=== PATIENT | female | born 1980 | race Caucasian/White ===

== ENCOUNTER 2017-03-28 18:19 | Inpatient (IN) | payer OTHER ==
[~2017-03-28] VITALS: Ht 175.3 cm; Wt 83.2 kg
[~2017-03-28 18:19] MED LIST: ADDE30TA PO; ALBUAER3 INH; ALPR1 PO; CELE50CA PO; HYDR-3533 PO; IMIT25TA PO; ORTHTAB2 PO; OXYC30TA PO; OXYC5 PO; XANA1TAB2 PO
[2017-03-28 18:20] VITALS: BP 157/74; PULSE 106; RESP 20; TEMP 97.9; O2SAT 99
--- NOTE | 2017-03-28 19:09 | PD ---
HPI Chief Complaint: Skin Problem Time Seen by Provider: 19:08 Travel History International Travel<30 days: No Contact w/Intl Traveler<30days: No Traveled to known affect area: No History of Present Illness HPI 36-year-old female came to the emergency room with history of left ankle and leg swelling. Patient had an infection in that area that was noticed today days ago. She was at [facility] where she was given Bactrim and Keflex to go home on. Patient says this was given for 7 days. She finished the course but it seems like the infection is getting worse. Patient has fever and chills she says. Patient denies doing any IV drug abuse. Heart rate was in 1 teens. Patient was afebrile in the emergency room. Patient is on OxyContin at home for chronic pain management. [facility] Past Medical History Narrative Medical List of her past medical, surgical, social and family history is reviewed from the nursing note. Cancer: Yes (CERVICAL CA) Cardiovascular Problems: No Endocrine: No Gastrointestinal Disorders: Yes GERD: Yes Genitourinary: No Immune Disorder: No Musculoskeletal: No Neurologic: Yes Psychiatric: Yes (ADD) Reproductive: Yes (CERVICAL CA) Respiratory: No Migraines: Yes ?: Unknown LMP: 03/14/2017 Past Surgical History Gynecologic Surgery: Yes (CERVIX PARTIALLY REMOVED) Other Surgery: Yes Social History Alcohol Use: No Tobacco Use: Yes (1ppd) Substance Use: Yes (PAIN PILL ABUSE) Allergies-Medications (Allergen,Severity, Reaction): Coded Allergies: ketorolac (Unverified Allergy, Severe, Anaphylaxis, 12/06/16) THROAT WAS SWELLING CLOSED morphine (Unverified Allergy, Mild, 04/04/17) Comments List of her allergies reviewed on the nursing note. Reported Meds & Prescriptions Reported Meds & Active Scripts Active Reported Ortho Tri-Cyclen (Norgestimate-Ethinyl Estradiol) Cyclen Tab 1 Tab PO DAILY Xanax 1 Mg Tab (Alprazolam) 1 Mg Tab 2 Mg PO BID Oxycodone (Oxycodone HCl) 5 Mg Tab 30 Mg PO Q6HPRN Adderall (Amphetamine/Dextroamphetamine) 30 Mg Tab 30 Mg PO DAILY ADDERALL XR 30MG 1 TAB DAILY Xanax (Alprazolam) 1 Mg Tab 1 Mg PO Q12HR PRN Proair Hfa 8.5 GM Inh (Albuterol Sulfate) 90 Mcg/Act Aer 2 Puff INH Q4-6H PRN 108 mcg/actuation Imitrex (Sumatriptan Succinate) 25 Mg Tab 25 Mg PO ONCE PRN If a satisfactory response has not been obtained at 2 hours, a second dose may be administered Celebrex (Celecoxib) 50 Mg Cap 50 Mg PO BID Oxycodone (Oxycodone HCl) 30 Mg Tab 30 Mg PO Q6H PRN Narrative Medication List of her home medications reviewed from the nursing note. Review of Systems Except as stated in HPI: all other systems reviewed are Neg Skin: Positive Lumps Physical Exam Narrative GENERAL: Awake, alert, moderate distress SKIN: Focused skin assessment warm/dry. Pale. Left leg lateral malleolus fluctuant 4 x 4 centimeter swelling and surrounding induration that goes up to 15 cm HEAD: Atraumatic. Normocephalic. EYES: Pupils equal and round. No scleral icterus. No injection or drainage. ENT: No nasal bleeding or discharge. Mucous membranes pink and moist. NECK: Trachea midline. No JVD. CARDIOVASCULAR: Regular rate and rhythm. No murmur appreciated. RESPIRATORY: No accessory muscle use. Clear to auscultation. Breath sounds equal bilaterally. GASTROINTESTINAL: Abdomen soft, non-tender, nondistended. Hepatic and splenic margins not palpable. MUSCULOSKELETAL: No obvious deformities. No clubbing. No cyanosis. No edema. Absent left upper extremity. NEUROLOGICAL: Awake and alert. No obvious cranial nerve deficits. Motor grossly within normal limits. Normal speech. PSYCHIATRIC: Appropriate mood and affect; insight and judgment normal. Data Data Last Documented VS Orders Orders Complete Blood Count With Diff (03/28/17 18:26) Basic Metabolic Panel (Bmp) (03/28/17 18:26) Ankle, Limited (Ap&Lat) (03/28/17 ) Blood Culture (03/28/17 19:12) Lactic Acid (03/28/17 19:12) Ct Tib/Fib W Iv Contrast (03/28/17 ) Piperacil-Tazo 4.5 Gm Premix (Zosyn 4.5 (03/28/17 19:15) Vancomycin Inj (Vancomycin Inj) (03/28/17 19:15) Sodium Chlor 0.9% 1000 Ml Inj (Ns 1000 M (03/28/17 19:30) Sodium Chlor 0.9% 1000 Ml Inj (Ns 1000 M (03/28/17 19:30) Drug Screen, Random Urine (03/28/17 19:22) Potassium Chloride (Kcl) (03/28/17 20:30) Iohexol 350 Inj (Omnipaque 350 Inj) (03/28/17 20:56) Ibuprofen (Motrin) (03/28/17 21:15) Admit Order (Ed Use Only) (03/28/17 22:17) Labs Laboratory Tests Test 03/28/17 19:34 03/28/17 19:35 03/28/17 20:30 Lactic Acid Level 1.2 mmol/L White Blood Count 10.4 TH/MM3 Red Blood Count 5.17 MIL/MM3 Hemoglobin 12.9 GM/DL Hematocrit 39.0 % Mean Corpuscular Volume 75.4 FL Mean Corpuscular Hemoglobin 25.0 PG Mean Corpuscular Hemoglobin Concent 33.1 % Red Cell Distribution Width 17.7 % Platelet Count 437 TH/MM3 Mean Platelet Volume 7.3 FL Neutrophils (%) (Auto) 71.6 % Lymphocytes (%) (Auto) 19.8 % Monocytes (%) (Auto) 7.3 % Eosinophils (%) (Auto) 1.0 % Basophils (%) (Auto) 0.3 % Neutrophils # (Auto) 7.4 TH/MM3 Lymphocytes # (Auto) 2.1 TH/MM3 Monocytes # (Auto) 0.8 TH/MM3 Eosinophils # (Auto) 0.1 TH/MM3 Basophils # (Auto) 0.0 TH/MM3 CBC Comment DIFF FINAL Differential Comment Blood Urea Nitrogen 11 MG/DL Creatinine 0.65 MG/DL Random Glucose 105 MG/DL Calcium Level 9.2 MG/DL Sodium Level 134 MEQ/L Potassium Level 3.4 MEQ/L Chloride Level 98 MEQ/L Carbon Dioxide Level 25.9 MEQ/L Anion Gap 10 MEQ/L Estimat Glomerular Filtration Rate 104 ML/MIN Urine Opiates Screen POS Urine Barbiturates Screen NEG Urine Amphetamines Screen NEG Urine Benzodiazepines Screen NEG Urine Cocaine Screen NEG Urine Cannabinoids Screen NEG MDM Medical Decision Making Medical Screen Exam Complete: Yes Emergency Medical Condition: Yes Medical Record Reviewed: Yes Differential Diagnosis Ankle abscess, sepsis, osteomyelitis Narrative Course 7:21 PM awaiting for the blood test and CAT scan to be done and resulted. Patient will be getting IV Zosyn and vancomycin. I will also give her IV fluid bolus 2 L. She will require admission for outpatient treatment failure. 10:[address] scan is suggestive off an extensive abscess in her left lower extremity that extends all the way into the gastrocnemius muscle. I discussed the case with Dr. Donohue who is on-call for orthopedics. She will look at the CT scan. Meanwhile patient needs to be admitted. In my opinion this patient needs to go to the OR to have this abscess opened and drained. Procedures EKG Prior to Arrival: No Physician Communication Physician Communication Dr. Donohue Diagnosis Primary Impression: Leg abscess Additional Impression: Failure of outpatient treatment Admitting Information Admitting Physician Requests: Admit Latonia Loyd MD Mar 28, 2017 19:09
[2017-03-28] MEDS ORDERED: PIPERACIL-TAZO 4.5 GM PREMIX 100 ML IV ONE (19:15)
[2017-03-28] MEDS ORDERED: VANCOMYCIN INJ 1,000 MG in SODIUM CHLOR 0.9% 250 ML INJ 250 ML IV SCH (19:15)
[2017-03-28] MEDS ORDERED: SODIUM CHLOR 0.9% 1000 ML INJ 1,000 ML IV ONE ×2 (19:30)
[2017-03-28 19:59] LABS: AUTOMATED NEUTROPHIL # 7.4 TH/MM3 (1.8-7.7); BASOPHIL % 0.3 % (0.0-2.0); EOSINOPHIL # 0.1 TH/MM3 (0-0.4); HEMOGLOBIN 12.9 GM/DL (11.6-15.3); LYMPH % 19.8 % (9.0-44.0); LYMPHOCYTE # 2.1 TH/MM3 (1.0-4.8); MEAN CELL VOLUME 75.4 FL (80.0-100.0); MEAN CORPUSCULAR HGB CONC 33.1 % (32.0-36.0); MEAN PLATELET VOLUME 7.3 FL (7.0-11.0); MONO % 7.3 % (0.0-8.0); MONOCYTE # 0.8 TH/MM3 (0-0.9); NEUT % 71.6 % (16.0-70.0); PLATELET COUNT 437 TH/MM3 (150-450); RED BLOOD COUNT 5.17 MIL/MM3 (4.00-5.30); RED CELL DISTRIBUTION WIDTH 17.7 % (11.6-17.2); WHITE BLOOD COUNT 10.4 TH/MM3 (4.0-11.0)
[2017-03-28 20:20] LABS: BICARBONATE 25.9 MEQ/L (21.0-32.0); CALCIUM 9.2 MG/DL (8.5-10.1); CREATININE 0.65 MG/DL (0.50-1.00)
[2017-03-28] MEDS ORDERED: POTASSIUM CHLORIDE 20 MEQ CONTROLLED RELEASE TAB PO ONE (20:30)
[2017-03-28] MEDS ORDERED: IOHEXOL 350 MG/ML 10 ML VIAL (for RAD DIAG) IVCONTRAST ONE (20:56)
--- NOTE | 2017-03-28 21:00 | RADRPT ---
EXAM DATE/TIME: 03/28/2017 18:46 [facility] COMPARISON: No previous studies available for comparison. INDICATIONS : Pain in left ankle complaint on lateral side of ankle, skin complaint. MEDICAL HISTORY : None. SURGICAL HISTORY : None. ENCOUNTER: Initial ACUITY: 2 weeks PAIN SCORE: 5/10 LOCATION: Left ankle FINDINGS: There is focal soft tissue swelling involving the left upper ankle laterally which is nonspecific. Th ere is no underlying fracture or dislocation of the left ankle. The ankle mortise is intact. CONCLUSION: Focal soft tissue swelling involving the left upper ankle laterally which is nonspecific. No acute fr acture or dislocation. Ajit Ramos MD on March 28, 2017 at 20:58 Board Certified Radiologist. This report was verified electronically.
[2017-03-28] MEDS ORDERED: IBUPROFEN 800 MG TAB PO ONE (21:15)
--- NOTE | 2017-03-28 21:55 | RADRPT ---
EXAM DATE/TIME: 03/28/2017 20:49 [facility] COMPARISON: No previous studies available for comparison. INDICATIONS : Left lateral lower extremity redness and swelling, evaluate for abscess. IV CONTRAST: 85 cc Omnipaque 350 (iohexol) IV RADIATION DOSE: 7.29 CTDIvol (mGy) MEDICAL HISTORY : None SURGICAL HISTORY : None. ENCOUNTER: Initial ACUITY: 2 days PAIN SCALE: 8/10 LOCATION: Left lateral ankle. TECHNIQUE: Volumetric scanning of the tibia and fibula was performed. Using automated exposure control and adju stment of the mA and/or kV according to patient size, radiation dose was kept as low as reasonably ac hievable to obtain optimal diagnostic quality images. DICOM format image data is available [facility] for review and comparison. FINDINGS: There is a large rim-enhancing fluid collection extending along the lateral aspect of the left lower leg and lateral gastricnemius muscle which extends from the upper calf to the ankle and measures at l east 25 cm in length. This collection appears to bulge outward within the lower aspect and measures 4 .3 cm AP by 4.1 cm transverse at the level of the upper ankle. Differential includes large hematoma, seroma or abscess. Clinical correlation is recommended. CONCLUSION: Large rim-enhancing fluid collection extending along the lateral aspect of the left lower leg and lat eral gastricnemius muscle which extends from the upper calf to the ankle and measures at least 25 cm in length. This collection appears to bulge outward within the lower aspect and measures 4.3 cm AP by 4.1 cm transverse at the level of the upper ankle. Differential includes large hematoma, seroma or a bscess. Clinical correlation is recommended. Ajit Ramos MD on March 28, 2017 at 21:45 Board Certified Radiologist. This report was verified electronically.
[2017-03-28] MEDS ORDERED: NALOXONE HCL 0.4 MG/ML AMP IV PUSH PRN (22:30)
[2017-03-28] MEDS ORDERED: Vancomycin Consult Pharmacy 1 EA OTHER SCH (22:30)
[2017-03-28] MEDS: VANCOMYCIN INJ 1,250 MG in SODIUM CHLOR 0.9% 250 ML INJ 250 ML IV SCH (23:41)
[2017-03-29] MEDS: PIPERACIL-TAZO 4.5 GM PREMIX 100 ML IV SCH ×4 (02:51→21:15)
[2017-03-29 04:00] VITALS: BP 120/67; PULSE 73; RESP 18; TEMP 98.1; O2SAT 98
[2017-03-29] MEDS: SODIUM CHLORIDE 0.9% FLUSH 10 ML FLUSH IV FLUSH PRN (06:20)
[2017-03-29] MEDS: HYDROmorphone HCL PF 1 MG/ML VIAL IV PUSH PRN ×5 (06:22→23:03)
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
[2017-03-29 08:00] VITALS: BP 143/69; PULSE 65; RESP 18; TEMP 98.4; O2SAT 98
[2017-03-29] MEDS: ONDANSETRON HCL 4 MG/2 ML VIAL IV PUSH PRN ×3 (08:13→21:16)
[2017-03-29] MEDS: SODIUM CHLORIDE 0.9% FLUSH 10 ML FLUSH IV FLUSH SCH ×2 (08:20→21:00)
--- NOTE | 2017-03-29 08:46 | HHI.PR ---
Subjective Remarks in no acute distress. afebrile. has some pain to the left ankle. Objective Vitals Vital Signs Date Time Temp Pulse Resp B/P (MAP) Pulse Ox O2 Delivery O2 Flow Rate FiO2 03/29/17 08:00 98.4 65 18 143/69 (93) 98 03/29/17 04:54 03/29/17 04:00 98.1 73 18 120/67 (84) 98 03/28/17 18:20 97.9 106 20 157/74 (101) 99 Room Air I/O 03/28/17 03/28/17 03/28/17 03/29/17 03/29/17 03/29/17 07:00 15:00 23:00 07:00 15:00 23:00 Intake Total 2100 ml 250 ml Balance 2100 ml 250 ml Intake IV Total 2100 ml 250 ml Result Diagram: 03/28/17193403/28/171934 Imaging Last Impressions Lower Extremity CT 03/28/17 0000 Signed Impressions: Service Date/Time: Tuesday, March 28, 2017 20:49 - CONCLUSION: Large rim-enhancing fluid collection extending along the lateral aspect of the left lower leg and lateral gastricnemius muscle which extends from the upper calf to the ankle and measures at least 25 cm in length. This collection appears to bulge outward within the lower aspect and measures 4.3 cm AP by 4.1 cm transverse at the level of the upper ankle. Differential includes large hematoma, seroma or abscess. Clinical correlation is recommended. Ajit Ramos MD Ankle X-Ray 03/28/17 0000 Signed Impressions: Service Date/Time: Tuesday, March 28, 2017 18:46 - CONCLUSION: Focal soft tissue swelling involving the left upper ankle laterally which is nonspecific. No acute fracture or dislocation. Ajit Ramos MD Objective Remarks GENERAL: This is a well-nourished, well-developed patient, in no apparent distress. CARDIOVASCULAR: Regular rate and regular rhythm without murmurs, gallops, or rubs. RESPIRATORY: Clear to auscultation. Breath sounds equal bilaterally. No wheezes , rales, or rhonchi. GASTROINTESTINAL: Abdomen soft, non-tender, nondistended. Normal, active bowel sounds MUSCULOSKELETAL: swelling/ erythema and tenderness over the left ankle. NEURO: Alert & Oriented x4 to person, place, time, situation. Moves all ext x4 Medications and IVs Current Medications Piperacillin Sod/ Tazobactam Sod 100 ml @ 200 mls/hr ONCE ONCE IV Last administered on 03/28/17 19:35; Start 03/28/17 at 19:15; Stop 03/28/17 at 19:44 ; Status DC Vancomycin HCl 1000 mg/Sodium Chloride 250 ml @ 250 mls/hr [employer] LEAD IV ; Start 03/28/17 at 19:15; Stop 03/31/17 at 19:14 Sodium Chloride 1,000 ml @ 999 mls/hr BOLUS ONCE IV Last administered on 03/28 19:58; Start 03/28/17 at 19:30; Stop 03/28/17 at 20:30; Status DC Sodium Chloride 1,000 ml @ 999 mls/hr BOLUS ONCE IV Last administered on 03/28 19:58; Start 03/28/17 at 19:30; Stop 03/28/17 at 20:30; Status DC Potassium Chloride (KCl) 20 meq ONCE ONCE PO Last administered on 03/28/17 21 :15; Start 03/28/17 at 20:30; Stop 03/28/17 at 20:31; Status DC Iohexol (Omnipaque 350 Inj) 85 ml STK-MED ONCE IVCONTRAST Last administered on 03/28/17 20:56; Start 03/28/17 at 20:56; Stop 03/28/17 at 20:57; Status DC Ibuprofen (Motrin) 800 mg ONCE ONCE PO Last administered on 03/28/17 21:15; Start 03/28/17 at 21:15; Stop 03/28/17 at 21:16; Status DC Sodium Chloride (NS Flush) 2 ml UNSCH PRN IV FLUSH FLUSH AFTER USING IV ACCESS Last administered on 03/29/17 06:20; Start 03/28/17 at 22:30 Sodium Chloride (NS Flush) 2 ml BID IV FLUSH Last administered on 03/29/17 08: 20; Start 03/29/17 at 09:00 Naloxone HCl (Narcan Inj) 0.4 mg UNSCH PRN IV PUSH SEE LABEL COMMENTS; Start 03/28/17 at 22:30 Pharmacy Profile Note 0 ml @ 0 mls/hr UNSCH OTHER ; Start 03/28/17 at 22:30 Piperacillin Sod/ Tazobactam Sod 100 ml @ 200 mls/hr Q6H IV Last administered on 03/29/17 08:13; Start 03/29/17 at 02:00 Vancomycin HCl 1250 mg/Sodium Chloride 262.5 ml @ 250 mls/hr Q12H IV Last administered on 03/28/17 23:41; Start 03/28/17 at 23:00 Miscellaneous Information SPECIFIC LAB TO BE ... ONCE ONCE .XX ; Start 03/30 at 10:45; Stop 03/30/17 at 10:46 Hydromorphone HCl (Dilaudid Pf Inj) 0.2 mg Q4H PRN IV PUSH pain >5 Last administered on 03/29/17 06:22; Start 03/29/17 at 06:00 Ondansetron HCl (Zofran Inj) 4 mg Q6HR PRN IV PUSH nausea/vomiting Last administered on 03/29/17 08:13; Start 03/29/17 at 07:00 A/P Problem List: (1) Leg abscess ICD Code: L02.419 - Cutaneous abscess of limb, unspecified Status: Acute (2) Failure of outpatient treatment ICD Code: Z78.9 - Other specified health status Status: Acute (3) Hypokalemia ICD Code: E87.6 - Hypokalemia Assessment and Plan Large left leg abscess with failure of outpatient therapy - Antibiotics: Zosyn 4.5 g q6h IV and IV vancomycin with pharmacy consultation for therapeutic dosing and monitoring - Dr. Donohue consulted - patient will likely need surgical intervention - Dilaudid 0.2 mg IV q4h PRN pain - continuous cardiac telemetry to monitor for cardiac arrhythmia - Zofran 4 mg IV q6h PRN n/v Hypokalemia - K+ 3.4 on admission - replaced in ED - repeat BMP - follow results and replace potassium as needed Tobacco Abuse - advised cessation of smoking Angelina Ayala MD Mar 29, 2017 08:46
[2017-03-29] MEDS: VANCOMYCIN INJ 1,250 MG in SODIUM CHLOR 0.9% 250 ML INJ 250 ML IV SCH ×2 (11:49→23:02)
[2017-03-29 12:00] VITALS: BP 123/62; PULSE 46; RESP 18; TEMP 98.4; O2SAT 98
[2017-03-29 16:00] VITALS: BP 115/58; PULSE 56; RESP 18; TEMP 98; O2SAT 98
[2017-03-29] MEDS ORDERED: GENTAMICIN SULFATE 80 MG/2 ML VIAL ONE (17:32)
[2017-03-29 18:24] LABS: AUTOMATED NEUTROPHIL # 6.2 TH/MM3 (1.8-7.7); BASOPHIL % 0.5 % (0.0-2.0); HEMATOCRIT 38.3 % (35.0-46.0); HEMOGLOBIN 12.7 GM/DL (11.6-15.3); LYMPH % 18.3 % (9.0-44.0); LYMPHOCYTE # 1.5 TH/MM3 (1.0-4.8); MEAN CELL VOLUME 75.6 FL (80.0-100.0); MEAN CORPUSCULAR HEMOGLOBIN 25.1 PG (27.0-34.0); MEAN CORPUSCULAR HGB CONC 33.2 % (32.0-36.0); MEAN PLATELET VOLUME 8.2 FL (7.0-11.0); MONO % 6.3 % (0.0-8.0); MONOCYTE # 0.5 TH/MM3 (0-0.9); NEUT % 74.9 % (16.0-70.0); PLATELET COUNT 308 TH/MM3 (150-450); RED BLOOD COUNT 5.06 MIL/MM3 (4.00-5.30); RED CELL DISTRIBUTION WIDTH 17.1 % (11.6-17.2); WHITE BLOOD COUNT 8.3 TH/MM3 (4.0-11.0)
[2017-03-29 18:48] LABS: BICARBONATE 25.8 MEQ/L (21.0-32.0); CALCIUM 8.9 MG/DL (8.5-10.1); CREATININE 0.67 MG/DL (0.50-1.00)
[2017-03-29 20:00] VITALS: BP 119/69; PULSE 76; RESP 18; TEMP 98.4; O2SAT 95
[2017-03-30] VITALS: BP 141/65; PULSE 71; RESP 18; TEMP 98.2; O2SAT 96
[2017-03-30] MEDS: PIPERACIL-TAZO 4.5 GM PREMIX 100 ML IV SCH ×4 (01:51→21:06)
[2017-03-30] MEDS: HYDROmorphone HCL PF 1 MG/ML VIAL IV PUSH PRN ×4 (02:14→21:06)
[2017-03-30 04:00] VITALS: BP 145/85; PULSE 59; RESP 18; TEMP 99; O2SAT 100
[2017-03-30] MEDS: ONDANSETRON HCL 4 MG/2 ML VIAL IV PUSH PRN ×2 (04:24→10:42)
[2017-03-30] MEDS: SODIUM CHLORIDE 0.9% FLUSH 10 ML FLUSH IV FLUSH PRN (06:24)
[2017-03-30 08:00] VITALS: BP 140/63; PULSE 53; RESP 18; TEMP 98.5; O2SAT 97
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
--- NOTE | 2017-03-30 09:26 | HHI.PR ---
Subjective Remarks in no acute distress. afebrile. looks comfortable. awaiting surgical intervention. Objective Vitals Vital Signs Date Time Temp Pulse Resp B/P (MAP) Pulse Ox O2 Delivery O2 Flow Rate FiO2 03/30/17 08:00 98.5 53 18 140/63 (88) 97 03/30/17 04:00 99.0 59 18 145/85 (105) 100 03/30/17 00:00 98.2 71 18 141/65 (90) 96 03/29/17 20:00 98.4 76 18 119/69 (86) 95 03/29/17 16:00 98.0 56 18 115/58 (77) 98 03/29/17 12:00 98.4 46 18 123/62 (82) 98 I/O 03/29/17 03/29/17 03/29/17 03/30/17 03/30/17 03/30/17 07:00 15:00 23:00 07:00 15:00 23:00 Intake Total 250 ml 450 ml 450 ml Balance 250 ml 450 ml 450 ml Intake IV Total 250 ml 450 ml 450 ml # Voids 5 Result Diagram: 03/29/17 1743 03/29/17 1743 Imaging Last Impressions Lower Extremity CT 03/28/17 0000 Signed Impressions: Service Date/Time: Tuesday, March 28, 2017 20:49 - CONCLUSION: Large rim-enhancing fluid collection extending along the lateral aspect of the left lower leg and lateral gastricnemius muscle which extends from the upper calf to the ankle and measures at least 25 cm in length. This collection appears to bulge outward within the lower aspect and measures 4.3 cm AP by 4.1 cm transverse at the level of the upper ankle. Differential includes large hematoma, seroma or abscess. Clinical correlation is recommended. Ajit Ramos MD Ankle X-Ray 03/28/17 0000 Signed Impressions: Service Date/Time: Tuesday, March 28, 2017 18:46 - CONCLUSION: Focal soft tissue swelling involving the left upper ankle laterally which is nonspecific. No acute fracture or dislocation. Ajit aRmos MD Objective Remarks GENERAL: This is a well-nourished, well-developed patient, in no apparent distress. CARDIOVASCULAR: Regular rate and regular rhythm without murmurs, gallops, or rubs. RESPIRATORY: Clear to auscultation. Breath sounds equal bilaterally. No wheezes , rales, or rhonchi. GASTROINTESTINAL: Abdomen soft, non-tender, nondistended. Normal, active bowel sounds MUSCULOSKELETAL: swelling/ erythema and tenderness over the left ankle. NEURO: Alert & Oriented x4 to person, place, time, situation. Moves all ext x4 Medications and IVs Current Medications Piperacillin Sod/ Tazobactam Sod 100 ml @ 200 mls/hr ONCE ONCE IV Last administered on 03/28/17 19:35; Start 03/28/17 at 19:15; Stop 03/28/17 at 19:44 ; Status DC Vancomycin HCl 1000 mg/Sodium Chloride 250 ml @ 250 mls/hr [employer] INSTRUCTOR IV ; Start 03/28/17 at 19:15; Stop 03/31/17 at 19:14 Sodium Chloride 1,000 ml @ 999 mls/hr BOLUS ONCE IV Last administered on 03/28 19:58; Start 03/28/17 at 19:30; Stop 03/28/17 at 20:30; Status DC Sodium Chloride 1,000 ml @ 999 mls/hr BOLUS ONCE IV Last administered on 03/28 19:58; Start 03/28/17 at 19:30; Stop 03/28/17 at 20:30; Status DC Potassium Chloride (KCl) 20 meq ONCE ONCE PO Last administered on 03/28/17 21 :15; Start 03/28/17 at 20:30; Stop 03/28/17 at 20:31; Status DC Iohexol (Omnipaque 350 Inj) 85 ml STK-MED ONCE IVCONTRAST Last administered on 03/28/17 20:56; Start 03/28/17 at 20:56; Stop 03/28/17 at 20:57; Status DC Ibuprofen (Motrin) 800 mg ONCE ONCE PO Last administered on 03/28/17 21:15; Start 03/28/17 at 21:15; Stop 03/28/17 at 21:16; Status DC Sodium Chloride (NS Flush) 2 ml UNSCH PRN IV FLUSH FLUSH AFTER USING IV ACCESS Last administered on 03/30/17 06:24; Start 03/28/17 at 22:30 Sodium Chloride (NS Flush) 2 ml BID IV FLUSH Last administered on 03/29/17 21: 00; Start 03/29/17 at 09:00 Naloxone HCl (Narcan Inj) 0.4 mg UNSCH PRN IV PUSH SEE LABEL COMMENTS; Start 03/28/17 at 22:30 Pharmacy Profile Note 0 ml @ 0 mls/hr UNSCH OTHER ; Start 03/28/17 at 22:30 Piperacillin Sod/ Tazobactam Sod 100 ml @ 200 mls/hr Q6H IV Last administered on 03/30/17 01:51; Start 03/29/17 at 02:00 Vancomycin HCl 1250 mg/Sodium Chloride 262.5 ml @ 250 mls/hr Q12H IV Last administered on 03/29/17 23:02; Start 03/28/17 at 23:00 Miscellaneous Information SPECIFIC LAB TO BE ... ONCE ONCE .XX ; Start 03/30 at 10:45; Stop 03/30/17 at 10:46 Hydromorphone HCl (Dilaudid Pf Inj) 0.2 mg Q4H PRN IV PUSH pain >5 Last administered on 03/30/17 06:23; Start 03/29/17 at 06:00 Ondansetron HCl (Zofran Inj) 4 mg Q6HR PRN IV PUSH nausea/vomiting Last administered on 03/30/17 04:24; Start 03/29/17 at 07:00 Gentamicin Sulfate (Gentamicin Inj) 240 mg STK-MED ONCE .ROUTE ; Start 03/29/17 at 17:32; Stop 03/29/17 at 17:33; Status DC A/P Problem List: (1) Leg abscess ICD Code: L02.419 - Cutaneous abscess of limb, unspecified Status: Acute (2) Failure of outpatient treatment ICD Code: Z78.9 - Other specified health status Status: Acute (3) Hypokalemia ICD Code: E87.6 - Hypokalemia Assessment and Plan Large left leg abscess with outpatient therapy failure - Antibiotics: Zosyn 4.5 g q6h IV and IV vancomycin with pharmacy consultation for therapeutic dosing and monitoring - Dr. Donohue consulted - plan for I/D and possible wound vac placement. - continue pain control. - Zofran 4 mg IV q6h PRN n/v Hypokalemia - K+ 3.4 on admission - replaced in ED - repeat BMP - follow results and replace potassium as needed Tobacco Abuse - advised cessation of smoking Angelina Ayala MD Mar 30, 2017 09:26
[2017-03-30] MEDS ORDERED: PHARMACY ORDERED LAB ONE ×2 (10:45→22:45)
[2017-03-30] MEDS ORDERED: MIDAZOLAM HCL 2 MG/2 ML VIAL IV ONE (12:00)
[2017-03-30] MEDS ORDERED: LIDOCAINE HCL 1% PF 5 ML SYRINGE OTHER ONE (12:00)
[2017-03-30] MEDS ORDERED: PROPOFOL 200 MG/20 ML AMP IV ONE (12:00)
[2017-03-30] MEDS ORDERED: GENTAMICIN SULFATE 80 MG/2 ML VIAL ONE ×2 (12:19→13:18)
[2017-03-30] MEDS ORDERED: CHLORHEXIDINE GLUCONATE 2 % 1 PACK (2 CLOTHS) TOPICAL PRN (14:15)
[2017-03-30] MEDS ORDERED: METOPROLOL TARTRATE 25 MG TAB PO PRN (14:15)
[2017-03-30] MEDS ORDERED: LACTATED RINGER'S 1000 ML IV PRN (14:15)
[2017-03-30] MEDS: VANCOMYCIN INJ 1,250 MG in SODIUM CHLOR 0.9% 250 ML INJ 250 ML IV SCH (14:15)
[2017-03-30] MEDS ORDERED: POVIDONE IODINE 5% (ANTISEPSIS KIT) 4 APPLICATIONS EACH NARE PRN (14:15)
[2017-03-30] MEDS ORDERED: SODIUM CHLORID 0.9% 500 ML IV PRN (14:15)
[2017-03-30] MEDS ORDERED: Post-op Orders (for Pharmacy) XX ONE (15:15)
[2017-03-30] MEDS ORDERED: SODIUM CHLORIDE 0.9% FLUSH 10 ML FLUSH IV FLUSH PRN (15:15)
--- NOTE | 2017-03-30 15:17 | HHI.PR ---
cc: Tamara Donohue MD Immediate Post Op Note Procedure Date: Mar 30, 2017 Pre Op Diagnosis: Left lower leg deep abscess Post Op Diagnosis: same Surgeon: Tamara Donohue Instructor Warper(s): none Procedure: Irrigation and debridement left lower leg with application of wound vac Complications: none Specimen(s) removed: Cultures to lab Estimated blood loss: 100mL Anesthesia: General Drains: None IVF Patient to: PACU Patient Condition: Good Date/Time of Procedure: SEE SURGICAL CARE RECORD Tamara Donohue MD Mar 30, 2017 15:17
[2017-03-30] MEDS ORDERED: HYDROmorphone HCL PF 2 MG/ML VIAL ONE (15:18)
[2017-03-30 16:00] VITALS: BP 135/83; PULSE 71; RESP 18; TEMP 98; O2SAT 98
[2017-03-30] MEDS: SODIUM CHLORIDE 0.9% FLUSH 10 ML FLUSH IV FLUSH SCH ×2 (21:00→21:06)
[2017-03-30] MEDS ORDERED: SODIUM CHLORIDE 0.9% FLUSH 10 ML FLUSH IV FLUSH SCH (21:00)
[2017-03-30 21:15] VITALS: BP 152/82; PULSE 71; RESP 16; TEMP 98.2; O2SAT 95
[2017-03-31 00:49] VITALS: BP 116/86; PULSE 89; RESP 18; TEMP 98.4; O2SAT 92
[2017-03-31] MEDS: HYDROmorphone HCL PF 1 MG/ML VIAL IV PUSH PRN ×3 (01:09→18:42)
[2017-03-31] MEDS: SODIUM CHLORIDE 0.9% FLUSH 10 ML FLUSH IV FLUSH PRN ×2 (01:10→06:08)
[2017-03-31] MEDS: VANCOMYCIN INJ 1,250 MG in SODIUM CHLOR 0.9% 250 ML INJ 250 ML IV SCH ×3 (01:18→23:00)
[2017-03-31] MEDS: PIPERACIL-TAZO 4.5 GM PREMIX 100 ML IV SCH ×4 (02:00→21:33)
[2017-03-31 06:25] VITALS: BP 138/64; PULSE 70; RESP 18; TEMP 99.7; O2SAT 95
[2017-03-31 08:05] VITALS: BP 139/75; PULSE 79; RESP 18; TEMP 100.3; O2SAT 97
[2017-03-31] MEDS: SODIUM CHLORIDE 0.9% FLUSH 10 ML FLUSH IV FLUSH SCH ×2 (09:00→21:33)
--- NOTE | 2017-03-31 10:06 | HHI.PR ---
Subjective Remarks in no acute distress. complaining of moderate pain to the left leg. afebrile. had some loose BM over night. d/w the RN. Objective Vitals Vital Signs Date Time Temp Pulse Resp B/P (MAP) Pulse Ox O2 Delivery O2 Flow Rate FiO2 03/31/17 06:25 99.7 70 18 138/64 (88) 95 03/31/17 00:49 98.4 89 18 116/86 (96) 92 03/30/17 21:15 98.2 71 16 152/82 (105) 95 03/30/17 16:00 98.0 71 18 135/83 (100) 98 03/30/17 15:45 61 16 139/87 (104) 99 Room Air 03/30/17 15:30 61 16 145/85 (105) 99 Room Air 03/30/17 15:25 98.2 72 16 141/62 (88) 99 Room Air I/O 03/30/17 03/30/17 03/30/17 03/31/17 03/31/17 03/31/17 07:00 15:00 23:00 07:00 15:00 23:00 Intake Total 600 ml 362.5 ml Output Total 25 ml Balance 575 ml 362.5 ml Intake IV Total 100 ml 362.5 ml Other 500 ml Output Estimated Blood Loss 25 ml # Voids 8 3 2 # Bowel Movements 2 1 Result Diagram: 03/29/17 1743 03/29/17 1743 Imaging Last Impressions Lower Extremity CT 03/28/17 0000 Signed Impressions: Service Date/Time: Tuesday, March 28, 2017 20:49 - CONCLUSION: Large rim-enhancing fluid collection extending along the lateral aspect of the left lower leg and lateral gastricnemius muscle which extends from the upper calf to the ankle and measures at least 25 cm in length. This collection appears to bulge outward within the lower aspect and measures 4.3 cm AP by 4.1 cm transverse at the level of the upper ankle. Differential includes large hematoma, seroma or abscess. Clinical correlation is recommended. Ajit Ramos MD Ankle X-Ray 03/28/17 0000 Signed Impressions: Service Date/Time: Tuesday, March 28, 2017 18:46 - CONCLUSION: Focal soft tissue swelling involving the left upper ankle laterally which is nonspecific. No acute fracture or dislocation. Ajit Ramos MD Objective Remarks GENERAL: This is a well-nourished, well-developed patient, in no apparent distress. CARDIOVASCULAR: Regular rate and regular rhythm without murmurs, gallops, or rubs. RESPIRATORY: Clear to auscultation. Breath sounds equal bilaterally. No wheezes , rales, or rhonchi. GASTROINTESTINAL: Abdomen soft, non-tender, nondistended. Normal, active bowel sounds MUSCULOSKELETAL: swelling/ erythema and tenderness over the left ankle. NEURO: Alert & Oriented x4 to person, place, time, situation. Moves all ext x4 Procedures I/D of the left ankle abscess/ wound vac placement. Medications and IVs Current Medications Piperacillin Sod/ Tazobactam Sod 100 ml @ 200 mls/hr ONCE ONCE IV Last administered on 03/28/17 19:35; Start 03/28/17 at 19:15; Stop 03/28/17 at 19:44 ; Status DC Vancomycin HCl 1000 mg/Sodium Chloride 250 ml @ 250 mls/hr AG EQUIPMENT FIELD SERVICE TECHNICIAN IV ; Start 03/28/17 at 19:15; Stop 03/31/17 at 19:14 Sodium Chloride 1,000 ml @ 999 mls/hr BOLUS ONCE IV Last administered on 03/28 19:58; Start 03/28/17 at 19:30; Stop 03/28/17 at 20:30; Status DC Sodium Chloride 1,000 ml @ 999 mls/hr BOLUS ONCE IV Last administered on 03/28 19:58; Start 03/28/17 at 19:30; Stop 03/28/17 at 20:30; Status DC Potassium Chloride (KCl) 20 meq ONCE ONCE PO Last administered on 03/28/17 21 :15; Start 03/28/17 at 20:30; Stop 03/28/17 at 20:31; Status DC Iohexol (Omnipaque 350 Inj) 85 ml STK-MED ONCE IVCONTRAST Last administered on 03/28/17 20:56; Start 03/28/17 at 20:56; Stop 03/28/17 at 20:57; Status DC Ibuprofen (Motrin) 800 mg ONCE ONCE PO Last administered on 03/28/17 21:15; Start 03/28/17 at 21:15; Stop 03/28/17 at 21:16; Status DC Sodium Chloride (NS Flush) 2 ml UNSCH PRN IV FLUSH FLUSH AFTER USING IV ACCESS Last administered on 03/31/17 06:08; Start 03/28/17 at 22:30 Sodium Chloride (NS Flush) 2 ml BID IV FLUSH Last administered on 03/30/17 21: 00; Start 03/29/17 at 09:00 Naloxone HCl (Narcan Inj) 0.4 mg UNSCH PRN IV PUSH SEE LABEL COMMENTS; Start 03/28/17 at 22:30 Pharmacy Profile Note 0 ml @ 0 mls/hr UNSCH OTHER ; Start 03/28/17 at 22:30 Piperacillin Sod/ Tazobactam Sod 100 ml @ 200 mls/hr Q6H IV Last administered on 03/31/17 02:00; Start 03/29/17 at 02:00 Vancomycin HCl 1250 mg/Sodium Chloride 262.5 ml @ 250 mls/hr Q12H IV Last administered on 03/31/17 01:18; Start 03/28/17 at 23:00 Miscellaneous Information SPECIFIC LAB TO BE ... ONCE ONCE .XX ; Start 03/30 at 10:45; Stop 03/30/17 at 10:46; Status DC Hydromorphone HCl (Dilaudid Pf Inj) 0.2 mg Q4H PRN IV PUSH pain >5 Last administered on 03/31/17 06:08; Start 03/29/17 at 06:00 Ondansetron HCl (Zofran Inj) 4 mg Q6HR PRN IV PUSH nausea/vomiting Last administered on 03/30/17 10:42; Start 03/29/17 at 07:00 Gentamicin Sulfate (Gentamicin Inj) 240 mg STK-MED ONCE .ROUTE ; Start 03/29/17 at 17:32; Stop 03/29/17 at 17:33; Status DC Gentamicin Sulfate (Gentamicin Inj) 240 mg STK-MED ONCE .ROUTE Last administered on 03/30/17 14:45; Start 03/30/17 at 12:19; Stop 03/30/17 at 12:20 ; Status DC Gentamicin Sulfate (Gentamicin Inj) 240 mg STK-MED ONCE .ROUTE Last administered on 03/30/17 14:45; Start 03/30/17 at 13:18; Stop 03/30/17 at 13:19 ; Status DC Lactated Ringer's 1,000 ml @ 30 mls/hr Q24H PRN IV SEE LABEL COMMENTS; Start 03/30/17 at 14:15; Stop 04/02/17 at 14:14 Sodium Chloride 500 ml @ 30 mls/hr [id number] PRN IV SEE LABEL COMMENTS; Start at 14:15; Stop 04/02/17 at 14:14 Metoprolol Tartrate (Lopressor) 25 mg AG EQUIPMENT FIELD SERVICE TECHNICIAN PRN PO SEE LABEL COMMENTS; Start 03/30/17 at 14:15; Stop 04/02/17 at 14:14 Povidone Iodine (Betadine 5% Antisepsis Kit) 1 applic AG EQUIPMENT FIELD SERVICE TECHNICIAN PRN EACH NARE SEE LABEL COMMENTS; Start 03/30/17 at 14:15; Stop 04/02/17 at 14:14 Chlorhexidine Gluconate (Chlorhexidine 2% Cloth) 3 pack AG EQUIPMENT FIELD SERVICE TECHNICIAN PRN TOPICAL SEE LABEL COMMENTS; Start 03/30/17 at 14:15; Stop 04/02/17 at 14:14 Sodium Chloride (NS Flush) 2 ml UNSCH PRN IV FLUSH FLUSH AFTER USING IV ACCESS ; Start 03/30/17 at 15:15; Stop 03/30/17 at 15:23; Status DC Sodium Chloride (NS Flush) 2 ml BID IV FLUSH ; Start 03/30/17 at 21:00; Stop at 21:00; Status DC Miscellaneous Information (Post-op Orders (for Pharmacy)) STAT ONCE XX ; Start 03/30/17 at 15:15; Stop 03/30/17 at 15:23; Status DC Hydromorphone HCl (Dilaudid Pf Inj) 2 mg STK-MED ONCE .ROUTE ; Start 03/30/17 at 15:18; Stop 03/30/17 at 15:19; Status DC Miscellaneous Information SPECIFIC LAB TO BE SYLVIE... ONCE ONCE .XX Last administered on 03/30/17t 22:45; Start 03/30/17 at 22:45; Stop 03/30/17 at 22:46 ; Status DC A/P Problem List: (1) Leg abscess ICD Code: L02.419 - Cutaneous abscess of limb, unspecified Status: Acute (2) Failure of outpatient treatment ICD Code: Z78.9 - Other specified health status Status: Acute (3) Hypokalemia ICD Code: E87.6 - Hypokalemia Assessment and Plan Large left leg abscess with outpatient therapy failure - Antibiotics: Zosyn 4.5 g q6h IV and IV vancomycin with pharmacy consultation for therapeutic dosing and monitoring - Dr. Donohue consulted - s/p I/D and wound vac placement. -plastic surgery consulted for possible skin graft. -follow the cultures. -will consult ID- - continue pain control; will add [place] and increase IV dilaudid for breakthrough- will monitor and adjust the regimen as needed. Diarrhea- check the stool for C-diff. Hypokalemia -replaced. Tobacco Abuse - advised cessation of smoking Angelina Ayala MD Mar 31, 2017 10:06
[2017-03-31] MEDS ORDERED: ACETAMINOPHEN/HYDROcodone 325 MG/5 MG TAB PO PRN (10:15)
--- NOTE | 2017-03-31 10:23 | PD.ORT.PN ---
Subjective Subjective Remarks Reports pain relatively well controlled but has some nausea and diarrhea this morning Objective Vitals Vital Signs Date Time Temp Pulse Resp B/P (MAP) Pulse Ox O2 Delivery O2 Flow Rate FiO2 03/31/17 06:25 99.7 70 18 138/64 (88) 95 03/31/17 00:49 98.4 89 18 116/86 (96) 92 03/30/17 21:15 98.2 71 16 152/82 (105) 95 03/30/17 16:00 98.0 71 18 135/83 (100) 98 03/30/17 15:45 61 16 139/87 (104) 99 Room Air 03/30/17 15:30 61 16 145/85 (105) 99 Room Air 03/30/17 15:25 98.2 72 16 141/62 (88) 99 Room Air I/O 03/30/17 03/30/17 03/30/17 03/31/17 03/31/17 03/31/17 07:00 15:00 23:00 07:00 15:00 23:00 Intake Total 600 ml 362.5 ml Output Total 25 ml Balance 575 ml 362.5 ml Intake IV Total 100 ml 362.5 ml Other 500 ml Output Estimated Blood Loss 25 ml # Voids 8 3 2 # Bowel Movements 2 1 Result Diagram: 03/29/17174203/29/171742 Objective Remarks Awake, alert, NAD LLE: dressing in place c/d/i. Positive EHL and FHL. Reports some mild numbness and tingling over the entire foot. Brisk cap refill. VAC with good seal. Assessment & Plan Assessment and Plan Patient is a 36-year-old IV drug user with a large left lower leg abscess, now postop day 1 status post irrigation and debridement and application of wound VAC 1. Discussed with the patient the plan for return to the OR on Monday, for irrigation and debridement of left leg and wound VAC change. I explained to the patient that I did have to remove a sizable piece of skin and dermis during surgery down by her ankle due to the fact that it was essentially necrotic. There are some exposed tendons and my concern is she may require more than just skin grafting. However, I discussed with the patient that this will fully be determined on Monday after she is again washed out and the VAC is changed. 2. Continue antibiotics per primary team and infectious disease. Cultures were taken intraoperatively. 3. Okay to be weightbearing as tolerated to the left lower extremity. Would recommend PT for mobilization. 4. Wound VAC 125 mmHg continuous. Okay to change ANCA bandage as needed. Tamara Donohue MD Mar 31, 2017 10:23
--- NOTE | 2017-03-31 11:40 | PD.OP ---
cc: Tamara Donohue MD Operative Report Preoperative Diagnosis: (1) Leg abscess Postoperative Diagnosis: Left lower extremity deep abscess Procedure: 1. Irrigation and debridement left leg deep abscess 2. Application of wound VAC, 5 cm x 5 cm Surgeon: Tamara Donohue Bulk Fluids Handler(s): None Operation and Findings: Anesthesia: Gen. Estimated blood loss: 100 cc Complications: None Specimens: Multiple cultures sent to microbiology Indications for procedure: Patient is a 36-year-old IV drug user who presents to [place] ED with reported 1-1/2 weeks left lower extremity swelling and pain. She was previously seen at [facility] proximally one week prior to presentation and given oral antibiotics for concern for infection. Patient states she was compliant with this medication however noticed increased swelling and pain around her left ankle and presented to [place]. CT with contrast demonstrated a deep large left lower extremity abscess extending into her musculature. Options of management were discussed with the patient the option of continued nonoperative care versus operative intervention. Risks, benefits, alternatives were discussed with the patient. Surgical intervention the form of irrigation and debridement of left lower extremity with possible application of wound VAC. Risks of surgery including but not limited to: Persistent infection, muscle fibrosis or stiffness, possible neurovascular injury, possible need for further surgery, and other unforeseen complications were discussed with the patient. Patient did consent to the above-mentioned procedure. Description of procedure: Patient was brought back to the operating room placed supine on operating table with all bony processes well padded. Gen. anesthesia then ensued. Patient was prepped and draped in standard sterile fashion. Preoperative antibiotics were held in order for cultures to be obtained intraoperatively. A timeout was performed to identify the correct patient, site , side, procedure to be performed. A large approximately 6-7 inch incision was made over the lateral aspect of the distal fibula. This was made just anterior to necrotic-appearing skin from abscess. Once through the skin and subcutaneous tissue immediate purulence was encountered. Cultures were obtained. Antibiotics were then given in the form of vancomycin. More proximal dissection was performed to expose the lateral musculature. A small fasciotomy was made and again gross purulence was encountered. At this point, a small approximately 1-1/2 inch incision was made more proximally on the lateral aspect of the leg to ensure the abscess was adequately debrided. Dissection through the subcutaneous tissue and down to the fascia was made. A small fasciotomy was made at this level, without any gross evidence of purulence. 6 L of saline laden with gentamicin was then used to thoroughly irrigate both of the wounds. After the wounds were thoroughly irrigated, special attention was paid to the most distal skin where the large abscess had essentially necrosed the skin and subcutaneous tissue. The skin just posterior to the incision appeared nonviable and therefore was excised, approximately 5 cm x 5 cm. This did leave a small amount of tendon exposed and insufficient skin for closure of the wound. The more proximal incision in the proximal aspect of the distal incision were closed with 3-0 PDS and 2-0 nylon sutures. Adaptic was placed over the open wound and a small VAC was applied. Sterile dressings were then placed and the patient awoken from general anesthesia without complication. Disposition: Patient can be weightbearing as tolerated to the left lower extremity and encourage range of motion. The VAC will be set to 125 mmHg continuous pressure. Plan will be to return to the OR on Monday for repeat irrigation and debridement of the left leg with wound VAC change. Patient will likely require either skin grafting or flap coverage. Patient will require IV antibiotics given the gross infection. Tamara Donohue MD Mar 31, 2017 11:40
[2017-03-31 12:45] VITALS: BP 105/57; PULSE 57; RESP 18; TEMP 98.7; O2SAT 95
[2017-03-31 13:08] LABS: AUTOMATED NEUTROPHIL # 6.3 TH/MM3 (1.8-7.7); BASOPHIL % 0.3 % (0.0-2.0); EOSINOPHIL % 0.1 % (0.0-4.0); HEMATOCRIT 31.4 % (35.0-46.0); HEMOGLOBIN 10.4 GM/DL (11.6-15.3); LYMPH % 16.9 % (9.0-44.0); LYMPHOCYTE # 1.4 TH/MM3 (1.0-4.8); MEAN CELL VOLUME 75.9 FL (80.0-100.0); MEAN PLATELET VOLUME 7.2 FL (7.0-11.0); MONO % 8.9 % (0.0-8.0); MONOCYTE # 0.8 TH/MM3 (0-0.9); NEUT % 73.8 % (16.0-70.0); PLATELET COUNT 316 TH/MM3 (150-450); RED BLOOD COUNT 4.14 MIL/MM3 (4.00-5.30); RED CELL DISTRIBUTION WIDTH 17.3 % (11.6-17.2); WHITE BLOOD COUNT 8.5 TH/MM3 (4.0-11.0)
[2017-03-31 13:42] LABS: BICARBONATE 28.7 MEQ/L (21.0-32.0); CALCIUM 8.1 MG/DL (8.5-10.1); CREATININE 0.91 MG/DL (0.50-1.00)
[2017-03-31] MEDS: POTASSIUM CHLORIDE 20 MEQ CONTROLLED RELEASE TAB PO SCH ×2 (15:37→21:32)
[2017-03-31] MEDS: ACETAMINOPHEN/HYDROcodone 325 MG/5 MG TAB PO PRN ×2 (15:49→21:33)
[2017-03-31 16:38] VITALS: BP 132/67; PULSE 75; RESP 18; TEMP 98.9; O2SAT 93
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
[2017-03-31 21:00] VITALS: BP 128/72; PULSE 60; RESP 17; TEMP 98.2; O2SAT 97
[2017-04-01] VITALS: BP 125/80; PULSE 65; RESP 18; TEMP 97.6; O2SAT 98
[2017-04-01] MEDS: POTASSIUM CHLORIDE 20 MEQ CONTROLLED RELEASE TAB PO SCH (02:45)
[2017-04-01] MEDS: PIPERACIL-TAZO 4.5 GM PREMIX 100 ML IV SCH ×4 (02:46→21:52)
[2017-04-01] MEDS: HYDROmorphone HCL PF 1 MG/ML VIAL IV PUSH PRN ×5 (02:46→22:44)
[2017-04-01] MEDS: SODIUM CHLORIDE 0.9% FLUSH 10 ML FLUSH IV FLUSH PRN (02:47)
[2017-04-01] MEDS: ACETAMINOPHEN/HYDROcodone 325 MG/5 MG TAB PO PRN ×2 (03:58→08:59)
[2017-04-01 05:00] VITALS: BP 113/62; PULSE 62; RESP 17; TEMP 98; O2SAT 96
[2017-04-01 08:00] VITALS: BP 120/65; PULSE 65; RESP 18; TEMP 97.3; O2SAT 97
--- NOTE | 2017-04-01 08:13 | PD.ORT.PN ---
Subjective Subjective Remarks decreased pain to left leg no numbness or tingling answered multiple questions Objective Vitals Vital Signs Date Time Temp Pulse Resp B/P (MAP) Pulse Ox O2 Delivery O2 Flow Rate FiO2 04/01/17 05:00 98.0 62 17 113/62 (79) 96 04/01/17 00:00 97.6 65 18 125/80 (95) 98 03/31/17 21:00 98.2 60 17 128/72 (90) 97 03/31/17 16:38 98.9 75 18 132/67 (88) 93 03/31/17 12:45 98.7 57 18 105/57 (73) 95 I/O 03/31/17 03/31/17 03/31/17 04/01/17 04/01/17 04/01/17 07:00 15:00 23:00 07:00 15:00 23:00 Intake Total 362.5 ml 462.5 ml 900 ml 1112 ml Balance 362.5 ml 462.5 ml 900 ml 1112 ml Intake Oral 800 ml 750 ml IV Total 362.5 ml 462.5 ml 100 ml 362 ml # Voids 2 1 4 # Bowel Movements 0 0 Result Diagram: 03/31/17 1251 03/31/17 1251 Objective Remarks Seen by Dr. Ye Grover Awake, alert, NAD LLE: dressing in place c/d/i. Positive EHL and FHL. Reports some mild numbness and tingling over the entire foot. Brisk cap refill. VAC with good seal. Assessment & Plan Assessment and Plan Patient is a 36-year-old IV drug user with a large left lower leg abscess, now postop day #2 status post irrigation and debridement and application of wound VAC 1. Plan for return to the OR on Monday, for irrigation and debridement of left leg and wound VAC change. There are some exposed tendons and my concern is she may require more than just skin grafting. 2. Continue antibiotics per primary team and infectious disease. Cultures were taken intraoperatively. 3. Okay to be weightbearing as tolerated to the left lower extremity. Would recommend PT for mobilization. 4. Wound VAC 125 mmHg continuous. Okay to change ANCA bandage as needed. Mayte Al Apr 01, 2017 08:13
[2017-04-01] MEDS: SODIUM CHLORIDE 0.9% FLUSH 10 ML FLUSH IV FLUSH SCH ×2 (09:00→21:52)
--- NOTE | 2017-04-01 10:07 | HHI.PR ---
Subjective Remarks in no acute distress. afebrile. leg pain is moderate to severe. diarrhea has resolved. no other complaints. Objective Vitals Vital Signs Date Time Temp Pulse Resp B/P (MAP) Pulse Ox O2 Delivery O2 Flow Rate FiO2 04/01/17 08:00 97.3 65 18 120/65 (83) 97 04/01/17 05:00 98.0 62 17 113/62 (79) 96 04/01/17 00:00 97.6 65 18 125/80 (95) 98 03/31/17 21:00 98.2 60 17 128/72 (90) 97 03/31/17 16:38 98.9 75 18 132/67 (88) 93 03/31/17 12:45 98.7 57 18 105/57 (73) 95 I/O 03/31/17 03/31/17 03/31/17 04/01/17 04/01/17 04/01/17 07:00 15:00 23:00 07:00 15:00 23:00 Intake Total 362.5 ml 462.5 ml 900 ml 1112 ml Balance 362.5 ml 462.5 ml 900 ml 1112 ml Intake Oral 800 ml 750 ml IV Total 362.5 ml 462.5 ml 100 ml 362 ml # Voids 2 1 4 # Bowel Movements 0 0 Result Diagram: 03/31/17 1251 03/31/17 1251 Imaging Last Impressions Lower Extremity CT 03/28/17 0000 Signed Impressions: Service Date/Time: Tuesday, March 28, 2017 20:49 - CONCLUSION: Large rim-enhancing fluid collection extending along the lateral aspect of the left lower leg and lateral gastricnemius muscle which extends from the upper calf to the ankle and measures at least 25 cm in length. This collection appears to bulge outward within the lower aspect and measures 4.3 cm AP by 4.1 cm transverse at the level of the upper ankle. Differential includes large hematoma, seroma or abscess. Clinical correlation is recommended. Ajit Ramos MD Ankle X-Ray 03/28/17 0000 Signed Impressions: Service Date/Time: Tuesday, March 28, 2017 18:46 - CONCLUSION: Focal soft tissue swelling involving the left upper ankle laterally which is nonspecific. No acute fracture or dislocation. Ajit Ramos MD Objective Remarks GENERAL: This is a well-nourished, well-developed patient, in no apparent distress. CARDIOVASCULAR: Regular rate and regular rhythm without murmurs, gallops, or rubs. RESPIRATORY: Clear to auscultation. Breath sounds equal bilaterally. No wheezes , rales, or rhonchi. GASTROINTESTINAL: Abdomen soft, non-tender, nondistended. Normal, active bowel sounds MUSCULOSKELETAL: swelling/ erythema and tenderness over the left ankle. NEURO: Alert & Oriented x4 to person, place, time, situation. Moves all ext x4 Procedures I/D of the left ankle abscess/ wound vac placement. Medications and IVs Current Medications Piperacillin Sod/ Tazobactam Sod 100 ml @ 200 mls/hr ONCE ONCE IV Last administered on 03/28/17 19:35; Start 03/28/17 at 19:15; Stop 03/28/17 at 19:44 ; Status DC Vancomycin HCl 1000 mg/Sodium Chloride 250 ml @ 250 mls/hr PUBLIC HEALTH POLICY ANALYST IV ; Start 03/28/17 at 19:15; Stop 03/31/17 at 19:14; Status DC Sodium Chloride 1,000 ml @ 999 mls/hr BOLUS ONCE IV Last administered on 03/28 19:58; Start 03/28/17 at 19:30; Stop 03/28/17 at 20:30; Status DC Sodium Chloride 1,000 ml @ 999 mls/hr BOLUS ONCE IV Last administered on 03/28 19:58; Start 03/28/17 at 19:30; Stop 03/28/17 at 20:30; Status DC Potassium Chloride (KCl) 20 meq ONCE ONCE PO Last administered on 03/28/17 21 :15; Start 03/28/17 at 20:30; Stop 03/28/17 at 20:31; Status DC Iohexol (Omnipaque 350 Inj) 85 ml STK-MED ONCE IVCONTRAST Last administered on 03/28/17 20:56; Start 03/28/17 at 20:56; Stop 03/28/17 at 20:57; Status DC Ibuprofen (Motrin) 800 mg ONCE ONCE PO Last administered on 03/28/17 21:15; Start 03/28/17 at 21:15; Stop 03/28/17 at 21:16; Status DC Sodium Chloride (NS Flush) 2 ml UNSCH PRN IV FLUSH FLUSH AFTER USING IV ACCESS Last administered on 04/01/17 02:47; Start 03/28/17 at 22:30 Sodium Chloride (NS Flush) 2 ml BID IV FLUSH Last administered on 04/01/17 09: 00; Start 03/29/17 at 09:00 Naloxone HCl (Narcan Inj) 0.4 mg UNSCH PRN IV PUSH SEE LABEL COMMENTS; Start 03/28/17 at 22:30 Pharmacy Profile Note 0 ml @ 0 mls/hr UNSCH OTHER ; Start 03/28/17 at 22:30 Piperacillin Sod/ Tazobactam Sod 100 ml @ 200 mls/hr Q6H IV Last administered on 04/01/17 08:58; Start 03/29/17 at 02:00 Vancomycin HCl 1250 mg/Sodium Chloride 262.5 ml @ 250 mls/hr Q12H IV Last administered on 03/31/17 23:00; Start 03/28/17 at 23:00 Miscellaneous Information SPECIFIC LAB TO BE SYLVIE... ONCE ONCE .XX ; Start 03/30 at 10:45; Stop 03/30/17 at 10:46; Status DC Hydromorphone HCl (Dilaudid Pf Inj) 0.2 mg Q4H PRN IV PUSH pain >5 Last administered on 03/31/17 06:08; Start 03/29/17 at 06:00; Stop 03/31/17 at 10:04 ; Status DC Ondansetron HCl (Zofran Inj) 4 mg Q6HR PRN IV PUSH nausea/vomiting Last administered on 03/30/17 10:42; Start 03/29/17 at 07:00 Gentamicin Sulfate (Gentamicin Inj) 240 mg STK-MED ONCE .ROUTE ; Start 03/29/17 at 17:32; Stop 03/29/17 at 17:33; Status DC Gentamicin Sulfate (Gentamicin Inj) 240 mg STK-MED ONCE .ROUTE Last administered on 03/30/17 14:45; Start 03/30/17 at 12:19; Stop 03/30/17 at 12:20 ; Status DC Gentamicin Sulfate (Gentamicin Inj) 240 mg STK-MED ONCE .ROUTE Last administered on 03/30/17 14:45; Start 03/30/17 at 13:18; Stop 03/30/17 at 13:19 ; Status DC Lactated Ringer's 1,000 ml @ 30 mls/hr Q24H PRN IV SEE LABEL COMMENTS; Start 03/30/17 at 14:15; Stop 04/02/17 at 14:14 Sodium Chloride 500 ml @ 30 mls/hr [id number] PRN IV SEE LABEL COMMENTS; Start at 14:15; Stop 04/02/17 at 14:14 Metoprolol Tartrate (Lopressor) 25 mg PUBLIC HEALTH POLICY ANALYST PRN PO SEE LABEL COMMENTS; Start 03/30/17 at 14:15; Stop 04/02/17 at 14:14 Povidone Iodine (Betadine 5% Antisepsis Kit) 1 applic PUBLIC HEALTH POLICY ANALYST PRN EACH NARE SEE LABEL COMMENTS; Start 03/30/17 at 14:15; Stop 04/02/17 at 14:14 Chlorhexidine Gluconate (Chlorhexidine 2% Cloth) 3 pack PUBLIC HEALTH POLICY ANALYST PRN TOPICAL SEE LABEL COMMENTS; Start 03/30/17 at 14:15; Stop 04/02/17 at 14:14 Sodium Chloride (NS Flush) 2 ml UNSCH PRN IV FLUSH FLUSH AFTER USING IV ACCESS ; Start 03/30/17 at 15:15; Stop 03/30/17 at 15:23; Status DC Sodium Chloride (NS Flush) 2 ml BID IV FLUSH ; Start 03/30/17 at 21:00; Stop at 21:00; Status DC Miscellaneous Information (Post-op Orders (for Pharmacy)) STAT ONCE XX ; Start 03/30/17 at 15:15; Stop 03/30/17 at 15:23; Status DC Hydromorphone HCl (Dilaudid Pf Inj) 2 mg STK-MED ONCE .ROUTE ; Start 03/30/17 at 15:18; Stop 03/30/17 at 15:19; Status DC Miscellaneous Information SPECIFIC LAB TO BE SYLVIE... ONCE ONCE .XX Last administered on 03/30/17t 22:45; Start 03/30/17 at 22:45; Stop 03/30/17 at 22:46 ; Status DC Hydromorphone HCl (Dilaudid Pf Inj) 1 mg Q4H PRN IV PUSH BREAKTHROUGH PAIN Last administered on 04/01/17t 06:33; Start 03/31/17 at 14:00 Acetaminophen/ Hydrocodone Bitart ([place] 5-325 Mg) 1 tab Q4H PRN PO PAIN 3-6; Start 03/31/17 at 10:15 Acetaminophen/ Hydrocodone Bitart ([place] 5-325 Mg) 2 tab Q4H PRN PO PAIN 7-10 Last administered on 04/01/17 08:59; Start 03/31/17 at 10:15 Acetaminophen (Tylenol) 650 mg Q4H PRN PO FEVER/PAIN 1-2; Start 03/31/17 at 10: 15 Potassium Chloride (KCl) 40 meq Q4H PO Last administered on 04/01/17 02:45; Start 03/31/17 at 16:00; Stop 04/01/17 at 00:01; Status DC A/P Problem List: (1) Leg abscess ICD Code: L02.419 - Cutaneous abscess of limb, unspecified Status: Acute (2) Failure of outpatient treatment ICD Code: Z78.9 - Other specified health status Status: Acute (3) Hypokalemia ICD Code: E87.6 - Hypokalemia Assessment and Plan Large left leg abscess with outpatient therapy failure - Antibiotics: Zosyn 4.5 g q6h IV and IV vancomycin with pharmacy consultation for therapeutic dosing and monitoring - Dr. Donohue consulted - s/p I/D and wound vac placement. -plastic surgery consulted for possible skin graft. -plan for OR for further debridement and wound vac change on Monday. -follow the cultures. -ID consult appreciated. - continue pain control; will increase [place] and continue IV dilaudid for breakthrough- will monitor and adjust the regimen as needed. Diarrhea- resolved. Hypokalemia -replaced- will repeat the level today. Tobacco Abuse - advised cessation of smoking Angelina Ayala MD Apr 01, 2017 10:07
[2017-04-01] MEDS ORDERED: ACETAMINOPHEN/HYDROcodone 325 MG/10 MG TAB PO PRN (10:15)
[2017-04-01] MEDS: VANCOMYCIN INJ 1,250 MG in SODIUM CHLOR 0.9% 250 ML INJ 250 ML IV SCH ×2 (10:52→22:44)
[2017-04-01 12:00] VITALS: BP 116/57; PULSE 70; RESP 18; TEMP 98.1; O2SAT 100
[2017-04-01] MEDS: ACETAMINOPHEN/HYDROcodone 325 MG/10 MG TAB PO PRN ×3 (13:02→21:56)
[2017-04-01] MEDS ORDERED: POTASSIUM CHLORIDE 10 MEQ CONTROLLED RELEASE TAB PO ONE ×2 (13:30→17:00)
[2017-04-01 16:00] VITALS: BP 116/63; PULSE 64; RESP 18; TEMP 97.8; O2SAT 96
[2017-04-01 20:31] VITALS: BP 130/71; PULSE 75; RESP 18; TEMP 98.5; O2SAT 98
[2017-04-02 01:23] VITALS: BP 124/57; PULSE 66; RESP 18; TEMP 99.2; O2SAT 95
[2017-04-02] MEDS: PIPERACIL-TAZO 4.5 GM PREMIX 100 ML IV SCH ×4 (02:52→20:00)
[2017-04-02] MEDS: ACETAMINOPHEN/HYDROcodone 325 MG/10 MG TAB PO PRN ×2 (02:55→07:10)
[2017-04-02] MEDS: HYDROmorphone HCL PF 1 MG/ML VIAL IV PUSH PRN ×2 (03:50→08:31)
[2017-04-02] MEDS: ONDANSETRON HCL 4 MG/2 ML VIAL IV PUSH PRN ×2 (03:53→10:23)
[2017-04-02 05:07] VITALS: BP 115/58; PULSE 66; RESP 18; TEMP 98.4; O2SAT 96
[2017-04-02 08:00] VITALS: BP 110/54; PULSE 67; RESP 18; TEMP 97.3; O2SAT 100
[2017-04-02] MEDS: SODIUM CHLORIDE 0.9% FLUSH 10 ML FLUSH IV FLUSH SCH ×2 (09:00→21:00)
--- NOTE | 2017-04-02 09:36 | HHI.PR ---
Subjective Remarks in no acute distress. but complaining of moderate to severe pain to the left leg. has some loose BM's. no fever. Objective Vitals Vital Signs Date Time Temp Pulse Resp B/P (MAP) Pulse Ox O2 Delivery O2 Flow Rate FiO2 04/02/17 08:00 97.3 67 18 110/54 (72) 100 04/02/17 05:07 98.4 66 18 115/58 (77) 96 04/02/17 01:23 99.2 66 18 124/57 (79) 95 04/01/17 20:31 98.5 75 18 130/71 (90) 98 04/01/17 16:00 97.8 64 18 116/63 (80) 96 04/01/17 12:00 98.1 70 18 116/57 (76) 100 I/O 04/01/17 04/01/17 04/01/17 04/02/17 04/02/17 04/02/17 07:00 15:00 23:00 07:00 15:00 23:00 Intake Total 1112 ml 260 ml 100 ml Balance 1112 ml 260 ml 100 ml Intake Oral 750 ml IV Total 362 ml 260 ml 100 ml # Voids 4 2 # Bowel Movements 0 Result Diagram: 03/31/17 1251 04/01/17 1135 Imaging Last Impressions Lower Extremity CT 03/28/17 0000 Signed Impressions: Service Date/Time: Tuesday, March 28, 2017 20:49 - CONCLUSION: Large rim-enhancing fluid collection extending along the lateral aspect of the left lower leg and lateral gastricnemius muscle which extends from the upper calf to the ankle and measures at least 25 cm in length. This collection appears to bulge outward within the lower aspect and measures 4.3 cm AP by 4.1 cm transverse at the level of the upper ankle. Differential includes large hematoma, seroma or abscess. Clinical correlation is recommended. Ajit Ramos MD Ankle X-Ray 03/28/17 0000 Signed Impressions: Service Date/Time: Tuesday, March 28, 2017 18:46 - CONCLUSION: Focal soft tissue swelling involving the left upper ankle laterally which is nonspecific. No acute fracture or dislocation. Ajit Ramos MD Objective Remarks GENERAL: This is a well-nourished, well-developed patient, in no apparent distress. CARDIOVASCULAR: Regular rate and regular rhythm without murmurs, gallops, or rubs. RESPIRATORY: Clear to auscultation. Breath sounds equal bilaterally. No wheezes , rales, or rhonchi. GASTROINTESTINAL: Abdomen soft, non-tender, nondistended. Normal, active bowel sounds MUSCULOSKELETAL: swelling/ erythema and tenderness over the left ankle. NEURO: Alert & Oriented x4 to person, place, time, situation. Moves all ext x4 Procedures I/D of the left ankle abscess/ wound vac placement. Medications and IVs Current Medications Piperacillin Sod/ Tazobactam Sod 100 ml @ 200 mls/hr ONCE ONCE IV Last administered on 03/28/17 19:35; Start 03/28/17 at 19:15; Stop 03/28/17 at 19:44 ; Status DC Vancomycin HCl 1000 mg/Sodium Chloride 250 ml @ 250 mls/hr SINGLE PASS SOIL STABILIZER OPERATOR IV ; Start 03/28/17 at 19:15; Stop 03/31/17 at 19:14; Status DC Sodium Chloride 1,000 ml @ 999 mls/hr BOLUS ONCE IV Last administered on 03/28 19:58; Start 03/28/17 at 19:30; Stop 03/28/17 at 20:30; Status DC Sodium Chloride 1,000 ml @ 999 mls/hr BOLUS ONCE IV Last administered on 03/28 19:58; Start 03/28/17 at 19:30; Stop 03/28/17 at 20:30; Status DC Potassium Chloride (KCl) 20 meq ONCE ONCE PO Last administered on 03/28/17 21 :15; Start 03/28/17 at 20:30; Stop 03/28/17 at 20:31; Status DC Iohexol (Omnipaque 350 Inj) 85 ml STK-MED ONCE IVCONTRAST Last administered on 03/28/17 20:56; Start 03/28/17 at 20:56; Stop 03/28/17 at 20:57; Status DC Ibuprofen (Motrin) 800 mg ONCE ONCE PO Last administered on 03/28/17 21:15; Start 03/28/17 at 21:15; Stop 03/28/17 at 21:16; Status DC Sodium Chloride (NS Flush) 2 ml UNSCH PRN IV FLUSH FLUSH AFTER USING IV ACCESS Last administered on 04/01/17 02:47; Start 03/28/17 at 22:30 Sodium Chloride (NS Flush) 2 ml BID IV FLUSH Last administered on 04/01/17 21: 52; Start 03/29/17 at 09:00 Naloxone HCl (Narcan Inj) 0.4 mg UNSCH PRN IV PUSH SEE LABEL COMMENTS; Start 03/28/17 at 22:30 Pharmacy Profile Note 0 ml @ 0 mls/hr UNSCH OTHER ; Start 03/28/17 at 22:30 Piperacillin Sod/ Tazobactam Sod 100 ml @ 200 mls/hr Q6H IV Last administered on 04/02/17 08:31; Start 03/29/17 at 02:00 Vancomycin HCl 1250 mg/Sodium Chloride 262.5 ml @ 250 mls/hr Q12H IV Last administered on 04/01/17 22:44; Start 03/28/17 at 23:00 Miscellaneous Information SPECIFIC LAB TO BE SYLVIE... ONCE ONCE .XX ; Start 03/30 at 10:45; Stop 03/30/17 at 10:46; Status DC Hydromorphone HCl (Dilaudid Pf Inj) 0.2 mg Q4H PRN IV PUSH pain >5 Last administered on 03/31/17 06:08; Start 03/29/17 at 06:00; Stop 03/31/17 at 10:04 ; Status DC Ondansetron HCl (Zofran Inj) 4 mg Q6HR PRN IV PUSH nausea/vomiting Last administered on 04/02/17 03:53; Start 03/29/17 at 07:00 Gentamicin Sulfate (Gentamicin Inj) 240 mg STK-MED ONCE .ROUTE ; Start 03/29/17 at 17:32; Stop 03/29/17 at 17:33; Status DC Gentamicin Sulfate (Gentamicin Inj) 240 mg STK-MED ONCE .ROUTE Last administered on 03/30/17 14:45; Start 03/30/17 at 12:19; Stop 03/30/17 at 12:20 ; Status DC Gentamicin Sulfate (Gentamicin Inj) 240 mg STK-MED ONCE .ROUTE Last administered on 03/30/17 14:45; Start 03/30/17 at 13:18; Stop 03/30/17 at 13:19 ; Status DC Lactated Ringer's 1,000 ml @ 30 mls/hr Q24H PRN IV SEE LABEL COMMENTS; Start 03/30/17 at 14:15; Stop 04/02/17 at 14:14 Sodium Chloride 500 ml @ 30 mls/hr [id number] PRN IV SEE LABEL COMMENTS; Start at 14:15; Stop 04/02/17 at 14:14 Metoprolol Tartrate (Lopressor) 25 mg SINGLE PASS SOIL STABILIZER OPERATOR PRN PO SEE LABEL COMMENTS; Start 03/30/17 at 14:15; Stop 04/02/17 at 14:14 Povidone Iodine (Betadine 5% Antisepsis Kit) 1 applic SINGLE PASS SOIL STABILIZER OPERATOR PRN EACH NARE SEE LABEL COMMENTS; Start 03/30/17 at 14:15; Stop 04/02/17 at 14:14 Chlorhexidine Gluconate (Chlorhexidine 2% Cloth) 3 pack SINGLE PASS SOIL STABILIZER OPERATOR PRN TOPICAL SEE LABEL COMMENTS; Start 03/30/17 at 14:15; Stop 04/02/17 at 14:14 Sodium Chloride (NS Flush) 2 ml UNSCH PRN IV FLUSH FLUSH AFTER USING IV ACCESS ; Start 03/30/17 at 15:15; Stop 03/30/17 at 15:23; Status DC Sodium Chloride (NS Flush) 2 ml BID IV FLUSH ; Start 03/30/17 at 21:00; Stop at 21:00; Status DC Miscellaneous Information (Post-op Orders (for Pharmacy)) STAT ONCE XX ; Start 03/30/17 at 15:15; Stop 03/30/17 at 15:23; Status DC Hydromorphone HCl (Dilaudid Pf Inj) 2 mg STK-MED ONCE .ROUTE ; Start 03/30/17 at 15:18; Stop 03/30/17 at 15:19; Status DC Miscellaneous Information SPECIFIC LAB TO BE SYLVIE... ONCE ONCE .XX Last administered on 03/30/17t 22:45; Start 03/30/17 at 22:45; Stop 03/30/17 at 22:46 ; Status DC Hydromorphone HCl (Dilaudid Pf Inj) 1 mg Q4H PRN IV PUSH BREAKTHROUGH PAIN Last administered on 04/02/17 08:31; Start 03/31/17 at 14:00 Acetaminophen/ Hydrocodone Bitart ([place] 5-325 Mg) 1 tab Q4H PRN PO PAIN 3-6; Start 03/31/17 at 10:15; Stop 04/01/17 at 10:08; Status DC Acetaminophen/ Hydrocodone Bitart ([place] 5-325 Mg) 2 tab Q4H PRN PO PAIN 7-10 Last administered on 04/01/17 08:59; Start 03/31/17 at 10:15; Stop 04/01/17 at 10:08; Status DC Acetaminophen (Tylenol) 650 mg Q4H PRN PO FEVER/PAIN 1-2; Start 03/31/17 at 10: 15 Potassium Chloride (KCl) 40 meq Q4H PO Last administered on 04/01/17 02:45; Start 03/31/17 at 16:00; Stop 04/01/17 at 00:01; Status DC Acetaminophen/ Hydrocodone Bitart ([place] 10-325 Mg) 1 tab Q4H PRN PO PAIN 3-6; Start 04/01/17 at 10:15 Acetaminophen/ Hydrocodone Bitart ([place] 10-325 Mg) 2 tab Q4H PRN PO PAIN 7-10 Last administered on 04/02/17 07:10; Start 04/01/17 at 10:15 Potassium Chloride (KCl) 30 meq ONCE ONCE PO Last administered on 04/01/17 14 :13; Start 04/01/17 at 13:30; Stop 04/01/17 at 13:31; Status DC Potassium Chloride (KCl) 30 meq ONCE ONCE PO Last administered on 04/01/17 16 :38; Start 04/01/17 at 17:00; Stop 04/01/17 at 17:01; Status DC A/P Problem List: (1) Leg abscess ICD Code: L02.419 - Cutaneous abscess of limb, unspecified Status: Acute (2) Failure of outpatient treatment ICD Code: Z78.9 - Other specified health status Status: Acute (3) Hypokalemia ICD Code: E87.6 - Hypokalemia Assessment and Plan Large left leg abscess with outpatient therapy failure - Antibiotics: Zosyn 4.5 g q6h IV and IV vancomycin with pharmacy consultation for therapeutic dosing and monitoring - Dr. Donohue consulted - s/p I/D and wound vac placement. -plastic surgery consulted for possible skin graft. -plan for OR for further debridement and wound vac change on Monday. -follow the cultures. -ID consult appreciated. - continue pain control; will dc norco and stat on Oxycodone- continue dilaudid for breakthrough- will monitor and adjust the regimen as needed. Diarrhea-negative for C-diff- Imodium as needed. Hypokalemia -replaced- will monitor. Tobacco Abuse - advised cessation of smoking Angelina Ayala MD Apr 02, 2017 09:36
[2017-04-02 11:03] LABS: ALBUMIN 2.6 GM/DL (3.4-5.0); AST (GOT) 9 U/L (15-37); BICARBONATE 26.5 MEQ/L (21.0-32.0); BLOOD UREA NITROGEN 7 MG/DL (7-18); CALCIUM 8.3 MG/DL (8.5-10.1); CHLORIDE 104 MEQ/L (98-107); GLOMERULAR FILTRATION RATE 82 ML/MIN (>89); GLUCOSE,RANDOM 94 MG/DL (74-106); SODIUM (NA) 139 MEQ/L (136-145)
[2017-04-02 11:04] LABS: ALT (GPT) 9 U/L (10-53)
[2017-04-02 11:06] LABS: ALKALINE PHOSPHATASE 78 U/L (45-117); TOTAL BILIRUBIN ADULT 0.3 MG/DL (0.2-1.0)
[2017-04-02] MEDS ORDERED: POTASSIUM CHLORIDE 10 MEQ CONTROLLED RELEASE TAB PO ONE ×2 (12:00→15:00)
[2017-04-02] MEDS: LOPERAMIDE HCL 2 MG CAP PO PRN (12:21)
[2017-04-02] MEDS: VANCOMYCIN INJ 1,250 MG in SODIUM CHLOR 0.9% 250 ML INJ 250 ML IV SCH ×2 (12:21→23:00)
[2017-04-02 16:00] VITALS: BP 118/61; PULSE 72; RESP 18; TEMP 98.4; O2SAT 98
[2017-04-02 20:58] VITALS: BP 126/68; PULSE 81; RESP 18; TEMP 98.6; O2SAT 100
[2017-04-03] MEDS: PIPERACIL-TAZO 4.5 GM PREMIX 100 ML IV SCH ×4 (00:28→22:25)
[2017-04-03 01:08] VITALS: BP 139/63; PULSE 77; RESP 18; TEMP 99.8; O2SAT 97
[2017-04-03] MEDS ORDERED: METOPROLOL TARTRATE 25 MG TAB PO PRN (04:00)
[2017-04-03] MEDS ORDERED: INSULIN HUMAN REGULAR 1,000 UNITS/10 ML VIAL SQ PRN (04:00)
[2017-04-03] MEDS ORDERED: CHLORHEXIDINE GLUCONATE 2 % 1 PACK (2 CLOTHS) TOPICAL PRN (04:00)
[2017-04-03] MEDS ORDERED: POVIDONE IODINE 5% (ANTISEPSIS KIT) 4 APPLICATIONS EACH NARE PRN (04:00)
[2017-04-03] MEDS ORDERED: LACTATED RINGER'S 1000 ML IV PRN (04:00)
[2017-04-03] MEDS ORDERED: SODIUM CHLORID 0.9% 500 ML IV PRN (04:00)
[2017-04-03 05:02] VITALS: BP 138/72; PULSE 74; RESP 18; TEMP 99.4; O2SAT 97
--- NOTE | 2017-04-03 07:20 | HHI.PR ---
Subjective Remarks in no acute distress. pain is somewhat better than yesterday. no other complaints. awaiting surgery. Objective Vitals Vital Signs Date Time Temp Pulse Resp B/P (MAP) Pulse Ox O2 Delivery O2 Flow Rate FiO2 04/03/17 05:02 99.4 74 18 138/72 (94) 97 04/03/17 01:08 99.8 77 18 139/63 (88) 97 04/02/17 20:58 98.6 81 18 126/68 (87) 100 04/02/17 16:00 98.4 72 18 118/61 (80) 98 04/02/17 08:00 97.3 67 18 110/54 (72) 100 I/O 04/02/17 04/02/17 04/02/17 04/03/17 04/03/17 04/03/17 07:00 15:00 23:00 07:00 15:00 23:00 Intake Total 260 ml 580 ml Balance 260 ml 580 ml Intake Oral 480 ml IV Total 260 ml 100 ml # Voids 3 4 # Bowel Movements 1 Result Diagram: 03/31/17 1251 04/02/17 0852 Imaging Last Impressions Lower Extremity CT 03/28/17 0000 Signed Impressions: Service Date/Time: Tuesday, March 28, 2017 20:49 - CONCLUSION: Large rim-enhancing fluid collection extending along the lateral aspect of the left lower leg and lateral gastricnemius muscle which extends from the upper calf to the ankle and measures at least 25 cm in length. This collection appears to bulge outward within the lower aspect and measures 4.3 cm AP by 4.1 cm transverse at the level of the upper ankle. Differential includes large hematoma, seroma or abscess. Clinical correlation is recommended. Ajit Ramos MD Ankle X-Ray 03/28/17 0000 Signed Impressions: Service Date/Time: Tuesday, March 28, 2017 18:46 - CONCLUSION: Focal soft tissue swelling involving the left upper ankle laterally which is nonspecific. No acute fracture or dislocation. Ajit Ramos MD Objective Remarks GENERAL: This is a well-nourished, well-developed patient, in no apparent distress. CARDIOVASCULAR: Regular rate and regular rhythm without murmurs, gallops, or rubs. RESPIRATORY: Clear to auscultation. Breath sounds equal bilaterally. No wheezes , rales, or rhonchi. GASTROINTESTINAL: Abdomen soft, non-tender, nondistended. Normal, active bowel sounds MUSCULOSKELETAL: swelling/ erythema and tenderness over the left ankle. NEURO: Alert & Oriented x4 to person, place, time, situation. Moves all ext x4 Procedures I/D of the left ankle abscess/ wound vac placement. Medications and IVs Current Medications Piperacillin Sod/ Tazobactam Sod 100 ml @ 200 mls/hr ONCE ONCE IV Last administered on 03/28/17 19:35; Start 03/28/17 at 19:15; Stop 03/28/17 at 19:44 ; Status DC Vancomycin HCl 1000 mg/Sodium Chloride 250 ml @ 250 mls/hr CARDIAC CARE NURSE IV ; Start 03/28/17 at 19:15; Stop 03/31/17 at 19:14; Status DC Sodium Chloride 1,000 ml @ 999 mls/hr BOLUS ONCE IV Last administered on 03/28 19:58; Start 03/28/17 at 19:30; Stop 03/28/17 at 20:30; Status DC Sodium Chloride 1,000 ml @ 999 mls/hr BOLUS ONCE IV Last administered on 03/28 19:58; Start 03/28/17 at 19:30; Stop 03/28/17 at 20:30; Status DC Potassium Chloride (KCl) 20 meq ONCE ONCE PO Last administered on 03/28/17 21 :15; Start 03/28/17 at 20:30; Stop 03/28/17 at 20:31; Status DC Iohexol (Omnipaque 350 Inj) 85 ml STK-MED ONCE IVCONTRAST Last administered on 03/28/17 20:56; Start 03/28/17 at 20:56; Stop 03/28/17 at 20:57; Status DC Ibuprofen (Motrin) 800 mg ONCE ONCE PO Last administered on 03/28/17 21:15; Start 03/28/17 at 21:15; Stop 03/28/17 at 21:16; Status DC Sodium Chloride (NS Flush) 2 ml UNSCH PRN IV FLUSH FLUSH AFTER USING IV ACCESS Last administered on 04/01/17 02:47; Start 03/28/17 at 22:30 Sodium Chloride (NS Flush) 2 ml BID IV FLUSH Last administered on 12/10/17at 09 :00; Start 03/29/17 at 09:00 Naloxone HCl (Narcan Inj) 0.4 mg UNSCH PRN IV PUSH SEE LABEL COMMENTS; Start 03/28/17 at 22:30 Pharmacy Profile Note 0 ml @ 0 mls/hr UNSCH OTHER ; Start 03/28/17 at 22:30 Piperacillin Sod/ Tazobactam Sod 100 ml @ 200 mls/hr Q6H IV Last administered on 04/02/17 14:00; Start 03/29/17 at 02:00 Vancomycin HCl 1250 mg/Sodium Chloride 262.5 ml @ 250 mls/hr Q12H IV Last administered on 04/02/17 12:21; Start 03/28/17 at 23:00 Miscellaneous Information SPECIFIC LAB TO BE ... ONCE ONCE .XX ; Start 03/30 at 10:45; Stop 03/30/17 at 10:46; Status DC Hydromorphone HCl (Dilaudid Pf Inj) 0.2 mg Q4H PRN IV PUSH pain >5 Last administered on 03/31/17 06:08; Start 03/29/17 at 06:00; Stop 03/31/17 at 10:04 ; Status DC Ondansetron HCl (Zofran Inj) 4 mg Q6HR PRN IV PUSH nausea/vomiting Last administered on 04/02/17 10:23; Start 03/29/17 at 07:00 Gentamicin Sulfate (Gentamicin Inj) 240 mg STK-MED ONCE .ROUTE ; Start 03/29/17 at 17:32; Stop 03/29/17 at 17:33; Status DC Gentamicin Sulfate (Gentamicin Inj) 240 mg STK-MED ONCE .ROUTE Last administered on 03/30/17 14:45; Start 03/30/17 at 12:19; Stop 03/30/17 at 12:20 ; Status DC Gentamicin Sulfate (Gentamicin Inj) 240 mg STK-MED ONCE .ROUTE Last administered on 03/30/17 14:45; Start 03/30/17 at 13:18; Stop 03/30/17 at 13:19 ; Status DC Lactated Ringer's 1,000 ml @ 30 mls/hr Q24H PRN IV SEE LABEL COMMENTS; Start 03/30/17 at 14:15; Stop 04/02/17 at 14:14; Status DC Sodium Chloride 500 ml @ 30 mls/hr [id number] PRN IV SEE LABEL COMMENTS; Start at 14:15; Stop 04/02/17 at 14:14; Status DC Metoprolol Tartrate (Lopressor) 25 mg CARDIAC CARE NURSE PRN PO SEE LABEL COMMENTS; Start 03/30/17 at 14:15; Stop 04/02/17 at 14:14; Status DC Povidone Iodine (Betadine 5% Antisepsis Kit) 1 applic CARDIAC CARE NURSE PRN EACH NARE SEE LABEL COMMENTS; Start 03/30/17 at 14:15; Stop 04/02/17 at 14:14; Status DC Chlorhexidine Gluconate (Chlorhexidine 2% Cloth) 3 pack CARDIAC CARE NURSE PRN TOPICAL SEE LABEL COMMENTS; Start 03/30/17 at 14:15; Stop 04/02/17 at 14:14; Status DC Sodium Chloride (NS Flush) 2 ml UNSCH PRN IV FLUSH FLUSH AFTER USING IV ACCESS ; Start 03/30/17 at 15:15; Stop 03/30/17 at 15:23; Status DC Sodium Chloride (NS Flush) 2 ml BID IV FLUSH ; Start 03/30/17 at 21:00; Stop at 21:00; Status DC Miscellaneous Information (Post-op Orders (for Pharmacy)) STAT ONCE XX ; Start 03/30/17 at 15:15; Stop 03/30/17 at 15:23; Status DC Hydromorphone HCl (Dilaudid Pf Inj) 2 mg STK-MED ONCE .ROUTE ; Start 03/30/17 at 15:18; Stop 03/30/17 at 15:19; Status DC Miscellaneous Information SPECIFIC LAB TO BE SYLVIE... ONCE ONCE .XX Last administered on 03/30/17t 22:45; Start 03/30/17 at 22:45; Stop 03/30/17 at 22:46 ; Status DC Hydromorphone HCl (Dilaudid Pf Inj) 1 mg Q4H PRN IV PUSH BREAKTHROUGH PAIN Last administered on 04/02/17t 08:31; Start 03/31/17 at 14:00 Acetaminophen/ Hydrocodone Bitart ([place] 5-325 Mg) 1 tab Q4H PRN PO PAIN 3-6; Start 03/31/17 at 10:15; Stop 04/01/17 at 10:08; Status DC Acetaminophen/ Hydrocodone Bitart ([place] 5-325 Mg) 2 tab Q4H PRN PO PAIN 7-10 Last administered on 04/01/17 08:59; Start 03/31/17 at 10:15; Stop 04/01/17 at 10:08; Status DC Acetaminophen (Tylenol) 650 mg Q4H PRN PO FEVER/PAIN 1-2; Start 03/31/17 at 10: 15 Potassium Chloride (KCl) 40 meq Q4H PO Last administered on 04/01/17 02:45; Start 03/31/17 at 16:00; Stop 04/01/17 at 00:01; Status DC Acetaminophen/ Hydrocodone Bitart ([place] 10-325 Mg) 1 tab Q4H PRN PO PAIN 3-6; Start 04/01/17 at 10:15; Stop 04/02/17 at 09:34; Status DC Acetaminophen/ Hydrocodone Bitart ([place] 10-325 Mg) 2 tab Q4H PRN PO PAIN 7-10 Last administered on 04/02/17 07:10; Start 04/01/17 at 10:15; Stop 04/02/17 at 09:34; Status DC Potassium Chloride (KCl) 30 meq ONCE ONCE PO Last administered on 04/01/17 14 :13; Start 04/01/17 at 13:30; Stop 04/01/17 at 13:31; Status DC Potassium Chloride (KCl) 30 meq ONCE ONCE PO Last administered on 04/01/17 16 :38; Start 04/01/17 at 17:00; Stop 04/01/17 at 17:01; Status DC Oxycodone HCl (Roxicodone) 30 mg Q6HR PRN PO PAIN 3-10 Last administered on 07:07; Start 04/02/17 at 09:45 Loperamide HCl (Imodium) 2 mg UNSCH PRN PO DIARRHEA Last administered on 12:21; Start 04/02/17 at 09:45 Potassium Chloride (KCl) 30 meq ONCE ONCE PO Last administered on 04/02/17 12:38; Start 04/02/17 at 12:00; Stop 04/02/17 at 12:01; Status DC Potassium Chloride (KCl) 30 meq ONCE ONCE PO Last administered on 04/02/17t 15:00; Start 04/02/17 at 15:00; Stop 04/02/17 at 15:01; Status DC Lactated Ringer's 1,000 ml @ 30 mls/hr Q24H PRN IV SEE LABEL COMMENTS; Start 04/03/17 at 04:00; Stop 04/06/17 at 03:59 Sodium Chloride 500 ml @ 30 mls/hr [id number] PRN IV SEE LABEL COMMENTS; Start at 04:00; Stop 04/06/17 at 03:59 Metoprolol Tartrate (Lopressor) 25 mg CARDIAC CARE NURSE PRN PO SEE LABEL COMMENTS; Start 04/03/17 at 04:00; Stop 04/06/17 at 03:59 Povidone Iodine (Betadine 5% Antisepsis Kit) 1 applic CARDIAC CARE NURSE PRN EACH NARE SEE LABEL COMMENTS; Start 04/03/17 at 04:00; Stop 04/06/17 at 03:59 Chlorhexidine Gluconate (Chlorhexidine 2% Cloth) 3 pack CARDIAC CARE NURSE PRN TOPICAL SEE LABEL COMMENTS; Start 04/03/17 at 04:00; Stop 04/06/17 at 03:59 Insulin Human Regular (NovoLIN R INJ) See Protocol Table ... CARDIAC CARE NURSE PRN SQ SEE PROTOCOL TABLE; Start 04/03/17 at 04:00; Stop 04/06/17 at 03:59 A/P Problem List: (1) Leg abscess ICD Code: L02.419 - Cutaneous abscess of limb, unspecified Status: Acute (2) Failure of outpatient treatment ICD Code: Z78.9 - Other specified health status Status: Acute (3) Hypokalemia ICD Code: E87.6 - Hypokalemia Assessment and Plan Large left leg abscess with outpatient therapy failure - - Dr. Donohue consulted - s/p I/D and wound vac placement. - continue antibiotics per ID; on Vanco and Zosyn. -continue with pain control. -plastic surgery consulted for possible skin graft. -plan for OR for further debridement and wound vac today. -follow the cultures. -ID following. Diarrhea-negative for C-diff- Imodium as needed. Hypokalemia -replaced- will monitor. Tobacco Abuse - advised cessation of smoking Angelina Ayala MD Apr 03, 2017 07:20
[2017-04-03 08:00] VITALS: BP 160/79; PULSE 61; RESP 16; TEMP 98.3; O2SAT 96
[2017-04-03] MEDS: SODIUM CHLORIDE 0.9% FLUSH 10 ML FLUSH IV FLUSH SCH ×2 (09:00→21:00)
[2017-04-03] MEDS: VANCOMYCIN INJ 1,250 MG in SODIUM CHLOR 0.9% 250 ML INJ 250 ML IV SCH ×2 (11:10→23:44)
[2017-04-03 12:00] VITALS: BP 158/72; PULSE 58; RESP 16; TEMP 99.4; O2SAT 92
[2017-04-03] MEDS ORDERED: PROPOFOL 200 MG/20 ML AMP IV ONE (12:00)
[2017-04-03] MEDS ORDERED: ONDANSETRON HCL 4 MG/2 ML VIAL IV PUSH ONE (12:00)
[2017-04-03] MEDS ORDERED: DEXAMETHASONE SOD PHOS 4 MG/ML VIAL IV ONE (12:00)
[2017-04-03] MEDS ORDERED: LIDOCAINE HCL 1% PF 5 ML SYRINGE OTHER ONE (12:00)
[2017-04-03] MEDS ORDERED: SODIUM CHLORIDE 0.9% 20 ML VIAL IV ONE (12:00)
[2017-04-03] MEDS ORDERED: GENTAMICIN SULFATE 80 MG/2 ML VIAL ONE (16:43)
[2017-04-03] MEDS ORDERED: SUFentanil INJ 250 MCG/5 ML AMP ONE (18:22)
--- NOTE | 2017-04-03 18:59 | PD.OP ---
cc: Tamara Donohue MD Operative Report Preoperative Diagnosis: (1) Leg abscess Postoperative Diagnosis: Same Procedure: 1. Repeat irrigation and debridement left lower extremity 2. Application of wound VAC Surgeon: Tamara Donohue Juvenile Justice Officer(s): None Operation and Findings: Anesthesia: Gen. Estimated blood loss: Minimal Complications: None Specimens: None Indications for procedure: Patient's 36-year-old female who had a large left lower extremity deep abscess with involvement of muscles, now status post irrigation and debridement with application of wound VAC a few days prior. Options of management were discussed with the patient with plan for return to the operating room for repeat irrigation and debridement with wound VAC change. Risks, benefits and alternatives were discussed with the patient. Patient consented the above-mentioned procedure. Description of procedure: Patient was brought back to the operating room placed supine on operating table. IV access was difficult to obtain and a central line was placed by anesthesia. Gen. anesthesia then ensued. Patient was placed supine on operating room table and all bony prominences well-padded. Left lower shoulder was prepped and draped in standard sterile fashion. A timeout was performed to identify the correct patient, side, site and procedure to be performed. Patient is on scheduled antibiotics therefore preoperative antibiotics were not given. The wound VAC had been removed prior to prepping and draping. The distal incision was opened in its entirety to allow for thorough debridement. Cystoscopy tubing was then used to irrigate with over 3 L of normal saline laden with gentamicin. The wound appeared clean and tissue edges appeared viable. The distal incision was then closed with 3-0 PDS suture followed by 2-0 nylon sutures. The most distal aspect of the incision approximately 5 cm x 5 cm was unable to be closed as that tissue had been debrided at last visit to the OR due to necrosis. This area did have exposed tendons with minimal if any tendon sheath available for closure as the tissue was highly friable. Adaptic was placed over this open wound, followed by a wound VAC. Wound VAC was turned onto 125 mmHg with a good seal. The rest of the leg was covered with sterile dressings and the patient was awoken from general anesthesia without complications. Disposition: Patient can be weightbearing as tolerated to left lower extremity and encouraged for range of motion. The plan will be for a plastic surgery consult to discuss options for coverage. Given the exposed tendons, she could require flap coverage. Tamara Donohue MD Apr 03, 2017 18:59
[2017-04-03] MEDS ORDERED: DO NOT ADM ANY ANTICOAGULANT DRUGS PRN (19:04)
[2017-04-03] MEDS ORDERED: *HYDROmorphone PF 1 MG VIAL PERIprocedural Use ONLY ONE (19:30)
[2017-04-03 20:00] VITALS: BP 131/66; PULSE 72; RESP 20; TEMP 99.5; O2SAT 96
--- NOTE | 2017-04-03 20:11 | RADRPT ---
EXAM DATE/TIME: 04/03/2017 19:09 [facility] COMPARISON: No previous studies available for comparison. INDICATIONS : Central line placement. MEDICAL HISTORY : None. SURGICAL HISTORY : None. ENCOUNTER: Initial ACUITY: 1 day PAIN SCORE: Non-responsive. LOCATION: Bilateral chest FINDINGS: A single view of the chest demonstrates the lungs to be symmetrically aerated without evidence of mas s, infiltrate or effusion. Right central line in superior vena cava. The cardiomediastinal contours a re unremarkable. Osseous structures are intact. CONCLUSION: 1. Right central line in superior vena cava. No pneumothorax. Salas Walker MD on April 03, 2017 at 20:09 Board Certified Radiologist. This report was verified electronically.
[2017-04-04] VITALS: BP 130/70; PULSE 66; RESP 20; TEMP 98.5; O2SAT 94
[2017-04-04] MEDS: PIPERACIL-TAZO 4.5 GM PREMIX 100 ML IV SCH ×4 (02:49→22:22)
[2017-04-04 04:00] VITALS: BP 132/73; PULSE 67; RESP 20; TEMP 98.4; O2SAT 95
[2017-04-04 07:09] LABS: BASOPHIL % 0.2 % (0.0-2.0); HEMATOCRIT 28.4 % (35.0-46.0); HEMOGLOBIN 9.4 GM/DL (11.6-15.3); LYMPH % 17.4 % (9.0-44.0); LYMPHOCYTE # 1.4 TH/MM3 (1.0-4.8); MEAN CELL VOLUME 75.9 FL (80.0-100.0); MEAN CORPUSCULAR HEMOGLOBIN 25.2 PG (27.0-34.0); MEAN CORPUSCULAR HGB CONC 33.2 % (32.0-36.0); MEAN PLATELET VOLUME 7.7 FL (7.0-11.0); MONOCYTE # 0.6 TH/MM3 (0-0.9); NEUT % 74.4 % (16.0-70.0); PLATELET COUNT 268 TH/MM3 (150-450); RED BLOOD COUNT 3.74 MIL/MM3 (4.00-5.30); RED CELL DISTRIBUTION WIDTH 17.4 % (11.6-17.2)
[2017-04-04 07:32] LABS: BICARBONATE 28.4 MEQ/L (21.0-32.0); CALCIUM 8.4 MG/DL (8.5-10.1); CREATININE 0.98 MG/DL (0.50-1.00)
[2017-04-04] MEDS: SODIUM CHLORIDE 0.9% FLUSH 10 ML FLUSH IV FLUSH SCH ×2 (07:51→23:46)
[2017-04-04 08:00] VITALS: BP 129/68; PULSE 61; RESP 20; TEMP 98.4; O2SAT 96
--- NOTE | 2017-04-04 10:05 | HHI.PR ---
Subjective Remarks in no acute distress. no fever. complaining of pain to the left leg. otherwise no other complaints. Objective Vitals Vital Signs Date Time Temp Pulse Resp B/P (MAP) Pulse Ox O2 Delivery O2 Flow Rate FiO2 04/04/17 08:00 98.4 61 20 129/68 (88) 96 04/04/17 04:00 98.4 67 20 132/73 (92) 95 04/04/17 00:00 98.5 66 20 130/70 (90) 94 04/03/17 20:00 99.5 72 20 131/66 (87) 96 04/03/17 19:30 67 18 129/75 (93) 98 Room Air 04/03/17 19:15 70 21 129/75 (93) 100 Nasal Cannula 1 04/03/17 19:04 98.4 86 10 127/68 (87) 100 Nasal Cannula 2 04/03/17 12:00 99.4 58 16 158/72 (100) 92 I/O 04/03/17 04/03/17 04/03/17 04/04/17 04/04/17 04/04/17 07:00 15:00 23:00 07:00 15:00 23:00 Intake Total 700 ml 350 ml Output Total 26 ml Balance 674 ml 350 ml IV Total 100 ml 350 ml Other 600 ml Output Urine Total 1 ml Estimated Blood Loss 25 ml # Voids 1 2 # Bowel Movements 1 0 Result Diagram: 04/04/17 0645 04/04/17 0645 Imaging Last Impressions Chest X-Ray 04/03/17 0000 Signed Impressions: Service Date/Time: Monday, April 03, 2017 19:09 - CONCLUSION: 1. Right central line in superior vena cava. No pneumothorax. Salas Walker MD Lower Extremity CT 03/28/17 0000 Signed Impressions: Service Date/Time: Tuesday, March 28, 2017 20:49 - CONCLUSION: Large rim-enhancing fluid collection extending along the lateral aspect of the left lower leg and lateral gastricnemius muscle which extends from the upper calf to the ankle and measures at least 25 cm in length. This collection appears to bulge outward within the lower aspect and measures 4.3 cm AP by 4.1 cm transverse at the level of the upper ankle. Differential includes large hematoma, seroma or abscess. Clinical correlation is recommended. Ajit Ramos MD Ankle X-Ray 03/28/17 0000 Signed Impressions: Service Date/Time: Tuesday, March 28, 2017 18:46 - CONCLUSION: Focal soft tissue swelling involving the left upper ankle laterally which is nonspecific. No acute fracture or dislocation. Ajit Ramos MD Objective Remarks GENERAL: This is a well-nourished, well-developed patient, in no apparent distress. CARDIOVASCULAR: Regular rate and regular rhythm without murmurs, gallops, or rubs. RESPIRATORY: Clear to auscultation. Breath sounds equal bilaterally. No wheezes , rales, or rhonchi. GASTROINTESTINAL: Abdomen soft, non-tender, nondistended. Normal, active bowel sounds MUSCULOSKELETAL: swelling/ erythema and tenderness over the left ankle. NEURO: Alert & Oriented x4 to person, place, time, situation. Moves all ext x4 Procedures I/D of the left ankle abscess/ wound vac placement. Medications and IVs Inpatient Medications Acetaminophen (Tylenol) 650 mg Q4H PRN PO FEVER/PAIN 1-2; Start 03/31/17 at 10: 15 Acetaminophen/ Hydrocodone Bitart ([place] 5-325 Mg) 2 tab Q4H PRN PO PAIN 7-10 Last administered on 04/01/17 08:59; Start 03/31/17 at 10:15; Stop 04/01/17 at 10:08; Status DC Acetaminophen/ Hydrocodone Bitart ([place] 10-325 Mg) 2 tab Q4H PRN PO PAIN 7-10 Last administered on 04/02/17 07:10; Start 04/01/17 at 10:15; Stop 04/02/17 at 09:34; Status DC Chlorhexidine Gluconate (Chlorhexidine 2% Cloth) 3 pack BARK GRINDER PRN TOPICAL SEE LABEL COMMENTS; Start 04/03/17 at 04:00; Stop 04/06/17 at 03:59 Hydromorphone HCl (Dilaudid Pf Inj) 1 mg Q4H PRN IV PUSH BREAKTHROUGH PAIN Last administered on 04/02/17 08:31; Start 03/31/17 at 14:00 Ibuprofen (Motrin) 800 mg ONCE ONCE PO Last administered on 03/28/17 21:15; Start 03/28/17 at 21:15; Stop 03/28/17 at 21:16; Status DC Insulin Human Regular (NovoLIN R INJ) See Protocol Table ... BARK GRINDER PRN SQ SEE PROTOCOL TABLE; Start 04/03/17 at 04:00; Stop 04/06/17 at 03:59 Lactated Ringer's 1,000 ml @ 30 mls/hr Q24H PRN IV SEE LABEL COMMENTS; Start 04/03/17 at 04:00; Stop 04/06/17 at 03:59 Loperamide HCl (Imodium) 2 mg UNSCH PRN PO DIARRHEA Last administered on 12:21; Start 04/02/17 at 09:45 Metoprolol Tartrate (Lopressor) 25 mg BARK GRINDER PRN PO SEE LABEL COMMENTS; Start 04/03/17 at 04:00; Stop 04/06/17 at 03:59 Miscellaneous Information ALL NURSING DEPARTME... UNSCH PRN .XX SEE LABEL COMMENTS; Start 04/03/17 at 19:04; Stop 04/04/17 at 19:03 Miscellaneous Information (Post-op Orders (for Pharmacy)) STAT ONCE XX ; Start 03/30/17 at 15:15; Stop 03/30/17 at 15:23; Status DC Naloxone HCl (Narcan Inj) 0.4 mg UNSCH PRN IV PUSH SEE LABEL COMMENTS; Start 03/28/17 at 22:30 Ondansetron HCl (Zofran Inj) 4 mg Q6HR PRN IV PUSH nausea/vomiting Last administered on 04/02/17 10:23; Start 03/29/17 at 07:00 Oxycodone HCl (Roxicodone) 30 mg Q6HR PRN PO PAIN 3-10 Last administered on 07:51; Start 04/02/17 at 09:45 Pharmacy Profile Note 0 ml @ 0 mls/hr UNSCH OTHER ; Start 03/28/17 at 22:30 Piperacillin Sod/ Tazobactam Sod 100 ml @ 200 mls/hr Q6H IV Last administered on 04/04/17 07:51; Start 03/29/17 at 02:00 Potassium Chloride (KCl) 30 meq ONCE ONCE PO Last administered on 04/02/17 15:00; Start 04/02/17 at 15:00; Stop 04/02/17 at 15:01; Status DC Povidone Iodine (Betadine 5% Antisepsis Kit) 1 applic BARK GRINDER PRN EACH NARE SEE LABEL COMMENTS; Start 04/03/17 at 04:00; Stop 04/06/17 at 03:59 Sodium Chloride 500 ml @ 30 mls/hr [id number] PRN IV SEE LABEL COMMENTS; Start at 04:00; Stop 04/06/17 at 03:59 Sodium Chloride (NS Flush) 2 ml BID IV FLUSH ; Start 03/30/17 at 21:00; Stop at 21:00; Status DC Vancomycin HCl 1000 mg/Sodium Chloride 250 ml @ 250 mls/hr BARK GRINDER IV ; Start 03/28/17 at 19:15; Stop 03/31/17 at 19:14; Status DC Vancomycin HCl 1250 mg/Sodium Chloride 262.5 ml @ 250 mls/hr Q12H IV Last administered on 04/03/17t 23:44; Start 03/28/17 at 23:00 A/P Problem List: (1) Leg abscess ICD Code: L02.419 - Cutaneous abscess of limb, unspecified Status: Acute (2) Failure of outpatient treatment ICD Code: Z78.9 - Other specified health status Status: Acute (3) Hypokalemia ICD Code: E87.6 - Hypokalemia Assessment and Plan A/P Large left leg abscess with outpatient therapy failure - - Dr. Donohue consulted - s/p I/D and wound vac placement on 03/31/17 and repeated I/D and the wound vac change on 04/03/17 - continue antibiotics per ID; on Vanco and Zosyn. -continue with pain control. -plastic surgery consulted for possible skin graft. -follow the cultures. -ID following. Diarrhea-improved- negative for C-diff- Hypokalemia -will replace and monitor. Tobacco Abuse - advised cessation of smoking Discharge Planning not ready for discharge- being follow-ed up by ID and ortho. Angelina Ayala MD Apr 04, 2017 10:05
[2017-04-04] MEDS ORDERED: POTASSIUM CHLORIDE 10 MEQ CONTROLLED RELEASE TAB PO ONE (10:55)
[2017-04-04 12:00] VITALS: BP 130/73; PULSE 65; RESP 20; TEMP 98; O2SAT 99
[2017-04-04] MEDS: VANCOMYCIN INJ 1,250 MG in SODIUM CHLOR 0.9% 250 ML INJ 250 ML IV SCH ×2 (12:26→23:46)
[2017-04-04 16:00] VITALS: BP 124/69; PULSE 73; RESP 20; TEMP 98.1; O2SAT 99
[2017-04-04 20:00] VITALS: BP 110/63; PULSE 80; RESP 20; TEMP 98.7; O2SAT 96
[2017-04-05] VITALS (8 sets, daily range): BP systolic 100–141; BP diastolic 57–75; PULSE 68–74; RESP 17–20; TEMP 97.9–98.8; O2SAT 94–98
[2017-04-05] MEDS: PIPERACIL-TAZO 4.5 GM PREMIX 100 ML IV SCH ×4 (01:48→20:14)
[2017-04-05] MEDS: SODIUM CHLORIDE 0.9% FLUSH 10 ML FLUSH IV FLUSH SCH ×2 (07:55→23:22)
--- NOTE | 2017-04-05 09:12 | HHI.PR ---
Subjective Remarks in no acute distress. remains afebrile. pain is fairly controlled. Objective Vitals Vital Signs Date Time Temp Pulse Resp B/P (MAP) Pulse Ox O2 Delivery O2 Flow Rate FiO2 04/05/17 08:25 97.9 74 20 125/70 (88) 95 04/05/17 04:00 98.8 69 18 105/57 (73) 95 04/05/17 00:00 98.4 73 18 100/57 (71) 94 04/04/17 20:00 98.7 80 20 110/63 (79) 96 04/04/17 16:00 98.1 73 20 124/69 (87) 99 04/04/17 12:00 98.0 65 20 130/73 (92) 99 I/O 04/04/17 04/04/17 04/04/17 04/05/17 04/05/17 04/05/17 07:00 15:00 23:00 07:00 15:00 23:00 Intake Total 350 ml 910 ml Balance 350 ml 910 ml Intake Oral 560 ml IV Total 350 ml 350 ml # Voids 5 3 2 # Bowel Movements 0 1 0 Result Diagram: 04/04/17 0645 04/04/17 0645 Imaging Last Impressions Chest X-Ray 04/03/17 0000 Signed Impressions: Service Date/Time: Monday, April 03, 2017 19:09 - CONCLUSION: 1. Right central line in superior vena cava. No pneumothorax. Salas Walker MD Lower Extremity CT 03/28/17 0000 Signed Impressions: Service Date/Time: Tuesday, March 28, 2017 20:49 - CONCLUSION: Large rim-enhancing fluid collection extending along the lateral aspect of the left lower leg and lateral gastricnemius muscle which extends from the upper calf to the ankle and measures at least 25 cm in length. This collection appears to bulge outward within the lower aspect and measures 4.3 cm AP by 4.1 cm transverse at the level of the upper ankle. Differential includes large hematoma, seroma or abscess. Clinical correlation is recommended. Ajit Ramos MD Ankle X-Ray 03/28/17 0000 Signed Impressions: Service Date/Time: Tuesday, March 28, 2017 18:46 - CONCLUSION: Focal soft tissue swelling involving the left upper ankle laterally which is nonspecific. No acute fracture or dislocation. Ajit Ramos MD Objective Remarks GENERAL: This is a well-nourished, well-developed patient, in no apparent distress. CARDIOVASCULAR: Regular rate and regular rhythm without murmurs, gallops, or rubs. RESPIRATORY: Clear to auscultation. Breath sounds equal bilaterally. No wheezes , rales, or rhonchi. GASTROINTESTINAL: Abdomen soft, non-tender, nondistended. Normal, active bowel sounds MUSCULOSKELETAL: swelling/ erythema and tenderness over the left ankle. NEURO: Alert & Oriented x4 to person, place, time, situation. Moves all ext x4 Procedures I/D of the left ankle abscess/ wound vac placement. Medications and IVs Inpatient Medications Acetaminophen (Tylenol) 650 mg Q4H PRN PO FEVER/PAIN 1-2; Start 03/31/17 at 10: 15 Acetaminophen/ Hydrocodone Bitart ([place] 5-325 Mg) 2 tab Q4H PRN PO PAIN 7-10 Last administered on 04/01/17 08:59; Start 03/31/17 at 10:15; Stop 04/01/17 at 10:08; Status DC Acetaminophen/ Hydrocodone Bitart ([place] 10-325 Mg) 2 tab Q4H PRN PO PAIN 7-10 Last administered on 04/02/17 07:10; Start 04/01/17 at 10:15; Stop 04/02/17 at 09:34; Status DC Chlorhexidine Gluconate (Chlorhexidine 2% Cloth) 3 pack ACQUISITIONS ASSISTANT PRN TOPICAL SEE LABEL COMMENTS; Start 04/03/17 at 04:00; Stop 04/06/17 at 03:59 Hydromorphone HCl (Dilaudid Pf Inj) 1 mg Q4H PRN IV PUSH BREAKTHROUGH PAIN Last administered on 04/02/17 08:31; Start 03/31/17 at 14:00 Ibuprofen (Motrin) 800 mg ONCE ONCE PO Last administered on 03/28/17 21:15; Start 03/28/17 at 21:15; Stop 03/28/17 at 21:16; Status DC Insulin Human Regular (NovoLIN R INJ) See Protocol Table ... ACQUISITIONS ASSISTANT PRN SQ SEE PROTOCOL TABLE; Start 04/03/17 at 04:00; Stop 04/06/17 at 03:59 Lactated Ringer's 1,000 ml @ 30 mls/hr Q24H PRN IV SEE LABEL COMMENTS; Start 04/03/17 at 04:00; Stop 04/06/17 at 03:59 Loperamide HCl (Imodium) 2 mg UNSCH PRN PO DIARRHEA Last administered on 12:21; Start 04/02/17 at 09:45 Metoprolol Tartrate (Lopressor) 25 mg ACQUISITIONS ASSISTANT PRN PO SEE LABEL COMMENTS; Start 04/03/17 at 04:00; Stop 04/06/17 at 03:59 Miscellaneous Information ALL NURSING DEPARTME... UNSCH PRN .XX SEE LABEL COMMENTS; Start 04/03/17 at 19:04; Stop 04/04/17 at 19:03; Status DC Miscellaneous Information (Post-op Orders (for Pharmacy)) STAT ONCE XX ; Start 03/30/17 at 15:15; Stop 03/30/17 at 15:23; Status DC Naloxone HCl (Narcan Inj) 0.4 mg UNSCH PRN IV PUSH SEE LABEL COMMENTS; Start 03/28/17 at 22:30 Ondansetron HCl (Zofran Inj) 4 mg Q6HR PRN IV PUSH nausea/vomiting Last administered on 04/02/17 10:23; Start 03/29/17 at 07:00 Oxycodone HCl (Roxicodone) 30 mg Q6HR PRN PO PAIN 3-10 Last administered on 08:13; Start 04/02/17 at 09:45 Pharmacy Profile Note 0 ml @ 0 mls/hr UNSCH OTHER ; Start 03/28/17 at 22:30 Piperacillin Sod/ Tazobactam Sod 100 ml @ 200 mls/hr Q6H IV Last administered on 04/05/17 07:54; Start 03/29/17 at 02:00 Potassium Chloride (KCl) 30 meq ONCE ONCE PO Last administered on 04/04/17 12:25; Start 04/04/17 at 10:55; Stop 04/04/17 at 10:56; Status DC Povidone Iodine (Betadine 5% Antisepsis Kit) 1 applic ACQUISITIONS ASSISTANT PRN EACH NARE SEE LABEL COMMENTS; Start 04/03/17 at 04:00; Stop 04/06/17 at 03:59 Sodium Chloride 500 ml @ 30 mls/hr [id number] PRN IV SEE LABEL COMMENTS; Start at 04:00; Stop 04/06/17 at 03:59 Sodium Chloride (NS Flush) 2 ml BID IV FLUSH ; Start 03/30/17 at 21:00; Stop at 21:00; Status DC Vancomycin HCl 1000 mg/Sodium Chloride 250 ml @ 250 mls/hr ACQUISITIONS ASSISTANT IV ; Start 03/28/17 at 19:15; Stop 03/31/17 at 19:14; Status DC Vancomycin HCl 1250 mg/Sodium Chloride 262.5 ml @ 250 mls/hr Q12H IV Last administered on 04/04/17t 23:46; Start 03/28/17 at 23:00 A/P Problem List: (1) Leg abscess ICD Code: L02.419 - Cutaneous abscess of limb, unspecified Status: Acute (2) Failure of outpatient treatment ICD Code: Z78.9 - Other specified health status Status: Acute (3) Hypokalemia ICD Code: E87.6 - Hypokalemia Assessment and Plan A/P Large left leg abscess with outpatient therapy failure - - Dr. Donohue consulted - s/p I/D and wound vac placement on 03/31/17 and repeated I/D and the wound vac change on 04/03/17 - continue antibiotics per ID; on Vanco and Zosyn. -continue with pain control. -plastic surgery consulted for possible skin graft. -follow the cultures. -ID following. -PT consulted. Diarrhea-improved- negative for C-diff- Hypokalemia -replaced- will monitor. Tobacco Abuse - advised cessation of smoking Discharge Planning not ready for discharge- being followed up by ID and ortho. Angelina Ayala MD Apr 05, 2017 09:12
[2017-04-05] MEDS: VANCOMYCIN INJ 1,250 MG in SODIUM CHLOR 0.9% 250 ML INJ 250 ML IV SCH ×2 (10:57→23:23)
[2017-04-06 00:10] VITALS: BP 131/63; PULSE 84; RESP 18; TEMP 99.8; O2SAT 95
[2017-04-06] MEDS: PIPERACIL-TAZO 4.5 GM PREMIX 100 ML IV SCH ×4 (02:00→22:51)
[2017-04-06 04:00] VITALS: BP 145/65; PULSE 85; RESP 18; TEMP 99.6; O2SAT 95
[2017-04-06 06:58] LABS: AUTOMATED NEUTROPHIL # 3.8 TH/MM3 (1.8-7.7); BASOPHIL % 0.5 % (0.0-2.0); EOSINOPHIL # 0.2 TH/MM3 (0-0.4); EOSINOPHIL % 2.5 % (0.0-4.0); HEMATOCRIT 28.2 % (35.0-46.0); HEMOGLOBIN 9.2 GM/DL (11.6-15.3); LYMPH % 32.8 % (9.0-44.0); LYMPHOCYTE # 2.3 TH/MM3 (1.0-4.8); MEAN CELL VOLUME 76.5 FL (80.0-100.0); MEAN CORPUSCULAR HGB CONC 32.7 % (32.0-36.0); MEAN PLATELET VOLUME 7.6 FL (7.0-11.0); MONO % 10.1 % (0.0-8.0); MONOCYTE # 0.7 TH/MM3 (0-0.9); NEUT % 54.1 % (16.0-70.0); PLATELET COUNT 309 TH/MM3 (150-450); RED BLOOD COUNT 3.69 MIL/MM3 (4.00-5.30); RED CELL DISTRIBUTION WIDTH 17.5 % (11.6-17.2)
--- NOTE | 2017-04-06 07:20 | PD.ORT.PN ---
Subjective Subjective Remarks Reports pain relatively well controlled Objective Vitals Vital Signs Date Time Temp Pulse Resp B/P (MAP) Pulse Ox O2 Delivery O2 Flow Rate FiO2 04/06/17 04:00 99.6 85 18 145/65 (91) 95 04/06/17 00:10 99.8 84 18 131/63 (85) 95 04/05/17 20:30 98.4 68 17 141/64 (89) 98 04/05/17 17:56 98 21 04/05/17 17:20 20 04/05/17 16:41 98.3 74 20 123/68 (86) 98 04/05/17 12:00 96 04/05/17 11:38 98.1 71 20 130/75 (93) 96 04/05/17 08:25 97.9 74 20 125/70 (88) 95 I/O 04/05/17 04/05/17 04/05/17 04/06/17 04/06/17 04/06/17 06:59 14:59 22:59 06:59 14:59 22:59 Intake Total 1302.5 ml 360 ml Balance 1302.5 ml 360 ml Intake Oral 940 ml 360 ml IV Total 362.5 ml # Voids 2 6 3 3 # Bowel Movements 0 4 1 Result Diagram: 04/06/17 0630 04/04/17 0645 Objective Remarks Awake, alert, NAD LLE: dressing in place c/d/i. Positive EHL and FHL. Reports some mild numbness and tingling over the entire foot. Brisk cap refill. VAC with good seal. Assessment & Plan Assessment and Plan Patient is a 36-year-old IV drug user with a large left lower leg abscess, now postop day #3 status post repeat irrigation and debridement and application of wound VAC 1. Plan for return to the OR today for repeat I&D and change wound VAC 2. Continue antibiotics per primary team and infectious disease. Cultures were taken intraoperatively- remain negative 3. Okay to be weightbearing as tolerated to the left lower extremity. Would recommend PT for mobilization. 4. Wound VAC 125 mmHg continuous. Okay to change ANCA bandage as needed. Tamara Donohue MD Apr 06, 2017 07:20
[2017-04-06 07:22] LABS: BICARBONATE 30.3 MEQ/L (21.0-32.0); CALCIUM 8.8 MG/DL (8.5-10.1); CREATININE 1.11 MG/DL (0.50-1.00)
[2017-04-06 08:06] VITALS: BP 127/71; PULSE 86; RESP 16; TEMP 98.6; O2SAT 96
[2017-04-06] MEDS: SODIUM CHLORIDE 0.9% FLUSH 10 ML FLUSH IV FLUSH SCH ×2 (08:32→22:54)
--- NOTE | 2017-04-06 09:10 | HHI.PR ---
Subjective Remarks Pt complaining of leg pain, states she asked for her pain meds but hasn't yet gotten it. States she has some loose stool but not in great quantity. Scheduled to go to OR today around noon time. some nausea but no vomiting. Objective Vitals Vital Signs Date Time Temp Pulse Resp B/P (MAP) Pulse Ox O2 Delivery O2 Flow Rate FiO2 04/06/17 08:06 98.6 86 16 127/71 (89) 96 04/06/17 04:00 99.6 85 18 145/65 (91) 95 04/06/17 00:10 99.8 84 18 131/63 (85) 95 04/05/17 20:30 98.4 68 17 141/64 (89) 98 04/05/17 17:56 98 21 04/05/17 17:20 20 04/05/17 16:41 98.3 74 20 123/68 (86) 98 04/05/17 12:00 96 04/05/17 11:38 98.1 71 20 130/75 (93) 96 I/O 04/05/17 04/05/17 04/05/17 04/06/17 04/06/17 04/06/17 07:00 15:00 23:00 07:00 15:00 23:00 Intake Total 1302.5 ml 360 ml Balance 1302.5 ml 360 ml Intake Oral 940 ml 360 ml IV Total 362.5 ml # Voids 2 6 3 3 # Bowel Movements 0 4 1 Result Diagram: 04/06/17 0630 04/06/17 0630 Imaging Last Impressions Chest X-Ray 04/03/17 0000 Signed Impressions: Service Date/Time: Monday, April 03, 2017 19:09 - CONCLUSION: 1. Right central line in superior vena cava. No pneumothorax. Salas Walker MD Lower Extremity CT 03/28/17 0000 Signed Impressions: Service Date/Time: Tuesday, March 28, 2017 20:49 - CONCLUSION: Large rim-enhancing fluid collection extending along the lateral aspect of the left lower leg and lateral gastricnemius muscle which extends from the upper calf to the ankle and measures at least 25 cm in length. This collection appears to bulge outward within the lower aspect and measures 4.3 cm AP by 4.1 cm transverse at the level of the upper ankle. Differential includes large hematoma, seroma or abscess. Clinical correlation is recommended. Ajit Ramos MD Ankle X-Ray 03/28/17 0000 Signed Impressions: Service Date/Time: Tuesday, March 28, 2017 18:46 - CONCLUSION: Focal soft tissue swelling involving the left upper ankle laterally which is nonspecific. No acute fracture or dislocation. Ajit Ramos MD Objective Remarks GENERAL: sitting up on side of bed, just finished using bedside commode CARDIOVASCULAR: Regular rate and regular rhythm without murmurs RESPIRATORY: Clear to auscultation. Breath sounds equal bilaterally. No wheezes GASTROINTESTINAL: Abdomen soft, non-tender, nondistended. Normal, active bowel sounds MUSCULOSKELETAL: dressing/VAC over left lower extremity. some edema noted bilaterally NEURO: a bit somnolent but answers questions appropriately Procedures I/D of the left ankle abscess/ wound vac placement. A/P Problem List: (1) Leg abscess ICD Code: L02.419 - Cutaneous abscess of limb, unspecified Status: Acute (2) Failure of outpatient treatment ICD Code: Z78.9 - Other specified health status Status: Acute (3) Hypokalemia ICD Code: E87.6 - Hypokalemia Assessment and Plan A/P Large left leg abscess with outpatient therapy failure -Dr. Donohue consulted - s/p I/D and wound vac placement on 03/31/17 and repeated I/D and the wound vac change on 04/03/17. She is scheduled for I&D/Wound Vac change today around noon. Weight bearing on LLE per Ortho. -continue Vanco and Zosyn. ID following. appreciate recs -continue with pain control. -plastic surgery consulted for possible skin graft. -follow the cultures. -PT following Diarrhea-improved- negative for C-diff- pt states it is very small amounts. add lactinex once pt tolerating po Hypokalemia - replaced w 40mEq KCl x 1 Tobacco Abuse - advised cessation of smoking Discharge Planning Pt scheduled to go to OR today around noon. Need final recs from ID and Ortho for discharge Annette Govea MD Apr 06, 2017 09:10
[2017-04-06] MEDS ORDERED: POVIDONE IODINE 5% (ANTISEPSIS KIT) 4 APPLICATIONS EACH NARE PRN (09:15)
[2017-04-06] MEDS ORDERED: METOPROLOL TARTRATE 25 MG TAB PO PRN (09:15)
[2017-04-06] MEDS ORDERED: POTASSIUM CHLOR 20 MEQ PREMIX 100 ML IV SCH (09:15)
[2017-04-06] MEDS ORDERED: LACTATED RINGER'S 1000 ML IV PRN (09:15)
[2017-04-06] MEDS ORDERED: SODIUM CHLORID 0.9% 500 ML IV PRN (09:15)
[2017-04-06] MEDS ORDERED: POTASSIUM CHLORIDE 20 MEQ CONTROLLED RELEASE TAB PO ONE (09:15)
[2017-04-06] MEDS ORDERED: CHLORHEXIDINE GLUCONATE 2 % 1 PACK (2 CLOTHS) TOPICAL PRN (09:15)
[2017-04-06] MEDS ORDERED: PHARMACY ORDERED LAB ONE (10:45)
[2017-04-06] MEDS: VANCOMYCIN INJ 1,250 MG in SODIUM CHLOR 0.9% 250 ML INJ 250 ML IV SCH (11:05)
[2017-04-06] MEDS ORDERED: GENTAMICIN SULFATE 80 MG/2 ML VIAL ONE (11:57)
[2017-04-06] MEDS ORDERED: ONDANSETRON HCL 4 MG/2 ML VIAL IV ONE (12:00)
[2017-04-06] MEDS ORDERED: PROPOFOL 200 MG/20 ML AMP IV ONE (12:00)
[2017-04-06] MEDS ORDERED: LIDOCAINE HCL 1% PF 5 ML SYRINGE OTHER ONE (12:00)
[2017-04-06] MEDS: LACTOBACILLUS ACIDOPHILUS TAB PO SCH ×2 (13:00→18:22)
[2017-04-06 13:44] VITALS: O2SAT 96
--- NOTE | 2017-04-06 13:48 | PD.OP ---
cc: Tamara Donohue MD Operative Report Preoperative Diagnosis: (1) Leg abscess Postoperative Diagnosis: Same Procedure: 1. Repeat irrigation and debridement left leg 2. Application of wound VAC Surgeon: Tamara Donohue Retail Cashier(s): None Operation and Findings: Anesthesia: Gen. Estimated blood loss: Minimal Complications: None Specimens: None Indication for procedure: Patient is a 36-year-old female who presented with large deep left lower extremity abscess now status post 2 irrigations and debridements with outpatient wound VAC with exposed tendons. Plan was for return to the OR with irrigation and debridement and wound VAC change. Risks, benefits and alternatives were discussed with the patient. With exposed tendons , my hope was that there be some tissue during surgery that can be moved to cover these tendons to allow for granulation tissue and possibly skin grafting rather than flap coverage. At this time patient did consent to the above- mentioned procedure. Description of procedure: Patient was brought back to the operating room and placed supine on operating room table with all bony prominences well-padded. Patient was prepped and draped in standard sterile fashion. A timeout was performed to identify correct patient, side, site and procedure to be performed. Patient is on scheduled antibiotics which were not do to be redosed at this time. The VAC dressing was removed and the leg was prepped and draped. The distal wound was opened and thoroughly irrigated with 3 L of normal saline laden with gentamicin. At this point there was some soft tissue, appeared to be tendon sheath, which was pulled anterior and closed over the distal aspect of the tendons which were exposed. This was held in place with PDS sutures. The distal wound was then closed with nylon sutures. A wound VAC was placed over the exposed muscle and tendon sheath. This was set to 125 mmHg and did obtain a good seal. Sterile dressings were then applied over the leg and a posterior splint was applied. Patient was awoken from general anesthesia without complication. Disposition: Patient will be nonweightbearing to the left lower extremity in a splint. Plan will be to remove splint and VAC change on Monday to evaluate the wound. Tamara Donohue MD Apr 06, 2017 13:48
[2017-04-06] MEDS ORDERED: *MEPERIDINE 25 MG INJ VIAL PERIprocedural Use ONLY ONE (13:54)
[2017-04-06] MEDS ORDERED: *HYDROmorphone PF 1 MG VIAL PERIprocedural Use ONLY ONE (14:14)
[2017-04-06] MEDS ORDERED: DO NOT ADM ANY ANTICOAGULANT DRUGS PRN ×2 (14:42)
[2017-04-06 16:59] VITALS: BP 155/86; PULSE 77; RESP 16; TEMP 98.4; O2SAT 98
[2017-04-06 21:04] VITALS: BP 133/69; PULSE 87; RESP 16; TEMP 98.7; O2SAT 97
[2017-04-07] VITALS (7 sets, daily range): BP systolic 114–143; BP diastolic 59–75; PULSE 63–106; RESP 16–18; TEMP 98–100.8; O2SAT 94–98
[2017-04-07] MEDS: VANCOMYCIN INJ 1,250 MG in SODIUM CHLOR 0.9% 250 ML INJ 250 ML IV SCH ×2 (00:19→11:38)
[2017-04-07] MEDS: PIPERACIL-TAZO 4.5 GM PREMIX 100 ML IV SCH ×4 (04:09→20:36)
[2017-04-07] MEDS: ACETAMINOPHEN 325 MG TAB PO PRN (04:20)
[2017-04-07 06:19] LABS: HEMATOCRIT 26.8 % (35.0-46.0); HEMOGLOBIN 8.6 GM/DL (11.6-15.3)
[2017-04-07 06:42] LABS: BICARBONATE 30.1 MEQ/L (21.0-32.0); CALCIUM 8.5 MG/DL (8.5-10.1); CREATININE 0.94 MG/DL (0.50-1.00)
[2017-04-07] MEDS: LACTOBACILLUS ACIDOPHILUS TAB PO SCH ×3 (09:05→17:48)
[2017-04-07] MEDS: SODIUM CHLORIDE 0.9% FLUSH 10 ML FLUSH IV FLUSH SCH ×2 (10:50→20:32)
--- NOTE | 2017-04-07 12:25 | PD.ORT.PN ---
Subjective Subjective Remarks Reports pain relatively well controlled. Overall just anxious to know what she might be able to leave. Objective Vitals Vital Signs Date Time Temp Pulse Resp B/P (MAP) Pulse Ox O2 Delivery O2 Flow Rate FiO2 04/07/17 08:39 98.0 63 18 114/59 (77) 95 04/07/17 04:49 100.8 80 18 124/69 (87) 96 04/07/17 00:00 99.5 106 16 143/73 (96) 94 04/06/17 21:04 98.7 87 16 133/69 (90) 97 04/06/17 16:59 98.4 77 16 155/86 (109) 98 04/06/17 14:50 18 04/06/17 14:50 18 04/06/17 14:30 98.1 68 16 140/73 (95) 96 Room Air 04/06/17 14:15 69 16 143/77 (99) 95 Room Air 04/06/17 14:00 70 16 144/79 (100) 99 Nasal Cannula 3 04/06/17 13:45 73 16 141/82 (101) 98 Nasal Cannula 3 04/06/17 13:44 96 04/06/17 13:42 98.2 74 20 130/91 (104) 96 Nasal Cannula 3 I/O 04/06/17 04/06/17 04/06/17 04/07/17 04/07/17 04/07/17 07:00 15:00 23:00 07:00 15:00 23:00 Intake Total 600 ml 100 ml Balance 600 ml 100 ml IV Total 100 ml 100 ml Other 500 ml # Voids 3 1 3 # Bowel Movements 1 1 0 Result Diagram: 04/07/17 0555 04/07/17 05 Objective Remarks Awake, alert, NAD LLE: dressing in place c/d/i. Positive EHL and FHL. Brisk cap refill. VAC with good seal. Assessment & Plan Assessment and Plan Patient is a 36-year-old IV drug user with a large left lower leg abscess, now postop day #1 status post repeat irrigation and debridement and application of wound VAC, and repair of tendon sheath over exposed tendons 1. At this time, I discussed with the patient that I would leave the VAC in place until Monday. Plan will be for VAC change at bedside on [place] morning. This will allow evaluation to determine whether the soft tissue over the tendons is viable and will allow granulation tissue to occur. This will certainly guide any future treatment options. I discussed with the patient the option that she may go home with a wound VAC to allow granulation tissue to form versus possible skin grafting prior to discharge. 2. Wound VAC 125 mmHg continuous. 3. splint to left lower extremity. Nonweightbearing at this time. Okay to mobilize as tolerated with walker versus wheelchair Tamara Donohue MD Apr 07, 2017 12:24
--- NOTE | 2017-04-07 13:06 | HHI.PR ---
Subjective Remarks Pt seen earlier around 11:30 Pain controlled. no nausea or vomiting. no chest pain or sob Objective Vitals Vital Signs Date Time Temp Pulse Resp B/P (MAP) Pulse Ox O2 Delivery O2 Flow Rate FiO2 04/07/17 12:21 98.2 71 16 139/67 (91) 98 04/07/17 08:39 98.0 63 18 114/59 (77) 95 04/07/17 04:49 100.8 80 18 124/69 (87) 96 04/07/17 00:00 99.5 106 16 143/73 (96) 94 04/06/17 21:04 98.7 87 16 133/69 (90) 97 04/06/17 16:59 98.4 77 16 155/86 (109) 98 04/06/17 14:50 18 04/06/17 14:50 18 04/06/17 14:30 98.1 68 16 140/73 (95) 96 Room Air 04/06/17 14:15 69 16 143/77 (99) 95 Room Air 04/06/17 14:00 70 16 144/79 (100) 99 Nasal Cannula 3 04/06/17 13:45 73 16 141/82 (101) 98 Nasal Cannula 3 04/06/17 13:44 96 04/06/17 13:42 98.2 74 20 130/91 (104) 96 Nasal Cannula 3 I/O 04/06/17 04/06/17 04/06/17 04/07/17 04/07/17 04/07/17 07:00 15:00 23:00 07:00 15:00 23:00 Intake Total 600 ml 100 ml Balance 600 ml 100 ml IV Total 100 ml 100 ml Other 500 ml # Voids 3 1 3 # Bowel Movements 1 1 0 Result Diagram: 04/07/17 0555 04/07/17 0555 Imaging Last Impressions Chest X-Ray 04/03/17 0000 Signed Impressions: Service Date/Time: Monday, April 03, 2017 19:09 - CONCLUSION: 1. Right central line in superior vena cava. No pneumothorax. Salas Walker MD Lower Extremity CT 03/28/17 0000 Signed Impressions: Service Date/Time: Tuesday, March 28, 2017 20:49 - CONCLUSION: Large rim-enhancing fluid collection extending along the lateral aspect of the left lower leg and lateral gastricnemius muscle which extends from the upper calf to the ankle and measures at least 25 cm in length. This collection appears to bulge outward within the lower aspect and measures 4.3 cm AP by 4.1 cm transverse at the level of the upper ankle. Differential includes large hematoma, seroma or abscess. Clinical correlation is recommended. Ajit Ramos MD Ankle X-Ray 03/28/17 0000 Signed Impressions: Service Date/Time: Tuesday, March 28, 2017 18:46 - CONCLUSION: Focal soft tissue swelling involving the left upper ankle laterally which is nonspecific. No acute fracture or dislocation. Ajit Ramos MD Objective Remarks GENERAL: sitting up in bed CARDIOVASCULAR: Regular rate and regular rhythm without murmurs RESPIRATORY: Clear to auscultation. Breath sounds equal bilaterally. No wheezes GASTROINTESTINAL: Abdomen soft, non-tender, nondistended. Normal, active bowel sounds MUSCULOSKELETAL: dressing/VAC over left lower extremity. NEURO: more alert, answers questions Procedures I/D of the left ankle abscess/ wound vac placement. A/P Problem List: (1) Leg abscess ICD Code: L02.419 - Cutaneous abscess of limb, unspecified Status: Acute (2) Failure of outpatient treatment ICD Code: Z78.9 - Other specified health status Status: Acute (3) Hypokalemia ICD Code: E87.6 - Hypokalemia Assessment and Plan Large left leg abscess with outpatient therapy failure -Dr. Donohue consulted - s/p I/D and wound vac placement on 03/31/17 , 04/03/17 and 04/06/17. Plan is for wound VAC to remain in place until Monday w VAC change at bedside that day. options are for pt to go home with a wound VAC to allow granulation tissue to form versus possible skin grafting prior to discharge. splint to left lower extremity. Nonweightbearing at this time. Okay to mobilize as tolerated with walker versus wheelchair per Ortho awaiting final recs from ortho. -continue Vanco and Zosyn. ID following. appreciate recs -continue with pain control. -plastic surgery consulted for possible skin graft. -follow the cultures. -PT following Diarrhea-improved- negative for C-diff- pt states it is very small amounts. on lactinex Hypokalemia - replaced and check Mg levels. Replete as needed Tobacco Abuse - advised cessation of smoking Discharge Planning wound vac to remain until monday. Plan is for bedside VAC change on monday and wait for final recs from Annette Jacobs MD Apr 07, 2017 13:06
[2017-04-07] MEDS ORDERED: POTASSIUM CHLORIDE 20 MEQ CONTROLLED RELEASE TAB PO ONE (14:00)
[2017-04-08] VITALS (7 sets, daily range): BP systolic 119–142; BP diastolic 65–89; PULSE 56–95; RESP 16–18; TEMP 97.5–100.8; O2SAT 92–98
[2017-04-08] MEDS: VANCOMYCIN INJ 1,250 MG in SODIUM CHLOR 0.9% 250 ML INJ 250 ML IV SCH ×3 (01:15→23:00)
[2017-04-08] MEDS: PIPERACIL-TAZO 4.5 GM PREMIX 100 ML IV SCH ×4 (02:25→20:41)
[2017-04-08] MEDS: SODIUM CHLORIDE 0.9% FLUSH 10 ML FLUSH IV FLUSH PRN (02:26)
[2017-04-08] MEDS: LOPERAMIDE HCL 2 MG CAP PO PRN (05:57)
[2017-04-08] MEDS: ACETAMINOPHEN 325 MG TAB PO PRN (05:57)
--- NOTE | 2017-04-08 07:28 | PD.ORT.PN ---
Subjective Subjective Remarks POD 2 s/p I&D and vac application left leg doign well. no changes. Objective Vitals Vital Signs Date Time Temp Pulse Resp B/P (MAP) Pulse Ox O2 Delivery O2 Flow Rate FiO2 04/08/17 05:54 99.2 83 16 121/65 (83) 95 04/08/17 00:26 100.8 95 16 119/67 (84) 92 04/07/17 20:44 98.7 74 16 136/75 (95) 97 04/07/17 15:55 98.3 71 18 128/60 (82) 95 04/07/17 14:23 98 04/07/17 12:21 98.2 71 16 139/67 (91) 98 04/07/17 08:39 98.0 63 18 114/59 (77) 95 I/O 04/07/17 04/07/17 04/07/17 04/08/17 04/08/17 04/08/17 06:59 14:59 22:59 06:59 14:59 22:59 Intake Total 480 ml Balance 480 ml Intake Oral 480 ml # Voids 3 3 # Bowel Movements 0 2 Result Diagram: 04/07/1755 04/07/17 0555 Objective Remarks Awake, alert, NAD LLE: dressing in place c/d/i. Positive EHL and FHL. Brisk cap refill. VAC with good seal. Assessment & Plan Assessment and Plan Patient is a 36-year-old IV drug user with a large left lower leg abscess, now postop day #1 status post repeat irrigation and debridement and application of wound VAC, and repair of tendon sheath over exposed tendons 1. At this time, I discussed with the patient that I would leave the VAC in place until Monday. Plan will be for VAC change at bedside on Monday. This will allow evaluation to determine whether the soft tissue over the tendons is viable and will allow granulation tissue to occur. This will certainly guide any future treatment options. I discussed with the patient the option that she may go home with a wound VAC to allow granulation tissue to form versus possible skin grafting prior to discharge. 2. Wound VAC 125 mmHg continuous. 3. splint to left lower extremity. Nonweightbearing at this time. Okay to mobilize as tolerated with walker versus wheelchair Ariel Andrade/Zoogler PA Apr 08, 2017 07:28
[2017-04-08] MEDS: SODIUM CHLORIDE 0.9% FLUSH 10 ML FLUSH IV FLUSH SCH ×2 (07:59→20:41)
[2017-04-08] MEDS: LACTOBACILLUS ACIDOPHILUS TAB PO SCH ×3 (07:59→17:45)
[2017-04-08] MEDS ORDERED: PHARMACY ORDERED LAB ONE (10:45)
--- NOTE | 2017-04-08 19:19 | HHI.PR ---
Subjective Remarks Pt would prefer to be home, but understands that her leg has a large open wound on a wound vac. I explained to her how important it was to remove deep pockets of abscess to prevent infection from recurring again. Objective Vital Signs Date Time Temp Pulse Resp B/P (MAP) Pulse Ox O2 Delivery O2 Flow Rate FiO2 04/08/17 16:00 98.3 78 18 137/77 (97) 97 04/08/17 12:00 98.2 56 18 128/74 (92) 95 04/08/17 08:19 96 21 04/08/17 08:00 97.5 64 18 137/89 (105) 98 04/08/17 05:54 99.2 83 16 121/65 (83) 95 04/08/17 00:26 100.8 95 16 119/67 (84) 92 04/07/17 20:44 98.7 74 16 136/75 (95) 97 I/O 04/07/17 04/07/17 04/07/17 04/08/17 04/08/17 04/08/17 07:00 15:00 23:00 07:00 15:00 23:00 Intake Total 580 ml 360 ml 362.5 ml 100 ml Balance 580 ml 360 ml 362.5 ml 100 ml Intake Oral 480 ml IV Total 100 ml 360 ml 362.5 ml 100 ml # Voids 3 3 # Bowel Movements 0 2 Result Diagram: 04/07/1755404/07/17 0555 Objective Remarks GENERAL: Well-nourished, well-developed patient. SKIN: Warm and dry. HEAD: Normocephalic. EYES: No scleral icterus. No injection or drainage. NECK: Supple, trachea midline. No JVD or lymphadenopathy. CARDIOVASCULAR: Regular rate and rhythm without murmurs, gallops, or rubs. RESPIRATORY: Breath sounds equal bilaterally. No accessory muscle use. GASTROINTESTINAL: Abdomen soft, non-tender, nondistended. 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 BACK: Nontender without obvious deformity. No CVA tenderness. EXTREMITIES: Left lower leg wrapped on top of wound vac Assessment and Plan Problem List: (1) Leg abscess ICD Codes: L02.419 - Cutaneous abscess of limb, unspecified Status: Acute (2) Failure of outpatient treatment ICD Codes: Z78.9 - Other specified health status Status: Acute Assessment and Plan Left Lower Leg Abscess - Failed outpatient therapy - Dr. Donohue consulted, placement of wound vac on 03/31/17, 04/03/17, 04/06/17 - Continue vancomycin and zosyn - Reevaluation on Monday to determine possibility of closure vs. graft vs. other - Cultures pending Diarrhea - antibiotic related, slightly improved, negative c. diff Hypokalemia - Recheck DVT Prophylaxis - SCD's Drake Jones MD Apr 08, 2017 19:19
[2017-04-09 00:30] VITALS: BP 138/65; PULSE 68; RESP 17; TEMP 97.6; O2SAT 98
[2017-04-09] MEDS: PIPERACIL-TAZO 4.5 GM PREMIX 100 ML IV SCH ×4 (02:00→20:59)
[2017-04-09 04:00] VITALS: BP 132/67; PULSE 64; RESP 17; TEMP 97.9; O2SAT 99
[2017-04-09 08:01] VITALS: BP 119/59; PULSE 58; RESP 18; TEMP 97.6; O2SAT 97
[2017-04-09] MEDS: SODIUM CHLORIDE 0.9% FLUSH 10 ML FLUSH IV FLUSH SCH ×2 (08:11→20:59)
[2017-04-09] MEDS: LACTOBACILLUS ACIDOPHILUS TAB PO SCH ×3 (08:11→17:15)
[2017-04-09] MEDS: VANCOMYCIN INJ 1,250 MG in SODIUM CHLOR 0.9% 250 ML INJ 250 ML IV SCH (11:35)
[2017-04-09 12:44] VITALS: BP 112/57; PULSE 62; RESP 18; TEMP 97.7; O2SAT 97
[2017-04-09] MEDS ORDERED: FUROSEMIDE 40 MG TAB PO PRN (14:45)
--- NOTE | 2017-04-09 14:45 | HHI.PR ---
Subjective Remarks Pt complains of right ankle edema today. It is not tender, just visibly swollen. Objective Vital Signs Date Time Temp Pulse Resp B/P (MAP) Pulse Ox O2 Delivery O2 Flow Rate FiO2 04/09/17 12:44 97.7 62 18 112/57 (75) 97 04/09/17 08:01 97.6 58 18 119/59 (79) 97 04/09/17 04:00 97.9 64 17 132/67 (88) 99 04/09/17 00:30 97.6 68 17 138/65 (89) 98 04/08/17 20:40 98.7 78 16 142/67 (92) 97 04/08/17 16:00 98.3 78 18 137/77 (97) 97 I/O 04/08/17 04/08/17 04/08/17 04/09/17 04/09/17 04/09/17 07:00 15:00 23:00 07:00 15:00 23:00 Intake Total 360 ml 362.5 ml 900 ml 1500 ml Output Total 800 ml Balance 360 ml 362.5 ml 100 ml 1500 ml Intake Oral 800 ml 1500 ml IV Total 360 ml 362.5 ml 100 ml Output Urine Total 800 ml # Voids 3 4 # Bowel Movements 2 0 0 Result Diagram: 04/07/17 0555 04/07/17 0555 Objective Remarks GENERAL: Well-nourished, well-developed patient. SKIN: Warm and dry. HEAD: Normocephalic. EYES: No scleral icterus. No injection or drainage. NECK: Supple, trachea midline. No JVD or lymphadenopathy. CARDIOVASCULAR: Regular rate and rhythm without murmurs, gallops, or rubs. RESPIRATORY: Breath sounds equal bilaterally. No accessory muscle use. GASTROINTESTINAL: Abdomen soft, non-tender, nondistended. 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 BACK: Nontender without obvious deformity. No CVA tenderness. EXTREMITIES: Left lower leg wrapped on top of wound vac, 1+ ankle edema in right ankle. Assessment and Plan Problem List: (1) Leg abscess ICD Codes: L02.419 - Cutaneous abscess of limb, unspecified Status: Acute (2) Failure of outpatient treatment ICD Codes: Z78.9 - Other specified health status Status: Acute Assessment and Plan Left Lower Leg Abscess - Failed outpatient therapy - Dr. Donohue consulted, placement of wound vac on 03/31/17, 04/03/17, 04/06/17 - Continue vancomycin and zosyn - Reevaluation on Monday to determine possibility of closure vs. graft vs. other - Cultures pending Ankle Edema - Elevate onto pillow. If not improving, single dose of lasix. Diarrhea - antibiotic related, slightly improved, negative c. diff Hypokalemia - Recheck DVT Prophylaxis - SCD's Drake Jones MD Apr 09, 2017 2:45 pm
[2017-04-09 17:19] VITALS: BP 154/85; PULSE 88; RESP 19; TEMP 98.7; O2SAT 93
[2017-04-09 22:30] VITALS: BP 132/77; PULSE 74; RESP 17; TEMP 99.1; O2SAT 97
[2017-04-09 23:05] LABS: AUTOMATED NEUTROPHIL # 3.8 TH/MM3 (1.8-7.7); BASOPHIL % 0.6 % (0.0-2.0); EOSINOPHIL # 0.3 TH/MM3 (0-0.4); EOSINOPHIL % 3.7 % (0.0-4.0); HEMOGLOBIN 9.3 GM/DL (11.6-15.3); LYMPH % 29.5 % (9.0-44.0); MEAN CELL VOLUME 76.8 FL (80.0-100.0); MEAN CORPUSCULAR HEMOGLOBIN 24.6 PG (27.0-34.0); MEAN PLATELET VOLUME 7.6 FL (7.0-11.0); MONOCYTE # 0.7 TH/MM3 (0-0.9); NEUT % 56.2 % (16.0-70.0); PLATELET COUNT 418 TH/MM3 (150-450); RED BLOOD COUNT 3.78 MIL/MM3 (4.00-5.30); RED CELL DISTRIBUTION WIDTH 17.8 % (11.6-17.2); WHITE BLOOD COUNT 6.9 TH/MM3 (4.0-11.0)
[2017-04-09 23:29] LABS: ALT (GPT) 17 U/L (10-53); AST (GOT) 15 U/L (15-37); BICARBONATE 32.4 MEQ/L (21.0-32.0); BLOOD UREA NITROGEN 12 MG/DL (7-18); CHLORIDE 99 MEQ/L (98-107); GLOMERULAR FILTRATION RATE 51 ML/MIN (>89); GLUCOSE,RANDOM 107 MG/DL (74-106); SODIUM (NA) 139 MEQ/L (136-145)
[2017-04-09 23:31] LABS: ALKALINE PHOSPHATASE 91 U/L (45-117); TOTAL BILIRUBIN ADULT 0.2 MG/DL (0.2-1.0); TOTAL PROTEIN 7.8 GM/DL (6.4-8.2)
[2017-04-10] VITALS (8 sets, daily range): BP systolic 122–142; BP diastolic 64–74; PULSE 57–80; RESP 16–19; TEMP 97.6–98.9; O2SAT 95–98
[2017-04-10] MEDS: VANCOMYCIN INJ 1,250 MG in SODIUM CHLOR 0.9% 250 ML INJ 250 ML IV SCH ×2 (00:14→12:15)
[2017-04-10] MEDS: PIPERACIL-TAZO 4.5 GM PREMIX 100 ML IV SCH ×3 (03:01→13:39)
[2017-04-10 07:51] LABS: CREATININE 1.05 MG/DL (0.50-1.00)
--- NOTE | 2017-04-10 07:56 | PD.ORT.PN ---
Subjective Subjective Remarks Reports pain relatively well controlled. Reports very mild numbness and tingling of the dorsum of her foot, this is since prior to surgery. Objective Vitals Vital Signs Date Time Temp Pulse Resp B/P (MAP) Pulse Ox O2 Delivery O2 Flow Rate FiO2 04/10/17 05:49 97.6 76 19 128/68 (88) 98 04/10/17 04:05 18 04/10/17 01:46 77 04/10/17 00:45 98.9 80 18 130/65 (86) 98 04/09/17 22:30 99.1 74 17 132/77 (95) 97 04/09/17 17:19 98.7 88 19 154/85 (108) 93 04/09/17 12:44 97.7 62 18 112/57 (75) 97 04/09/17 08:01 97.6 58 18 119/59 (79) 97 I/O 04/09/17 04/09/17 04/09/17 04/10/17 04/10/17 04/10/17 07:00 15:00 23:00 07:00 15:00 23:00 Intake Total 1500 ml 2482.5 ml 900 ml Balance 1500 ml 2482.5 ml 900 ml Intake Oral 1500 ml 2020 ml 900 ml IV Total 462.5 ml # Voids 4 6 4 # Bowel Movements 0 1 0 Result Diagram: 04/09/17220204/10/17 0722 Objective Remarks Awake, alert, NAD LLE: Dressing and VAC removed. Tendon sheath appears intact covering exposed tendons. This tissue does appear viable. Healthy small amount of granulation tissue at base around distal wound. Other incisions appear to be healing well. No evidence of purulent drainage. Assessment & Plan Assessment and Plan Patient is a 36-year-old IV drug user with a large left lower leg abscess, now postop day #4 status post repeat irrigation and debridement and application of wound VAC, and repair of tendon sheath over exposed tendons 1. Wound VAC changed at bedside this morning. Healthy tissue at base and tendon sheath intact of her tendons. Discussed with options of management at this point including continued wound VAC management versus the possibility of skin grafting. My concern is patient does not have a steady residents and actually lives mostly out of her vehicle and occasionally at friends apartment and houses. With this in mind I do not believe a wound VAC would likely be consistently changed appropriately. This would likely lead to more long-term issues. I feel that patient would likely benefit from skin grafting prior to discharge. I will discuss this with plastic surgery. 2. We'll plan for VAC change at bedside on should skin grafting not be provided. Tamara Donohue MD Apr 10, 2017 07:56
[2017-04-10] MEDS: LACTOBACILLUS ACIDOPHILUS TAB PO SCH ×3 (09:29→17:37)
[2017-04-10] MEDS: SODIUM CHLORIDE 0.9% FLUSH 10 ML FLUSH IV FLUSH SCH ×2 (09:30→21:00)
--- NOTE | 2017-04-10 14:13 | HHI.PR ---
Subjective Remarks Pt states ankle edema has improved after taking single dose of lasix. She was seen by orthopedics today who feels a skin graft may be the best option for wound closure. Objective Vital Signs Date Time Temp Pulse Resp B/P (MAP) Pulse Ox O2 Delivery O2 Flow Rate FiO2 04/10/17 12:50 98.0 70 16 122/70 (87) 97 04/10/17 08:11 98.2 65 16 123/64 (83) 96 04/10/17 05:49 97.6 76 19 128/68 (88) 98 04/10/17 04:05 18 04/10/17 01:46 77 04/10/17 00:45 98.9 80 18 130/65 (86) 98 04/09/17 22:30 99.1 74 17 132/77 (95) 97 04/09/17 17:19 98.7 88 19 154/85 (108) 93 I/O 04/09/17 04/09/17 04/09/17 04/10/17 04/10/17 04/10/17 07:00 15:00 23:00 07:00 15:00 23:00 Intake Total 1500 ml 2482.5 ml 900 ml 100 ml Balance 1500 ml 2482.5 ml 900 ml 100 ml Intake Oral 1500 ml 2020 ml 900 ml IV Total 462.5 ml 100 ml # Voids 4 6 4 # Bowel Movements 0 1 0 Result Diagram: 04/09/17220204/10/17721 Objective Remarks GENERAL: Well-nourished, well-developed patient. SKIN: Warm and dry. HEAD: Normocephalic. EYES: No scleral icterus. No injection or drainage. NECK: Supple, trachea midline. No JVD or lymphadenopathy. CARDIOVASCULAR: Regular rate and rhythm without murmurs, gallops, or rubs. RESPIRATORY: Breath sounds equal bilaterally. No accessory muscle use. GASTROINTESTINAL: Abdomen soft, non-tender, nondistended. 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 BACK: Nontender without obvious deformity. No CVA tenderness. EXTREMITIES: Left lower leg wrapped on top of wound vac, trace right ankle edema Assessment and Plan Problem List: (1) Leg abscess ICD Codes: L02.419 - Cutaneous abscess of limb, unspecified Status: Acute (2) Failure of outpatient treatment ICD Codes: Z78.9 - Other specified health status Status: Acute Assessment and Plan Left Lower Leg Abscess - Failed outpatient therapy - Dr. Donohue consulted, placement of wound vac on 03/31/17, 04/03/17, 04/06/17 - Continue vancomycin and zosyn - Reevaluation on Monday to determine possibility of closure vs. graft vs. other - Cultures pending, so far no growth - Wound closure will most likely be skin graft Ankle Edema - Mostly resolved Diarrhea - antibiotic related, slightly improved, negative c. diff Hypokalemia - Recheck DVT Prophylaxis - SCD's Discharge Planning - Pt has no available housing to transition into reliable outpatient setting Drake Jones MD Apr 10, 2017 14:13
--- NOTE | 2017-04-10 16:43 | HHI.PR ---
Addendum to Inpatient Note Additional Information ID - pt seen around 1200 - full note to follow Stefanie Corral MD Apr 10, 2017 16:43
--- NOTE | 2017-04-10 20:44 | HHI.IDPN ---
Subjective Subjective Remarks no fever tolearates abx ok Antibiotics vanco zosyn Allergies: Coded Allergies: ketorolac (Unverified Allergy, Severe, Anaphylaxis, 12/06/16) THROAT WAS SWELLING CLOSED morphine (Unverified Allergy, Mild, 04/04/17) Objective . Vital Signs Date Time Temp Pulse Resp B/P (MAP) Pulse Ox O2 Delivery O2 Flow Rate FiO2 04/10/17 16:33 98.2 57 16 123/71 (88) 98 04/10/17 16:15 58 04/10/17 12:50 98.0 70 16 122/70 (87) 97 04/10/17 08:11 98.2 65 16 123/64 (83) 96 04/10/17 05:49 97.6 76 19 128/68 (88) 98 04/10/17 04:05 18 04/10/17 01:46 77 04/10/17 00:45 98.9 80 18 130/65 (86) 98 04/09/17 22:30 99.1 74 17 132/77 (95) 97 04/10/17 04/10/17 04/11/17 15:00 23:00 07:00 Intake Total 462.5 ml 480 ml Balance 462.5 ml 480 ml Intake Oral 480 ml IV Total 462.5 ml # Voids 6 # Bowel Movements 5 . Laboratory Tests Test 04/09/17 22:03 White Blood Count 6.9 TH/MM3 Red Blood Count 3.78 MIL/MM3 Hemoglobin 9.3 GM/DL Hematocrit 29.0 % Mean Corpuscular Volume 76.8 FL Mean Corpuscular Hemoglobin 24.6 PG Mean Corpuscular Hemoglobin Concent 32.0 % Red Cell Distribution Width 17.8 % Platelet Count 418 TH/MM3 Mean Platelet Volume 7.6 FL Neutrophils (%) (Auto) 56.2 % Lymphocytes (%) (Auto) 29.5 % Monocytes (%) (Auto) 10.0 % Eosinophils (%) (Auto) 3.7 % Basophils (%) (Auto) 0.6 % Neutrophils # (Auto) 3.8 TH/MM3 Lymphocytes # (Auto) 2.0 TH/MM3 Monocytes # (Auto) 0.7 TH/MM3 Eosinophils # (Auto) 0.3 TH/MM3 Basophils # (Auto) 0.0 TH/MM3 CBC Comment DIFF FINAL Differential Comment Laboratory Tests Test 04/09/17 22:03 04/10/17 07:22 Blood Urea Nitrogen 12 MG/DL Creatinine 1.20 MG/DL 1.05 MG/DL Random Glucose 107 MG/DL Total Protein 7.8 GM/DL Albumin 3.0 GM/DL Calcium Level 9.0 MG/DL Alkaline Phosphatase 91 U/L Aspartate Amino Transf (AST/SGOT) 15 U/L Alanine Aminotransferase (ALT/SGPT) 17 U/L Total Bilirubin 0.2 MG/DL Sodium Level 139 MEQ/L Potassium Level 3.4 MEQ/L Chloride Level 99 MEQ/L Carbon Dioxide Level 32.4 MEQ/L Anion Gap 8 MEQ/L Estimat Glomerular Filtration Rate 51 ML/MIN 60 ML/MIN Imaging Last Impressions Chest X-Ray 04/03/17 0000 Signed Impressions: Service Date/Time: Monday, April 03, 2017 19:09 - CONCLUSION: 1. Right central line in superior vena cava. No pneumothorax. Salas Walker MD Lower Extremity CT 03/28/17 0000 Signed Impressions: Service Date/Time: Tuesday, March 28, 2017 20:49 - CONCLUSION: Large rim-enhancing fluid collection extending along the lateral aspect of the left lower leg and lateral gastricnemius muscle which extends from the upper calf to the ankle and measures at least 25 cm in length. This collection appears to bulge outward within the lower aspect and measures 4.3 cm AP by 4.1 cm transverse at the level of the upper ankle. Differential includes large hematoma, seroma or abscess. Clinical correlation is recommended. Ajit Ramos MD Ankle X-Ray 03/28/17 0000 Signed Impressions: Service Date/Time: Tuesday, March 28, 2017 18:46 - CONCLUSION: Focal soft tissue swelling involving the left upper ankle laterally which is nonspecific. No acute fracture or dislocation. Ajit Ramos MD Physical Exam CONSTITUTIONAL/GENERAL: This is an adequately nourished patient, in no apparent distress. TUBES/LINES/DRAINS: SKIN: No jaundice, rashes, or lesions. . Skin temperature appropriate. Not diaphoretic. MUSCULOSKELETAL LLE with surg dressing, VAC in palce with serosang d/c Assessment & Plan Remarks LLE large abscess s/p ID with exicion of necrotic skin and VAC place,mnets Prior abx use (keflex, bactrim) Clx neg - final + low greade fever: resolved will dc zosyn, cont vancomycin Stefanie Corral MD Apr 10, 2017 20:44
[2017-04-10] MEDS: VANCOMYCIN 1,000 MG/NS 250 ML IV SCH ×2 (23:05)
[2017-04-11] VITALS (9 sets, daily range): BP systolic 125–156; BP diastolic 63–79; PULSE 62–83; RESP 17–18; TEMP 98–98.8; O2SAT 94–97
[2017-04-11] MEDS: HYDROmorphone HCL PF 1 MG/ML VIAL IV PUSH PRN (04:04)
[2017-04-11] MEDS: LACTOBACILLUS ACIDOPHILUS TAB PO SCH ×3 (08:22→18:54)
[2017-04-11] MEDS: SODIUM CHLORIDE 0.9% FLUSH 10 ML FLUSH IV FLUSH SCH ×2 (08:22→23:45)
[2017-04-11] MEDS: VANCOMYCIN 1,000 MG/NS 250 ML IV SCH ×4 (12:32→23:44)
--- NOTE | 2017-04-11 17:05 | HHI.IDPN ---
Subjective Subjective Remarks no fever co pain L LE - thinks its increasing Antibiotics vanco Allergies: Coded Allergies: ketorolac (Unverified Allergy, Severe, Anaphylaxis, 12/06/16) THROAT WAS SWELLING CLOSED morphine (Unverified Allergy, Mild, 04/04/17) Objective . Vital Signs Date Time Temp Pulse Resp B/P (MAP) Pulse Ox O2 Delivery O2 Flow Rate FiO2 04/11/17 16:30 98.5 83 18 130/65 (86) 94 04/11/17 11:47 98.3 68 17 125/63 (83) 96 04/11/17 08:01 98.8 80 18 141/73 (95) 96 04/11/17 04:31 98.4 71 18 138/64 (88) 97 04/11/17 00:51 98.1 69 18 141/67 (91) 97 04/10/17 20:55 97.9 63 18 142/74 (96) 95 04/11/17 04/11/17 04/12/17 15:00 23:00 07:00 Intake Total 250 ml 240 ml Balance 250 ml 240 ml Intake Oral 240 ml IV Total 250 ml # Voids 4 . Laboratory Tests Test 04/09/17 22:03 White Blood Count 6.9 TH/MM3 Red Blood Count 3.78 MIL/MM3 Hemoglobin 9.3 GM/DL Hematocrit 29.0 % Mean Corpuscular Volume 76.8 FL Mean Corpuscular Hemoglobin 24.6 PG Mean Corpuscular Hemoglobin Concent 32.0 % Red Cell Distribution Width 17.8 % Platelet Count 418 TH/MM3 Mean Platelet Volume 7.6 FL Neutrophils (%) (Auto) 56.2 % Lymphocytes (%) (Auto) 29.5 % Monocytes (%) (Auto) 10.0 % Eosinophils (%) (Auto) 3.7 % Basophils (%) (Auto) 0.6 % Neutrophils # (Auto) 3.8 TH/MM3 Lymphocytes # (Auto) 2.0 TH/MM3 Monocytes # (Auto) 0.7 TH/MM3 Eosinophils # (Auto) 0.3 TH/MM3 Basophils # (Auto) 0.0 TH/MM3 CBC Comment DIFF FINAL Differential Comment Laboratory Tests Test 04/09/17 22:03 04/10/17 07:22 Blood Urea Nitrogen 12 MG/DL Creatinine 1.20 MG/DL 1.05 MG/DL Random Glucose 107 MG/DL Total Protein 7.8 GM/DL Albumin 3.0 GM/DL Calcium Level 9.0 MG/DL Alkaline Phosphatase 91 U/L Aspartate Amino Transf (AST/SGOT) 15 U/L Alanine Aminotransferase (ALT/SGPT) 17 U/L Total Bilirubin 0.2 MG/DL Sodium Level 139 MEQ/L Potassium Level 3.4 MEQ/L Chloride Level 99 MEQ/L Carbon Dioxide Level 32.4 MEQ/L Anion Gap 8 MEQ/L Estimat Glomerular Filtration Rate 51 ML/MIN 60 ML/MIN Imaging Last Impressions Chest X-Ray 04/03/17 0000 Signed Impressions: Service Date/Time: Monday, April 03, 2017 19:09 - CONCLUSION: 1. Right central line in superior vena cava. No pneumothorax. Salas Walker MD Lower Extremity CT 03/28/17 0000 Signed Impressions: Service Date/Time: Tuesday, March 28, 2017 20:49 - CONCLUSION: Large rim-enhancing fluid collection extending along the lateral aspect of the left lower leg and lateral gastricnemius muscle which extends from the upper calf to the ankle and measures at least 25 cm in length. This collection appears to bulge outward within the lower aspect and measures 4.3 cm AP by 4.1 cm transverse at the level of the upper ankle. Differential includes large hematoma, seroma or abscess. Clinical correlation is recommended. Ajit Ramos MD Ankle X-Ray 03/28/17 0000 Signed Impressions: Service Date/Time: Tuesday, March 28, 2017 18:46 - CONCLUSION: Focal soft tissue swelling involving the left upper ankle laterally which is nonspecific. No acute fracture or dislocation. Ajit Ramos MD Physical Exam CONSTITUTIONAL/GENERAL: This is an adequately nourished patient, in no apparent distress. TUBES/LINES/DRAINS: SKIN: No jaundice, rashes, or lesions. . Skin temperature appropriate. Not diaphoretic. MUSCULOSKELETAL LLE with induration erythema and tenderness along lower incision, to less extend upper incision Assessment & Plan Remarks LLE large abscess s/p ID with exicion of necrotic skin and VAC place,mnets - increasing tendernes and some induration present Prior abx use (keflex, bactrim) Clx neg - final + low greade fever: resolved resume zosyn, cont vancomycin dw Dr Reddy re-clx if wound does not look good tomorrow on VAC lila lopez RN, Stefanie Corral MD Apr 11, 2017 17:05
--- NOTE | 2017-04-11 18:16 | HHI.PR ---
Subjective Remarks No new updates regarding wound closure, likely skin graft according to last visit with Dr. Donohue. She is rather sedated and staff is concerned about possible supplementation with outside drugs. Objective Vital Signs Date Time Temp Pulse Resp B/P (MAP) Pulse Ox O2 Delivery O2 Flow Rate FiO2 04/11/17 16:30 98.5 83 18 130/65 (86) 94 04/11/17 11:47 98.3 68 17 125/63 (83) 96 04/11/17 08:01 98.8 80 18 141/73 (95) 96 04/11/17 04:31 98.4 71 18 138/64 (88) 97 04/11/17 00:51 98.1 69 18 141/67 (91) 97 04/10/17 20:55 97.9 63 18 142/74 (96) 95 I/O 04/10/17 04/10/17 04/10/17 04/11/17 04/11/17 04/11/17 07:00 15:00 23:00 07:00 15:00 23:00 Intake Total 900 ml 462.5 ml 480 ml 250 ml 240 ml Balance 900 ml 462.5 ml 480 ml 250 ml 240 ml Intake Oral 900 ml 480 ml 240 ml IV Total 462.5 ml 250 ml # Voids 4 6 2 4 # Bowel Movements 0 5 2 Result Diagram: 04/09/17220204/10/17721 Objective Remarks GENERAL: Well-nourished, sedated, but arousable SKIN: Warm and dry. HEAD: Normocephalic. EYES: No scleral icterus. No injection or drainage. NECK: Supple, trachea midline. No JVD or lymphadenopathy. CARDIOVASCULAR: Regular rate and rhythm without murmurs, gallops, or rubs. RESPIRATORY: Breath sounds equal bilaterally. No accessory muscle use. GASTROINTESTINAL: Abdomen soft, non-tender, nondistended. 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 BACK: Nontender without obvious deformity. No CVA tenderness. EXTREMITIES: Left lower leg wrapped on top of wound vac, trace right ankle edema Assessment and Plan Problem List: (1) Leg abscess ICD Codes: L02.419 - Cutaneous abscess of limb, unspecified Status: Acute (2) Failure of outpatient treatment ICD Codes: Z78.9 - Other specified health status Status: Acute Assessment and Plan Left Lower Leg Abscess - Failed outpatient therapy - Dr. Donohue consulted, placement of wound vac on 03/31/17, 04/03/17, 04/06/17 - Continue vancomycin and zosyn - Reevaluation on Monday to determine possibility of closure vs. graft vs. other - Cultures pending, so far no growth - Wound closure will most likely be skin graft Sedation - Suspicious for external drug use. Toxicology screen collected, full results pending. Ankle Edema - Mostly resolved Diarrhea - antibiotic related, slightly improved, negative c. diff Hypokalemia - Recheck DVT Prophylaxis - SCD's Discharge Planning - Pt has no available housing to transition into reliable outpatient setting Drake Jones MD Apr 11, 2017 18:16
[2017-04-12] VITALS (7 sets, daily range): BP systolic 129–142; BP diastolic 57–81; PULSE 59–74; RESP 17–18; TEMP 97.5–98.8; O2SAT 95–98
[2017-04-12] MEDS: SODIUM CHLORIDE 0.9% FLUSH 10 ML FLUSH IV FLUSH SCH ×2 (09:00→21:31)
[2017-04-12] MEDS: VANCOMYCIN 1,000 MG/NS 250 ML IV SCH ×4 (12:00→21:32)
[2017-04-12] MEDS: PIPERACIL-TAZO 3.375 GM PREMIX 50 ML IV SCH ×2 (12:00→14:00)
[2017-04-12] MEDS: LACTOBACILLUS ACIDOPHILUS TAB PO SCH ×2 (12:00→18:00)
--- NOTE | 2017-04-12 23:47 | HHI.PR ---
Objective Vital Signs Date Time Temp Pulse Resp B/P (MAP) Pulse Ox O2 Delivery O2 Flow Rate FiO2 04/12/17 20:50 98.5 74 17 135/65 (88) 97 04/12/17 15:45 98.8 71 18 133/75 (94) 96 04/12/17 11:58 98.6 59 18 129/68 (88) 96 04/12/17 08:00 97.5 66 18 130/75 (93) 98 04/12/17 05:37 98.6 73 18 142/81 (101) 95 04/12/17 01:00 98.7 67 18 129/57 (81) 95 I/O 04/12/17 04/12/17 04/12/17 04/13/17 04/13/17 04/13/17 07:00 15:00 23:00 07:00 15:00 23:00 Intake Total 250 ml Balance 250 ml IV Total 250 ml Result Diagram: 04/09/17220204/10/17721 Objective Remarks GENERAL: patient lying in bed. Appears comfortable. SKIN: Warm and dry. HEAD: Normocephalic. EYES: No scleral icterus. No injection or drainage. NECK: Supple, trachea midline. No JVD. CARDIOVASCULAR: Regular rate and rhythm without murmurs, gallops, or rubs. RESPIRATORY: Breath sounds equal bilaterally. No accessory muscle use. GASTROINTESTINAL: Abdomen soft, non-tender, nondistended. MUSCULOSKELETAL: No cyanosis, or edema. left lower extremity dressed with wound VAC in place. BACK: Nontender without obvious deformity. No CVA tenderness. A/P Assessment and Plan //Left Lower Leg Abscess - Failed outpatient therapy - Dr. Donohue consulted, placement of wound vac on 03/31/17, 04/03/17, 04/06/17 - Continue vancomycin and zosyn - Reevaluation on Monday to determine possibility of closure vs. graft vs. other - Cultures pending, so far no growth - Wound closure will most likely be skin graft = Appreciate infectious disease and orthopedic assistance. Continue antibiotics per ID. Follow-up surgical recommendations. //Sedation - Suspicious for external drug use. Toxicology screen collected 04/11, full results pending. = Patient did report a history of past IV drug use to me on 04/12. Denies any recent IV drug use. //Ankle Edema - Mostly resolved //Diarrhea - antibiotic related, slightly improved, negative c. diff //Hypokalemia - Recheck tomorrow. //DVT Prophylaxis - SCD's Discharge Planning -Awaiting orthopedics clearance. = Awaiting ID clearance. - Pt has no available housing to transition into reliable outpatient setting Trae Fernandez MD Apr 12, 2017 23:47
[2017-04-13] VITALS (8 sets, daily range): BP systolic 114–146; BP diastolic 60–75; PULSE 57–83; RESP 16–19; TEMP 97.7–98.6; O2SAT 95–99
[2017-04-13] MEDS: PIPERACIL-TAZO 3.375 GM PREMIX 50 ML IV SCH ×4 (00:03→17:39)
[2017-04-13 07:14] LABS: ALBUMIN 2.9 GM/DL (3.4-5.0); BICARBONATE 31.2 MEQ/L (21.0-32.0); CALCIUM 9.1 MG/DL (8.5-10.1); CREATININE 0.96 MG/DL (0.50-1.00); MAGNESIUM 2.1 MG/DL (1.5-2.5)
[2017-04-13 07:16] LABS: PHOSPHORUS 4.3 MG/DL (2.5-4.9)
[2017-04-13 07:18] LABS: AUTOMATED NEUTROPHIL # 3.2 TH/MM3 (1.8-7.7); BASOPHIL # 0.1 TH/MM3 (0-0.2); EOSINOPHIL # 0.2 TH/MM3 (0-0.4); HEMOGLOBIN 10.1 GM/DL (11.6-15.3); LYMPH % 32.6 % (9.0-44.0); MEAN CORPUSCULAR HEMOGLOBIN 24.8 PG (27.0-34.0); MEAN CORPUSCULAR HGB CONC 32.7 % (32.0-36.0); MEAN PLATELET VOLUME 7.5 FL (7.0-11.0); MONO % 8.6 % (0.0-8.0); MONOCYTE # 0.5 TH/MM3 (0-0.9); NEUT % 53.8 % (16.0-70.0); PLATELET COUNT 386 TH/MM3 (150-450); RED BLOOD COUNT 4.08 MIL/MM3 (4.00-5.30); RED CELL DISTRIBUTION WIDTH 17.5 % (11.6-17.2)
[2017-04-13] MEDS: LACTOBACILLUS ACIDOPHILUS TAB PO SCH ×3 (10:54→17:39)
[2017-04-13] MEDS: VANCOMYCIN 1,000 MG/NS 250 ML IV SCH ×4 (11:00→23:35)
--- NOTE | 2017-04-13 15:26 | HHI.PR ---
Subjective Remarks Patient seen this morning around 10:30 AM. Says she is feeling all right. Denies any chest pain or shortness of breath. Denies any nausea or vomiting. Reports left leg pain is controlled. Discussed with nursing. Nursing will contact me when plastic surgery rounds Objective Vital Signs Date Time Temp Pulse Resp B/P (MAP) Pulse Ox O2 Delivery O2 Flow Rate FiO2 04/13/17 12:00 97.8 79 18 124/74 (91) 97 04/13/17 08:00 98.1 83 19 146/75 (98) 99 04/13/17 05:31 98.2 66 17 114/73 (87) 97 04/13/17 00:17 98.0 57 17 115/60 (78) 97 04/12/17 20:50 98.5 74 17 135/65 (88) 97 04/12/17 20:00 72 04/12/17 15:45 98.8 71 18 133/75 (94) 96 I/O 04/12/17 04/12/17 04/12/17 04/13/17 04/13/17 04/13/17 07:00 15:00 23:00 07:00 15:00 23:00 Intake Total 250 ml 250 ml 770 ml Balance 250 ml 250 ml 770 ml Intake Oral 720 ml IV Total 250 ml 250 ml 50 ml # Voids 5 # Bowel Movements 1 Result Diagram: 04/13/17 0611 04/13/17 0611 Objective Remarks GENERAL: patient lying in bed. Appears comfortable. SKIN: Warm and dry. HEAD: Normocephalic. EYES: No scleral icterus. No injection or drainage. NECK: Supple, trachea midline. No JVD. CARDIOVASCULAR: Regular rate and rhythm without murmurs, gallops, or rubs. RESPIRATORY: Breath sounds equal bilaterally. No accessory muscle use. GASTROINTESTINAL: Abdomen soft, non-tender, nondistended. MUSCULOSKELETAL: No cyanosis, or edema. left lower extremity dressed with wound VAC in place. No change on exam today BACK: Nontender without obvious deformity. No CVA tenderness. A/P Assessment and Plan //Left Lower Leg Abscess - Failed outpatient therapy - Dr. Donohue consulted, placement of wound vac on 03/31/17, 04/03/17, 04/06/17 - Continue vancomycin and zosyn - Reevaluation on Monday to determine possibility of closure vs. graft vs. other - Cultures pending, so far no growth - Wound closure will most likely be skin graft = Appreciate infectious disease and orthopedic assistance. Continue antibiotics per ID. = Follow-up plastic surgery recommendations. //Sedation - Suspicious for external drug use. Toxicology screen collected 04/11, full results pending. = Patient did report a history of past IV drug use to me on 04/12. Denies any recent IV drug use. //Ankle Edema - resolved //Diarrhea - antibiotic related, slightly improved, negative c. diff //Hypokalemia -3.9. Resolved after replacement. //DVT Prophylaxis - SCD's Discharge Planning -Awaiting plastic surgery recommendations. = Awaiting ID clearance. - Pt reports that she can stay with a friend. Trae Fernandez MD Apr 13, 2017 15:26
[2017-04-13] MEDS: SODIUM CHLORIDE 0.9% FLUSH 10 ML FLUSH IV FLUSH SCH (21:00)
[2017-04-14] VITALS (7 sets, daily range): BP systolic 120–143; BP diastolic 73–85; PULSE 57–89; RESP 17–19; TEMP 97.3–98.7; O2SAT 96–99
[2017-04-14] MEDS: PIPERACIL-TAZO 3.375 GM PREMIX 50 ML IV SCH ×4 (01:20→18:07)
[2017-04-14] MEDS: SODIUM CHLORIDE 0.9% FLUSH 10 ML FLUSH IV FLUSH SCH ×2 (09:00→21:00)
[2017-04-14] MEDS: LACTOBACILLUS ACIDOPHILUS TAB PO SCH ×3 (09:59→17:35)
[2017-04-14] MEDS ORDERED: PHARMACY ORDERED LAB ONE (10:45)
[2017-04-14] MEDS: VANCOMYCIN 1,000 MG/NS 250 ML IV SCH ×4 (11:33→23:09)
--- NOTE | 2017-04-14 16:24 | HHI.IDPN ---
Subjective Subjective Remarks no fever co pain L LE Antibiotics [facility] Allergies: Coded Allergies: ketorolac (Unverified Allergy, Severe, Anaphylaxis, 12/06/16) THROAT WAS SWELLING CLOSED morphine (Unverified Allergy, Mild, 04/04/17) Objective . Vital Signs Date Time Temp Pulse Resp B/P (MAP) Pulse Ox O2 Delivery O2 Flow Rate FiO2 04/14/17 15:33 98.3 89 18 138/78 (98) 99 04/14/17 11:38 98.1 89 19 137/85 (102) 98 04/14/17 07:36 97.9 72 18 143/75 (97) 98 04/14/17 05:00 97.3 74 17 125/75 (92) 99 04/14/17 00:30 98.1 65 18 120/75 (90) 98 04/13/17 21:00 77 04/13/17 20:40 97.7 72 16 123/71 (88) 97 04/14/17 04/14/17 04/15/17 15:00 23:00 07:00 Intake Total 480 ml Balance 480 ml Intake Oral 480 ml # Voids 3 . Laboratory Tests Test 04/13/17 06:11 White Blood Count 6.0 TH/MM3 Red Blood Count 4.08 MIL/MM3 Hemoglobin 10.1 GM/DL Hematocrit 31.0 % Mean Corpuscular Volume 76.0 FL Mean Corpuscular Hemoglobin 24.8 PG Mean Corpuscular Hemoglobin Concent 32.7 % Red Cell Distribution Width 17.5 % Platelet Count 386 TH/MM3 Mean Platelet Volume 7.5 FL Neutrophils (%) (Auto) 53.8 % Lymphocytes (%) (Auto) 32.6 % Monocytes (%) (Auto) 8.6 % Eosinophils (%) (Auto) 4.0 % Basophils (%) (Auto) 1.0 % Neutrophils # (Auto) 3.2 TH/MM3 Lymphocytes # (Auto) 2.0 TH/MM3 Monocytes # (Auto) 0.5 TH/MM3 Eosinophils # (Auto) 0.2 TH/MM3 Basophils # (Auto) 0.1 TH/MM3 CBC Comment DIFF FINAL Differential Comment Laboratory Tests Test 04/13/17 06:11 Blood Urea Nitrogen 12 MG/DL Creatinine 0.96 MG/DL Random Glucose 84 MG/DL Albumin 2.9 GM/DL Calcium Level 9.1 MG/DL Phosphorus Level 4.3 MG/DL Magnesium Level 2.1 MG/DL Sodium Level 140 MEQ/L Potassium Level 3.9 MEQ/L Chloride Level 103 MEQ/L Carbon Dioxide Level 31.2 MEQ/L Anion Gap 6 MEQ/L Estimat Glomerular Filtration Rate 66 ML/MIN Imaging Last Impressions Chest X-Ray 04/03/17 0000 Signed Impressions: Service Date/Time: Monday, April 03, 2017 19:09 - CONCLUSION: 1. Right central line in superior vena cava. No pneumothorax. Salas Walker MD Lower Extremity CT 03/28/17 0000 Signed Impressions: Service Date/Time: Tuesday, March 28, 2017 20:49 - CONCLUSION: Large rim-enhancing fluid collection extending along the lateral aspect of the left lower leg and lateral gastricnemius muscle which extends from the upper calf to the ankle and measures at least 25 cm in length. This collection appears to bulge outward within the lower aspect and measures 4.3 cm AP by 4.1 cm transverse at the level of the upper ankle. Differential includes large hematoma, seroma or abscess. Clinical correlation is recommended. Ajit Ramos MD Ankle X-Ray 03/28/17 0000 Signed Impressions: Service Date/Time: Tuesday, March 28, 2017 18:46 - CONCLUSION: Focal soft tissue swelling involving the left upper ankle laterally which is nonspecific. No acute fracture or dislocation. Ajit Ramos MD Physical Exam CONSTITUTIONAL/GENERAL: This is an adequately nourished patient, in no apparent distress. TUBES/LINES/DRAINS: SKIN: No jaundice, rashes, or lesions. . Skin temperature appropriate. Not diaphoretic. MUSCULOSKELETAL LLE with induration erythema markedly improved still + tenderness to palpation VAC in place Assessment & Plan Remarks LLE large abscess s/p ID with exicion of necrotic skin and VAC place,mnets - increasing tendernes and some induration present Prior abx use (keflex, bactrim) Clx neg - final + low greade fever: resolved cont zosyn, cont vancomycin Stefanie Corral MD Apr 14, 2017 16:24
--- NOTE | 2017-04-14 17:15 | HHI.PR ---
Subjective Remarks Patient seen today around him. Says she is feeling all right. Denies any chest pressure this of breath. Reports pain is controlled. Objective Vital Signs Date Time Temp Pulse Resp B/P (MAP) Pulse Ox O2 Delivery O2 Flow Rate FiO2 04/14/17 15:33 98.3 89 18 138/78 (98) 99 04/14/17 11:38 98.1 89 19 137/85 (102) 98 04/14/17 07:36 97.9 72 18 143/75 (97) 98 04/14/17 05:00 97.3 74 17 125/75 (92) 99 04/14/17 00:30 98.1 65 18 120/75 (90) 98 04/13/17 21:00 77 04/13/17 20:40 97.7 72 16 123/71 (88) 97 I/O 04/13/17 04/13/17 04/13/17 04/14/17 04/14/17 04/14/17 06:59 14:59 22:59 06:59 14:59 22:59 Intake Total 770 ml 720 ml 2350 ml 480 ml Balance 770 ml 720 ml 2350 ml 480 ml Intake Oral 720 ml 720 ml 2000 ml 480 ml IV Total 50 ml 350 ml # Voids 5 5 4 3 # Bowel Movements 1 2 0 Result Diagram: 04/13/17 0611 04/13/17 0611 Objective Remarks GENERAL: patient lying in bed. Appears comfortable.no changes on exam today. SKIN: Warm and dry. HEAD: Normocephalic. EYES: No scleral icterus. No injection or drainage. NECK: Supple, trachea midline. No JVD. CARDIOVASCULAR: Regular rate and rhythm without murmurs, gallops, or rubs. RESPIRATORY: Breath sounds equal bilaterally. No accessory muscle use. GASTROINTESTINAL: Abdomen soft, non-tender, nondistended. MUSCULOSKELETAL: No cyanosis, or edema. left lower extremity dressed with wound VAC in place. No change on exam today BACK: Nontender without obvious deformity. No CVA tenderness. A/P Assessment and Plan //Left Lower Leg Abscess - Failed outpatient therapy - Dr. Donohue consulted, placement of wound vac on 03/31/17, 04/03/17, 04/06/17 - Continue vancomycin and zosyn - Reevaluation on Monday to determine possibility of closure vs. graft vs. other - Cultures pending, so far no growth - Wound closure will most likely be skin graft = Appreciate infectious disease and orthopedic assistance. Continue antibiotics per ID. = Discussed with plastic surgeon. Plastic surgeon feels it would be okay for discharge home on wound VAC, follow wound care clinic on Monday. I discussed this with the patient, and she now says she does not have a place to go. = Discussed with case management, who will work on finding an appropriate discharge plan. //Sedation -Patient had an episode of sedation now resolved, however Suspicious for external drug use. Toxicology screen collected 04/11, full results pending. = Patient did report a history of past IV drug use to me on 04/12. Denies any recent IV drug use. //Ankle Edema - resolved //Diarrhea - antibiotic related, slightly improved, negative c. diff //Hypokalemia -3.9. Resolved after replacement. //DVT Prophylaxis - SCD's Discharge Planning -Plastic surgery following. Appreciate assistance. Dr. Rodriguez = Awaiting ID clearance. - Pt reports that she can stay with a friend. Trae Fernandez MD Apr 14, 2017 17:15
--- NOTE | 2017-04-14 17:54 | PD.ORT.PN ---
Subjective Subjective Remarks No acute events. Doing well Objective Vitals Vital Signs Date Time Temp Pulse Resp B/P (MAP) Pulse Ox O2 Delivery O2 Flow Rate FiO2 04/14/17 15:33 98.3 89 18 138/78 (98) 99 04/14/17 11:38 98.1 89 19 137/85 (102) 98 04/14/17 07:36 97.9 72 18 143/75 (97) 98 04/14/17 05:00 97.3 74 17 125/75 (92) 99 04/14/17 00:30 98.1 65 18 120/75 (90) 98 04/13/17 21:00 77 04/13/17 20:40 97.7 72 16 123/71 (88) 97 I/O 04/13/17 04/13/17 04/13/17 04/14/17 04/14/17 04/14/17 07:00 15:00 23:00 07:00 15:00 23:00 Intake Total 770 ml 720 ml 2350 ml 480 ml Balance 770 ml 720 ml 2350 ml 480 ml Intake Oral 720 ml 720 ml 2000 ml 480 ml IV Total 50 ml 350 ml # Voids 5 5 4 3 # Bowel Movements 1 2 0 Result Diagram: 04/13/17 0611 04/13/17 0611 Objective Remarks Awake, alert, NAD LLE: VAC dressing in place with good seal. Patient appears neurovascularly intact distally. Assessment & Plan Assessment and Plan Patient is a 36-year-old IV drug user with a large left lower leg abscess, now over a week out from the last irrigation and debridement of her left leg with residual uncovered wound. She does have a VAC in place over this. 1. Had a lengthy discussion with the plastic surgeon, Dr. Robison, regarding this patient's options for coverage. At this point, I have done as much as I feel capable of doing in terms of debriding the wound back to healthy tissue and changing the VAC's to allow for some granulation tissue to occur. She does still have exposed tendons and tendon sheath which would likely require coverage at some point. We did discuss the option of Epifix which he thinks is likely a good option. At this point I would defer care of the patient's wound and management to plastic surgery and the hospitalist. From an orthopedic standpoint, she does not require hospitalization but given she does still need coverage on her wound and is homeless essentially, I do not know that discharge with follow-up is going to be complied with. Patient can follow-up in my office as an outpatient. Tamara Donohue MD Apr 14, 2017 17:54
[2017-04-15] VITALS (8 sets, daily range): BP systolic 115–140; BP diastolic 67–86; PULSE 56–88; RESP 17–20; TEMP 97.3–98.3; O2SAT 95–98
[2017-04-15] MEDS: PIPERACIL-TAZO 3.375 GM PREMIX 50 ML IV SCH ×4 (00:28→17:12)
[2017-04-15 08:10] LABS: CREATININE 1.01 MG/DL (0.50-1.00)
[2017-04-15] MEDS: SODIUM CHLORIDE 0.9% FLUSH 10 ML FLUSH IV FLUSH SCH ×2 (09:00→23:12)
--- NOTE | 2017-04-15 09:49 | HHI.PR ---
Subjective Remarks Patient in nad. Pain is controlled by meds. No fever or chills overnight. No n/v /d/c. Objective Vitals Vital Signs Date Time Temp Pulse Resp B/P (MAP) Pulse Ox O2 Delivery O2 Flow Rate FiO2 04/15/17 08:23 98.2 86 20 135/68 (90) 95 04/15/17 05:33 64 04/15/17 05:00 97.3 56 20 115/80 (92) 98 04/15/17 01:27 59 04/15/17 00:30 98.0 60 17 118/74 (89) 97 04/14/17 22:00 98.7 57 17 120/73 (89) 96 04/14/17 21:00 78 04/14/17 15:33 98.3 89 18 138/78 (98) 99 04/14/17 11:38 98.1 89 19 137/85 (102) 98 04/14/17 11:14 16 I/O 04/14/17 04/14/17 04/14/17 04/15/17 04/15/17 04/15/17 07:00 15:00 23:00 07:00 15:00 23:00 Intake Total 2350 ml 2720 ml 1800 ml Balance 2350 ml 2720 ml 1800 ml Intake Oral 2000 ml 2720 ml 1500 ml IV Total 350 ml 300 ml # Voids 4 7 4 # Bowel Movements 0 0 0 Result Diagram: 04/13/17 0611 04/15/17 0730 Imaging Last Impressions Chest X-Ray 04/03/17 0000 Signed Impressions: Service Date/Time: Monday, April 03, 2017 19:09 - CONCLUSION: 1. Right central line in superior vena cava. No pneumothorax. Salas Walker MD Lower Extremity CT 03/28/17 0000 Signed Impressions: Service Date/Time: Tuesday, March 28, 2017 20:49 - CONCLUSION: Large rim-enhancing fluid collection extending along the lateral aspect of the left lower leg and lateral gastricnemius muscle which extends from the upper calf to the ankle and measures at least 25 cm in length. This collection appears to bulge outward within the lower aspect and measures 4.3 cm AP by 4.1 cm transverse at the level of the upper ankle. Differential includes large hematoma, seroma or abscess. Clinical correlation is recommended. Ajit Ramos MD Ankle X-Ray 03/28/17 0000 Signed Impressions: Service Date/Time: Tuesday, March 28, 2017 18:46 - CONCLUSION: Focal soft tissue swelling involving the left upper ankle laterally which is nonspecific. No acute fracture or dislocation. Ajit Ramos MD Objective Remarks GENERAL: patient lying in bed. Appears comfortable.no changes on exam today. CARDIOVASCULAR: Regular rate and rhythm without murmurs, gallops, or rubs. RESPIRATORY: Breath sounds equal bilaterally. No accessory muscle use. GASTROINTESTINAL: Abdomen soft, non-tender, nondistended. MUSCULOSKELETAL: No cyanosis, or edema. left lower extremity dressed with wound VAC in place. No change on exam today BACK: Nontender without obvious deformity. No CVA tenderness. Procedures I/D of the left ankle abscess/ wound vac placement. A/P Problem List: (1) Leg abscess ICD Code: L02.419 - Cutaneous abscess of limb, unspecified Status: Acute (2) Failure of outpatient treatment ICD Code: Z78.9 - Other specified health status Status: Acute (3) Hypokalemia ICD Code: E87.6 - Hypokalemia Assessment and Plan Left Lower Leg Abscess Failed outpatient therapy - Dr. Donohue consulted, placement of wound vac on 03/31/17, 04/03/17, 04/06/17 - Continue vancomycin and zosyn - Reevaluation on Monday to determine possibility of closure vs. graft vs. other - Cultures pending, so far no growth - Wound closure will most likely be skin graft -Appreciate infectious disease and orthopedic assistance. Continue antibiotics per ID. -Discussed with plastic surgeon. Plastic surgeon feels it would be okay for discharge home on wound VAC, follow wound care clinic on Monday. I discussed this with the patient, and she now says she does not have a place to go. - Discussed with case management, who will work on finding an appropriate discharge plan. Sedation Patient had an episode of sedation now resolved, however Suspicious for external drug use. Toxicology screen collected 04/11, full results pending. Patient did report a history of past IV drug use to me on 04/12. Denies any recent IV drug use. Ankle Edema- resolved Diarrhea antibiotic related, slightly improved, negative c. diff Hypokalemia Resolved after replacement. Monitor and replace as need. DVT Prophylaxis - SCD's Discharge Planning Plastic surgery following. Appreciate assistance. Dr. Hopper Awaiting ID clearance. Pt reports that she can stay with a friend. Romina Fox MD Apr 15, 2017 09:49
[2017-04-15] MEDS: LACTOBACILLUS ACIDOPHILUS TAB PO SCH ×3 (10:09→17:14)
[2017-04-15] MEDS: VANCOMYCIN 1,000 MG/NS 250 ML IV SCH ×4 (11:00→23:12)
[2017-04-16 01:05] VITALS: BP 187/71; PULSE 89; RESP 18; TEMP 99.1; O2SAT 100
[2017-04-16] MEDS: PIPERACIL-TAZO 3.375 GM PREMIX 50 ML IV SCH ×4 (01:48→18:40)
[2017-04-16 05:31] VITALS: BP 123/59; PULSE 73; RESP 18; TEMP 98.6; O2SAT 97
[2017-04-16 07:41] VITALS: BP 121/57; PULSE 71; RESP 20; TEMP 98.8; O2SAT 97
[2017-04-16] MEDS: SODIUM CHLORIDE 0.9% FLUSH 10 ML FLUSH IV FLUSH SCH ×2 (09:00→21:00)
[2017-04-16] MEDS: LACTOBACILLUS ACIDOPHILUS TAB PO SCH ×3 (09:27→18:40)
--- NOTE | 2017-04-16 11:38 | HHI.PR ---
Subjective Remarks Follow up left leg wound/infection. Patient apparently had a very vivid dream last night involving leeches on her legs. She does not remember it, but her reports that she was "not really awake" and her BP was a little elevated at the time. Objective Vitals Vital Signs Date Time Temp Pulse Resp B/P (MAP) Pulse Ox O2 Delivery O2 Flow Rate FiO2 04/16/17 07:41 98.8 71 20 121/57 (78) 97 04/16/17 05:31 98.6 73 18 123/59 (80) 97 04/16/17 01:05 99.1 89 18 187/71 (109) 100 04/15/17 20:20 98.1 88 18 140/86 (104) 98 04/15/17 15:24 98.3 71 20 130/67 (88) 95 04/15/17 12:00 97.7 77 20 122/70 (87) 95 I/O 04/15/17 04/15/17 04/15/17 04/16/17 04/16/17 04/16/17 07:00 15:00 23:00 07:00 15:00 23:00 Intake Total 1800 ml 720 ml Balance 1800 ml 720 ml Intake Oral 1500 ml 720 ml IV Total 300 ml # Voids 4 1 # Bowel Movements 0 1 Result Diagram: 04/13/17 0611 04/15/17 0730 Imaging Last Impressions Chest X-Ray 04/03/17 0000 Signed Impressions: Service Date/Time: Monday, April 03, 2017 19:09 - CONCLUSION: 1. Right central line in superior vena cava. No pneumothorax. Salas Walker MD Lower Extremity CT 03/28/17 0000 Signed Impressions: Service Date/Time: Tuesday, March 28, 2017 20:49 - CONCLUSION: Large rim-enhancing fluid collection extending along the lateral aspect of the left lower leg and lateral gastricnemius muscle which extends from the upper calf to the ankle and measures at least 25 cm in length. This collection appears to bulge outward within the lower aspect and measures 4.3 cm AP by 4.1 cm transverse at the level of the upper ankle. Differential includes large hematoma, seroma or abscess. Clinical correlation is recommended. Ajit Ramos MD Ankle X-Ray 03/28/17 0000 Signed Impressions: Service Date/Time: Tuesday, March 28, 2017 18:46 - CONCLUSION: Focal soft tissue swelling involving the left upper ankle laterally which is nonspecific. No acute fracture or dislocation. Ajit Ramos MD Objective Remarks General: No acute distress. Heart: Regular rate and rhythm. No murmur. Lungs: Clear to auscultation bilaterally. No wheezes, rales, or rhonchi. Breathing is nonlabored. Abdomen: Soft, nontender, nondistended. Extremities: No lower extremity edema. Left lower leg bandaged, wound VAC in place. Psych: Alert and oriented. Procedures I/D of the left ankle abscess/ wound vac placement. Urinary Catheter: No Vascular Central Line Catheter: No A/P Problem List: (1) Leg abscess ICD Code: L02.419 - Cutaneous abscess of limb, unspecified Status: Acute (2) Failure of outpatient treatment ICD Code: Z78.9 - Other specified health status Status: Acute (3) Hypokalemia ICD Code: E87.6 - Hypokalemia Assessment and Plan 1. Left lower leg abscess: Failed outpatient therapy. Appreciate orthopedic surgery recommendations. Status post incision and drainage with wound VAC placement. Plastic surgery to reevaluate and determine closure versus graft. Cultures are negative so far. Appreciate infectious disease recommendations. Continue antibiotics. 2. Sedation: Patient had an episode of sedation that resolved. This was reportedly suspicious for external drug use. Toxicology screen is pending. Patient apparently reported a history of past IV drug use, but denies any recent IV drug use. 3. Ankle edema: Resolved. 4. Diarrhea: Antibiotic related. Improved. C. difficile is negative. 5. Hypokalemia: Resolved. 6. DVT prophylaxis: SCD, LONNIE joseph. Chemical prophylaxis contraindicated on left lower extremity. Discharge Planning Awaiting plastic surgery recommendations regarding possible skin graft. Sven Wade MD Apr 16, 2017 11:38
[2017-04-16 12:15] VITALS: BP 143/76; PULSE 85; RESP 20; TEMP 97.5; O2SAT 98
[2017-04-16] MEDS: VANCOMYCIN 1,000 MG/NS 250 ML IV SCH ×2 (15:06)
[2017-04-16 16:00] VITALS: BP 116/58; PULSE 76; RESP 18; TEMP 98.8; O2SAT 97
[2017-04-16 20:00] VITALS: BP 146/82; PULSE 76; PULSE 92; RESP 18; TEMP 99.3; O2SAT 94
[2017-04-17] VITALS (7 sets, daily range): BP systolic 116–149; BP diastolic 57–88; PULSE 60–97; RESP 16–18; TEMP 97.3–98.8; O2SAT 94–100
[2017-04-17] MEDS: VANCOMYCIN 1,000 MG/NS 250 ML IV SCH ×4 (00:12→12:39)
[2017-04-17] MEDS: PIPERACIL-TAZO 3.375 GM PREMIX 50 ML IV SCH ×4 (06:00→18:37)
[2017-04-17 07:21] LABS: CREATININE 0.86 MG/DL (0.50-1.00)
[2017-04-17] MEDS: LACTOBACILLUS ACIDOPHILUS TAB PO SCH ×3 (09:00→18:37)
[2017-04-17] MEDS: SODIUM CHLORIDE 0.9% FLUSH 10 ML FLUSH IV FLUSH SCH ×2 (09:01→21:39)
[2017-04-17] MEDS ORDERED: PHARMACY ORDERED LAB ONE (10:45)
--- NOTE | 2017-04-17 14:31 | HHI.PR ---
Subjective Remarks Follow up leg wound. Patient has no specific complaints at this time. Denies chest pain, dyspnea, nausea, vomiting. Objective Vitals Vital Signs Date Time Temp Pulse Resp B/P (MAP) Pulse Ox O2 Delivery O2 Flow Rate FiO2 04/17/17 12:00 97.8 72 18 126/76 (93) 97 04/17/17 08:00 98.5 70 18 123/79 (94) 100 04/17/17 04:00 97.8 60 18 116/57 (76) 96 04/17/17 00:00 84 04/17/17 00:00 98.8 87 18 140/78 (98) 94 04/16/17 20:00 99.3 92 18 146/82 (103) 94 04/16/17 20:00 76 04/16/17 16:00 98.8 76 18 116/58 (77) 97 I/O 04/16/17 04/16/17 04/16/17 04/17/17 04/17/17 04/17/17 07:00 15:00 23:00 07:00 15:00 23:00 Intake Total 300 ml Balance 300 ml IV Total 300 ml # Voids 1 6 # Bowel Movements 1 Result Diagram: 04/13/17 0611 04/17/17 0630 Imaging Last Impressions Chest X-Ray 04/03/17 0000 Signed Impressions: Service Date/Time: Monday, April 03, 2017 19:09 - CONCLUSION: 1. Right central line in superior vena cava. No pneumothorax. Salas Walker MD Lower Extremity CT 03/28/17 0000 Signed Impressions: Service Date/Time: Tuesday, March 28, 2017 20:49 - CONCLUSION: Large rim-enhancing fluid collection extending along the lateral aspect of the left lower leg and lateral gastricnemius muscle which extends from the upper calf to the ankle and measures at least 25 cm in length. This collection appears to bulge outward within the lower aspect and measures 4.3 cm AP by 4.1 cm transverse at the level of the upper ankle. Differential includes large hematoma, seroma or abscess. Clinical correlation is recommended. Ajit Ramos MD Ankle X-Ray 03/28/17 0000 Signed Impressions: Service Date/Time: Tuesday, March 28, 2017 18:46 - CONCLUSION: Focal soft tissue swelling involving the left upper ankle laterally which is nonspecific. No acute fracture or dislocation. Ajit Ramos MD Objective Remarks General: No acute distress. Heart: Regular rate and rhythm. No murmur. Lungs: Clear to auscultation bilaterally. No wheezes, rales, or rhonchi. Breathing is nonlabored. Abdomen: Soft, nontender, nondistended. Extremities: No lower extremity edema. Left lower leg bandaged, wound VAC in place. S/P left arm amputation. Psych: Alert and oriented. Procedures I/D of the left ankle abscess/ wound vac placement. Urinary Catheter: No Vascular Central Line Catheter: No A/P Problem List: (1) Leg abscess ICD Code: L02.419 - Cutaneous abscess of limb, unspecified Status: Acute (2) Failure of outpatient treatment ICD Code: Z78.9 - Other specified health status Status: Acute (3) Hypokalemia ICD Code: E87.6 - Hypokalemia Assessment and Plan 04/17/17: No change. Awaiting plastic surgery recommendations regarding skin graft. 1. Left lower leg abscess: Failed outpatient therapy. Appreciate orthopedic surgery recommendations. Status post incision and drainage with wound VAC placement. Plastic surgery to reevaluate and determine closure versus graft. Cultures are negative so far. Appreciate infectious disease recommendations. Continue antibiotics. 2. Sedation: Patient had an episode of sedation that resolved. This was reportedly suspicious for external drug use. Toxicology screen is pending. Patient apparently reported a history of past IV drug use, but denies any recent IV drug use. 3. Ankle edema: Resolved. 4. Diarrhea: Antibiotic related. Improved. C. difficile is negative. 5. Hypokalemia: Resolved. 6. DVT prophylaxis: SCD, LONNIE rebolledoe. Chemical prophylaxis contraindicated on left lower extremity. Discharge Planning Awaiting plastic surgery recommendations regarding possible skin graft. Sven Wade MD Apr 17, 2017 14:31
--- NOTE | 2017-04-17 18:47 | HHI.IDPN ---
Subjective Subjective Remarks no fever co pain L LE wound seen during VAC change Antibiotics vanco zosyn Allergies: Coded Allergies: ketorolac (Unverified Allergy, Severe, Anaphylaxis, 12/06/16) THROAT WAS SWELLING CLOSED morphine (Unverified Allergy, Mild, 04/04/17) Objective . Vital Signs Date Time Temp Pulse Resp B/P (MAP) Pulse Ox O2 Delivery O2 Flow Rate FiO2 04/17/17 16:00 97.3 72 18 136/72 (93) 97 04/17/17 12:00 97.8 72 18 126/76 (93) 97 04/17/17 08:00 98.5 70 18 123/79 (94) 100 04/17/17 04:00 97.8 60 18 116/57 (76) 96 04/17/17 00:00 84 04/17/17 00:00 98.8 87 18 140/78 (98) 94 04/16/17 20:00 99.3 92 18 146/82 (103) 94 04/16/17 20:00 76 04/17/17 04/17/17 04/18/17 15:00 23:00 07:00 # Voids 10 # Bowel Movements 1 . Laboratory Tests Test 04/17/17 06:30 Creatinine 0.86 MG/DL Estimat Glomerular Filtration Rate 75 ML/MIN Imaging Last Impressions Chest X-Ray 04/03/17 0000 Signed Impressions: Service Date/Time: Monday, April 03, 2017 19:09 - CONCLUSION: 1. Right central line in superior vena cava. No pneumothorax. Salas Walker MD Lower Extremity CT 03/28/17 0000 Signed Impressions: Service Date/Time: Tuesday, March 28, 2017 20:49 - CONCLUSION: Large rim-enhancing fluid collection extending along the lateral aspect of the left lower leg and lateral gastricnemius muscle which extends from the upper calf to the ankle and measures at least 25 cm in length. This collection appears to bulge outward within the lower aspect and measures 4.3 cm AP by 4.1 cm transverse at the level of the upper ankle. Differential includes large hematoma, seroma or abscess. Clinical correlation is recommended. Ajit Ramos MD Ankle X-Ray 03/28/17 0000 Signed Impressions: Service Date/Time: Tuesday, March 28, 2017 18:46 - CONCLUSION: Focal soft tissue swelling involving the left upper ankle laterally which is nonspecific. No acute fracture or dislocation. Ajit Ramos MD Physical Exam CONSTITUTIONAL/GENERAL: This is an adequately nourished patient, in no apparent distress. TUBES/LINES/DRAINS: SKIN: No jaundice, rashes, or lesions. . Skin temperature appropriate. Not diaphoretic. MUSCULOSKELETAL wound with well granulated bed approx 30% of wound is pt's tender, appears white, viable some surrounding edema aournd VAC no erythema Assessment & Plan Remarks LLE large abscess s/p ID with exicion of necrotic skin and VAC place,mnets - infection is clinically resolved Prior abx use (keflex, bactrim) Clx neg - final + low greade fever: resolved dc abx at this point (sp 3 weeks of treatment) Stefanie Corral MD Apr 17, 2017 18:47
[2017-04-18] VITALS (8 sets, daily range): BP systolic 113–168; BP diastolic 64–76; PULSE 68–122; RESP 16–20; TEMP 97.8–100.6; O2SAT 96–99
[2017-04-18 05:38] LABS: AUTOMATED NEUTROPHIL # 3.3 TH/MM3 (1.8-7.7); BASOPHIL # 0.1 TH/MM3 (0-0.2); BASOPHIL % 1.1 % (0.0-2.0); EOSINOPHIL # 0.3 TH/MM3 (0-0.4); EOSINOPHIL % 4.2 % (0.0-4.0); HEMATOCRIT 32.9 % (35.0-46.0); HEMOGLOBIN 10.9 GM/DL (11.6-15.3); LYMPH % 32.4 % (9.0-44.0); MEAN CELL VOLUME 76.4 FL (80.0-100.0); MEAN CORPUSCULAR HEMOGLOBIN 25.3 PG (27.0-34.0); MEAN CORPUSCULAR HGB CONC 33.1 % (32.0-36.0); MEAN PLATELET VOLUME 7.5 FL (7.0-11.0); MONO % 9.4 % (0.0-8.0); MONOCYTE # 0.6 TH/MM3 (0-0.9); NEUT % 52.9 % (16.0-70.0); PLATELET COUNT 314 TH/MM3 (150-450); RED CELL DISTRIBUTION WIDTH 18.1 % (11.6-17.2); WHITE BLOOD COUNT 6.2 TH/MM3 (4.0-11.0)
[2017-04-18 06:00] LABS: BICARBONATE 30.6 MEQ/L (21.0-32.0); CALCIUM 9.5 MG/DL (8.5-10.1)
[2017-04-18] MEDS: SODIUM CHLORIDE 0.9% FLUSH 10 ML FLUSH IV FLUSH SCH ×2 (09:14→21:10)
[2017-04-18] MEDS: LACTOBACILLUS ACIDOPHILUS TAB PO SCH ×3 (09:14→17:18)
--- NOTE | 2017-04-18 14:13 | HHI.PR ---
Subjective Remarks Follow up left leg wound, hypokalemia. Patient requesting to have telemetry discontinued. Still having pain in the left lower leg. Objective Vitals Vital Signs Date Time Temp Pulse Resp B/P (MAP) Pulse Ox O2 Delivery O2 Flow Rate FiO2 04/18/17 11:50 98.4 88 18 123/76 (92) 96 04/18/17 07:42 98.5 75 18 122/76 (91) 99 04/18/17 04:27 68 04/18/17 04:00 97.8 75 16 127/64 (85) 98 04/18/17 00:45 79 04/18/17 00:00 98.1 68 16 113/67 (82) 99 04/17/17 20:00 98.0 85 16 149/88 (108) 100 04/17/17 19:55 97 04/17/17 16:00 97.3 72 18 136/72 (93) 97 I/O 04/17/17 04/17/17 04/17/17 04/18/17 04/18/17 04/18/17 07:00 15:00 23:00 07:00 15:00 23:00 Intake Total 300 ml 480 ml 480 ml Balance 300 ml 480 ml 480 ml Intake Oral 480 ml 480 ml IV Total 300 ml # Voids 10 1 3 # Bowel Movements 1 0 3 Result Diagram: 04/18/17 0523 04/18/17 0523 Imaging Last Impressions Chest X-Ray 04/03/17 0000 Signed Impressions: Service Date/Time: Monday, April 03, 2017 19:09 - CONCLUSION: 1. Right central line in superior vena cava. No pneumothorax. Salas Walker MD Lower Extremity CT 03/28/17 0000 Signed Impressions: Service Date/Time: Tuesday, March 28, 2017 20:49 - CONCLUSION: Large rim-enhancing fluid collection extending along the lateral aspect of the left lower leg and lateral gastricnemius muscle which extends from the upper calf to the ankle and measures at least 25 cm in length. This collection appears to bulge outward within the lower aspect and measures 4.3 cm AP by 4.1 cm transverse at the level of the upper ankle. Differential includes large hematoma, seroma or abscess. Clinical correlation is recommended. Ajit Ramos MD Ankle X-Ray 03/28/17 0000 Signed Impressions: Service Date/Time: Tuesday, March 28, 2017 18:46 - CONCLUSION: Focal soft tissue swelling involving the left upper ankle laterally which is nonspecific. No acute fracture or dislocation. Ajit Ramos MD Objective Remarks General: No acute distress. Heart: Regular rate and rhythm. No murmur. Lungs: Clear to auscultation bilaterally. No wheezes, rales, or rhonchi. Breathing is nonlabored. Abdomen: Soft, nontender, nondistended. Extremities: No lower extremity edema. Left lower leg bandaged, wound VAC in place. S/P left arm amputation. Psych: Alert and oriented. Procedures I/D of the left ankle abscess/ wound vac placement. Urinary Catheter: No Vascular Central Line Catheter: No A/P Problem List: (1) Leg abscess ICD Code: L02.419 - Cutaneous abscess of limb, unspecified Status: Acute (2) Failure of outpatient treatment ICD Code: Z78.9 - Other specified health status Status: Acute (3) Hypokalemia ICD Code: E87.6 - Hypokalemia Assessment and Plan 04/18/17: No change. Discussed at length with plastic surgery, Dr. Robison. He is concerned about the patient's ability to heal with a skin graft due to the exposed tendon. He recommended consulting podiatry for another opinion and to determine if patient can be followed in the outpatient wound clinic. 1. Left lower leg abscess: Failed outpatient therapy. Appreciate orthopedic surgery recommendations. Status post incision and drainage with wound VAC placement. Plastic surgery to reevaluate and determine closure versus graft. Cultures are negative so far. Appreciate infectious disease recommendations. Continue antibiotics. 2. Sedation: Patient had an episode of sedation that resolved. This was reportedly suspicious for external drug use. Toxicology screen is positive for heroin. Patient apparently reported a history of past IV drug use, but denies any recent IV drug use. 3. Ankle edema: Resolved. 4. Diarrhea: Antibiotic related. Improved. C. difficile is negative. 5. Hypokalemia: Resolved. 6. DVT prophylaxis: SCD, LONNIE hose. Chemical prophylaxis contraindicated on left lower extremity. Discharge Planning No safe discharge at this time. Would need skin graft or home with wound vac and home health. Patient does not currently have a place to live and would not be able to get home health. Sven Wade MD Apr 18, 2017 14:12
--- NOTE | 2017-04-18 16:01 | HHI.PR ---
Subjective Remarks Pt reports pain improving. No new complaints. Objective Vital Signs Date Time Temp Pulse Resp B/P (MAP) Pulse Ox O2 Delivery O2 Flow Rate FiO2 04/18/17 15:36 98.1 101 18 168/74 (105) 99 04/18/17 11:50 98.4 88 18 123/76 (92) 96 04/18/17 07:42 98.5 75 18 122/76 (91) 99 04/18/17 04:27 68 04/18/17 04:00 97.8 75 16 127/64 (85) 98 04/18/17 00:45 79 04/18/17 00:00 98.1 68 16 113/67 (82) 99 04/17/17 20:00 98.0 85 16 149/88 (108) 100 04/17/17 19:55 97 04/17/17 16:00 97.3 72 18 136/72 (93) 97 I/O 04/17/17 04/17/17 04/17/17 04/18/17 04/18/17 04/18/17 07:00 15:00 23:00 07:00 15:00 23:00 Intake Total 300 ml 480 ml 480 ml Balance 300 ml 480 ml 480 ml Intake Oral 480 ml 480 ml IV Total 300 ml # Voids 10 1 3 # Bowel Movements 1 0 3 Result Diagram: 04/18/1752204/18/17522 Objective Remarks VAC holding suction. No surrounding erythema. Limited ankle ROM. Diminished sensation to dorsal foot stable Assessment and Plan Assessment and Plan 36-year-old female with left lateral lower leg wound Had another lengthy discussion with patient (this visit, over 30 mins) regarding various treatment options and the risks benefits of each. Patient uncertain if she will have the ability to care for any complex dressings as she only has the right arm and is currently homeless. Do not feel that she is a good candidate for free flap and patient does not want to undergo a long surgery. She also admits to extensive IV drug abuse in the lower extremities. It is unclear how this would affect the venous outflow for something like a reverse sural flap. Also this would further complicate her dressing and she would then have a second wound to care for and keep clean. I also discussed with her that a skin graft would likely have difficulty with take over her exposed tendon. Additionally I discussed with her that placing something like Integra over the wound bed would give a layer of additional tissue, assuming full take, which would increase the chance that a skin graft would be successful. She expressed significant concern that she would have an additional scar on her leg as well as an additional wound to heal in the donor site and this was not something that appealed to her. She also felt that by the time the Integra took, followed by a skin graft taking, she might otherwise have the wound healed using Vac therapy alone. It was further discussed with the patient that closing the wound through one of the above methods helps prevent the tendon from being encased in granulation tissue, and therefore helps prevent ankle stiffness and decrease in range of motion. The patient feels that her ankle range of motion is already very diminished, and has been since the infection started as an outpt, well before Thanksgiving per pt. Given the complexities the patient's social history again including her having only her right upper extremity as well as being homeless and an IV drug abuser, as well as her aversion to an additional scar on her body, another option is to try an [id number] product such as a Epifix to try to stimulate healing of her wound without giving the patient an additional wound and therefore additional scarring. Therefore, as she is due for VAC change tomorrow, I will take a look at the wound again and discuss with the patient the plan going forward. This will also allow the patient some time to consider the above options once again. Tahir Robison MD Apr 18, 2017 16:01
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
[2017-04-18] MEDS: ACETAMINOPHEN 325 MG TAB PO PRN (21:09)
[2017-04-19] VITALS: BP 112/65; PULSE 72; RESP 17; TEMP 98.1; O2SAT 95
[2017-04-19 04:00] VITALS: BP 105/61; PULSE 59; RESP 18; TEMP 97.7; O2SAT 98
[2017-04-19 08:00] VITALS: BP 109/63; PULSE 68; RESP 18; TEMP 98; O2SAT 96
[2017-04-19] MEDS: SODIUM CHLORIDE 0.9% FLUSH 10 ML FLUSH IV FLUSH SCH ×2 (09:05→20:55)
[2017-04-19] MEDS: LACTOBACILLUS ACIDOPHILUS TAB PO SCH ×3 (09:05→17:45)
--- NOTE | 2017-04-19 11:50 | HHI.PR ---
Subjective Remarks Follow up left leg wound. Patient reports pain in the wound with wound vac change. No other complaints at this time. Objective Vitals Vital Signs Date Time Temp Pulse Resp B/P (MAP) Pulse Ox O2 Delivery O2 Flow Rate FiO2 04/19/17 08:00 98.0 68 18 109/63 (78) 96 04/19/17 04:00 97.7 59 18 105/61 (76) 98 04/19/17 00:00 98.1 72 17 112/65 (81) 95 04/18/17 20:00 100.6 122 20 115/73 (87) 98 04/18/17 15:36 98.1 101 18 168/74 (105) 99 04/18/17 11:50 98.4 88 18 123/76 (92) 96 I/O 04/18/17 04/18/17 04/18/17 04/19/17 04/19/17 04/19/17 07:00 15:00 23:00 07:00 15:00 23:00 Intake Total 480 ml 1200 ml Balance 480 ml 1200 ml Intake Oral 480 ml 1200 ml # Voids 3 5 2 # Bowel Movements 3 0 0 Result Diagram: 04/18/17 0523 04/18/17 0523 Imaging Last Impressions Chest X-Ray 04/03/17 0000 Signed Impressions: Service Date/Time: Monday, April 03, 2017 19:09 - CONCLUSION: 1. Right central line in superior vena cava. No pneumothorax. Salas Walker MD Lower Extremity CT 03/28/17 0000 Signed Impressions: Service Date/Time: Tuesday, March 28, 2017 20:49 - CONCLUSION: Large rim-enhancing fluid collection extending along the lateral aspect of the left lower leg and lateral gastricnemius muscle which extends from the upper calf to the ankle and measures at least 25 cm in length. This collection appears to bulge outward within the lower aspect and measures 4.3 cm AP by 4.1 cm transverse at the level of the upper ankle. Differential includes large hematoma, seroma or abscess. Clinical correlation is recommended. Ajit Ramos MD Ankle X-Ray 03/28/17 0000 Signed Impressions: Service Date/Time: Tuesday, March 28, 2017 18:46 - CONCLUSION: Focal soft tissue swelling involving the left upper ankle laterally which is nonspecific. No acute fracture or dislocation. Ajit Ramos MD Objective Remarks General: No acute distress. Heart: Regular rate and rhythm. No murmur. Lungs: Clear to auscultation bilaterally. No wheezes, rales, or rhonchi. Breathing is nonlabored. Abdomen: Soft, nontender, nondistended. Extremities: No lower extremity edema. Left lower leg wound with exposed tendon , no signs of infection. S/P left arm amputation. Psych: Alert and oriented. Procedures I/D of the left ankle abscess/ wound vac placement. Urinary Catheter: No Vascular Central Line Catheter: No A/P Problem List: (1) Leg abscess ICD Code: L02.419 - Cutaneous abscess of limb, unspecified Status: Acute (2) Failure of outpatient treatment ICD Code: Z78.9 - Other specified health status Status: Acute (3) Hypokalemia ICD Code: E87.6 - Hypokalemia Assessment and Plan 04/19/17: No change. Examined with Dr. Mathis, Dr. Robison. Considering options including surgical vs continued wound vac. 1. Left lower leg wound: Failed outpatient therapy. Appreciate orthopedic surgery recommendations. Status post incision and drainage with wound VAC placement. Cultures are negative. Appreciate infectious disease recommendations. Antibiotics discontinued. 2. Sedation: Patient had an episode of sedation that resolved. This was reportedly suspicious for external drug use. Toxicology screen is positive for heroin. Patient apparently reported a history of past IV drug use, but denies any recent IV drug use. 3. Ankle edema: Resolved. 4. Diarrhea: Antibiotic related. Improved. C. difficile is negative. 5. Hypokalemia: Resolved. 6. DVT prophylaxis: SCD, LONNIE hose. Chemical prophylaxis contraindicated on left lower extremity. Discharge Planning No safe discharge at this time. Would need skin graft or home with wound vac and home health. Patient does not currently have a place to live and would not be able to get home health. Sven Wade MD Apr 19, 2017 11:50
[2017-04-19 12:00] VITALS: BP 131/85; PULSE 86; RESP 18; TEMP 98; O2SAT 98
--- NOTE | 2017-04-19 12:03 | PD.POD.CON ---
Patient Intake Chief Complaint Open wound left lateral leg Consult Requested by Dr. Wade Reason for Consult Evaluation for possible wound care center follow-up Primary Care Physician Dr. Porfirio Richardson History of Present Illness 36-year-old female presented with abscess of the left lateral lower leg. She was underwent incision and drainage and application of negative pressure wound VAC. Plastic surgery was consulted to see about flap coverage. Patient was seen by myself and Dr. Robison from plastic surgery and medicine. Coded Allergies: ketorolac (Unverified Allergy, Severe, Anaphylaxis, 12/06/16) THROAT WAS SWELLING CLOSED morphine (Unverified Allergy, Mild, 04/04/17) Preferred Language to Discuss: Turkmen Barriers to Learning: None Teaching Method: Discussion Vital Signs Date Time Temp Pulse Resp B/P (MAP) Pulse Ox O2 Delivery O2 Flow Rate FiO2 04/19/17 08:00 98.0 68 18 109/63 (78) 96 04/19/17 04:00 97.7 59 18 105/61 (76) 98 04/19/17 00:00 98.1 72 17 112/65 (81) 95 04/18/17 20:00 100.6 122 20 115/73 (87) 98 04/18/17 15:36 98.1 101 18 168/74 (105) 99 Pain scale used: 0-10 numeric scale Pain score: 8 Medications Current Medications Piperacillin Sod/ Tazobactam Sod 100 ml @ 200 mls/hr ONCE ONCE IV Last administered on 03/28/17 19:35; Start 03/28/17 at 19:15; Stop 03/28/17 at 19:44 ; Status DC Vancomycin HCl 1000 mg/Sodium Chloride 250 ml @ 250 mls/hr AMMONIA DISTILLER IV ; Start 03/28/17 at 19:15; Stop 03/31/17 at 19:14; Status DC Sodium Chloride 1,000 ml @ 999 mls/hr BOLUS ONCE IV Last administered on 03/28 19:58; Start 03/28/17 at 19:30; Stop 03/28/17 at 20:30; Status DC Sodium Chloride 1,000 ml @ 999 mls/hr BOLUS ONCE IV Last administered on 03/28 19:58; Start 03/28/17 at 19:30; Stop 03/28/17 at 20:30; Status DC Potassium Chloride (KCl) 20 meq ONCE ONCE PO Last administered on 03/28/17 21 :15; Start 03/28/17 at 20:30; Stop 03/28/17 at 20:31; Status DC Iohexol (Omnipaque 350 Inj) 85 ml STK-MED ONCE IVCONTRAST Last administered on 03/28/17 20:56; Start 03/28/17 at 20:56; Stop 03/28/17 at 20:57; Status DC Ibuprofen (Motrin) 800 mg ONCE ONCE PO Last administered on 03/28/17 21:15; Start 03/28/17 at 21:15; Stop 03/28/17 at 21:16; Status DC Sodium Chloride (NS Flush) 2 ml UNSCH PRN IV FLUSH FLUSH AFTER USING IV ACCESS Last administered on 04/08/17 02:26; Start 03/28/17 at 22:30 Sodium Chloride (NS Flush) 2 ml BID IV FLUSH Last administered on 04/19/17 09 :05; Start 03/29/17 at 09:00 Naloxone HCl (Narcan Inj) 0.4 mg UNSCH PRN IV PUSH SEE LABEL COMMENTS; Start 03/28/17 at 22:30 Pharmacy Profile Note 0 ml @ 0 mls/hr UNSCH OTHER ; Start 03/28/17 at 22:30; Stop 04/17/17 at 18:47; Status DC Piperacillin Sod/ Tazobactam Sod 100 ml @ 200 mls/hr Q6H IV Last administered on 04/10/17 13:39; Start 03/29/17 at 02:00; Stop 04/10/17 at 20:46; Status DC Vancomycin HCl 1250 mg/Sodium Chloride 262.5 ml @ 250 mls/hr Q12H IV Last administered on 04/10/17 12:15; Start 03/28/17 at 23:00; Stop 04/10/17 at 13: 00; Status DC Miscellaneous Information SPECIFIC LAB TO BE SYLVIE... ONCE ONCE .XX ; Start 03/30 at 10:45; Stop 03/30/17 at 10:46; Status DC Hydromorphone HCl (Dilaudid Pf Inj) 0.2 mg Q4H PRN IV PUSH pain >5 Last administered on 03/31/17 06:08; Start 03/29/17 at 06:00; Stop 03/31/17 at 10:04 ; Status DC Ondansetron HCl (Zofran Inj) 4 mg Q6HR PRN IV PUSH nausea/vomiting Last administered on 04/02/17 10:23; Start 03/29/17 at 07:00 Gentamicin Sulfate (Gentamicin Inj) 240 mg STK-MED ONCE .ROUTE ; Start 03/29/17 at 17:32; Stop 03/29/17 at 17:33; Status DC Gentamicin Sulfate (Gentamicin Inj) 240 mg STK-MED ONCE .ROUTE Last administered on 03/30/17 14:45; Start 03/30/17 at 12:19; Stop 03/30/17 at 12:20 ; Status DC Gentamicin Sulfate (Gentamicin Inj) 240 mg STK-MED ONCE .ROUTE Last administered on 03/30/17 14:45; Start 03/30/17 at 13:18; Stop 03/30/17 at 13:19 ; Status DC Lactated Ringer's 1,000 ml @ 30 mls/hr Q24H PRN IV SEE LABEL COMMENTS; Start 03/30/17 at 14:15; Stop 04/02/17 at 14:14; Status DC Sodium Chloride 500 ml @ 30 mls/hr [id number] PRN IV SEE LABEL COMMENTS; Start at 14:15; Stop 04/02/17 at 14:14; Status DC Metoprolol Tartrate (Lopressor) 25 mg AMMONIA DISTILLER PRN PO SEE LABEL COMMENTS; Start 03/30/17 at 14:15; Stop 04/02/17 at 14:14; Status DC Povidone Iodine (Betadine 5% Antisepsis Kit) 1 applic AMMONIA DISTILLER PRN EACH NARE SEE LABEL COMMENTS; Start 03/30/17 at 14:15; Stop 04/02/17 at 14:14; Status DC Chlorhexidine Gluconate (Chlorhexidine 2% Cloth) 3 pack AMMONIA DISTILLER PRN TOPICAL SEE LABEL COMMENTS; Start 03/30/17 at 14:15; Stop 04/02/17 at 14:14; Status DC Sodium Chloride (NS Flush) 2 ml UNSCH PRN IV FLUSH FLUSH AFTER USING IV ACCESS ; Start 03/30/17 at 15:15; Stop 03/30/17 at 15:23; Status DC Sodium Chloride (NS Flush) 2 ml BID IV FLUSH ; Start 03/30/17 at 21:00; Stop at 21:00; Status DC Miscellaneous Information (Post-op Orders (for Pharmacy)) STAT ONCE XX ; Start 03/30/17 at 15:15; Stop 03/30/17 at 15:23; Status DC Hydromorphone HCl (Dilaudid Pf Inj) 2 mg STK-MED ONCE .ROUTE ; Start 03/30/17 at 15:18; Stop 03/30/17 at 15:19; Status DC Miscellaneous Information SPECIFIC LAB TO BE ... ONCE ONCE .XX Last administered on 03/30/17 22:45; Start 03/30/17 at 22:45; Stop 03/30/17 at 22:46 ; Status DC Hydromorphone HCl (Dilaudid Pf Inj) 1 mg Q4H PRN IV PUSH BREAKTHROUGH PAIN Last administered on 04/11/17 04:04; Start 03/31/17 at 14:00 Acetaminophen/ Hydrocodone Bitart ([place] 5-325 Mg) 1 tab Q4H PRN PO PAIN 3-6; Start 03/31/17 at 10:15; Stop 04/01/17 at 10:08; Status DC Acetaminophen/ Hydrocodone Bitart ([place] 5-325 Mg) 2 tab Q4H PRN PO PAIN 7-10 Last administered on 04/01/17 08:59; Start 03/31/17 at 10:15; Stop 04/01/17 at 10:08; Status DC Acetaminophen (Tylenol) 650 mg Q4H PRN PO FEVER/PAIN 1-2 Last administered on 04/18/17 21:09; Start 03/31/17 at 10:15 Potassium Chloride (KCl) 40 meq Q4H PO Last administered on 04/01/17 02:45; Start 03/31/17 at 16:00; Stop 04/01/17 at 00:01; Status DC Acetaminophen/ Hydrocodone Bitart ([place] 10-325 Mg) 1 tab Q4H PRN PO PAIN 3-6; Start 04/01/17 at 10:15; Stop 04/02/17 at 09:34; Status DC Acetaminophen/ Hydrocodone Bitart ([place] 10-325 Mg) 2 tab Q4H PRN PO PAIN 7-10 Last administered on 04/02/17 07:10; Start 04/01/17 at 10:15; Stop 04/02/17 at 09:34; Status DC Potassium Chloride (KCl) 30 meq ONCE ONCE PO Last administered on 04/01/17 14 :13; Start 04/01/17 at 13:30; Stop 04/01/17 at 13:31; Status DC Potassium Chloride (KCl) 30 meq ONCE ONCE PO Last administered on 04/01/17 16 :38; Start 04/01/17 at 17:00; Stop 04/01/17 at 17:01; Status DC Oxycodone HCl (Roxicodone) 30 mg Q6HR PRN PO PAIN 3-10 Last administered on 10:18; Start 04/02/17 at 09:45 Loperamide HCl (Imodium) 2 mg UNSCH PRN PO DIARRHEA Last administered on 05:57; Start 04/02/17 at 09:45 Potassium Chloride (KCl) 30 meq ONCE ONCE PO Last administered on 04/02/17 12:38; Start 04/02/17 at 12:00; Stop 04/02/17 at 12:01; Status DC Potassium Chloride (KCl) 30 meq ONCE ONCE PO Last administered on 04/02/17 15:00; Start 04/02/17 at 15:00; Stop 04/02/17 at 15:01; Status DC Lactated Ringer's 1,000 ml @ 30 mls/hr Q24H PRN IV SEE LABEL COMMENTS; Start 04/03/17 at 04:00; Stop 04/06/17 at 03:59; Status DC Sodium Chloride 500 ml @ 30 mls/hr [id number] PRN IV SEE LABEL COMMENTS; Start at 04:00; Stop 04/06/17 at 03:59; Status DC Metoprolol Tartrate (Lopressor) 25 mg AMMONIA DISTILLER PRN PO SEE LABEL COMMENTS; Start 04/03/17 at 04:00; Stop 04/06/17 at 03:59; Status DC Povidone Iodine (Betadine 5% Antisepsis Kit) 1 applic AMMONIA DISTILLER PRN EACH NARE SEE LABEL COMMENTS; Start 04/03/17 at 04:00; Stop 04/06/17 at 03:59; Status DC Chlorhexidine Gluconate (Chlorhexidine 2% Cloth) 3 pack AMMONIA DISTILLER PRN TOPICAL SEE LABEL COMMENTS; Start 04/03/17 at 04:00; Stop 04/06/17 at 03:59; Status DC Insulin Human Regular (NovoLIN R INJ) See Protocol Table ... AMMONIA DISTILLER PRN SQ SEE PROTOCOL TABLE; Start 04/03/17 at 04:00; Stop 04/06/17 at 03:59; Status DC Gentamicin Sulfate (Gentamicin Inj) 240 mg STK-MED ONCE .ROUTE Last administered on 04/03/17 18:29; Start 04/03/17 at 16:43; Stop 04/03/17 at 16 :44; Status DC Sufentanil Citrate (Sufenta Inj) 250 mcg STK-MED ONCE .ROUTE ; Start 04/03/17 at 18:22; Stop 04/03/17 at 18:23; Status DC Hydromorphone HCl (*DILAUDID PF INJ PERIprocedural ONLY) 1 mg STK-MED ONCE .ROUTE Last administered on 04/03/17 19:30; Start 04/03/17 at 19:30; Stop 04/03/17 at 19:31; Status DC Miscellaneous Information ALL NURSING DEPARTME... UNSCH PRN .XX SEE LABEL COMMENTS; Start 04/03/17 at 19:04; Stop 04/04/17 at 19:03; Status DC Potassium Chloride (KCl) 30 meq ONCE ONCE PO Last administered on 04/04/17 12:25; Start 04/04/17 at 10:55; Stop 04/04/17 at 10:56; Status DC Miscellaneous Information SPECIFIC LAB TO BE DRAWN:VANCOMYCIN TROUGH DATE TO... ONCE ONCE .XX Last administered on 04/06/17 10:45; Start 04/06/17 at 10:45 ; Stop 04/06/17 at 10:46; Status DC Lactobacillus Acidophilus (Lactinex) 1 tab TID PO Last administered on 09:05; Start 04/06/17 at 13:00 Potassium Chloride 100 ml @ 50 mls/hr Q2H IV ; Start 04/06/17 at 09:15; Stop 04/06/17 at 09:38; Status DC Potassium Chloride (KCl) 40 meq ONCE ONCE PO Last administered on 04/06/17 09:44; Start 04/06/17 at 09:15; Stop 04/06/17 at 09:38; Status DC Lactated Ringer's 1,000 ml @ 30 mls/hr Q24H PRN IV SEE LABEL COMMENTS Last administered on 04/06/17 11:37; Start 04/06/17 at 09:15; Stop 04/09/17 at 09 :14; Status DC Sodium Chloride 500 ml @ 30 mls/hr [id number] PRN IV SEE LABEL COMMENTS; Start at 09:15; Stop 04/09/17 at 09:14; Status DC Metoprolol Tartrate (Lopressor) 25 mg AMMONIA DISTILLER PRN PO SEE LABEL COMMENTS; Start 04/06/17 at 09:15; Stop 04/09/17 at 09:14; Status DC Povidone Iodine (Betadine 5% Antisepsis Kit) 1 applic AMMONIA DISTILLER PRN EACH NARE SEE LABEL COMMENTS; Start 04/06/17 at 09:15; Stop 04/09/17 at 09:14; Status DC Chlorhexidine Gluconate (Chlorhexidine 2% Cloth) 3 pack AMMONIA DISTILLER PRN TOPICAL SEE LABEL COMMENTS; Start 04/06/17 at 09:15; Stop 04/09/17 at 09:14; Status DC Gentamicin Sulfate (Gentamicin Inj) 80 mg STK-MED ONCE .ROUTE Last administered on 04/06/17 13:04; Start 04/06/17 at 11:57; Stop 04/06/17 at 11 :58; Status DC Meperidine HCl (*DEMEROL INJ PERIprocedural ONLY) 25 mg STK-MED ONCE .ROUTE Last administered on 04/06/17 13:54; Start 04/06/17 at 13:54; Stop 04/06/17 at 13:55; Status DC Hydromorphone HCl (*DILAUDID PF INJ PERIprocedural ONLY) 1 mg STK-MED ONCE .ROUTE Last administered on 04/06/17 14:14; Start 04/06/17 at 14:14; Stop 04/06/17 at 14:15; Status DC Miscellaneous Information ALL NURSING DEPARTME... UNSCH PRN .XX SEE LABEL COMMENTS; Start 04/06/17 at 14:42; Stop 04/07/17 at 14:41; Status DC Miscellaneous Information ALL NURSING DEPARTME... UNSCH PRN .XX SEE LABEL COMMENTS; Start 04/06/17 at 14:42; Stop 04/07/17 at 14:41; Status DC Miscellaneous Information SPECIFIC LAB TO BE SYLVIE... ONCE ONCE .XX Last administered on 04/08/17 10:44; Start 04/08/17 at 10:45; Stop 04/08/17 at 10 :46; Status DC Potassium Chloride (KCl) 40 meq ONCE ONCE PO Last administered on 04/07/17 16:09; Start 04/07/17 at 14:00; Stop 04/07/17 at 14:01; Status DC Furosemide (Lasix) 40 mg ONCE PRN PO EDEMA Last administered on 04/09/17 15: 11; Start 04/09/17 at 14:45; Stop 04/09/17 at 23:00; Status DC Heparin Sodium (Porcine) (Heparin Central Flush) 100 units DAILY IV FLUSH Last administered on 04/19/17 09:05; Start 04/10/17 at 10:00 Vancomycin HCl 1000 mg/Sodium Chloride 250 ml @ 250 mls/hr Q12H IV Last administered on 04/17/17 12:39; Start 04/10/17 at 23:00; Stop 04/17/17 at 18 :47; Status DC Piperacillin Sod/ Tazobactam Sod 50 ml @ 100 mls/hr Q6H IV Last administered on 04/17/17 18:37; Start 04/12/17 at 12:00; Stop 04/17/17 at 18:47; Status DC Miscellaneous Information SPECIFIC LAB TO BE DRAWN:VANCOMYCIN TROUGH DATE TO... ONCE ONCE .XX Last administered on 04/14/17 10:45; Start 04/14/17 at 10:45 ; Stop 04/14/17 at 10:46; Status DC Lidocaine HCl (Xylocaine-Mpf 1% Inj) 10 ml STK-MED ONCE OTHER ; Start 04/03/17 at 12:00; Stop 04/14/17 at 08:20; Status DC Dexamethasone Sodium Phosphate (Decadron Inj) 4 mg STK-MED ONCE IV ; Start 03/10 at 12:00; Stop 04/14/17 at 08:20; Status DC Ondansetron HCl (Zofran Inj) 4 mg STK-MED ONCE IV PUSH ; Start 04/03/17 at 12: 00; Stop 04/14/17 at 08:20; Status DC Fentanyl Citrate (fentaNYL INJ) 500 mcg STK-MED ONCE IV ; Start 04/03/17 at 12: 00; Stop 04/14/17 at 08:20; Status DC Propofol (Diprivan 200 Mg/20 ml Inj) 200 mg STK-MED ONCE IV ; Start 04/03/17 at 12:00; Stop 04/14/17 at 08:20; Status DC Sodium Chloride (Sodium Chloride 0.9% Inj) 20 ml STK-MED ONCE IV ; Start at 12:00; Stop 04/14/17 at 08:20; Status DC Lidocaine HCl (Xylocaine-Mpf 1% Inj) 5 ml STK-MED ONCE OTHER ; Start 03/30/17 at 12:00; Stop 04/14/17 at 10:24; Status DC Midazolam HCl (Versed Inj) 2 mg STK-MED ONCE IV ; Start 03/30/17 at 12:00; Stop 04/14/17 at 10:24; Status DC Fentanyl Citrate (fentaNYL INJ) 400 mcg STK-MED ONCE IV ; Start 03/30/17 at 12: 00; Stop 04/14/17 at 10:24; Status DC Propofol (Diprivan 200 Mg/20 ml Inj) 200 mg STK-MED ONCE IV ; Start 03/30/17 at 12:00; Stop 04/14/17 at 10:24; Status DC Lidocaine HCl (Xylocaine-Mpf 1% Inj) 5 ml STK-MED ONCE OTHER ; Start 04/06/17 at 12:00; Stop 04/14/17 at 14:23; Status DC Ondansetron HCl (Zofran Inj) 4 mg STK-MED ONCE IV ; Start 04/06/17 at 12:00; Stop 04/14/17 at 14:23; Status DC Fentanyl Citrate (fentaNYL INJ) 200 mcg STK-MED ONCE IV ; Start 04/06/17 at 12: 00; Stop 04/14/17 at 14:23; Status DC Propofol (Diprivan 200 Mg/20 ml Inj) 200 mg STK-MED ONCE IV ; Start 04/06/17 at 12:00; Stop 04/14/17 at 14:23; Status DC Miscellaneous Information SPECIFIC LAB TO BE ... ONCE ONCE .XX Last administered on 04/17/17t 10:45; Start 04/17/17 at 10:45; Stop 04/17/17 at 10 :46; Status DC Past, Family & Social History Past Medical History PFSH Reviewed: Yes HEENT: REPORTS HX OF: Other HEENT history (migraine headaches) Musculoskeletal: REPORTS HX OF: Other musculoskeletal hx (left arm traumatic amputation) Infectious Disease: REPORTS HX OF: Other inf disease history Past Surgical History Gynecologic: REPORTS HX OF: Cervical conization/LEEP Musculoskeletal: REPORTS HX OF: Other musculoskeletal srg Review of Systems Constitutional: COMPLAINS OF: Pain Musculoskeletal: COMPLAINS OF: Deformaties Review of Systems IV drug abuse Exam-Podiatry Constitutional General appearance: comfortable Nutritional status: normal Orientation: alert and oriented x3 Dermatological Exam Skin Temp - Right: Within Normal Limits Skin Texture - Right: Within Normal Limits Skin Elasticity - Right: Within Normal Limits Skin Tugor - Right: Within Normal Limits Hair Growth - Right: Within Normal Limits Pigmentation - Right: Within Normal Limits Skin Temp - Left: Within Normal Limits Skin Texture - Left: Within Normal Limits Skin Elasticity - Left: Within Normal Limits Skin Tugor - Left: Within Normal Limits Hair Growth - Left: Within Normal Limits Pigmentation - Left: Within Normal Limits Ulcers: Location/Measurements Ulceration of the left lateral lower leg with exposed peroneal tendon. Surrounding granulating base. Granulation tissue appears to come up to the level of the tendon but has not crossed over the tendon. No signs of purulence or infection. Vascular/Lymphatic Exam R Dorsails Pedis: Palpable L Dorsails Pedis: Palpable R Posterior Tibial: Palpable L Posterior Tibial: Palpable Neurologic Exam Present on left: Tingling Muscle Strength Dorsiflexion (Right): Normal Plantarflexion (Right): Normal Inversion (Right): Normal Eversion (Right): Normal Digital (Right): Normal Dorsiflexion (Left): Normal Plantarflexion (Left): Normal Inversion (Left): Weak Eversion (Left): Weak Digital (Left): Normal Foot Range of Motion Dorsiflexion (Right): Normal Plantarflexion (Right): Normal Inversion (Right): Normal Eversion (Right): Normal Digital (Right): Normal Dorsiflexion (Left): Normal Plantarflexion (Left): Normal Inversion (Left): Limited, Pain Eversion (Left): Limited, Pain Digital (Left): Normal Joint Instability Bunion (Right): Non-painful Bunion Bunion (Left): Non-painful Bunion Lab and Radiology Results Laboratory Laboratory Tests Test 04/18/17 05:23 White Blood Count 6.2 TH/MM3 Red Blood Count 4.30 MIL/MM3 Hemoglobin 10.9 GM/DL Hematocrit 32.9 % Mean Corpuscular Volume 76.4 FL Mean Corpuscular Hemoglobin 25.3 PG Mean Corpuscular Hemoglobin Concent 33.1 % Red Cell Distribution Width 18.1 % Platelet Count 314 TH/MM3 Mean Platelet Volume 7.5 FL Neutrophils (%) (Auto) 52.9 % Lymphocytes (%) (Auto) 32.4 % Monocytes (%) (Auto) 9.4 % Eosinophils (%) (Auto) 4.2 % Basophils (%) (Auto) 1.1 % Neutrophils # (Auto) 3.3 TH/MM3 Lymphocytes # (Auto) 2.0 TH/MM3 Monocytes # (Auto) 0.6 TH/MM3 Eosinophils # (Auto) 0.3 TH/MM3 Basophils # (Auto) 0.1 TH/MM3 CBC Comment DIFF FINAL Differential Comment Laboratory Tests Test 04/18/17 05:23 Blood Urea Nitrogen 19 MG/DL Creatinine 1.00 MG/DL Random Glucose 94 MG/DL Calcium Level 9.5 MG/DL Sodium Level 138 MEQ/L Potassium Level 4.0 MEQ/L Chloride Level 102 MEQ/L Carbon Dioxide Level 30.6 MEQ/L Anion Gap 5 MEQ/L Estimat Glomerular Filtration Rate 63 ML/MIN Radiology Last Impressions Chest X-Ray 04/03/17 0000 Signed Impressions: Service Date/Time: Monday, April 03, 2017 19:09 - CONCLUSION: 1. Right central line in superior vena cava. No pneumothorax. Salas Walker MD Lower Extremity CT 03/28/17 0000 Signed Impressions: Service Date/Time: Tuesday, March 28, 2017 20:49 - CONCLUSION: Large rim-enhancing fluid collection extending along the lateral aspect of the left lower leg and lateral gastricnemius muscle which extends from the upper calf to the ankle and measures at least 25 cm in length. This collection appears to bulge outward within the lower aspect and measures 4.3 cm AP by 4.1 cm transverse at the level of the upper ankle. Differential includes large hematoma, seroma or abscess. Clinical correlation is recommended. Ajit Ramos MD Ankle X-Ray 03/28/17 0000 Signed Impressions: Service Date/Time: Tuesday, March 28, 2017 18:46 - CONCLUSION: Focal soft tissue swelling involving the left upper ankle laterally which is nonspecific. No acute fracture or dislocation. Ajit Ramos MD Assessment/Plan Problem List: (1) Nonhealing ulcer of left lower leg Status: Chronic (2) Leg abscess Status: Acute Additional Plans & Procedures PLAN: Discussed with plastic surgery. Patient will be taken to the OR for placement of an Integra graft to see if coverage over the tendons can be performed. Patient will probably need a split-thickness skin graft after this. Alternatives would be to follow patient in wound center and apply Apligraf. We' ll follow as necessary. Problem Qualifiers (1) Nonhealing ulcer of left lower leg: Qualified Codes: L97.923 - Non-pressure chronic ulcer of unspecified part of left lower leg with necrosis of muscle Jose Ramon Mathis DPM Apr 19, 2017 12:03
--- NOTE | 2017-04-19 15:37 | HHI.PR ---
Subjective Remarks Pt reports pain improving. No new complaints. No acute changes overnight Objective Vital Signs Date Time Temp Pulse Resp B/P (MAP) Pulse Ox O2 Delivery O2 Flow Rate FiO2 04/19/17 12:00 98.0 86 18 131/85 (100) 98 04/19/17 08:00 98.0 68 18 109/63 (78) 96 04/19/17 04:00 97.7 59 18 105/61 (76) 98 04/19/17 00:00 98.1 72 17 112/65 (81) 95 04/18/17 20:00 100.6 122 20 115/73 (87) 98 04/18/17 15:36 98.1 101 18 168/74 (105) 99 I/O 04/18/17 04/18/17 04/18/17 04/19/17 04/19/17 04/19/17 07:00 15:00 23:00 07:00 15:00 23:00 Intake Total 480 ml 1200 ml Balance 480 ml 1200 ml Intake Oral 480 ml 1200 ml # Voids 3 5 2 # Bowel Movements 3 0 0 VAC dressing removed Wound with healthy-appearing granulation tissue and exposed tendon No signs of surrounding erythema Sensation to dorsal foot still diminished Minimal movement at the ankle Incision superior to wound well opposed Result Diagram: 04/18/1752204/18/17 05 Objective Remarks VAC holding suction. No surrounding erythema. Limited ankle ROM. Diminished sensation to dorsal foot stable Assessment and Plan Problem List: (1) Nonhealing ulcer of left lower leg ICD Codes: L97.929 - Non-pressure chronic ulcer of unspecified part of left lower leg with unspecified severity Status: Chronic Assessment and Plan 36-year-old female with left lateral lower leg wound Saw wound with Dr. Mathis. Together we had a discussion with the patient regarding treatment options. Patient more amenable to the idea of potential skin graft and the resultant scar. Given exposed tendon, we will plan for Integra placement following debridement of the wound. The patient will then be vac'd to increased take. Following this we will evaluate for skin graft once the Integra is taken. Patient understands that Integra take often requires 2-3 weeks. After another discussion regarding risks benefits and alternatives of treatment, informed consent was obtained for the surgery as well as a photo consent. 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
[2017-04-19 16:00] VITALS: BP 120/70; PULSE 81; RESP 18; TEMP 98.3; O2SAT 97
[2017-04-19 20:00] VITALS: BP 125/92; PULSE 92; RESP 20; TEMP 97.9; O2SAT 97
[2017-04-20] VITALS: BP 118/78; PULSE 85; RESP 20; TEMP 98.3; O2SAT 96
[2017-04-20] MEDS: ONDANSETRON HCL 4 MG/2 ML VIAL IV PUSH PRN ×3 (00:32→13:24)
[2017-04-20 04:00] VITALS: BP 115/65; PULSE 74; RESP 18; TEMP 98.3; O2SAT 98
[2017-04-20] MEDS: LACTOBACILLUS ACIDOPHILUS TAB PO SCH ×3 (07:41→18:13)
[2017-04-20 08:00] VITALS: BP 123/87; PULSE 90; RESP 18; TEMP 97.8; O2SAT 99
[2017-04-20] MEDS: SODIUM CHLORIDE 0.9% FLUSH 10 ML FLUSH IV FLUSH SCH ×2 (09:00→20:23)
--- NOTE | 2017-04-20 11:44 | HHI.PR ---
Subjective Remarks Follow up leg wound. Patient had some nausea this morning, which resolved with Zofran. Wound is still painful. No other complaints at this time. Objective Vitals Vital Signs Date Time Temp Pulse Resp B/P (MAP) Pulse Ox O2 Delivery O2 Flow Rate FiO2 04/20/17 08:42 18 04/20/17 08:00 97.8 90 18 123/87 (99) 99 04/20/17 04:00 98.3 74 18 115/65 (82) 98 04/20/17 00:00 98.3 85 20 118/78 (91) 96 04/19/17 20:00 97.9 92 20 125/92 (103) 97 04/19/17 16:00 98.3 81 18 120/70 (87) 97 04/19/17 12:00 98.0 86 18 131/85 (100) 98 I/O 04/19/17 04/19/17 04/19/17 04/20/17 04/20/17 04/20/17 07:00 15:00 23:00 07:00 15:00 23:00 Output Total 1 ml Balance -1 ml Output Urine Total 1 ml # Voids 2 2 # Bowel Movements 0 0 0 Result Diagram: 04/18/1723 04/18/17 0523 Imaging Last Impressions Chest X-Ray 04/03/17 0000 Signed Impressions: Service Date/Time: Monday, April 03, 2017 19:09 - CONCLUSION: 1. Right central line in superior vena cava. No pneumothorax. Salas Walker MD Lower Extremity CT 03/28/17 0000 Signed Impressions: Service Date/Time: Tuesday, March 28, 2017 20:49 - CONCLUSION: Large rim-enhancing fluid collection extending along the lateral aspect of the left lower leg and lateral gastricnemius muscle which extends from the upper calf to the ankle and measures at least 25 cm in length. This collection appears to bulge outward within the lower aspect and measures 4.3 cm AP by 4.1 cm transverse at the level of the upper ankle. Differential includes large hematoma, seroma or abscess. Clinical correlation is recommended. Ajit Ramos MD Ankle X-Ray 03/28/17 0000 Signed Impressions: Service Date/Time: Tuesday, March 28, 2017 18:46 - CONCLUSION: Focal soft tissue swelling involving the left upper ankle laterally which is nonspecific. No acute fracture or dislocation. Ajit Ramos MD Objective Remarks General: No acute distress. Heart: Regular rate and rhythm. No murmur. Lungs: Clear to auscultation bilaterally. No wheezes, rales, or rhonchi. Breathing is nonlabored. Abdomen: Soft, nontender, nondistended. Extremities: No lower extremity edema. Left lower leg wound with exposed tendon , no signs of infection. S/P left arm amputation. Psych: Alert and oriented. Procedures I/D of the left ankle abscess/ wound vac placement. Urinary Catheter: No Vascular Central Line Catheter: No A/P Problem List: (1) Leg abscess ICD Code: L02.419 - Cutaneous abscess of limb, unspecified Status: Acute (2) Failure of outpatient treatment ICD Code: Z78.9 - Other specified health status Status: Acute (3) Hypokalemia ICD Code: E87.6 - Hypokalemia Assessment and Plan 04/20/17: No change. Likely surgery on Monday to place Integra. 1. Left lower leg wound: Failed outpatient therapy. Appreciate orthopedic surgery recommendations. Status post incision and drainage with wound VAC placement. Cultures are negative. Appreciate infectious disease recommendations. Antibiotics discontinued. 2. Sedation: Patient had an episode of sedation that resolved. This was reportedly suspicious for external drug use. Toxicology screen is positive for heroin. Patient apparently reported a history of past IV drug use, but denies any recent IV drug use. 3. Ankle edema: Resolved. 4. Diarrhea: Antibiotic related. Improved. C. difficile is negative. 5. Hypokalemia: Resolved. 6. DVT prophylaxis: SCD, LONNIE hose. Chemical prophylaxis contraindicated on left lower extremity. Discharge Planning No safe discharge at this time. Would need skin graft or home with wound vac and home health. Patient does not currently have a place to live and would not be able to get home health. Sven Wade MD Apr 20, 2017 11:44
[2017-04-20 12:00] VITALS: BP 148/87; PULSE 94; RESP 18; TEMP 97.9; O2SAT 98
[2017-04-20 16:00] VITALS: BP 127/83; PULSE 92; RESP 18; TEMP 98.3; O2SAT 98
[2017-04-20 20:00] VITALS: BP 138/95; PULSE 80; RESP 18; TEMP 98.5; O2SAT 97
[2017-04-20] MEDS: ONDANSETRON ODT 4 MG TAB PO PRN (21:20)
[2017-04-21] VITALS: BP 124/66; PULSE 61; RESP 18; TEMP 98; O2SAT 97
[2017-04-21 04:00] VITALS: BP 134/74; PULSE 81; RESP 18; TEMP 98; O2SAT 99
[2017-04-21 07:29] LABS: CREATININE 0.86 MG/DL (0.50-1.00)
[2017-04-21 07:44] VITALS: BP 123/71; PULSE 79; RESP 18; TEMP 98.2; O2SAT 99
[2017-04-21] MEDS: LACTOBACILLUS ACIDOPHILUS TAB PO SCH ×3 (09:02→17:50)
[2017-04-21] MEDS: SODIUM CHLORIDE 0.9% FLUSH 10 ML FLUSH IV FLUSH SCH ×2 (09:03→21:00)
--- NOTE | 2017-04-21 10:34 | HHI.PR ---
Subjective Remarks Follow up leg wound. Patient states that the pain is about the same. Nausea has improved. Denies chest pain, dyspnea. Objective Vitals Vital Signs Date Time Temp Pulse Resp B/P (MAP) Pulse Ox O2 Delivery O2 Flow Rate FiO2 04/21/17 07:44 98.2 79 18 123/71 (88) 99 04/21/17 04:00 98.0 81 18 134/74 (94) 99 04/21/17 00:00 98.0 61 18 124/66 (85) 97 04/20/17 20:00 98.5 80 18 138/95 (109) 97 04/20/17 16:00 98.3 92 18 127/83 (98) 98 04/20/17 14:25 19 04/20/17 12:00 97.9 94 18 148/87 (107) 98 I/O 04/20/17 04/20/17 04/20/17 04/21/17 04/21/17 04/21/17 07:00 15:00 23:00 07:00 15:00 23:00 Intake Total 800 ml Output Total 1 ml Balance -1 ml 800 ml Intake Oral 800 ml Output Urine Total 1 ml # Voids 2 3 # Bowel Movements 0 Result Diagram: 04/18/17 0523 04/21/17 0521 Imaging Last Impressions Chest X-Ray 04/03/17 0000 Signed Impressions: Service Date/Time: Monday, April 03, 2017 19:09 - CONCLUSION: 1. Right central line in superior vena cava. No pneumothorax. Salas Walker MD Lower Extremity CT 03/28/17 0000 Signed Impressions: Service Date/Time: Tuesday, March 28, 2017 20:49 - CONCLUSION: Large rim-enhancing fluid collection extending along the lateral aspect of the left lower leg and lateral gastricnemius muscle which extends from the upper calf to the ankle and measures at least 25 cm in length. This collection appears to bulge outward within the lower aspect and measures 4.3 cm AP by 4.1 cm transverse at the level of the upper ankle. Differential includes large hematoma, seroma or abscess. Clinical correlation is recommended. Ajit Ramso MD Ankle X-Ray 03/28/17 0000 Signed Impressions: Service Date/Time: Tuesday, March 28, 2017 18:46 - CONCLUSION: Focal soft tissue swelling involving the left upper ankle laterally which is nonspecific. No acute fracture or dislocation. Ajit Ramos MD Objective Remarks General: No acute distress. Heart: Regular rate and rhythm. No murmur. Lungs: Clear to auscultation bilaterally. No wheezes, rales, or rhonchi. Breathing is nonlabored. Abdomen: Soft, nontender, nondistended. Extremities: No lower extremity edema. Left lower leg wound with wound vac in place. S/P left arm amputation. Psych: Alert and oriented. Procedures I/D of the left ankle abscess/ wound vac placement. Urinary Catheter: No Vascular Central Line Catheter: No A/P Problem List: (1) Leg abscess ICD Code: L02.419 - Cutaneous abscess of limb, unspecified Status: Acute (2) Failure of outpatient treatment ICD Code: Z78.9 - Other specified health status Status: Acute (3) Hypokalemia ICD Code: E87.6 - Hypokalemia Assessment and Plan 04/21/17: No change. Likely surgery on Monday to place Integra. 1. Left lower leg wound: Failed outpatient therapy. Appreciate orthopedic surgery recommendations. Status post incision and drainage with wound VAC placement. Cultures are negative. Appreciate infectious disease recommendations. Antibiotics discontinued. 2. Sedation: Patient had an episode of sedation that resolved. This was reportedly suspicious for external drug use. Toxicology screen is positive for heroin. Patient apparently reported a history of past IV drug use, but denies any recent IV drug use. 3. Ankle edema: Resolved. 4. Diarrhea: Antibiotic related. Improved. C. difficile is negative. 5. Hypokalemia: Resolved. 6. DVT prophylaxis: SCD, LONNIE rebolledoe. Mechanical prophylaxis contraindicated on left lower extremity. Discharge Planning No safe discharge at this time. Would need skin graft or home with wound vac and home health. Patient does not currently have a place to live and would not be able to get home health. Sven Wade MD Apr 21, 2017 10:34
[2017-04-21 11:34] VITALS: BP 133/84; PULSE 85; RESP 18; TEMP 98.4; O2SAT 99
[2017-04-21 15:39] VITALS: BP 122/72; PULSE 77; RESP 18; TEMP 98.1; O2SAT 100
[2017-04-21 21:15] VITALS: BP 136/83; PULSE 73; RESP 17; TEMP 98.6; O2SAT 96
[2017-04-22 00:15] VITALS: BP 110/75; PULSE 75; RESP 19; TEMP 98.1; O2SAT 98
[2017-04-22] MEDS: SODIUM CHLORIDE 0.9% FLUSH 10 ML FLUSH IV FLUSH SCH ×2 (00:51→19:30)
[2017-04-22 04:30] VITALS: BP 119/80; PULSE 76; RESP 17; TEMP 97.7; O2SAT 98
[2017-04-22] MEDS: LACTOBACILLUS ACIDOPHILUS TAB PO SCH ×3 (07:50→17:54)
[2017-04-22 08:32] VITALS: BP 139/81; PULSE 84; RESP 20; TEMP 97.2; O2SAT 100
--- NOTE | 2017-04-22 11:23 | HHI.PR ---
Subjective Remarks Seen with nurse. Follow up leg wound. No nausea/vomiting today. Wound still painful. Objective Vitals Vital Signs Date Time Temp Pulse Resp B/P (MAP) Pulse Ox O2 Delivery O2 Flow Rate FiO2 04/22/17 08:32 97.2 84 20 139/81 (100) 100 04/22/17 04:30 97.7 76 17 119/80 (93) 98 04/22/17 00:15 98.1 75 19 110/75 (87) 98 04/21/17 21:15 98.6 73 17 136/83 (100) 96 04/21/17 15:39 98.1 77 18 122/72 (89) 100 04/21/17 11:34 98.4 85 18 133/84 (100) 99 I/O 04/21/17 04/21/17 04/21/17 04/22/17 04/22/17 04/22/17 07:00 15:00 23:00 07:00 15:00 23:00 Intake Total 1530 ml 1500 ml Output Total 1500 ml Balance 1530 ml 0 ml Intake Oral 1530 ml 1500 ml Output Urine Total 1500 ml # Voids 3 4 2 # Bowel Movements 0 0 Result Diagram: 04/18/17 0523 04/21/17 0521 Imaging Last Impressions Chest X-Ray 04/03/17 0000 Signed Impressions: Service Date/Time: Monday, April 03, 2017 19:09 - CONCLUSION: 1. Right central line in superior vena cava. No pneumothorax. Salas Walker MD Lower Extremity CT 03/28/17 0000 Signed Impressions: Service Date/Time: Tuesday, March 28, 2017 20:49 - CONCLUSION: Large rim-enhancing fluid collection extending along the lateral aspect of the left lower leg and lateral gastricnemius muscle which extends from the upper calf to the ankle and measures at least 25 cm in length. This collection appears to bulge outward within the lower aspect and measures 4.3 cm AP by 4.1 cm transverse at the level of the upper ankle. Differential includes large hematoma, seroma or abscess. Clinical correlation is recommended. Ajit Ramos MD Ankle X-Ray 03/28/17 0000 Signed Impressions: Service Date/Time: Tuesday, March 28, 2017 18:46 - CONCLUSION: Focal soft tissue swelling involving the left upper ankle laterally which is nonspecific. No acute fracture or dislocation. Ajit Ramos MD Objective Remarks General: No acute distress. Heart: Regular rate and rhythm. No murmur. Lungs: Clear to auscultation bilaterally. No wheezes, rales, or rhonchi. Breathing is nonlabored. Abdomen: Soft, nontender, nondistended. Extremities: No lower extremity edema. Left lower leg wound with wound vac in place. S/P left arm amputation. Psych: Alert and oriented. Procedures I/D of the left ankle abscess/ wound vac placement. Urinary Catheter: No Vascular Central Line Catheter: No A/P Problem List: (1) Leg abscess ICD Code: L02.419 - Cutaneous abscess of limb, unspecified Status: Acute (2) Failure of outpatient treatment ICD Code: Z78.9 - Other specified health status Status: Acute (3) Hypokalemia ICD Code: E87.6 - Hypokalemia Assessment and Plan 04/22/17: No change. Plastic surgery to place Integra, possibly Monday 1. Left lower leg wound: Failed outpatient therapy. Appreciate orthopedic surgery recommendations. Status post incision and drainage with wound VAC placement. Cultures are negative. Appreciate infectious disease recommendations. Antibiotics discontinued. 2. Sedation: Patient had an episode of sedation that resolved. This was reportedly suspicious for external drug use. Toxicology screen is positive for heroin. Patient apparently reported a history of past IV drug use, but denies any recent IV drug use. 3. Ankle edema: Resolved. 4. Diarrhea: Antibiotic related. Improved. C. difficile is negative. 5. Hypokalemia: Resolved. 6. DVT prophylaxis: SCD, LONNIE rebolledoe. Mechanical prophylaxis contraindicated on left lower extremity. Discharge Planning No safe discharge at this time. Would need skin graft or home with wound vac and home health. Patient does not currently have a place to live and would not be able to get home health. Sven Wade MD Apr 22, 2017 11:23
[2017-04-22 11:45] VITALS: BP 134/84; PULSE 80; RESP 20; TEMP 97.3; O2SAT 98
[2017-04-22 15:57] VITALS: BP 136/80; PULSE 79; RESP 20; TEMP 98.1; O2SAT 97
[2017-04-22 20:15] VITALS: BP 122/84; PULSE 73; RESP 18; TEMP 98.1; O2SAT 98
[2017-04-23 00:40] VITALS: BP 120/80; PULSE 75; RESP 19; TEMP 97.6; O2SAT 99
[2017-04-23 04:45] VITALS: BP 120/72; PULSE 67; RESP 17; TEMP 98.4; O2SAT 97
[2017-04-23 08:16] VITALS: BP 137/81; PULSE 96; RESP 20; TEMP 97.8; O2SAT 97
[2017-04-23] MEDS: LACTOBACILLUS ACIDOPHILUS TAB PO SCH ×3 (09:20→17:55)
[2017-04-23] MEDS: SODIUM CHLORIDE 0.9% FLUSH 10 ML FLUSH IV FLUSH SCH ×2 (09:24→21:00)
--- NOTE | 2017-04-23 09:41 | HHI.PR ---
Subjective Remarks Examined with the nurse. Follow up left leg wound. Pain is reasonably well controlled. She is reporting phantom limb pain in the left arm. Objective Vitals Vital Signs Date Time Temp Pulse Resp B/P (MAP) Pulse Ox O2 Delivery O2 Flow Rate FiO2 04/23/17 08:16 97.8 96 20 137/81 (99) 97 04/23/17 04:45 98.4 67 17 120/72 (88) 97 04/23/17 00:40 97.6 75 19 120/80 (93) 99 04/22/17 20:15 98.1 73 18 122/84 (97) 98 04/22/17 15:57 98.1 79 20 136/80 (98) 97 04/22/17 11:45 97.3 80 20 134/84 (101) 98 I/O 04/22/17 04/22/17 04/22/17 04/23/17 04/23/17 04/23/17 07:00 15:00 23:00 07:00 15:00 23:00 Intake Total 1500 ml 600 ml 2500 ml 2500 ml Output Total 1500 ml Balance 0 ml 600 ml 2500 ml 2500 ml Intake Oral 1500 ml 600 ml 2500 ml 2500 ml Output Urine Total 1500 ml # Voids 2 7 2 6 # Bowel Movements 0 3 0 0 Result Diagram: 04/21/17 0521 Imaging Last Impressions Chest X-Ray 04/03/17 0000 Signed Impressions: Service Date/Time: Monday, April 03, 2017 19:09 - CONCLUSION: 1. Right central line in superior vena cava. No pneumothorax. Salas Walker MD Lower Extremity CT 03/28/17 0000 Signed Impressions: Service Date/Time: Tuesday, March 28, 2017 20:49 - CONCLUSION: Large rim-enhancing fluid collection extending along the lateral aspect of the left lower leg and lateral gastricnemius muscle which extends from the upper calf to the ankle and measures at least 25 cm in length. This collection appears to bulge outward within the lower aspect and measures 4.3 cm AP by 4.1 cm transverse at the level of the upper ankle. Differential includes large hematoma, seroma or abscess. Clinical correlation is recommended. Ajit Ramos MD Ankle X-Ray 03/28/17 0000 Signed Impressions: Service Date/Time: Tuesday, March 28, 2017 18:46 - CONCLUSION: Focal soft tissue swelling involving the left upper ankle laterally which is nonspecific. No acute fracture or dislocation. Ajit Ramos MD Objective Remarks General: No acute distress. Heart: Regular rate and rhythm. No murmur. Lungs: Clear to auscultation bilaterally. No wheezes, rales, or rhonchi. Breathing is nonlabored. Abdomen: Soft, nontender, nondistended. Extremities: No lower extremity edema. Left lower leg wound with wound vac in place. No signs of active infection. S/P left arm amputation. Psych: Alert and oriented. Procedures I/D of the left ankle abscess/ wound vac placement. Urinary Catheter: No Vascular Central Line Catheter: No A/P Problem List: (1) Leg abscess ICD Code: L02.419 - Cutaneous abscess of limb, unspecified Status: Acute (2) Failure of outpatient treatment ICD Code: Z78.9 - Other specified health status Status: Acute (3) Hypokalemia ICD Code: E87.6 - Hypokalemia Assessment and Plan 04/23/17: No change. Plastic surgery to place Integra, possibly Monday/Monday. 1. Left lower leg wound: Failed outpatient therapy. Appreciate orthopedic surgery recommendations. Status post incision and drainage with wound VAC placement. Cultures are negative. Appreciate infectious disease recommendations. Antibiotics discontinued. 2. Sedation: Patient had an episode of sedation that resolved. This was reportedly suspicious for external drug use. Toxicology screen is positive for heroin. Patient apparently reported a history of past IV drug use, but denies any recent IV drug use. 3. Ankle edema: Resolved. 4. Diarrhea: Antibiotic related. Improved. C. difficile is negative. 5. Hypokalemia: Resolved. 6. DVT prophylaxis: SCD, LONNIE rebolledoe. Mechanical prophylaxis contraindicated on left lower extremity. Discharge Planning No safe discharge at this time. Would need skin graft or home with wound vac and home health. Patient does not currently have a place to live and would not be able to get home health. Sven Wade MD Apr 23, 2017 09:41
[2017-04-23 11:53] VITALS: BP 104/73; PULSE 82; RESP 20; TEMP 98.3; O2SAT 98
--- NOTE | 2017-04-23 14:56 | PQ ---
Physician Query Response Document PATIENT: TUAN FRANCO : 1980 ADMIT DATE: 03/28/2017 10:19 PM DISCH DATE: RESPONDING PROVIDER #: preeti QUERY TEXT: Clinical Significance The diagnosis documented below requires documentation to state the clinical significance: Please respond and also state in your next progress note whether the condition is: -- Clinically insignificant -- Clinically significant, and please also state why it is clinically significant -- Unable to determine clinical significance -- Other, please specify The patient's Clinical Indicators include: Admission Hgb 12.5 Hct 39.0 On 04-06-17 Hgb 9.2 Hct 28.2. Query created by: Terri Lynne on 04/06/2017 3:07 PM RESPONSE TEXT: Anemia secondary to surgery. Electronically signed by: Annette Govea MD 04/23/2017 2:52 PM
[2017-04-23 16:18] VITALS: BP 130/87; PULSE 81; RESP 20; TEMP 98.7; O2SAT 99
[2017-04-23 20:30] VITALS: BP 131/73; PULSE 85; RESP 18; TEMP 98.3; O2SAT 99
[2017-04-24 00:40] VITALS: BP 101/52; PULSE 76; RESP 18; TEMP 97.4; O2SAT 100
[2017-04-24 05:00] VITALS: BP 108/54; PULSE 78; RESP 18; TEMP 97.8; O2SAT 97
[2017-04-24] MEDS: SODIUM CHLORIDE 0.9% FLUSH 10 ML FLUSH IV FLUSH SCH ×2 (08:08→21:00)
[2017-04-24] MEDS: LACTOBACILLUS ACIDOPHILUS TAB PO SCH ×3 (08:09→18:21)
[2017-04-24 08:13] VITALS: BP 129/75; PULSE 91; RESP 16; TEMP 99.2; O2SAT 100
[2017-04-24 12:20] VITALS: BP 129/80; PULSE 76; RESP 16; TEMP 98; O2SAT 97
--- NOTE | 2017-04-24 12:28 | HHI.PR ---
Subjective Remarks The patient was wondering if she was going to get the procedure done tomorrow. She wanted to know if she needed a skin graft. She had questions about if she should start gabapentin. No other acute concerns. Discussed with nursing. Objective Vitals Vital Signs Date Time Temp Pulse Resp B/P (MAP) Pulse Ox O2 Delivery O2 Flow Rate FiO2 04/24/17 12:20 98.0 76 16 129/80 (96) 97 04/24/17 08:13 99.2 91 16 129/75 (93) 100 04/24/17 05:00 97.8 78 18 108/54 (72) 97 04/24/17 00:40 97.4 76 18 101/52 (68) 100 04/23/17 20:30 98.3 85 18 131/73 (92) 99 04/23/17 16:18 98.7 81 20 130/87 (101) 99 I/O 04/23/17 04/23/17 04/23/17 04/24/17 04/24/17 04/24/17 07:00 15:00 23:00 07:00 15:00 23:00 Intake Total 2500 ml 720 ml 360 ml Balance 2500 ml 720 ml 360 ml Intake Oral 2500 ml 720 ml 360 ml # Voids 6 4 4 # Bowel Movements 0 1 Result Diagram: 04/21/17 0521 Imaging Last Impressions Chest X-Ray 04/03/17 0000 Signed Impressions: Service Date/Time: Monday, April 03, 2017 19:09 - CONCLUSION: 1. Right central line in superior vena cava. No pneumothorax. Salas Walker MD Lower Extremity CT 03/28/17 0000 Signed Impressions: Service Date/Time: Tuesday, March 28, 2017 20:49 - CONCLUSION: Large rim-enhancing fluid collection extending along the lateral aspect of the left lower leg and lateral gastrocnemius muscle which extends from the upper calf to the ankle and measures at least 25 cm in length. This collection appears to bulge outward within the lower aspect and measures 4.3 cm AP by 4.1 cm transverse at the level of the upper ankle. Differential includes large hematoma, seroma or abscess. Clinical correlation is recommended. Ajit Ramos MD Ankle X-Ray 03/28/17 0000 Signed Impressions: Service Date/Time: Tuesday, March 28, 2017 18:46 - CONCLUSION: Focal soft tissue swelling involving the left upper ankle laterally which is nonspecific. No acute fracture or dislocation. Ajit Ramos MD Objective Remarks General: No acute distress. HEENT: NC, AT. Heart: Regular rate and rhythm. No murmur. Lungs: Clear to auscultation bilaterally. No wheezes, rales, or rhonchi. Breathing is nonlabored. Abdomen: Soft, nontender, nondistended. Extremities: No lower extremity edema. Left lower leg wound with wound vac in place. No signs of active infection. S/P left arm amputation. Psych: Mood and affect appropriate. Procedures I/D of the left ankle abscess/ wound vac placement. Medications and IVs Current Medications Medications (Trade) Dose Ordered Sig/Jenny Route Start Time Stop Time Status Last Admin (NS Flush) 2 ml UNSCH PRN IV FLUSH 03/28/17 22:30 04/08/17 02:26 (NS Flush) 2 ml BID IV FLUSH 03/29/17 09:00 04/20/17 09:00 (Narcan Inj) 0.4 mg UNSCH PRN IV PUSH 03/28/17 22:30 (Zofran Inj) 4 mg Q6HR PRN IV PUSH 03/29/17 07:00 04/20/17 13:24 (Dilaudid Pf Inj) 1 mg Q4H PRN IV PUSH 03/31/17 14:00 04/11/17 04:04 (Tylenol) 650 mg Q4H PRN PO 03/31/17 10:15 04/18/17 21:09 (Roxicodone) 30 mg Q6HR PRN PO 04/02/17 09:45 04/24/17 06:48 (Imodium) 2 mg UNSCH PRN PO 04/02/17 09:45 04/08/17 05:57 (Lactinex) 1 tab TID PO 04/06/17 13:00 04/24/17 08:09 (Heparin Central Flush) 100 units DAILY IV FLUSH 04/10/17 10:00 04/20/17 07:41 (Zofran Odt) 4 mg Q6H PRN PO 04/20/17 20:30 04/20/17 21:20 A/P Problem List: (1) Leg abscess ICD Code: L02.419 - Cutaneous abscess of limb, unspecified Status: Acute (2) Failure of outpatient treatment ICD Code: Z78.9 - Other specified health status Status: Acute (3) Hypokalemia ICD Code: E87.6 - Hypokalemia Assessment and Plan Left lower leg wound Failed outpatient therapy. Appreciate orthopedic surgery recommendations. Status post incision and drainage with wound VAC placement. Cultures are negative. Appreciate infectious disease recommendations. - Antibiotics discontinued. - follow up with plastic surgery. - continue PT. Sedation Patient had an episode of sedation that resolved. This was reportedly suspicious for external drug use. Toxicology screen was positive for heroin. Patient apparently reported a history of past IV drug use, but denies any recent IV drug use. - monitor. Diarrhea Antibiotic related. C. difficile is negative. - improved. Phantom pain Involving her LUE. - trial of gabapentin. Anemia Seems stable. - follow CBC in AM. DVT prophylaxis: SCD, LONNIE hose. Mechanical prophylaxis contraindicated on left lower extremity. Discharge Planning No safe discharge at this time. Would need skin graft or home with wound vac and home health. Patient does not currently have a place to live and would not be able to get home health. Paul Cobian DO Apr 24, 2017 12:28
[2017-04-24] MEDS: GABAPENTIN 300 MG CAP PO SCH ×2 (12:47→18:20)
[2017-04-24 17:19] VITALS: BP 122/64; PULSE 76; RESP 15; TEMP 98.7; O2SAT 99
[2017-04-24 20:00] VITALS: BP 125/74; PULSE 69; RESP 18; TEMP 97; O2SAT 98
[2017-04-25] VITALS: BP 113/86; PULSE 73; RESP 18; TEMP 97; O2SAT 94
[2017-04-25] MEDS: ONDANSETRON ODT 4 MG TAB PO PRN (03:38)
[2017-04-25 04:00] VITALS: BP 127/65; PULSE 81; RESP 18; TEMP 97.7; O2SAT 95
[2017-04-25 07:10] LABS: BICARBONATE 29.1 MEQ/L (21.0-32.0); CREATININE 0.83 MG/DL (0.50-1.00)
[2017-04-25 07:20] LABS: HEMATOCRIT 34.8 % (35.0-46.0); HEMOGLOBIN 11.4 GM/DL (11.6-15.3); MEAN CELL VOLUME 76.2 FL (80.0-100.0); MEAN CORPUSCULAR HEMOGLOBIN 24.9 PG (27.0-34.0); MEAN CORPUSCULAR HGB CONC 32.6 % (32.0-36.0); MEAN PLATELET VOLUME 8.4 FL (7.0-11.0); PLATELET COUNT 312 TH/MM3 (150-450); RED BLOOD COUNT 4.57 MIL/MM3 (4.00-5.30); RED CELL DISTRIBUTION WIDTH 18.3 % (11.6-17.2); WHITE BLOOD COUNT 6.7 TH/MM3 (4.0-11.0)
[2017-04-25] MEDS: SODIUM CHLORIDE 0.9% FLUSH 10 ML FLUSH IV FLUSH SCH ×2 (07:42→21:40)
[2017-04-25 08:12] VITALS: BP 112/76; PULSE 96; RESP 18; TEMP 97.9; O2SAT 97
[2017-04-25] MEDS: GABAPENTIN 300 MG CAP PO SCH ×3 (09:35→17:50)
[2017-04-25] MEDS: LACTOBACILLUS ACIDOPHILUS TAB PO SCH ×3 (09:35→17:50)
[2017-04-25 12:13] VITALS: BP 128/69; PULSE 85; RESP 17; TEMP 98.5; O2SAT 100
--- NOTE | 2017-04-25 15:52 | HHI.PR ---
Subjective Remarks The patient was ambulating about her room. She had many questions about her procedure tomorrow. She said she has not had the chance to speak with the plastic surgeon today. Otherwise she had no acute concerns. Discussed with nursing. Objective Vitals Vital Signs Date Time Temp Pulse Resp B/P (MAP) Pulse Ox O2 Delivery O2 Flow Rate FiO2 04/25/17 12:13 98.5 85 17 128/69 (88) 100 04/25/17 08:12 97.9 96 18 112/76 (88) 97 04/25/17 04:00 97.7 81 18 127/65 (85) 95 04/25/17 00:00 97.0 73 18 113/86 (95) 94 04/24/17 20:00 97.0 69 18 125/74 (91) 98 04/24/17 17:19 98.7 76 15 122/64 (83) 99 I/O 04/24/17 04/24/17 04/24/17 04/25/17 04/25/17 04/25/17 07:00 15:00 23:00 07:00 15:00 23:00 Intake Total 360 ml 720 ml Balance 360 ml 720 ml Intake Oral 360 ml 720 ml # Voids 4 3 6 # Bowel Movements 1 Result Diagram: 04/25/17 0530 04/25/17 0530 Imaging Last Impressions Chest X-Ray 04/03/17 0000 Signed Impressions: Service Date/Time: Monday, April 03, 2017 19:09 - CONCLUSION: 1. Right central line in superior vena cava. No pneumothorax. Salas Walker MD Lower Extremity CT 03/28/17 0000 Signed Impressions: Service Date/Time: Tuesday, March 28, 2017 20:49 - CONCLUSION: Large rim-enhancing fluid collection extending along the lateral aspect of the left lower leg and lateral gastricnemius muscle which extends from the upper calf to the ankle and measures at least 25 cm in length. This collection appears to bulge outward within the lower aspect and measures 4.3 cm AP by 4.1 cm transverse at the level of the upper ankle. Differential includes large hematoma, seroma or abscess. Clinical correlation is recommended. Ajit Ramos MD Ankle X-Ray 03/28/17 0000 Signed Impressions: Service Date/Time: Tuesday, March 28, 2017 18:46 - CONCLUSION: Focal soft tissue swelling involving the left upper ankle laterally which is nonspecific. No acute fracture or dislocation. Ajit Ramos MD Objective Remarks General: No acute distress. HEENT: NC, AT. Heart: Regular rate and rhythm. No murmur. Lungs: Clear to auscultation bilaterally. No wheezes, rales, or rhonchi. Breathing is nonlabored. Abdomen: Soft, nontender, nondistended. Extremities: No lower extremity edema. Left lower leg wound with wound vac in place. No signs of active infection. S/P left arm amputation. Psych: Mood and affect appropriate. Procedures I/D of the left ankle abscess/ wound vac placement. Medications and IVs Current Medications Medications (Trade) Dose Ordered Sig/Jenny Route Start Time Stop Time Status Last Admin (NS Flush) 2 ml UNSCH PRN IV FLUSH 03/28/17 22:30 04/08/17 02:26 (NS Flush) 2 ml BID IV FLUSH 03/29/17 09:00 04/20/17 09:00 (Narcan Inj) 0.4 mg UNSCH PRN IV PUSH 03/28/17 22:30 (Zofran Inj) 4 mg Q6HR PRN IV PUSH 03/29/17 07:00 04/20/17 13:24 (Dilaudid Pf Inj) 1 mg Q4H PRN IV PUSH 03/31/17 14:00 04/11/17 04:04 (Tylenol) 650 mg Q4H PRN PO 03/31/17 10:15 04/18/17 21:09 (Roxicodone) 30 mg Q6HR PRN PO 04/02/17 09:45 04/25/17 15:42 (Imodium) 2 mg UNSCH PRN PO 04/02/17 09:45 04/08/17 05:57 (Lactinex) 1 tab TID PO 04/06/17 13:00 04/25/17 13:31 (Heparin Central Flush) 100 units DAILY IV FLUSH 04/10/17 10:00 04/20/17 07:41 (Zofran Odt) 4 mg Q6H PRN PO 04/20/17 20:30 04/25/17 03:38 (Neurontin) 300 mg TID PO 04/24/17 13:00 04/25/17 13:31 (Ermelinda-Colace) 1 tab BID PO 04/25/17 21:00 A/P Problem List: (1) Leg abscess ICD Code: L02.419 - Cutaneous abscess of limb, unspecified Status: Acute (2) Failure of outpatient treatment ICD Code: Z78.9 - Other specified health status Status: Acute (3) Hypokalemia ICD Code: E87.6 - Hypokalemia Assessment and Plan Left lower leg wound Failed outpatient therapy. Appreciate orthopedic surgery recommendations. Status post incision and drainage with wound VAC placement. Cultures are negative. Appreciate infectious disease recommendations. - Antibiotics discontinued. - follow up with plastic surgery. Plan for debridement 04/25. - continue PT. Sedation Patient had an episode of sedation that resolved. This was reportedly suspicious for external drug use. Toxicology screen was positive for heroin. Patient apparently reported a history of past IV drug use, but denies any recent IV drug use. - monitor. Diarrhea Antibiotic related. C. difficile is negative. - improved. Phantom pain Involving her LUE. - trial of gabapentin. Anemia Seems stable. - follow CBC as needed. DVT prophylaxis: SCD, LONNIE joseph. Mechanical prophylaxis contraindicated on left lower extremity. Discharge Planning No safe discharge at this time. Would need skin graft or home with wound vac and home health. Patient does not currently have a place to live and would not be able to get home health. Paul Cobian DO Apr 25, 2017 15:52
[2017-04-25 16:50] VITALS: BP 127/81; PULSE 91; RESP 16; TEMP 98.1; O2SAT 100
[2017-04-25] MEDS: DOCUSATE SODIUM 50 MG/SENNA 8.6 MG TAB PO SCH (21:00)
[2017-04-26] VITALS: BP 107/55; PULSE 72; RESP 18; TEMP 98.2; O2SAT 96
[2017-04-26] MEDS ORDERED: LACTATED RINGER'S 1000 ML IV PRN (03:30)
[2017-04-26] MEDS ORDERED: CHLORHEXIDINE GLUCONATE 2 % 1 PACK (2 CLOTHS) TOPICAL PRN (03:30)
[2017-04-26] MEDS ORDERED: POVIDONE IODINE 5% (ANTISEPSIS KIT) 4 APPLICATIONS EACH NARE PRN (03:30)
[2017-04-26 04:00] VITALS: BP 134/83; PULSE 75; RESP 18; TEMP 98.8; O2SAT 95
[2017-04-26 08:01] VITALS: BP 108/55; PULSE 53; RESP 20; TEMP 98.3; O2SAT 98
[2017-04-26] MEDS: GABAPENTIN 300 MG CAP PO SCH ×3 (08:17→17:32)
[2017-04-26] MEDS: LACTOBACILLUS ACIDOPHILUS TAB PO SCH ×3 (08:17→17:32)
[2017-04-26] MEDS: SODIUM CHLORIDE 0.9% FLUSH 10 ML FLUSH IV FLUSH SCH ×2 (08:20→22:18)
[2017-04-26] MEDS: DOCUSATE SODIUM 50 MG/SENNA 8.6 MG TAB PO SCH ×2 (08:20→21:00)
[2017-04-26] MEDS ORDERED: BUPIVACAINE/EPINEPHRINE 0.25% PF 30 ML VIAL ONE (09:45)
[2017-04-26] MEDS ORDERED: ceFAZolin 2 GM PREMIX 50 ML ONE (11:06)
[2017-04-26] MEDS ORDERED: GENTAMICIN SULFATE 80 MG/2 ML VIAL ONE (11:12)
[2017-04-26] MEDS ORDERED: LIDOCAINE HCL 1% PF 5 ML SYRINGE OTHER ONE (12:00)
[2017-04-26] MEDS ORDERED: DEXAMETHASONE SOD PHOS 4 MG/ML VIAL IV ONE (12:00)
[2017-04-26] MEDS ORDERED: PROPOFOL 200 MG/20 ML AMP IV ONE (12:00)
[2017-04-26] MEDS ORDERED: KETOROLAC TROMETHAMINE 30 MG/ML (IVP) VIAL IV PUSH ONE (12:00)
[2017-04-26] MEDS ORDERED: ONDANSETRON HCL 4 MG/2 ML VIAL IV PUSH ONE (12:00)
[2017-04-26] MEDS ORDERED: *HYDROmorphone PF 1 MG VIAL PERIprocedural Use ONLY ONE (12:35)
[2017-04-26] MEDS ORDERED: DO NOT ADM ANY ANTICOAGULANT DRUGS PRN (12:45)
[2017-04-26] MEDS ORDERED: MIDAZOLAM HCL 2 MG/2 ML VIAL ONE (14:10)
--- NOTE | 2017-04-26 14:56 | HHI.PR ---
Subjective Remarks The patient was seen following her procedure. She said she had increased pain on the left foot but otherwise felt well. She said she has been ambulating less because of that pain. She is tolerating a diet. Discussed with nursing. Objective Vitals Vital Signs Date Time Temp Pulse Resp B/P (MAP) Pulse Ox O2 Delivery O2 Flow Rate FiO2 04/26/17 13:02 70 16 121/82 (95) 95 Room Air 04/26/17 12:45 71 16 123/78 (93) 95 Room Air 04/26/17 12:30 83 16 122/75 (91) 98 Room Air 04/26/17 12:20 98.8 75 16 132/81 (98) 98 Nasal Cannula 2 04/26/17 08:01 98.3 53 20 108/55 (72) 98 04/26/17 04:00 98.8 75 18 134/83 (100) 95 04/26/17 00:00 98.2 72 18 107/55 (72) 96 04/25/17 16:50 98.1 91 16 127/81 (96) 100 I/O 04/25/17 04/25/17 04/25/17 04/26/17 04/26/17 04/26/17 07:00 15:00 23:00 07:00 15:00 23:00 Intake Total 720 ml 250 ml Balance 720 ml 250 ml Intake Oral 720 ml Other 250 ml # Voids 6 2 6 # Bowel Movements 1 Result Diagram: 04/25/17 0530 04/25/17 0530 Imaging Last Impressions Chest X-Ray 04/03/17 0000 Signed Impressions: Service Date/Time: Monday, April 03, 2017 19:09 - CONCLUSION: 1. Right central line in superior vena cava. No pneumothorax. Salas Walker MD Lower Extremity CT 03/28/17 0000 Signed Impressions: Service Date/Time: Tuesday, March 28, 2017 20:49 - CONCLUSION: Large rim-enhancing fluid collection extending along the lateral aspect of the left lower leg and lateral gastricnemius muscle which extends from the upper calf to the ankle and measures at least 25 cm in length. This collection appears to bulge outward within the lower aspect and measures 4.3 cm AP by 4.1 cm transverse at the level of the upper ankle. Differential includes large hematoma, seroma or abscess. Clinical correlation is recommended. Ajit Ramos MD Ankle X-Ray 03/28/17 0000 Signed Impressions: Service Date/Time: Tuesday, March 28, 2017 18:46 - CONCLUSION: Focal soft tissue swelling involving the left upper ankle laterally which is nonspecific. No acute fracture or dislocation. Ajit Ramos MD Objective Remarks General: No acute distress. HEENT: NC, AT. Heart: Regular rate and rhythm. No murmur. Lungs: Clear to auscultation bilaterally. No wheezes, rales, or rhonchi. Breathing is nonlabored. Abdomen: Soft, nontender, nondistended. Extremities: No lower extremity edema. Left lower leg wound with wound vac in place. No signs of active infection. S/P left arm amputation. Psych: Mood and affect appropriate. Procedures I/D of the left ankle abscess/ wound vac placement. Medications and IVs Current Medications Medications (Trade) Dose Ordered Sig/Jenny Route Start Time Stop Time Status Last Admin (NS Flush) 2 ml UNSCH PRN IV FLUSH 03/28/17 22:30 04/08/17 02:26 (NS Flush) 2 ml BID IV FLUSH 03/29/17 09:00 04/26/17 08:20 (Narcan Inj) 0.4 mg UNSCH PRN IV PUSH 03/28/17 22:30 (Zofran Inj) 4 mg Q6HR PRN IV PUSH 03/29/17 07:00 04/20/17 13:24 (Dilaudid Pf Inj) 1 mg Q4H PRN IV PUSH 03/31/17 14:00 04/11/17 04:04 (Tylenol) 650 mg Q4H PRN PO 03/31/17 10:15 04/18/17 21:09 (Roxicodone) 30 mg Q6HR PRN PO 04/02/17 09:45 04/26/17 06:46 (Imodium) 2 mg UNSCH PRN PO 04/02/17 09:45 04/08/17 05:57 (Lactinex) 1 tab TID PO 04/06/17 13:00 04/26/17 13:13 (Heparin Central Flush) 100 units DAILY IV FLUSH 04/10/17 10:00 04/20/17 07:41 (Zofran Odt) 4 mg Q6H PRN PO 04/20/17 20:30 04/25/17 03:38 (Neurontin) 300 mg TID PO 04/24/17 13:00 04/26/17 13:13 (Ermelinda-Colace) 1 tab BID PO 04/25/17 21:00 Lactated Ringer's 1,000 ml @ 30 mls/hr Q24H PRN IV 04/26/17 03:30 04/29/17 03:29 04/26/17 08:00 (Betadine 5% Antisepsis Kit) 1 applic SENIOR FIELD SERVICE ENGINEER PRN EACH NARE 04/26/17 03:30 04/29/17 03:29 (Chlorhexidine 2% Cloth) 3 pack SENIOR FIELD SERVICE ENGINEER PRN TOPICAL 04/26/17 03:30 04/29/17 03:29 Cefazolin Sodium/ Dextrose 50 ml @ 100 mls/hr Q8H IV 04/26/17 18:00 04/27/17 02:29 Miscellaneous Information ALL NURSING DEPARTME... UNSCH PRN .XX 04/26/17 12:45 04/27/17 12:44 A/P Problem List: (1) Leg abscess ICD Code: L02.419 - Cutaneous abscess of limb, unspecified Status: Acute (2) Failure of outpatient treatment ICD Code: Z78.9 - Other specified health status Status: Acute (3) Hypokalemia ICD Code: E87.6 - Hypokalemia Assessment and Plan Left lower leg wound Failed outpatient therapy. Appreciate orthopedic surgery recommendations. Status post incision and drainage with wound VAC placement. Cultures are negative. Appreciate infectious disease recommendations. Status post further debridement 04/26/17. - Status post Antibiotics. - follow up with plastic surgery. - continue PT. - Continue wound VAC. Diarrhea Antibiotic related. C. difficile is negative. - improved. Phantom pain Involving her LUE. - trial of gabapentin. Anemia Seems stable. - follow CBC as needed. DVT prophylaxis: SCD, LONNIE hose. Mechanical prophylaxis contraindicated on left lower extremity. Discharge Planning No safe discharge at this time. Would need skin graft or home with wound vac and home health. Patient does not currently have a place to live and would not be able to get home health. Paul Cobian DO Apr 26, 2017 14:56
[2017-04-26] MEDS: ceFAZolin 2 GM PREMIX 50 ML IV SCH (17:32)
[2017-04-26 20:00] VITALS: BP 141/81; PULSE 79; RESP 16; TEMP 98.1; O2SAT 96
[2017-04-27 00:10] VITALS: BP 118/67; PULSE 84; RESP 20; TEMP 97.6; O2SAT 98
[2017-04-27] MEDS: ceFAZolin 2 GM PREMIX 50 ML IV SCH (02:24)
[2017-04-27 04:00] VITALS: BP 118/69; PULSE 78; RESP 18; TEMP 98.8; O2SAT 97
[2017-04-27 05:55] LABS: HEMATOCRIT 32.1 % (35.0-46.0); HEMOGLOBIN 10.8 GM/DL (11.6-15.3); MEAN CELL VOLUME 76.7 FL (80.0-100.0); MEAN CORPUSCULAR HEMOGLOBIN 25.9 PG (27.0-34.0); MEAN CORPUSCULAR HGB CONC 33.8 % (32.0-36.0); MEAN PLATELET VOLUME 8.1 FL (7.0-11.0); PLATELET COUNT 284 TH/MM3 (150-450); RED BLOOD COUNT 4.18 MIL/MM3 (4.00-5.30); RED CELL DISTRIBUTION WIDTH 17.8 % (11.6-17.2)
[2017-04-27 07:31] VITALS: BP 130/72; PULSE 85; RESP 20; TEMP 97.6; O2SAT 97
[2017-04-27] MEDS: DOCUSATE SODIUM 50 MG/SENNA 8.6 MG TAB PO SCH ×2 (10:57→21:00)
[2017-04-27] MEDS: GABAPENTIN 300 MG CAP PO SCH ×3 (10:57→17:36)
[2017-04-27] MEDS: LACTOBACILLUS ACIDOPHILUS TAB PO SCH ×3 (10:58→17:36)
[2017-04-27 11:47] VITALS: BP 131/73; PULSE 84; RESP 20; TEMP 97.8; O2SAT 98
--- NOTE | 2017-04-27 13:29 | PD.OP ---
Operative Report Preoperative Diagnosis: (1) Nonhealing ulcer of left lower leg Postoperative Diagnosis: (1) Nonhealing ulcer of left lower leg Procedure: Debridement of left lower leg wound and placement of Integra and VAC dressing Surgeon: Tahir Manriquez Steel Fabricator(s): Aleshia Toth Operation and Findings: This is a 36-year-old female for whom a consult was placed for a left lower extremity nonhealing wound. The patient initially presented with a large abscess overlying the superior lateral malleolus. She is now status post multiple debridements by orthopedics. The primary team had been VAC dressing the wound. The wound has been progressing, though there remains a roughly 1 cm wide area of exposed peroneus longus tendon anteriorly. There does not appear to be sufficient peritenon overlying the tendon to allow for take of a skin graft. In addition, even if the skin graft would take, it would likely break down when the patient begins range of motion. After lengthy discussion regarding the risks benefits and alternative treatments, the patient elected to undergo the risks of Integra placement followed by VAC dressing. Informed consent was obtained. The surgical site was marked. The patient was taken to the operating room. All pressure points were padded. A timeout was performed. Preoperative antibiotics were given. The VAC dressing from the floor was removed. The patient's wound was mechanically debrided with chlorhexidine soap surgical scrub brushes using both the sponge and the bristle sides. This was done until mild bleeding from the granulation tissue at the wound bed. This was deemed sufficient, as the wound appeared largely healthy. Care was taken not to macerate the exposed tendon. Following this the surgical site was prepped and draped in the usual sterile fashion. Hemostasis was ensured. A 5 x 5 cm large piece of Integra was cut to size and sutured over the wound with interrupted 4-0 chromic's placed roughly every 1-1-1/2 cm circumferentially. Adaptic was then similarly cut to size and placed over the Integra. Lastly a VAC dressing was fashioned and secured to the wound. There was minimal leak. The VAC held excellent suction. It was set to 125 mmHg low continuous suction. The patient was awoken from anesthesia and arrived stable and doing well to the PACU. All needle sponge and instrument counts were correct 2. Tahir Manriquez MD Apr 27, 2017 13:29
--- NOTE | 2017-04-27 14:37 | HHI.PR ---
Subjective Remarks The patient stated that the wound VAC was hurting her more than it had been prior to the recent procedure. She has been careful with ambulation. Otherwise feeling well. Discussed with nursing. Objective Vitals Vital Signs Date Time Temp Pulse Resp B/P (MAP) Pulse Ox O2 Delivery O2 Flow Rate FiO2 04/27/17 11:47 97.8 84 20 131/73 (92) 98 04/27/17 07:31 97.6 85 20 130/72 (91) 97 04/27/17 04:00 98.8 78 18 118/69 (85) 97 04/27/17 00:10 97.6 84 20 118/67 (84) 98 04/26/17 20:00 98.1 79 16 141/81 (101) 96 I/O 04/26/17 04/26/17 04/26/17 04/27/17 04/27/17 04/27/17 07:00 15:00 23:00 07:00 15:00 23:00 Intake Total 250 ml Balance 250 ml Other 250 ml # Voids 6 2 # Bowel Movements 0 Result Diagram: 04/27/17 0445 04/25/17 0530 Imaging Last Impressions Chest X-Ray 04/03/17 0000 Signed Impressions: Service Date/Time: Monday, April 03, 2017 19:09 - CONCLUSION: 1. Right central line in superior vena cava. No pneumothorax. Salas Walker MD Lower Extremity CT 03/28/17 0000 Signed Impressions: Service Date/Time: Tuesday, March 28, 2017 20:49 - CONCLUSION: Large rim-enhancing fluid collection extending along the lateral aspect of the left lower leg and lateral gastricnemius muscle which extends from the upper calf to the ankle and measures at least 25 cm in length. This collection appears to bulge outward within the lower aspect and measures 4.3 cm AP by 4.1 cm transverse at the level of the upper ankle. Differential includes large hematoma, seroma or abscess. Clinical correlation is recommended. Ajit Ramos MD Ankle X-Ray 03/28/17 0000 Signed Impressions: Service Date/Time: Tuesday, March 28, 2017 18:46 - CONCLUSION: Focal soft tissue swelling involving the left upper ankle laterally which is nonspecific. No acute fracture or dislocation. Ajit Ramos MD Objective Remarks General: No acute distress. HEENT: NC, AT. Heart: Regular rate and rhythm. No murmur. Lungs: Clear to auscultation bilaterally. No wheezes, rales, or rhonchi. Breathing is nonlabored. Abdomen: Soft, nontender, nondistended. Extremities: No lower extremity edema. Left lower leg wound with wound vac in place. No signs of active infection. S/P left arm amputation. Psych: Mood and affect appropriate. Procedures I/D of the left ankle abscess/ wound vac placement. Medications and IVs Current Medications Medications (Trade) Dose Ordered Sig/Jenny Route Start Time Stop Time Status Last Admin (NS Flush) 2 ml UNSCH PRN IV FLUSH 03/28/17 22:30 04/08/17 02:26 (NS Flush) 2 ml BID IV FLUSH 03/29/17 09:00 04/26/17 22:18 (Narcan Inj) 0.4 mg UNSCH PRN IV PUSH 03/28/17 22:30 (Zofran Inj) 4 mg Q6HR PRN IV PUSH 03/29/17 07:00 04/20/17 13:24 (Dilaudid Pf Inj) 1 mg Q4H PRN IV PUSH 03/31/17 14:00 04/11/17 04:04 (Tylenol) 650 mg Q4H PRN PO 03/31/17 10:15 04/18/17 21:09 (Roxicodone) 30 mg Q6HR PRN PO 04/02/17 09:45 04/27/17 11:02 (Imodium) 2 mg UNSCH PRN PO 04/02/17 09:45 04/08/17 05:57 (Lactinex) 1 tab TID PO 04/06/17 13:00 04/27/17 10:58 (Heparin Central Flush) 100 units DAILY IV FLUSH 04/10/17 10:00 04/20/17 07:41 (Zofran Odt) 4 mg Q6H PRN PO 04/20/17 20:30 04/25/17 03:38 (Neurontin) 300 mg TID PO 04/24/17 13:00 04/27/17 10:57 (Ermelinda-Colace) 1 tab BID PO 04/25/17 21:00 04/27/17 10:57 Lactated Ringer's 1,000 ml @ 30 mls/hr Q24H PRN IV 04/26/17 03:30 04/29/17 03:29 04/26/17 08:00 (Betadine 5% Antisepsis Kit) 1 applic RAW PRODUCTS DIRECTOR PRN EACH NARE 04/26/17 03:30 04/29/17 03:29 (Chlorhexidine 2% Cloth) 3 pack RAW PRODUCTS DIRECTOR PRN TOPICAL 04/26/17 03:30 04/29/17 03:29 A/P Problem List: (1) Leg abscess ICD Code: L02.419 - Cutaneous abscess of limb, unspecified Status: Acute (2) Failure of outpatient treatment ICD Code: Z78.9 - Other specified health status Status: Acute (3) Hypokalemia ICD Code: E87.6 - Hypokalemia Assessment and Plan Left lower leg wound Failed outpatient therapy. Appreciate orthopedic surgery recommendations. Status post incision and drainage with wound VAC placement. Cultures are negative. Appreciate infectious disease recommendations. Status post further debridement 04/26/17. - Status post antibiotics. - follow up with plastic surgery. - continue PT. - Continue wound VAC. Diarrhea Antibiotic related. C. difficile is negative. - Resolved. On stool softeners. Phantom pain Involving her LUE. - trial of gabapentin. Anemia Seems stable. - follow CBC as needed. DVT prophylaxis: SCD, LONNIE hose. Mechanical prophylaxis contraindicated on left lower extremity. Discharge Planning No safe discharge at this time. Would need skin graft or home with wound vac and home health. Patient does not currently have a place to live and would not be able to get home health. Paul Cobian DO Apr 27, 2017 14:37
[2017-04-27 16:26] VITALS: BP 123/63; PULSE 84; RESP 20; TEMP 98; O2SAT 99
--- NOTE | 2017-04-27 17:27 | HHI.PR ---
Subjective Remarks POD1 s/p LLE wound DBT and integra. Pt reports slightly worsened pain. Otherwise, no new complaints. No acute changes overnight Objective Vital Signs Date Time Temp Pulse Resp B/P (MAP) Pulse Ox O2 Delivery O2 Flow Rate FiO2 04/27/17 16:26 98.0 84 20 123/63 (83) 99 04/27/17 11:47 97.8 84 20 131/73 (92) 98 04/27/17 07:31 97.6 85 20 130/72 (91) 97 04/27/17 04:00 98.8 78 18 118/69 (85) 97 04/27/17 00:10 97.6 84 20 118/67 (84) 98 04/26/17 20:00 98.1 79 16 141/81 (101) 96 I/O 04/26/17 04/26/17 04/26/17 04/27/17 04/27/17 04/27/17 07:00 15:00 23:00 07:00 15:00 23:00 Intake Total 250 ml 960 ml Balance 250 ml 960 ml Intake Oral 960 ml Other 250 ml # Voids 6 2 4 # Bowel Movements 0 LLE VAC w/ good suction No erythema/signs of infxn Sensation to foot dorsum at baseline since admission Result Diagram: 04/27/17 0445 04/25/17 0530 Objective Remarks VAC holding suction. No surrounding erythema. Limited ankle ROM. Diminished sensation to dorsal foot stable Assessment and Plan Problem List: (1) Nonhealing ulcer of left lower leg ICD Codes: L97.929 - Non-pressure chronic ulcer of unspecified part of left lower leg with unspecified severity Status: Chronic Assessment and Plan VAC x one week Do not change/remove VAC Problem Qualifiers (1) Nonhealing ulcer of left lower leg: Qualified Codes: L97.923 - Non-pressure chronic ulcer of unspecified part of left lower leg with necrosis of muscle Tahir Robison MD Apr 27, 2017 17:27
[2017-04-27 20:00] VITALS: BP 136/86; PULSE 76; RESP 20; TEMP 98.6; O2SAT 94
[2017-04-27] MEDS: SODIUM CHLORIDE 0.9% FLUSH 10 ML FLUSH IV FLUSH SCH (21:00)
[2017-04-28] VITALS: BP 122/77; PULSE 71; RESP 20; TEMP 97.6; O2SAT 98
[2017-04-28 04:00] VITALS: BP 125/74; PULSE 75; RESP 18; TEMP 98; O2SAT 98
[2017-04-28 08:03] VITALS: BP 129/81; PULSE 92; RESP 18; TEMP 97.8; O2SAT 99
[2017-04-28] MEDS: LACTOBACILLUS ACIDOPHILUS TAB PO SCH ×3 (08:58→17:58)
[2017-04-28] MEDS: GABAPENTIN 300 MG CAP PO SCH ×3 (08:58→17:58)
[2017-04-28] MEDS: DOCUSATE SODIUM 50 MG/SENNA 8.6 MG TAB PO SCH ×2 (08:59→21:00)
--- NOTE | 2017-04-28 12:22 | HHI.PR ---
Subjective Remarks The patient still had some pain on her left lower extremity. Otherwise she was feeling well. She said she had a little lump on her upper back that has been present for about 6 months that she was curious about. Discussed with nursing. Objective Vitals Vital Signs Date Time Temp Pulse Resp B/P (MAP) Pulse Ox O2 Delivery O2 Flow Rate FiO2 04/28/17 08:03 97.8 92 18 129/81 (97) 99 04/28/17 04:00 98.0 75 18 125/74 (91) 98 04/28/17 00:00 97.6 71 20 122/77 (92) 98 04/27/17 20:00 98.6 76 20 136/86 (103) 94 04/27/17 16:26 98.0 84 20 123/63 (83) 99 I/O 04/27/17 04/27/17 04/27/17 04/28/17 04/28/17 04/28/17 06:59 14:59 22:59 06:59 14:59 22:59 Intake Total 960 ml Balance 960 ml Intake Oral 960 ml # Voids 2 6 1 # Bowel Movements 0 2 0 Result Diagram: 04/27/17 0445 04/25/17 0530 Imaging Last Impressions Chest X-Ray 04/03/17 0000 Signed Impressions: Service Date/Time: Monday, April 03, 2017 19:09 - CONCLUSION: 1. Right central line in superior vena cava. No pneumothorax. Salas Walker MD Lower Extremity CT 03/28/17 0000 Signed Impressions: Service Date/Time: Tuesday, March 28, 2017 20:49 - CONCLUSION: Large rim-enhancing fluid collection extending along the lateral aspect of the left lower leg and lateral gastricnemius muscle which extends from the upper calf to the ankle and measures at least 25 cm in length. This collection appears to bulge outward within the lower aspect and measures 4.3 cm AP by 4.1 cm transverse at the level of the upper ankle. Differential includes large hematoma, seroma or abscess. Clinical correlation is recommended. Ajit Ramos MD Ankle X-Ray 03/28/17 0000 Signed Impressions: Service Date/Time: Tuesday, March 28, 2017 18:46 - CONCLUSION: Focal soft tissue swelling involving the left upper ankle laterally which is nonspecific. No acute fracture or dislocation. Ajit Ramos MD Objective Remarks General: No acute distress. SKIN: Small mass on left upper back, nontender to palpation. HEENT: NC, AT. Heart: Regular rate and rhythm. No murmur. Lungs: Clear to auscultation bilaterally. No wheezes, rales, or rhonchi. Breathing is nonlabored. Abdomen: Soft, nontender, nondistended. Extremities: No lower extremity edema. Left lower leg wound with wound vac in place. No signs of active infection. S/P left arm amputation. Psych: Mood and affect appropriate. Procedures I/D of the left ankle abscess/ wound vac placement. Medications and IVs Current Medications Medications (Trade) Dose Ordered Sig/Jenny Route Start Time Stop Time Status Last Admin (NS Flush) 2 ml UNSCH PRN IV FLUSH 03/28/17 22:30 04/08/17 02:26 (NS Flush) 2 ml BID IV FLUSH 03/29/17 09:00 04/27/17 21:00 (Narcan Inj) 0.4 mg UNSCH PRN IV PUSH 03/28/17 22:30 (Zofran Inj) 4 mg Q6HR PRN IV PUSH 03/29/17 07:00 04/20/17 13:24 (Dilaudid Pf Inj) 1 mg Q4H PRN IV PUSH 03/31/17 14:00 04/11/17 04:04 (Tylenol) 650 mg Q4H PRN PO 03/31/17 10:15 04/18/17 21:09 (Roxicodone) 30 mg Q6HR PRN PO 04/02/17 09:45 04/28/17 08:58 (Imodium) 2 mg UNSCH PRN PO 04/02/17 09:45 04/08/17 05:57 (Lactinex) 1 tab TID PO 04/06/17 13:00 04/28/17 08:58 (Heparin Central Flush) 100 units DAILY IV FLUSH 04/10/17 10:00 04/20/17 07:41 (Zofran Odt) 4 mg Q6H PRN PO 04/20/17 20:30 04/25/17 03:38 (Neurontin) 300 mg TID PO 04/24/17 13:00 04/28/17 08:58 (Ermelinda-Colace) 1 tab BID PO 04/25/17 21:00 04/27/17 21:00 Lactated Ringer's 1,000 ml @ 30 mls/hr Q24H PRN IV 04/26/17 03:30 04/29/17 03:29 04/26/17 08:00 (Betadine 5% Antisepsis Kit) 1 applic INTERNET E COMMERCE SPECIALIST PRN EACH NARE 04/26/17 03:30 04/29/17 03:29 (Chlorhexidine 2% Cloth) 3 pack INTERNET E COMMERCE SPECIALIST PRN TOPICAL 04/26/17 03:30 04/29/17 03:29 A/P Problem List: (1) Leg abscess ICD Code: L02.419 - Cutaneous abscess of limb, unspecified Status: Acute (2) Failure of outpatient treatment ICD Code: Z78.9 - Other specified health status Status: Acute (3) Hypokalemia ICD Code: E87.6 - Hypokalemia Assessment and Plan Left lower leg wound Failed outpatient therapy. Appreciate orthopedic surgery recommendations. Status post incision and drainage with wound VAC placement. Cultures are negative. Appreciate infectious disease recommendations. Status post further debridement 04/26/17. - Status post antibiotics. - follow up with plastic surgery. - continue PT. - Continue wound VAC. Left upper back mass Small, mobile, likely lipoma vs. benign cyst. Has been stable for six months. - outpt follow-up. Diarrhea Antibiotic related. C. difficile is negative. - Resolved. On stool softeners. Phantom pain Involving her LUE. - trial of gabapentin. Anemia Seems stable. - follow CBC as needed. DVT prophylaxis: SCD, LONNIE hose. Mechanical prophylaxis contraindicated on left lower extremity. Discharge Planning No safe discharge at this time. Would need skin graft or home with wound vac and home health. Patient does not currently have a place to live and would not be able to get home health. Paul Cobian DO Apr 28, 2017 12:22
[2017-04-28 12:25] VITALS: BP 123/67; PULSE 71; RESP 18; TEMP 97.8; O2SAT 99
[2017-04-28 16:50] VITALS: BP 128/82; PULSE 87; RESP 18; TEMP 98.5; O2SAT 99
[2017-04-28 20:00] VITALS: BP 126/79; PULSE 84; RESP 18; TEMP 98.6; O2SAT 99
[2017-04-28] MEDS: SODIUM CHLORIDE 0.9% FLUSH 10 ML FLUSH IV FLUSH SCH (21:00)
[2017-04-29] VITALS: BP 124/78; PULSE 79; RESP 18; TEMP 98.2; O2SAT 99
[2017-04-29 04:00] VITALS: BP 105/64; PULSE 68; RESP 16; TEMP 97.5; O2SAT 99
[2017-04-29 07:48] VITALS: BP 110/73; PULSE 73; RESP 18; TEMP 98.2; O2SAT 95
[2017-04-29] MEDS: LACTOBACILLUS ACIDOPHILUS TAB PO SCH ×3 (08:26→17:39)
[2017-04-29] MEDS: GABAPENTIN 300 MG CAP PO SCH ×3 (08:27→17:39)
[2017-04-29] MEDS: DOCUSATE SODIUM 50 MG/SENNA 8.6 MG TAB PO SCH ×2 (08:31→21:00)
[2017-04-29] MEDS: SODIUM CHLORIDE 0.9% FLUSH 10 ML FLUSH IV FLUSH SCH ×2 (08:31→21:00)
[2017-04-29 11:42] VITALS: BP 116/72; PULSE 90; RESP 18; TEMP 98.4; O2SAT 97
--- NOTE | 2017-04-29 11:55 | HHI.PR ---
Subjective Remarks The patient says she has been ambulating but that seems to hurt her lower extremity a little bit more. She has been tolerating a diet. She says she is having some difficulty staying asleep at night. Discussed with nursing. Objective Vitals Vital Signs Date Time Temp Pulse Resp B/P (MAP) Pulse Ox O2 Delivery O2 Flow Rate FiO2 04/29/17 11:42 98.4 90 18 116/72 (87) 97 04/29/17 07:48 98.2 73 18 110/73 (85) 95 04/29/17 04:00 97.5 68 16 105/64 (78) 99 04/29/17 00:00 98.2 79 18 124/78 (93) 99 04/28/17 20:00 98.6 84 18 126/79 (95) 99 04/28/17 16:50 98.5 87 18 128/82 (97) 99 04/28/17 12:25 97.8 71 18 123/67 (85) 99 I/O 04/28/17 04/28/17 04/28/17 04/29/17 04/29/17 04/29/17 07:00 15:00 23:00 07:00 15:00 23:00 Intake Total 240 ml Balance 240 ml Intake Oral 240 ml # Voids 1 6 5 # Bowel Movements 0 1 Result Diagram: 04/27/17 0445 04/25/17 0530 Imaging Last Impressions Chest X-Ray 04/03/17 0000 Signed Impressions: Service Date/Time: Monday, April 03, 2017 19:09 - CONCLUSION: 1. Right central line in superior vena cava. No pneumothorax. Salas Walker MD Lower Extremity CT 03/28/17 0000 Signed Impressions: Service Date/Time: Tuesday, March 28, 2017 20:49 - CONCLUSION: Large rim-enhancing fluid collection extending along the lateral aspect of the left lower leg and lateral gastricnemius muscle which extends from the upper calf to the ankle and measures at least 25 cm in length. This collection appears to bulge outward within the lower aspect and measures 4.3 cm AP by 4.1 cm transverse at the level of the upper ankle. Differential includes large hematoma, seroma or abscess. Clinical correlation is recommended. Ajit Ramos MD Ankle X-Ray 03/28/17 0000 Signed Impressions: Service Date/Time: Tuesday, March 28, 2017 18:46 - CONCLUSION: Focal soft tissue swelling involving the left upper ankle laterally which is nonspecific. No acute fracture or dislocation. Ajit Ramos MD Objective Remarks General: No acute distress. SKIN: Small mass on left upper back, nontender to palpation. HEENT: NC, AT. Heart: Regular rate and rhythm. No murmur. Lungs: Clear to auscultation bilaterally. No wheezes, rales, or rhonchi. Breathing is nonlabored. Abdomen: Soft, nontender, nondistended. Extremities: No lower extremity edema. Left lower leg wound with wound vac in place. No signs of active infection. S/P left arm amputation. Psych: Mood and affect appropriate. Procedures I/D of the left ankle abscess/ wound vac placement. Medications and IVs Current Medications Medications (Trade) Dose Ordered Sig/Jenny Route Start Time Stop Time Status Last Admin (NS Flush) 2 ml UNSCH PRN IV FLUSH 03/28/17 22:30 04/08/17 02:26 (NS Flush) 2 ml BID IV FLUSH 03/29/17 09:00 04/28/17 21:00 (Narcan Inj) 0.4 mg UNSCH PRN IV PUSH 03/28/17 22:30 (Zofran Inj) 4 mg Q6HR PRN IV PUSH 03/29/17 07:00 04/20/17 13:24 (Dilaudid Pf Inj) 1 mg Q4H PRN IV PUSH 03/31/17 14:00 04/11/17 04:04 (Tylenol) 650 mg Q4H PRN PO 03/31/17 10:15 04/18/17 21:09 (Roxicodone) 30 mg Q6HR PRN PO 04/02/17 09:45 04/29/17 07:23 (Imodium) 2 mg UNSCH PRN PO 04/02/17 09:45 04/08/17 05:57 (Lactinex) 1 tab TID PO 04/06/17 13:00 04/29/17 08:26 (Zofran Odt) 4 mg Q6H PRN PO 04/20/17 20:30 04/25/17 03:38 (Neurontin) 300 mg TID PO 04/24/17 13:00 04/29/17 08:27 (Ermelinda-Colace) 1 tab BID PO 04/25/17 21:00 04/27/17 21:00 A/P Problem List: (1) Leg abscess ICD Code: L02.419 - Cutaneous abscess of limb, unspecified Status: Acute (2) Failure of outpatient treatment ICD Code: Z78.9 - Other specified health status Status: Acute (3) Hypokalemia ICD Code: E87.6 - Hypokalemia Assessment and Plan Left lower leg wound Failed outpatient therapy. Appreciate orthopedic surgery recommendations. Status post incision and drainage with wound VAC placement. Cultures are negative. Appreciate infectious disease recommendations. Status post further debridement 04/26/17. - Status post antibiotics. - follow up with plastic surgery. - continue PT. - Continue wound VAC. Wound VAC needs to be in place for at least one week per surgery. Left upper back mass Small, mobile, likely lipoma vs. benign cyst. Has been stable for six months. - outpt follow-up. Diarrhea Antibiotic related. C. difficile is negative. - Resolved. On stool softeners. Phantom pain Involving her LUE. - trial of gabapentin. Anemia Seems stable. - follow CBC as needed. DVT prophylaxis: SCD, LONNIE hose. Mechanical prophylaxis contraindicated on left lower extremity. Discharge Planning No safe discharge at this time. Would need skin graft or home with wound vac and home health. Patient does not currently have a place to live and would not be able to get home health. Paul Cobian DO Apr 29, 2017 11:55
[2017-04-29 15:55] VITALS: BP 127/74; PULSE 85; RESP 18; TEMP 98.7; O2SAT 98
[2017-04-29 20:00] VITALS: BP 112/55; PULSE 77; RESP 20; TEMP 97; O2SAT 98
[2017-04-30 00:30] VITALS: BP 107/56; PULSE 61; RESP 17; TEMP 98.6; O2SAT 98
[2017-04-30 05:15] VITALS: BP 100/65; PULSE 68; RESP 17; TEMP 98; O2SAT 98
[2017-04-30 07:50] VITALS: BP 108/52; PULSE 65; RESP 18; TEMP 97.2; O2SAT 97
[2017-04-30] MEDS: GABAPENTIN 300 MG CAP PO SCH ×3 (08:07→18:05)
[2017-04-30] MEDS: LACTOBACILLUS ACIDOPHILUS TAB PO SCH ×3 (08:07→18:05)
[2017-04-30] MEDS: SODIUM CHLORIDE 0.9% FLUSH 10 ML FLUSH IV FLUSH SCH ×2 (08:08→20:36)
[2017-04-30] MEDS: DOCUSATE SODIUM 50 MG/SENNA 8.6 MG TAB PO SCH ×2 (08:08→20:36)
[2017-04-30 11:32] VITALS: BP 119/70; PULSE 82; RESP 18; TEMP 98.5; O2SAT 97
--- NOTE | 2017-04-30 13:24 | HHI.PR ---
Subjective Remarks The patient was complaining of redness and increased pain around her wound VAC site. She believes it has been leaking. She also describes left eye irritation and redness. Discussed with nursing. Objective Vitals Vital Signs Date Time Temp Pulse Resp B/P (MAP) Pulse Ox O2 Delivery O2 Flow Rate FiO2 04/30/17 11:32 98.5 82 18 119/70 (86) 97 04/30/17 07:50 97.2 65 18 108/52 (70) 97 04/30/17 05:15 98.0 68 17 100/65 (77) 98 04/30/17 00:30 98.6 61 17 107/56 (73) 98 04/29/17 20:00 97.0 77 20 112/55 (74) 98 04/29/17 15:55 98.7 85 18 127/74 (91) 98 I/O 04/29/17 04/29/17 04/29/17 04/30/17 04/30/17 04/30/17 07:00 15:00 23:00 07:00 15:00 23:00 Intake Total 600 ml 360 ml Balance 600 ml 360 ml Intake Oral 600 ml 360 ml # Voids 5 3 3 # Bowel Movements 1 Result Diagram: 04/27/17 0445 Imaging Last Impressions Chest X-Ray 04/03/17 0000 Signed Impressions: Service Date/Time: Monday, April 03, 2017 19:09 - CONCLUSION: 1. Right central line in superior vena cava. No pneumothorax. Salas Walker MD Lower Extremity CT 03/28/17 0000 Signed Impressions: Service Date/Time: Tuesday, March 28, 2017 20:49 - CONCLUSION: Large rim-enhancing fluid collection extending along the lateral aspect of the left lower leg and lateral gastricnemius muscle which extends from the upper calf to the ankle and measures at least 25 cm in length. This collection appears to bulge outward within the lower aspect and measures 4.3 cm AP by 4.1 cm transverse at the level of the upper ankle. Differential includes large hematoma, seroma or abscess. Clinical correlation is recommended. Ajit Ramos MD Ankle X-Ray 03/28/17 0000 Signed Impressions: Service Date/Time: Tuesday, March 28, 2017 18:46 - CONCLUSION: Focal soft tissue swelling involving the left upper ankle laterally which is nonspecific. No acute fracture or dislocation. Ajit Ramos MD Objective Remarks General: No acute distress. SKIN: Small mass on left upper back, nontender to palpation. HEENT: NC, AT. Left eye with mild injection. Heart: Regular rate and rhythm. No murmur. Lungs: Clear to auscultation bilaterally. No wheezes, rales, or rhonchi. Breathing is nonlabored. Abdomen: Soft, nontender, nondistended. Extremities: No lower extremity edema. Left lower leg wound with wound vac in place. Mild redness around incision. S/P left arm amputation. Psych: Mood and affect appropriate. Procedures I/D of the left ankle abscess/ wound vac placement. Medications and IVs Current Medications Medications (Trade) Dose Ordered Sig/Jenny Route Start Time Stop Time Status Last Admin (NS Flush) 2 ml UNSCH PRN IV FLUSH 03/28/17 22:30 04/08/17 02:26 (NS Flush) 2 ml BID IV FLUSH 03/29/17 09:00 04/28/17 21:00 (Narcan Inj) 0.4 mg UNSCH PRN IV PUSH 03/28/17 22:30 (Zofran Inj) 4 mg Q6HR PRN IV PUSH 03/29/17 07:00 04/20/17 13:24 (Tylenol) 650 mg Q4H PRN PO 03/31/17 10:15 04/18/17 21:09 (Roxicodone) 30 mg Q6HR PRN PO 04/02/17 09:45 04/30/17 12:17 (Imodium) 2 mg UNSCH PRN PO 04/02/17 09:45 04/08/17 05:57 (Lactinex) 1 tab TID PO 04/06/17 13:00 04/30/17 12:16 (Zofran Odt) 4 mg Q6H PRN PO 04/20/17 20:30 04/25/17 03:38 (Neurontin) 300 mg TID PO 04/24/17 13:00 04/30/17 12:16 (Ermelinda-Colace) 1 tab BID PO 04/25/17 21:00 04/27/17 21:00 A/P Problem List: (1) Leg abscess ICD Code: L02.419 - Cutaneous abscess of limb, unspecified Status: Acute (2) Failure of outpatient treatment ICD Code: Z78.9 - Other specified health status Status: Acute (3) Hypokalemia ICD Code: E87.6 - Hypokalemia Assessment and Plan Left lower leg wound Failed outpatient therapy. Appreciate orthopedic surgery recommendations. Status post incision and drainage with wound VAC placement. Cultures are negative. Appreciate infectious disease recommendations. Status post further debridement 04/26/17. Increasing mild areas of erythema 04/30. - Status post antibiotics. Reconsult ID for increasing erythema around wound. - follow up with plastic surgery. - continue PT. - Continue wound VAC. Wound VAC needs to be in place for at least one week per surgery. Left upper back mass Small, mobile, likely lipoma vs. benign cyst. Has been stable for six months. - outpt follow-up. Diarrhea Antibiotic related. C. difficile is negative. - Resolved. On stool softeners. Phantom pain Involving her LUE. - trial of gabapentin. Anemia Seems stable. - follow CBC as needed. Left eye injection Likely s/t irritation. - Natural Tears as needed. DVT prophylaxis: SCD, LONNIE joseph. Mechanical prophylaxis contraindicated on left lower extremity. Discharge Planning No safe discharge at this time. Would need skin graft or home with wound vac and home health. Patient does not currently have a place to live and would not be able to get home health. Paul Cobian DO Apr 30, 2017 13:24
[2017-04-30] MEDS ORDERED: ARTIFICIAL TEARS OPTH SOLN 15 ML BTL EACH EYE PRN (13:30)
[2017-04-30 15:41] VITALS: BP 127/84; PULSE 80; RESP 18; TEMP 99.1; O2SAT 98
[2017-04-30 20:00] VITALS: BP 126/64; PULSE 75; RESP 20; TEMP 98.3; O2SAT 97
--- NOTE | 2017-04-30 20:49 | HHI.PR ---
Subjective Remarks NOT SEEB Objective Vitals Vital Signs Date Time Temp Pulse Resp B/P (MAP) Pulse Ox O2 Delivery O2 Flow Rate FiO2 04/30/17 15:41 99.1 80 18 127/84 (98) 98 04/30/17 11:32 98.5 82 18 119/70 (86) 97 04/30/17 07:50 97.2 65 18 108/52 (70) 97 04/30/17 05:15 98.0 68 17 100/65 (77) 98 04/30/17 00:30 98.6 61 17 107/56 (73) 98 I/O 04/29/17 04/29/17 04/29/17 04/30/17 04/30/17 04/30/17 07:00 15:00 23:00 07:00 15:00 23:00 Intake Total 600 ml 360 ml 600 ml Balance 600 ml 360 ml 600 ml Intake Oral 600 ml 360 ml 600 ml # Voids 5 3 3 4 # Bowel Movements 1 Result Diagram: 04/27/17 0445 Imaging Last Impressions Chest X-Ray 04/03/17 0000 Signed Impressions: Service Date/Time: Monday, April 03, 2017 19:09 - CONCLUSION: 1. Right central line in superior vena cava. No pneumothorax. Salas Walker MD Lower Extremity CT 03/28/17 0000 Signed Impressions: Service Date/Time: Tuesday, March 28, 2017 20:49 - CONCLUSION: Large rim-enhancing fluid collection extending along the lateral aspect of the left lower leg and lateral gastricnemius muscle which extends from the upper calf to the ankle and measures at least 25 cm in length. This collection appears to bulge outward within the lower aspect and measures 4.3 cm AP by 4.1 cm transverse at the level of the upper ankle. Differential includes large hematoma, seroma or abscess. Clinical correlation is recommended. Ajit Ramos MD Ankle X-Ray 03/28/17 0000 Signed Impressions: Service Date/Time: Tuesday, March 28, 2017 18:46 - CONCLUSION: Focal soft tissue swelling involving the left upper ankle laterally which is nonspecific. No acute fracture or dislocation. Ajit Ramos MD Objective Remarks General: No acute distress. SKIN: Small mass on left upper back, nontender to palpation. HEENT: NC, AT. Left eye with mild injection. Heart: Regular rate and rhythm. No murmur. Lungs: Clear to auscultation bilaterally. No wheezes, rales, or rhonchi. Breathing is nonlabored. Abdomen: Soft, nontender, nondistended. Extremities: No lower extremity edema. Left lower leg wound with wound vac in place. Mild redness around incision. S/P left arm amputation. Psych: Mood and affect appropriate. Procedures central line repeated I/D of the left ankle abscess/ wound vac placement. A/P Problem List: (1) Leg abscess ICD Code: L02.419 - Cutaneous abscess of limb, unspecified Status: Acute (2) Failure of outpatient treatment ICD Code: Z78.9 - Other specified health status Status: Acute (3) Hypokalemia ICD Code: E87.6 - Hypokalemia Assessment and Plan Left lower leg wound Failed outpatient therapy. Appreciate orthopedic surgery recommendations. Status post incision and drainage with wound VAC placement. Cultures are negative. Appreciate infectious disease recommendations. Status post further debridement 04/26/17. Increasing mild areas of erythema 04/30. - Status post antibiotics. Reconsult ID for increasing erythema around wound. - follow up with plastic surgery. - continue PT. - Continue wound VAC. Wound VAC needs to be in place for at least one week per surgery. Left upper back mass Small, mobile, likely lipoma vs. benign cyst. Has been stable for six months. - outpt follow-up. Diarrhea Antibiotic related. C. difficile is negative. - Resolved. On stool softeners. Phantom pain Involving her LUE. - trial of gabapentin. Anemia Seems stable. - follow CBC as needed. Left eye injection Likely s/t irritation. - Natural Tears as needed. DVT prophylaxis: SCD, LONNIE hose. Mechanical prophylaxis contraindicated on left lower extremity. Discharge Planning No safe discharge at this time. Would need skin graft or home with wound vac and home health. Patient does not currently have a place to live and would not be able to get home health. Antoine Warren MD Apr 30, 2017 20:49
[2017-05-01 01:27] VITALS: BP 113/61; PULSE 60; RESP 17; TEMP 98.1; O2SAT 98
[2017-05-01 05:22] VITALS: BP 115/60; PULSE 71; RESP 17; TEMP 98.6; O2SAT 96
[2017-05-01 08:00] VITALS: BP 127/76; PULSE 95; RESP 17; TEMP 97.2; O2SAT 98
[2017-05-01] MEDS: SODIUM CHLORIDE 0.9% FLUSH 10 ML FLUSH IV FLUSH SCH ×2 (09:00→21:35)
[2017-05-01] MEDS: DOCUSATE SODIUM 50 MG/SENNA 8.6 MG TAB PO SCH ×2 (09:00→21:00)
[2017-05-01] MEDS: GABAPENTIN 300 MG CAP PO SCH ×3 (09:12→18:14)
[2017-05-01] MEDS: LACTOBACILLUS ACIDOPHILUS TAB PO SCH ×3 (09:12→18:14)
[2017-05-01 12:00] VITALS: BP 111/51; PULSE 78; RESP 18; TEMP 97.9; O2SAT 100
--- NOTE | 2017-05-01 12:44 | HHI.IDPN ---
Subjective Subjective Remarks no fever co pain worsening L LE and new area of redness and tenderness on the top of the foot Antibiotics none Allergies: Coded Allergies: ketorolac (Unverified Allergy, Severe, Anaphylaxis, 12/06/16) THROAT WAS SWELLING CLOSED morphine (Unverified Allergy, Mild, 04/04/17) Objective . Vital Signs Date Time Temp Pulse Resp B/P (MAP) Pulse Ox O2 Delivery O2 Flow Rate FiO2 05/01/17 12:00 97.9 78 18 111/51 (71) 100 05/01/17 08:00 97.2 95 17 127/76 (93) 98 05/01/17 05:22 98.6 71 17 115/60 (78) 96 05/01/17 01:27 98.1 60 17 113/61 (78) 98 04/30/17 20:00 98.3 75 20 126/64 (84) 97 04/30/17 15:41 99.1 80 18 127/84 (98) 98 Imaging Last Impressions Chest X-Ray 04/03/17 0000 Signed Impressions: Service Date/Time: Monday, April 03, 2017 19:09 - CONCLUSION: 1. Right central line in superior vena cava. No pneumothorax. Salas Walker MD Lower Extremity CT 03/28/17 0000 Signed Impressions: Service Date/Time: Tuesday, March 28, 2017 20:49 - CONCLUSION: Large rim-enhancing fluid collection extending along the lateral aspect of the left lower leg and lateral gastricnemius muscle which extends from the upper calf to the ankle and measures at least 25 cm in length. This collection appears to bulge outward within the lower aspect and measures 4.3 cm AP by 4.1 cm transverse at the level of the upper ankle. Differential includes large hematoma, seroma or abscess. Clinical correlation is recommended. Ajit Ramos MD Ankle X-Ray 03/28/17 0000 Signed Impressions: Service Date/Time: Tuesday, March 28, 2017 18:46 - CONCLUSION: Focal soft tissue swelling involving the left upper ankle laterally which is nonspecific. No acute fracture or dislocation. Ajit Ramos MD Physical Exam CONSTITUTIONAL/GENERAL: This is an adequately nourished patient, in no apparent distress. TUBES/LINES/DRAINS: SKIN: No jaundice, rashes, or lesions. CARDIOVASCULAR: Regular rate and rhythm without murmurs, gallops, or rubs. No JVD. Peripheral pulses symmetric. RESPIRATORY/CHEST: Symmetric, unlabored respirations. Clear to auscultation. Breath sounds equal bilaterally. No wheezes, rales, or rhonchi. GASTROINTESTINAL: Abdomen soft, non-tender, nondistended. No hepato-splenomegaly , or palpable masses. No guarding. Bowel sounds present. MUSCULOSKELETAL: Extremities without clubbing, cyanosis, or edema. No mottling or clubbing. LLE with surg dressing, VAC in palce with serosang d/c Mild to moderate edema, erythema of the top of the foot just beneath the VAC: new findings NEUROLOGICAL: Awake and alert. PSYCHIATRIC: calm Assessment & Plan Remarks LLE large abscess s/p ID with exicion of necrotic skin and VAC place,mnets - infection is clinically resolved - new clinical e/o infection Prior abx use (keflex, bactrim) Clx neg - final Repeat MRI Stefanie Corral MD May 01, 2017 12:44
--- NOTE | 2017-05-01 12:53 | HHI.PR ---
Subjective Remarks Follow-up left ankle abscess. Complaining of increased left ankle pain. Also reports of vomiting 1 and several episodes of loose stools not witnessed. Discussed with RN Objective Vitals Vital Signs Date Time Temp Pulse Resp B/P (MAP) Pulse Ox O2 Delivery O2 Flow Rate FiO2 05/01/17 12:00 97.9 78 18 111/51 (71) 100 05/01/17 08:00 97.2 95 17 127/76 (93) 98 05/01/17 05:22 98.6 71 17 115/60 (78) 96 05/01/17 01:27 98.1 60 17 113/61 (78) 98 04/30/17 20:00 98.3 75 20 126/64 (84) 97 04/30/17 15:41 99.1 80 18 127/84 (98) 98 I/O 04/30/17 04/30/17 04/30/17 05/01/17 05/01/17 05/01/17 06:59 14:59 22:59 06:59 14:59 22:59 Intake Total 360 ml 600 ml 360 ml Balance 360 ml 600 ml 360 ml Intake Oral 360 ml 600 ml 360 ml # Voids 3 4 3 # Bowel Movements 1 Result Diagram: 04/27/17 0445 Imaging Last Impressions Chest X-Ray 04/03/17 0000 Signed Impressions: Service Date/Time: Monday, April 03, 2017 19:09 - CONCLUSION: 1. Right central line in superior vena cava. No pneumothorax. Salas Walker MD Lower Extremity CT 03/28/17 0000 Signed Impressions: Service Date/Time: Tuesday, March 28, 2017 20:49 - CONCLUSION: Large rim-enhancing fluid collection extending along the lateral aspect of the left lower leg and lateral gastricnemius muscle which extends from the upper calf to the ankle and measures at least 25 cm in length. This collection appears to bulge outward within the lower aspect and measures 4.3 cm AP by 4.1 cm transverse at the level of the upper ankle. Differential includes large hematoma, seroma or abscess. Clinical correlation is recommended. Ajit Ramos MD Ankle X-Ray 03/28/17 0000 Signed Impressions: Service Date/Time: Tuesday, March 28, 2017 18:46 - CONCLUSION: Focal soft tissue swelling involving the left upper ankle laterally which is nonspecific. No acute fracture or dislocation. Ajit Ramos MD Objective Remarks General: No acute distress. SKIN: Small mass on left upper back, nontender to palpation. HEENT: NC, AT. Left eye with mild injection. Heart: Regular rate and rhythm. No murmur. Lungs: Clear to auscultation bilaterally. No wheezes, rales, or rhonchi. Breathing is nonlabored. Abdomen: Soft, nontender, nondistended. Extremities: No lower extremity edema. Left lower leg wound with wound vac in place. Mild redness around incision. S/P left arm amputation. Psych: Mood and affect appropriate. Procedures central line repeated I/D of the left ankle abscess/ wound vac placement. A/P Problem List: (1) Leg abscess ICD Code: L02.419 - Cutaneous abscess of limb, unspecified Status: Acute (2) Failure of outpatient treatment ICD Code: Z78.9 - Other specified health status Status: Acute (3) Hypokalemia ICD Code: E87.6 - Hypokalemia Assessment and Plan Left lower leg wound Failed outpatient therapy. Appreciate orthopedic surgery recommendations. Status post incision and drainage with wound VAC placement. Cultures are negative. Appreciate infectious disease recommendations. Status post further debridement 04/26/17. Increasing mild areas of erythema 04/30. - Status post antibiotics. Reconsult ID for increasing erythema around wound. Recommended MRI - follow up with plastic surgery. - continue PT. - Continue wound VAC. Wound VAC needs to be in place for at least one week per surgery. Left upper back mass Small, mobile, likely lipoma vs. benign cyst. Has been stable for six months. - outpt follow-up. Diarrhea Antibiotic related. C. difficile is negative. -Unwitnessed several episodes of loose stools today with one episode of vomiting. Repeat labs in the morning and monitor for dehydration Phantom pain Involving her LUE. - trial of gabapentin. Anemia Seems stable. - follow CBC as needed. Left eye injection Likely s/t irritation. - Natural Tears as needed. DVT prophylaxis: SCD, LONNIE hose. Mechanical prophylaxis contraindicated on left lower extremity. Discharge Planning No safe discharge at this time. Would need skin graft or home with wound vac and home health. Patient does not currently have a place to live and would not be able to get home health. Antoine Warren MD May 01, 2017 12:53
[2017-05-01 16:00] VITALS: BP 130/78; PULSE 86; RESP 17; TEMP 97.6; O2SAT 100
--- NOTE | 2017-05-01 17:20 | HHI.PR ---
Subjective Remarks POD5 s/p LLE wound DBT and integra. Pt reports worsening pain and erythema over dorsal foot. Otherwise, no new complaints. No acute changes overnight Objective Vital Signs Date Time Temp Pulse Resp B/P (MAP) Pulse Ox O2 Delivery O2 Flow Rate FiO2 05/01/17 16:00 97.6 86 17 130/78 (95) 100 05/01/17 12:00 97.9 78 18 111/51 (71) 100 05/01/17 08:00 97.2 95 17 127/76 (93) 98 05/01/17 05:22 98.6 71 17 115/60 (78) 96 05/01/17 01:27 98.1 60 17 113/61 (78) 98 04/30/17 20:00 98.3 75 20 126/64 (84) 97 I/O 04/30/17 04/30/17 04/30/17 05/01/17 05/01/17 05/01/17 07:00 15:00 23:00 07:00 15:00 23:00 Intake Total 360 ml 600 ml 360 ml 720 ml Balance 360 ml 600 ml 360 ml 720 ml Intake Oral 360 ml 600 ml 360 ml 720 ml # Voids 3 4 3 5 # Bowel Movements 1 3 Result Diagram: 04/27/17 0445 Objective Remarks VAC not holding suction. Loose VAC adhesive trimmed and reinforced w/ tegaderm. Excellent seal afterwards. Reinforced with ANCA wrap, then secured ANCA w/ external tegaderms Mild erythema to dorsal foot ~6 cm away from wound, appears different from wound as there is non erythematous skin intervening, no fluctuance Assessment and Plan Problem List: (1) Nonhealing ulcer of left lower leg ICD Codes: L97.929 - Non-pressure chronic ulcer of unspecified part of left lower leg with unspecified severity Status: Chronic Assessment and Plan VAC change this Wed Do not remove VAC Nursing may reinforce with tegaderms over VAC if suction lost Appreciate ID -> MRI pending to r/u culturable fluid collxn, if negative tonight , ID likely to restart abx coverage Problem Qualifiers (1) Nonhealing ulcer of left lower leg: Qualified Codes: L97.923 - Non-pressure chronic ulcer of unspecified part of left lower leg with necrosis of muscle Tahir Robison MD May 01, 2017 17:20
[2017-05-01] MEDS ORDERED: GADODIAMIDE PF 287 MG/ML 5 ML VIAL (for RAD MRI) IV PUSH ONE (17:54)
--- NOTE | 2017-05-01 18:28 | RADRPT ---
EXAM DATE/TIME: 05/01/2017 16:23 This report includes an Addendum and supersedes previous reports for this exam. [facility] COMPARISON: No previous studies available for comparison. INDICATIONS : Osteomyelitis. Wound on left lateral malleolus. CONTRAST: 15 cc Omniscan (gadodiamide) IV MEDICAL HISTORY : None. SURGICAL HISTORY : Traumatic amputation, left arm. Cervix. ENCOUNTER: Subsequent ACUITY: 1 month PAIN SCORE: 5/10 LOCATION: Left ankle TECHNIQUE: Multiplanar, multisequence MRI examination was performed without contrast and after th e intravenous administration of gadolinium. FINDINGS: BONE/CARTILAGE: There some minimal bony edema involving the very lateral aspect of the lateral ma lleolus. There is some underlying edema and diffuse enhancement. I don't see definite ostial lysis bu t the edema and enhancement within the bone may represent very early osteomyelitis. Cartilage is unre markable. TENDONS: All of the visualized tendons are intact. MISCELLANEOUS: Plantar aponeurosis is intact. Sinus tarsi is within normal limits. POST-CONTRAST: There are no abnormal areas of enhancement on the post-contrast images. CONCLUSION: There some minimal bony edema involving the distal lateral malleolus along its latera l margin. It shows low-grade enhancement. I don't see definite marrow replacement on the T1 image or ostial lysis to confirm osteomyelitis but certainly difficult to rule out. I do not see a drainable a bscess or dissecting fluid collection. Dudley Nelson MD on May 01, 2017 at 18:23 Board Certified Radiologist. This report was verified electronically. ADDENDUM: With overlying clinical cellulitis, the marrow change in the lateral malleolus may be related to that increased blood flow and not osteomyelitis. Dudely Nelson MD on May 05, 2017 at 11:45 Board Certified Radiologist. This report was verified electronically.
[2017-05-01 20:30] VITALS: BP 130/69; PULSE 88; RESP 18; TEMP 97.9; O2SAT 99
[2017-05-02] MEDS ORDERED: Vancomycin Consult Pharmacy 1 EA OTHER SCH (00:15)
[2017-05-02 00:24] VITALS: BP 108/62; PULSE 61; RESP 17; TEMP 98.2; O2SAT 98
[2017-05-02] MEDS: SODIUM CHLORIDE 0.9% FLUSH 10 ML FLUSH IV FLUSH SCH ×2 (00:25→08:32)
[2017-05-02] MEDS ORDERED: VANCOMYCIN 1,500 MG/NS 500 ML IV SCH ×2 (02:00)
[2017-05-02 05:00] VITALS: BP 108/60; PULSE 60; RESP 17; TEMP 98.2; O2SAT 97
[2017-05-02 06:17] LABS: AUTOMATED NEUTROPHIL # 3.5 TH/MM3 (1.8-7.7); BASOPHIL # 0.1 TH/MM3 (0-0.2); BASOPHIL % 0.8 % (0.0-2.0); EOSINOPHIL # 0.3 TH/MM3 (0-0.4); EOSINOPHIL % 3.5 % (0.0-4.0); HEMATOCRIT 36.6 % (35.0-46.0); LYMPH % 39.1 % (9.0-44.0); LYMPHOCYTE # 2.9 TH/MM3 (1.0-4.8); MEAN CELL VOLUME 78.2 FL (80.0-100.0); MEAN CORPUSCULAR HEMOGLOBIN 25.6 PG (27.0-34.0); MEAN CORPUSCULAR HGB CONC 32.7 % (32.0-36.0); MEAN PLATELET VOLUME 8.1 FL (7.0-11.0); MONO % 9.4 % (0.0-8.0); MONOCYTE # 0.7 TH/MM3 (0-0.9); NEUT % 47.2 % (16.0-70.0); PLATELET COUNT 241 TH/MM3 (150-450); RED BLOOD COUNT 4.67 MIL/MM3 (4.00-5.30); RED CELL DISTRIBUTION WIDTH 18.7 % (11.6-17.2); WHITE BLOOD COUNT 7.3 TH/MM3 (4.0-11.0)
[2017-05-02 06:53] LABS: BICARBONATE 27.5 MEQ/L (21.0-32.0); CREATININE 0.69 MG/DL (0.50-1.00); MAGNESIUM 2.2 MG/DL (1.5-2.5)
[2017-05-02 08:00] VITALS: BP 114/62; PULSE 71; RESP 18; TEMP 98; O2SAT 99
[2017-05-02] MEDS: GABAPENTIN 300 MG CAP PO SCH ×3 (08:27→17:02)
[2017-05-02] MEDS: LACTOBACILLUS ACIDOPHILUS TAB PO SCH ×3 (08:27→17:02)
[2017-05-02] MEDS: DOCUSATE SODIUM 50 MG/SENNA 8.6 MG TAB PO SCH ×2 (09:00→21:00)
--- NOTE | 2017-05-02 11:35 | HHI.PR ---
Subjective Remarks Follow-up left ankle infection. Complains of slight increase left ankle pain and redness. IV vancomycin has been started by ID. MRI results discussed with the patient. No further vomiting. 1 loose stool this morning. Discussed with RN Objective Vitals Vital Signs Date Time Temp Pulse Resp B/P (MAP) Pulse Ox O2 Delivery O2 Flow Rate FiO2 05/02/17 08:00 98.0 71 18 114/62 (79) 99 05/02/17 05:00 98.2 60 17 108/60 (76) 97 05/02/17 00:24 98.2 61 17 108/62 (77) 98 05/01/17 20:30 97.9 88 18 130/69 (89) 99 05/01/17 16:00 97.6 86 17 130/78 (95) 100 05/01/17 12:00 97.9 78 18 111/51 (71) 100 I/O 05/01/17 05/01/17 05/01/17 05/02/17 05/02/17 05/02/17 06:59 14:59 22:59 06:59 14:59 22:59 Intake Total 360 ml 720 ml 875 ml Balance 360 ml 720 ml 875 ml Intake Oral 360 ml 720 ml 360 ml IV Total 515 ml # Voids 3 5 4 # Bowel Movements 1 3 1 Result Diagram: 05/02/17 0603 05/02/17 0603 Imaging Last 48 hours Impressions Foot MRI 05/01/17 0000 Signed Impressions: Service Date/Time: Monday, May 01, 2017 16:23 - CONCLUSION: There some minimal bony edema involving the distal lateral malleolus along its lateral margin. It shows low-grade enhancement. I don't see definite marrow replacement on the T1 image or ostial lysis to confirm osteomyelitis but certainly difficult to rule out. I do not see a drainable abscess or dissecting fluid collection. Dudley Nelson MD Objective Remarks General: No acute distress. SKIN: Small mass on left upper back, nontender to palpation. HEENT: NC, AT. Left eye with mild injection. Heart: Regular rate and rhythm. No murmur. Lungs: Clear to auscultation bilaterally. No wheezes, rales, or rhonchi. Breathing is nonlabored. Abdomen: Soft, nontender, nondistended. Extremities: No lower extremity edema. Left lower leg wound with wound vac in place. Mild redness around incision. S/P left arm amputation. Psych: Mood and affect appropriate. Procedures central line repeated I/D of the left ankle abscess/ wound vac placement. A/P Problem List: (1) Leg abscess ICD Code: L02.419 - Cutaneous abscess of limb, unspecified Status: Acute (2) Failure of outpatient treatment ICD Code: Z78.9 - Other specified health status Status: Acute (3) Hypokalemia ICD Code: E87.6 - Hypokalemia Assessment and Plan Left lower leg wound Failed outpatient therapy. Appreciate orthopedic surgery recommendations. Status post incision and drainage with wound VAC placement. Cultures are negative. Appreciate infectious disease recommendations. Status post further debridement 04/26/17. Increasing mild areas of erythema 04/30. - Status post antibiotics. Reconsult ID for increasing erythema around wound. Recommended MRI which did not show abscess. No obvious evidence of osteomyelitis but unable to rule out. IV vancomycin started 05/02 2017 - continue PT. - Continue wound VAC. Wound VAC needs to be in place for at least one week per plastic surgery. Left upper back mass Small, mobile, likely lipoma vs. benign cyst. Has been stable for six months. - outpt follow-up. Diarrhea Antibiotic related. C. difficile is negative. -Improving. 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 -Continue gabapentin. Anemia Seems stable. - follow CBC as needed. Left eye injection Likely s/t irritation. - Natural Tears as needed. DVT prophylaxis: SCD, LONNIE hose. Mechanical prophylaxis contraindicated on left lower extremity. Discharge Planning No safe discharge at this time. Would need skin graft or home with wound vac and home health. Patient does not currently have a place to live and would not be able to get home health. Antoine Warren MD May 02, 2017 11:35
[2017-05-02 12:00] VITALS: BP 121/60; PULSE 75; RESP 18; TEMP 98.6; O2SAT 98
[2017-05-02] MEDS: VANCOMYCIN INJ 1,500 MG in SODIUM CHLORID 0.9% 500 ML INJ 500 ML IV SCH (12:59)
[2017-05-02 16:00] VITALS: BP 127/72; PULSE 74; RESP 18; TEMP 98.2; O2SAT 99
--- NOTE | 2017-05-02 16:43 | HHI.PR ---
Subjective Remarks POD6 s/p LLE wound DBT and integra. Pt has removed ANCA wrap again. VAC again close to loosing suction. Pt reports slightly worse pain over dorsal foot. Objective Vital Signs Date Time Temp Pulse Resp B/P (MAP) Pulse Ox O2 Delivery O2 Flow Rate FiO2 05/02/17 12:00 98.6 75 18 121/60 (80) 98 05/02/17 11:20 19 05/02/17 08:00 98.0 71 18 114/62 (79) 99 05/02/17 05:00 98.2 60 17 108/60 (76) 97 05/02/17 00:24 98.2 61 17 108/62 (77) 98 05/01/17 20:30 97.9 88 18 130/69 (89) 99 I/O 05/01/17 05/01/17 05/01/17 05/02/17 05/02/17 05/02/17 07:00 15:00 23:00 07:00 15:00 23:00 Intake Total 360 ml 720 ml 875 ml Balance 360 ml 720 ml 875 ml Intake Oral 360 ml 720 ml 360 ml IV Total 515 ml # Voids 3 5 4 # Bowel Movements 1 3 1 Result Diagram: 05/02/17 0603 05/02/17 0603 Objective Remarks Loose VAC adhesive trimmed and reinforced w/ tegaderm. Excellent seal afterwards. Erythema present dorsal foot Assessment and Plan Problem List: (1) Nonhealing ulcer of left lower leg ICD Codes: L97.929 - Non-pressure chronic ulcer of unspecified part of left lower leg with unspecified severity Status: Chronic Assessment and Plan VAC change tomorrow Nursing may reinforce with tegaderms over VAC if suction lost MRI negative for collection Vancomycin started overnight Pt getting second dose now Will leave VAC in place for one more day as pt very non compliant with dressing and non VAC dressing unlikely to provide adequate protection against unintentional injury to graft by patient Although redness slightly worse than yesterday, Vanc should be more therapeutic tonight Will plan for VAC removal by me tomorrow Problem Qualifiers (1) Nonhealing ulcer of left lower leg: Qualified Codes: L97.923 - Non-pressure chronic ulcer of unspecified part of left lower leg with necrosis of muscle Tahir Robison MD May 02, 2017 16:43
[2017-05-02 20:00] VITALS: BP 133/76; PULSE 82; RESP 18; TEMP 98.5; O2SAT 97
[2017-05-03] VITALS: BP 126/74; PULSE 77; RESP 18; TEMP 98.2; O2SAT 97
[2017-05-03] MEDS: VANCOMYCIN INJ 1,500 MG in SODIUM CHLORID 0.9% 500 ML INJ 500 ML IV SCH ×3 (00:25→23:37)
[2017-05-03 04:22] VITALS: BP_SYST 132; BP_SYST 133; BP_DIAS 74; BP_DIAS 76; PULSE 82; RESP 18; TEMP 98.3; O2SAT 97
[2017-05-03 08:00] VITALS: BP 111/68; PULSE 83; RESP 18; TEMP 98.3; O2SAT 96
[2017-05-03] MEDS: DOCUSATE SODIUM 50 MG/SENNA 8.6 MG TAB PO SCH ×2 (09:00→21:00)
[2017-05-03] MEDS: LACTOBACILLUS ACIDOPHILUS TAB PO SCH ×3 (09:24→19:35)
[2017-05-03] MEDS: GABAPENTIN 300 MG CAP PO SCH ×3 (09:24→19:35)
[2017-05-03] MEDS: SODIUM CHLORIDE 0.9% FLUSH 10 ML FLUSH IV FLUSH SCH ×2 (09:25→23:37)
[2017-05-03] MEDS ORDERED: PHARMACY ORDERED LAB ONE (11:45)
[2017-05-03 12:00] VITALS: BP 127/77; PULSE 85; RESP 18; TEMP 98.8; O2SAT 97
--- NOTE | 2017-05-03 12:43 | HHI.PR ---
Subjective Remarks s/p 04/26/17 LLE wound DBT and integra. Pt reports stable dorsal foot pain Objective Vital Signs Date Time Temp Pulse Resp B/P (MAP) Pulse Ox O2 Delivery O2 Flow Rate FiO2 05/03/17 08:00 98.3 83 18 111/68 (82) 96 05/03/17 04:22 98.3 82 18 132/74 (93) 97 05/03/17 00:00 98.2 77 18 126/74 (91) 97 05/02/17 20:00 98.5 82 18 133/76 (95) 97 05/02/17 16:00 98.2 74 18 127/72 (90) 99 I/O 05/02/17 05/02/17 05/02/17 05/03/17 05/03/17 05/03/17 07:00 15:00 23:00 07:00 15:00 23:00 Intake Total 875 ml Balance 875 ml Intake Oral 360 ml IV Total 515 ml # Voids 4 4 4 # Bowel Movements 1 Result Diagram: 05/02/17 0603 05/02/17 0603 Objective Remarks Removed VAC Integra appears to have 100% take Erythema present dorsal foot but less Wound site does not appear infected Dressed w/ [employer], copious baci, xeroform, ample gauze padding, kerlix x 2, ANCA x 2, silk tape Assessment and Plan Problem List: (1) Nonhealing ulcer of left lower leg ICD Codes: L97.929 - Non-pressure chronic ulcer of unspecified part of left lower leg with unspecified severity Status: Chronic Assessment and Plan Vanc trough pending Appreciate ID recs Dressing change by MD only as Integra vulnerable to shearing Minimize external pressure to ankle wound area Problem Qualifiers (1) Nonhealing ulcer of left lower leg: Qualified Codes: L97.923 - Non-pressure chronic ulcer of unspecified part of left lower leg with necrosis of muscle Tahir Robison MD May 03, 2017 12:43
--- NOTE | 2017-05-03 12:49 | HHI.PR ---
Subjective Remarks Follow-up left lower extremity infection. Seen with plastic surgery during dressing change. Left lower extremity erythema improved. Denies vomiting and diarrhea. Discussed with RN Objective Vitals Vital Signs Date Time Temp Pulse Resp B/P (MAP) Pulse Ox O2 Delivery O2 Flow Rate FiO2 05/03/17 08:00 98.3 83 18 111/68 (82) 96 05/03/17 04:22 98.3 82 18 132/74 (93) 97 05/03/17 00:00 98.2 77 18 126/74 (91) 97 05/02/17 20:00 98.5 82 18 133/76 (95) 97 05/02/17 16:00 98.2 74 18 127/72 (90) 99 I/O 05/02/17 05/02/17 05/02/17 05/03/17 05/03/17 05/03/17 07:00 15:00 23:00 07:00 15:00 23:00 Intake Total 875 ml Balance 875 ml Intake Oral 360 ml IV Total 515 ml # Voids 4 4 4 # Bowel Movements 1 Result Diagram: 05/02/17 0603 05/02/17 0603 Objective Remarks General: No acute distress. SKIN: Small mass on left upper back, nontender to palpation. HEENT: NC, AT. Left eye with mild injection. Heart: Regular rate and rhythm. No murmur. Lungs: Clear to auscultation bilaterally. No wheezes, rales, or rhonchi. Breathing is nonlabored. Abdomen: Soft, nontender, nondistended. Extremities: No lower extremity edema. Left lower leg wound with wound vac in place. Improving slight redness around incision. S/P left arm amputation. Psych: Mood and affect appropriate. Procedures central line repeated I/D of the left ankle abscess/ wound vac placement. A/P Problem List: (1) Leg abscess ICD Code: L02.419 - Cutaneous abscess of limb, unspecified Status: Acute (2) Failure of outpatient treatment ICD Code: Z78.9 - Other specified health status Status: Acute (3) Hypokalemia ICD Code: E87.6 - Hypokalemia Assessment and Plan Left lower leg wound Failed outpatient therapy. Appreciate orthopedic surgery recommendations. Status post incision and drainage with wound VAC placement. Cultures are negative. Appreciate infectious disease recommendations. Status post further debridement 04/26/17. Increasing mild areas of erythema 04/30. - Status post antibiotics. Reconsult ID for increasing erythema around wound. Recommended MRI which did not show abscess. No obvious evidence of osteomyelitis but unable to rule out. IV vancomycin started 05/02 2017 - continue PT. - Continue wound VAC. Wound VAC per plastic surgery. Left upper back mass Small, mobile, likely lipoma vs. benign cyst. Has been stable for six months. - outpt follow-up. Diarrhea Antibiotic related. C. difficile is negative. -Improving. 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 -Continue gabapentin. Anemia Seems stable. - follow CBC as needed. Left eye injection Likely s/t irritation. - Natural Tears as needed. DVT prophylaxis: SCD, LONNIE hose. Mechanical prophylaxis contraindicated on left lower extremity. Discharge Planning No safe discharge at this time. Would need skin graft or home with wound vac and home health. Patient does not currently have a place to live and would not be able to get home health. Antoine Warren MD May 03, 2017 12:48
[2017-05-03] MEDS: BACITRACIN TOP OINT 15 GM TUBE TOPICAL SCH (13:00)
--- NOTE | 2017-05-03 14:27 | HHI.IDPN ---
Subjective Subjective Remarks no fever co sever L foot pain Seen with plastic surgeon during dressing change Antibiotics Vancomycin Allergies: Coded Allergies: ketorolac (Unverified Allergy, Severe, Anaphylaxis, 12/06/16) THROAT WAS SWELLING CLOSED morphine (Unverified Allergy, Mild, 04/04/17) Objective . Vital Signs Date Time Temp Pulse Resp B/P (MAP) Pulse Ox O2 Delivery O2 Flow Rate FiO2 05/03/17 12:00 98.8 85 18 127/77 (94) 97 05/03/17 08:00 98.3 83 18 111/68 (82) 96 05/03/17 04:22 98.3 82 18 132/74 (93) 97 05/03/17 00:00 98.2 77 18 126/74 (91) 97 05/02/17 20:00 98.5 82 18 133/76 (95) 97 05/02/17 16:00 98.2 74 18 127/72 (90) 99 05/03/17 05/03/17 05/04/17 15:00 23:00 07:00 # Voids 4 . Laboratory Tests Test 05/02/17 06:03 White Blood Count 7.3 TH/MM3 Red Blood Count 4.67 MIL/MM3 Hemoglobin 12.0 GM/DL Hematocrit 36.6 % Mean Corpuscular Volume 78.2 FL Mean Corpuscular Hemoglobin 25.6 PG Mean Corpuscular Hemoglobin Concent 32.7 % Red Cell Distribution Width 18.7 % Platelet Count 241 TH/MM3 Mean Platelet Volume 8.1 FL Neutrophils (%) (Auto) 47.2 % Lymphocytes (%) (Auto) 39.1 % Monocytes (%) (Auto) 9.4 % Eosinophils (%) (Auto) 3.5 % Basophils (%) (Auto) 0.8 % Neutrophils # (Auto) 3.5 TH/MM3 Lymphocytes # (Auto) 2.9 TH/MM3 Monocytes # (Auto) 0.7 TH/MM3 Eosinophils # (Auto) 0.3 TH/MM3 Basophils # (Auto) 0.1 TH/MM3 CBC Comment DIFF FINAL Differential Comment Laboratory Tests Test 05/02/17 06:03 Blood Urea Nitrogen 21 MG/DL Creatinine 0.69 MG/DL Random Glucose 87 MG/DL Calcium Level 9.0 MG/DL Magnesium Level 2.2 MG/DL Sodium Level 138 MEQ/L Potassium Level 4.1 MEQ/L Chloride Level 103 MEQ/L Carbon Dioxide Level 27.5 MEQ/L Anion Gap 8 MEQ/L Estimat Glomerular Filtration Rate 97 ML/MIN Imaging Last Impressions Foot MRI 05/01/17 0000 Signed Impressions: Service Date/Time: Monday, May 01, 2017 16:23 - CONCLUSION: There some minimal bony edema involving the distal lateral malleolus along its lateral margin. It shows low-grade enhancement. I don't see definite marrow replacement on the T1 image or ostial lysis to confirm osteomyelitis but certainly difficult to rule out. I do not see a drainable abscess or dissecting fluid collection. Dudley Nelson MD Chest X-Ray 04/03/17 0000 Signed Impressions: Service Date/Time: Monday, April 03, 2017 19:09 - CONCLUSION: 1. Right central line in superior vena cava. No pneumothorax. Salas Walker MD Lower Extremity CT 03/28/17 0000 Signed Impressions: Service Date/Time: Tuesday, March 28, 2017 20:49 - CONCLUSION: Large rim-enhancing fluid collection extending along the lateral aspect of the left lower leg and lateral gastricnemius muscle which extends from the upper calf to the ankle and measures at least 25 cm in length. This collection appears to bulge outward within the lower aspect and measures 4.3 cm AP by 4.1 cm transverse at the level of the upper ankle. Differential includes large hematoma, seroma or abscess. Clinical correlation is recommended. Ajit Ramos MD Ankle X-Ray 03/28/17 0000 Signed Impressions: Service Date/Time: Tuesday, March 28, 2017 18:46 - CONCLUSION: Focal soft tissue swelling involving the left upper ankle laterally which is nonspecific. No acute fracture or dislocation. Ajit Ramos MD Physical Exam CONSTITUTIONAL/GENERAL: This is an adequately nourished patient, in no apparent distress. TUBES/LINES/DRAINS: SKIN: No jaundice, rashes, or lesions. MUSCULOSKELETAL: Extremities without clubbing, cyanosis, or edema. No mottling or clubbing. L foot with improved erythema and minimal edema Integra in place, wound looks very clean, no purulence or fluid collcetion appreciated Assessment & Plan Remarks LLE large abscess s/p ID with exicion of necrotic skin and VAC place,mnets - infection is clinically resolved - new clinical e/o infection - MRI changes noted , concern for osteomyelitis Prior abx use (keflex, bactrim) Clx neg - final cont vancomycin fu vanco levels dw Stefanie Holliday MD May 03, 2017 14:27
[2017-05-03 16:00] VITALS: BP 136/81; PULSE 84; RESP 18; TEMP 97.8; O2SAT 100
[2017-05-03 20:00] VITALS: BP 126/75; PULSE 90; RESP 18; TEMP 99; O2SAT 95
[2017-05-04] VITALS: BP 124/73; PULSE 86; RESP 18; TEMP 98.8; O2SAT 95
[2017-05-04 04:00] VITALS: BP 122/81; PULSE 88; RESP 18; TEMP 98; O2SAT 96
[2017-05-04 07:41] VITALS: BP 116/70; PULSE 73; RESP 20; TEMP 98.4; O2SAT 100
[2017-05-04] MEDS: GABAPENTIN 300 MG CAP PO SCH ×3 (07:59→17:15)
[2017-05-04] MEDS: LACTOBACILLUS ACIDOPHILUS TAB PO SCH ×3 (07:59→17:15)
[2017-05-04] MEDS: DOCUSATE SODIUM 50 MG/SENNA 8.6 MG TAB PO SCH ×2 (07:59→20:17)
[2017-05-04] MEDS: SODIUM CHLORIDE 0.9% FLUSH 10 ML FLUSH IV FLUSH SCH ×2 (08:00→20:17)
[2017-05-04] MEDS: BACITRACIN TOP OINT 15 GM TUBE TOPICAL SCH (08:00)
[2017-05-04] MEDS: VANCOMYCIN INJ 1,500 MG in SODIUM CHLORID 0.9% 500 ML INJ 500 ML IV SCH (11:08)
--- NOTE | 2017-05-04 11:36 | HHI.PR ---
Subjective Remarks Follow-up left lower extremity infection. Complains of left ankle pain. No nausea, vomiting and diarrhea. Discussed with RN Objective Vitals Vital Signs Date Time Temp Pulse Resp B/P (MAP) Pulse Ox O2 Delivery O2 Flow Rate FiO2 05/04/17 07:41 98.4 73 20 116/70 (85) 100 05/04/17 04:00 98.0 88 18 122/81 (95) 96 05/04/17 00:00 98.8 86 18 124/73 (90) 95 05/03/17 20:00 99.0 90 18 126/75 (92) 95 05/03/17 16:00 97.8 84 18 136/81 (99) 100 05/03/17 12:00 98.8 85 18 127/77 (94) 97 I/O 05/03/17 05/03/17 05/03/17 05/04/17 05/04/17 05/04/17 07:00 15:00 23:00 07:00 15:00 23:00 # Voids 4 5 Result Diagram: 05/02/17 0603 05/02/17 0603 Objective Remarks General: No acute distress. SKIN: Small mass on left upper back, nontender to palpation. HEENT: NC, AT. Left eye with mild injection. Heart: Regular rate and rhythm. No murmur. Lungs: Clear to auscultation bilaterally. No wheezes, rales, or rhonchi. Breathing is nonlabored. Abdomen: Soft, nontender, nondistended. Extremities: No lower extremity edema. Left lower leg wound with dry dressing. S/P left arm amputation. Psych: Mood and affect appropriate. Procedures central line repeated I/D of the left ankle abscess/ wound vac placement. A/P Problem List: (1) Leg abscess ICD Code: L02.419 - Cutaneous abscess of limb, unspecified Status: Acute (2) Failure of outpatient treatment ICD Code: Z78.9 - Other specified health status Status: Acute (3) Hypokalemia ICD Code: E87.6 - Hypokalemia Assessment and Plan Left lower leg wound Failed outpatient therapy. Appreciate orthopedic surgery recommendations. Status post incision and drainage with wound VAC placement. Cultures are negative. Appreciate infectious disease recommendations. Status post further debridement 04/26/17. Increasing mild areas of erythema 04/30. - Status post antibiotics. Reconsulted ID for increasing erythema around wound. Recommended MRI which did not show abscess. No obvious evidence of osteomyelitis but unable to rule out. Improved erythema continue IV vancomycin per infectious disease - Discontinued wound VAC. Wound care per plastic surgery. Left upper back mass Small, mobile, likely lipoma vs. benign cyst. Has been stable for six months. - outpt follow-up. Diarrhea Antibiotic related. C. difficile is negative. -Improving. 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 -Continue gabapentin. Anemia Seems stable. - follow CBC as needed. Left eye injection Likely s/t irritation. - Natural Tears as needed. DVT prophylaxis: SCD, LONNIE hose. Mechanical prophylaxis contraindicated on left lower extremity. Discharge Planning No safe discharge at this time still on IV Vanco. Patient does not currently have a place to live and would not be able to get home health. Plastics to do f/ u wd dressing with Antoine Larose MD May 04, 2017 11:36
[2017-05-04 11:52] VITALS: BP 122/73; PULSE 96; RESP 20; TEMP 98.5; O2SAT 100
[2017-05-04 15:57] VITALS: BP 131/68; PULSE 89; RESP 20; TEMP 98.5; O2SAT 99
--- NOTE | 2017-05-04 16:56 | HHI.PR ---
Subjective Remarks s/p 04/26/17 LLE wound DBT and integra. Pt reports stable dorsal foot pain Objective Vital Signs Date Time Temp Pulse Resp B/P (MAP) Pulse Ox O2 Delivery O2 Flow Rate FiO2 05/04/17 15:57 98.5 89 20 131/68 (89) 99 05/04/17 11:52 98.5 96 20 122/73 (89) 100 05/04/17 07:41 98.4 73 20 116/70 (85) 100 05/04/17 04:00 98.0 88 18 122/81 (95) 96 05/04/17 00:00 98.8 86 18 124/73 (90) 95 05/03/17 20:00 99.0 90 18 126/75 (92) 95 I/O 05/03/17 05/03/17 05/03/17 05/04/17 05/04/17 05/04/17 07:00 15:00 23:00 07:00 15:00 23:00 Intake Total 1475 ml Balance 1475 ml Intake Oral 960 ml IV Total 515 ml # Voids 4 5 3 # Bowel Movements 2 Result Diagram: 05/02/17 0603 05/02/17 0603 Objective Remarks Changed dressing Integra looks great Erythema much less Dressed w/ copious baci, xeroform, ample gauze padding, kerlix x 2, ANCA x 2, silk tape Assessment and Plan Problem List: (1) Nonhealing ulcer of left lower leg ICD Codes: L97.929 - Non-pressure chronic ulcer of unspecified part of left lower leg with unspecified severity Status: Chronic Assessment and Plan Vanc therapeutic, Will defer to ID Appreciate ID recs Dressing change by MD only as Integra vulnerable to shearing Minimize external pressure to ankle wound area Wound erythema still present but much improved Problem Qualifiers (1) Nonhealing ulcer of left lower leg: Qualified Codes: L97.923 - 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
[2017-05-04 20:47] VITALS: BP 143/69; PULSE 94; RESP 18; TEMP 99.2; O2SAT 98
[2017-05-05] MEDS: VANCOMYCIN INJ 1,500 MG in SODIUM CHLORID 0.9% 500 ML INJ 500 ML IV SCH ×2 (00:31→11:41)
[2017-05-05 00:32] VITALS: BP 118/59; PULSE 85; RESP 18; TEMP 98.9; O2SAT 96
[2017-05-05 05:28] VITALS: BP 107/55; PULSE 95; RESP 18; TEMP 100; O2SAT 95
[2017-05-05 08:00] VITALS: BP 119/65; PULSE 88; RESP 20; TEMP 98.3; O2SAT 98
[2017-05-05] MEDS: LACTOBACILLUS ACIDOPHILUS TAB PO SCH ×3 (08:00→16:54)
[2017-05-05] MEDS: GABAPENTIN 300 MG CAP PO SCH ×3 (08:00→16:53)
[2017-05-05] MEDS: SODIUM CHLORIDE 0.9% FLUSH 10 ML FLUSH IV FLUSH SCH ×2 (08:00→21:12)
[2017-05-05] MEDS: DOCUSATE SODIUM 50 MG/SENNA 8.6 MG TAB PO SCH ×2 (08:01→21:00)
[2017-05-05] MEDS: BACITRACIN TOP OINT 15 GM TUBE TOPICAL SCH (08:01)
[2017-05-05 11:39] VITALS: BP 133/73; PULSE 81; RESP 20; TEMP 98.6; O2SAT 97
--- NOTE | 2017-05-05 12:28 | HHI.PR ---
Subjective Remarks Follow-up left lower extremity infection. Complaining of left ankle pain. Discussed with ID, would like to discuss with radiology to confirm if patient has osteomyelitis so op abx can be recommended Objective Vitals Vital Signs Date Time Temp Pulse Resp B/P (MAP) Pulse Ox O2 Delivery O2 Flow Rate FiO2 05/05/17 11:39 98.6 81 20 133/73 (93) 97 05/05/17 08:00 98.3 88 20 119/65 (83) 98 05/05/17 05:28 100.0 95 18 107/55 (72) 95 05/05/17 00:32 98.9 85 18 118/59 (78) 96 05/04/17 20:47 99.2 94 18 143/69 (93) 98 05/04/17 15:57 98.5 89 20 131/68 (89) 99 I/O 05/04/17 05/04/17 05/04/17 05/05/17 05/05/17 05/05/17 07:00 15:00 23:00 07:00 15:00 23:00 Intake Total 1475 ml Balance 1475 ml Intake Oral 960 ml IV Total 515 ml # Voids 5 3 # Bowel Movements 2 Result Diagram: 05/02/17 0603 05/02/17 0603 Objective Remarks General: No acute distress. SKIN: Small mass on left upper back, nontender to palpation. HEENT: NC, AT. Left eye with mild injection. Heart: Regular rate and rhythm. No murmur. Lungs: Clear to auscultation bilaterally. No wheezes, rales, or rhonchi. Breathing is nonlabored. Abdomen: Soft, nontender, nondistended. Extremities: No lower extremity edema. Left lower leg wound with dry dressing. S/P left arm amputation. Psych: Mood and affect appropriate. Procedures central line repeated I/D of the left ankle abscess/ wound vac placement. A/P Problem List: (1) Leg abscess ICD Code: L02.419 - Cutaneous abscess of limb, unspecified Status: Acute (2) Failure of outpatient treatment ICD Code: Z78.9 - Other specified health status Status: Acute (3) Hypokalemia ICD Code: E87.6 - Hypokalemia Assessment and Plan Left lower leg wound Failed outpatient therapy. Appreciate orthopedic surgery recommendations. Status post incision and drainage with wound VAC placement. Cultures are negative. Appreciate infectious disease recommendations. Status post further debridement 04/26/17. Increasing mild areas of erythema 04/30. - Status post antibiotics. Reconsulted ID for increasing erythema around wound. Recommended MRI which did not show abscess. No obvious evidence of osteomyelitis but unable to rule out. Improved erythema continue IV vancomycin per infectious disease and over the weekend per plastic surgery - Discontinued wound VAC. Wound care per plastic surgery. Left upper back mass Small, mobile, likely lipoma vs. benign cyst. Has been stable for six months. - outpt follow-up. Diarrhea Antibiotic related. C. difficile is negative. -Improving. 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 -Continue gabapentin. Anemia Seems stable. - follow CBC as needed. Left eye injection Likely s/t irritation. - Natural Tears as needed. DVT prophylaxis: SCD, LONNIE hose. Mechanical prophylaxis contraindicated on left lower extremity. Discharge Planning No safe discharge at this time still on IV Vanco ID to recommend outpatient antibiotics waiting confirmation of osteomyelitis with radiology. Patient does not currently have a place to live and would not be able to get home health. Plastics to do f/u wd dressing Antoine Warren MD May 05, 2017 12:28
--- NOTE | 2017-05-05 13:12 | HHI.PR ---
Subjective Remarks s/p 04/26/17 LLE wound DBT and integra. Pt reports stable dorsal foot pain Objective Vital Signs Date Time Temp Pulse Resp B/P (MAP) Pulse Ox O2 Delivery O2 Flow Rate FiO2 05/05/17 11:39 98.6 81 20 133/73 (93) 97 05/05/17 08:00 98.3 88 20 119/65 (83) 98 05/05/17 05:28 100.0 95 18 107/55 (72) 95 05/05/17 00:32 98.9 85 18 118/59 (78) 96 05/04/17 20:47 99.2 94 18 143/69 (93) 98 05/04/17 15:57 98.5 89 20 131/68 (89) 99 I/O 05/04/17 05/04/17 05/04/17 05/05/17 05/05/17 05/05/17 07:00 15:00 23:00 07:00 15:00 23:00 Intake Total 1475 ml Balance 1475 ml Intake Oral 960 ml IV Total 515 ml # Voids 5 3 # Bowel Movements 2 Result Diagram: 05/02/17 0603 05/02/17 0603 Objective Remarks Changed dressing Integra looks great Erythema stable Dressed w/ copious baci, xeroform, ample gauze padding, kerlix x 2, ANCA x 2, silk tape Assessment and Plan Problem List: (1) Nonhealing ulcer of left lower leg ICD Codes: L97.929 - Non-pressure chronic ulcer of unspecified part of left lower leg with unspecified severity Status: Chronic Assessment and Plan Vanc therapeutic, Will defer to ID Appreciate ID recs Dressing change by MD only as Integra vulnerable to shearing Minimize external pressure to ankle wound area Please keep on IV abx through weekend Problem Qualifiers (1) Nonhealing ulcer of left lower leg: Qualified Codes: L97.923 - 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
[2017-05-05] MEDS ORDERED: NEUR300C PO (15:13)
--- NOTE | 2017-05-05 15:14 | HHI.DCPOC ---
Discharge Care Plan Diagnosis: (1) Cellulitis of left foot Your Health Problems Are: Difficulty with ADL Exercise Tolerance Goals to Promote Your Health * To prevent worsening of your condition and complications * To maintain your health at the optimal level Directions to Meet Your Goals Take your medications as prescribed Follow your dietary instruction Follow activity as directed Keep your appointments as scheduled Take your immunizations and boosters as scheduled If your symptoms worsen call your PCP, if no PCP go to Urgent Care Center or Emergency Room Smoking is Dangerous to Your Health. Avoid second hand smoke Call the 24-hour hour crisis hotline for domestic abuse at Antoine Warren MD May 05, 2017 15:14
[2017-05-05 16:00] VITALS: BP 137/64; PULSE 80; RESP 20; TEMP 97.4; O2SAT 96
[2017-05-05] MEDS: ACETAMINOPHEN 325 MG TAB PO PRN ×2 (18:10→21:12)
[2017-05-05 20:30] VITALS: BP 158/72; PULSE 92; RESP 19; TEMP 101.1; O2SAT 95
--- NOTE | 2017-05-05 20:45 | HHI.IDPN ---
Subjective Subjective Remarks pt seen earlier today in am' + new onset fever co severe L foot pain Antibiotics Vancomycin Allergies: Coded Allergies: ketorolac (Unverified Allergy, Severe, Anaphylaxis, 12/06/16) THROAT WAS SWELLING CLOSED morphine (Unverified Allergy, Mild, 04/04/17) Objective . Vital Signs Date Time Temp Pulse Resp B/P (MAP) Pulse Ox O2 Delivery O2 Flow Rate FiO2 05/05/17 20:30 101.1 92 19 158/72 (100) 95 05/05/17 16:00 97.4 80 20 137/64 (88) 96 05/05/17 11:39 98.6 81 20 133/73 (93) 97 05/05/17 08:00 98.3 88 20 119/65 (83) 98 05/05/17 05:28 100.0 95 18 107/55 (72) 95 05/05/17 00:32 98.9 85 18 118/59 (78) 96 05/04/17 20:47 99.2 94 18 143/69 (93) 98 05/05/17 05/05/17 05/06/17 14:59 22:59 06:59 Intake Total 515 ml 960 ml Balance 515 ml 960 ml Intake Oral 960 ml IV Total 515 ml # Voids 5 # Bowel Movements 1 Imaging Last Impressions Foot MRI 05/01/17 0000 Signed Impressions: Service Date/Time: Monday, May 01, 2017 16:23 - CONCLUSION: There some minimal bony edema involving the distal lateral malleolus along its lateral margin. It shows low-grade enhancement. I don't see definite marrow replacement on the T1 image or ostial lysis to confirm osteomyelitis but certainly difficult to rule out. I do not see a drainable abscess or dissecting fluid collection. Dudley Nelson MD ADDENDUM: With overlying clinical cellulitis, the marrow change in the lateral malleolus may be related to that increased blood flow and not osteomyelitis. Dudley Nelson MD Chest X-Ray 04/03/17 0000 Signed Impressions: Service Date/Time: Monday, April 03, 2017 19:09 - CONCLUSION: 1. Right central line in superior vena cava. No pneumothorax. Salas Walker MD Lower Extremity CT 03/28/17 0000 Signed Impressions: Service Date/Time: Tuesday, March 28, 2017 20:49 - CONCLUSION: Large rim-enhancing fluid collection extending along the lateral aspect of the left lower leg and lateral gastricnemius muscle which extends from the upper calf to the ankle and measures at least 25 cm in length. This collection appears to bulge outward within the lower aspect and measures 4.3 cm AP by 4.1 cm transverse at the level of the upper ankle. Differential includes large hematoma, seroma or abscess. Clinical correlation is recommended. Ajit Ramos MD Ankle X-Ray 03/28/17 0000 Signed Impressions: Service Date/Time: Tuesday, March 28, 2017 18:46 - CONCLUSION: Focal soft tissue swelling involving the left upper ankle laterally which is nonspecific. No acute fracture or dislocation. Ajit Ramos MD Physical Exam CONSTITUTIONAL/GENERAL: This is an adequately nourished patient, in no apparent distress. TUBES/LINES/DRAINS: SKIN: No jaundice, rashes, or lesions. RESPIRATORY/CHEST: Symmetric, unlabored respirations. GASTROINTESTINAL: Abdomen benigh NEUROLOGICAL: Awake and alert. PSYCHIATRIC: calm MUSCULOSKELETAL: Extremities without clubbing, cyanosis, or edema. No mottling or clubbing. L foot with dressing in place Assessment & Plan Remarks LLE large abscess s/p ID with exicion of necrotic skin and VAC place,mnets - infection is clinically resolved - new clinical e/o infection - MRI changes noted , concern for osteomyelitis - dw Dr Nelson; probably not osteomyelitis Prior abx use (keflex, bactrim) Clx neg - final New fever - ? is she using line for IV drugs cont vancomycin fu vanco levels chk blood clx dw Stefanie Ahmadi MD May 05, 2017 20:45
[2017-05-06] MEDS: VANCOMYCIN INJ 1,500 MG in SODIUM CHLORID 0.9% 500 ML INJ 500 ML IV SCH ×2 (00:07→12:49)
[2017-05-06 01:17] VITALS: BP_SYST 125; BP_SYST 136; BP_DIAS 72; BP_DIAS 79; PULSE 82; PULSE 86; RESP 18; TEMP 97.3; TEMP 98.1; O2SAT 94; O2SAT 97
[2017-05-06 04:24] VITALS: BP 146/64; PULSE 82; RESP 18; TEMP 97.8; O2SAT 99
[2017-05-06 08:00] VITALS: BP 164/93; PULSE 92; RESP 18; TEMP 98.3; O2SAT 98
[2017-05-06] MEDS: DOCUSATE SODIUM 50 MG/SENNA 8.6 MG TAB PO SCH ×2 (08:35→21:58)
[2017-05-06] MEDS: SODIUM CHLORIDE 0.9% FLUSH 10 ML FLUSH IV FLUSH SCH ×2 (08:36→21:58)
[2017-05-06] MEDS: LACTOBACILLUS ACIDOPHILUS TAB PO SCH ×3 (08:36→17:19)
[2017-05-06] MEDS: GABAPENTIN 300 MG CAP PO SCH ×3 (08:36→17:19)
[2017-05-06] MEDS: BACITRACIN TOP OINT 15 GM TUBE TOPICAL SCH (08:37)
--- NOTE | 2017-05-06 11:14 | HHI.PR ---
Subjective Remarks F/u Fever. Tm 101. No cough, abd pain, UTI sxs and diarrhea. Denies continued drug use in house seen with SO Reagan RN Objective Vitals Vital Signs Date Time Temp Pulse Resp B/P (MAP) Pulse Ox O2 Delivery O2 Flow Rate FiO2 05/06/17 08:00 98.3 92 18 164/93 (116) 98 05/06/17 04:24 97.8 82 18 146/64 (91) 99 05/06/17 01:17 98.1 82 18 125/72 (89) 97 05/05/17 20:30 101.1 92 19 158/72 (100) 95 05/05/17 16:00 97.4 80 20 137/64 (88) 96 05/05/17 11:39 98.6 81 20 133/73 (93) 97 I/O 05/05/17 05/05/17 05/05/17 05/06/17 05/06/17 05/06/17 07:00 15:00 23:00 07:00 15:00 23:00 Intake Total 515 ml 960 ml Balance 515 ml 960 ml Intake Oral 960 ml IV Total 515 ml # Voids 5 # Bowel Movements 1 Result Diagram: 05/02/17 0603 05/02/17 0603 Objective Remarks General: No acute distress. SKIN: Small mass on left upper back, nontender to palpation. HEENT: NC, AT. Left eye with mild injection. Heart: Regular rate and rhythm. No murmur. Lungs: Clear to auscultation bilaterally. No wheezes, rales, or rhonchi. Breathing is nonlabored. Abdomen: Soft, nontender, nondistended. Extremities: No lower extremity edema. Left lower leg wound with dry dressing. S/P left arm amputation. Psych: Mood and affect appropriate. Procedures central line repeated I/D of the left ankle abscess/ wound vac placement. A/P Problem List: (1) Leg abscess ICD Code: L02.419 - Cutaneous abscess of limb, unspecified Status: Acute (2) Failure of outpatient treatment ICD Code: Z78.9 - Other specified health status Status: Acute (3) Hypokalemia ICD Code: E87.6 - Hypokalemia Assessment and Plan Left lower leg wound Failed outpatient therapy. Appreciate orthopedic surgery recommendations. Status post incision and drainage with wound VAC placement. Cultures are negative. Appreciate infectious disease recommendations. Status post further debridement 04/26/17. - Status post antibiotics. Reconsulted ID for increasing erythema around wound. Recommended MRI which did not show abscess. Per radiology probably not OM. Improved erythema continue IV vancomycin per infectious disease and over the weekend per plastic surgery. Tm 101 no other complaints suspect continued IVDU in house with clogged IVs, pt denies. Monitor and screen visitors. F/u repeat Bcx - Discontinued wound VAC. Wound care per plastic surgery. Left upper back mass Small, mobile, likely lipoma vs. benign cyst. Has been stable for six months. - outpt follow-up. Diarrhea Antibiotic related. C. difficile is negative. -Improving. 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 -Continue gabapentin. Anemia Seems stable. - follow CBC as needed. Left eye injection Likely s/t irritation. - Natural Tears as needed. DVT prophylaxis: SCD, LONNIE hose. Mechanical prophylaxis contraindicated on left lower extremity. Discharge Planning No safe discharge at this time still on IV Vanco ID to recommend outpatient antibiotics waiting confirmation of osteomyelitis with radiology. Patient does not currently have a place to live and would not be able to get home health. Plastics to do f/u wd dressing Antoine Warren MD May 06, 2017 11:14
[2017-05-06 12:00] VITALS: BP 143/71; PULSE 86; RESP 18; TEMP 98.4; O2SAT 98
[2017-05-06 16:00] VITALS: BP 168/88; PULSE 97; RESP 18; TEMP 98.3; O2SAT 98
[2017-05-06 21:20] VITALS: BP 149/72; PULSE 91; RESP 18; TEMP 98.3; O2SAT 96
[2017-05-06] MEDS ORDERED: PHARMACY ORDERED LAB ONE (23:45)
[2017-05-07] MEDS: VANCOMYCIN INJ 1,500 MG in SODIUM CHLORID 0.9% 500 ML INJ 500 ML IV SCH ×2 (01:12→15:44)
[2017-05-07 03:14] LABS: CREATININE 0.61 MG/DL (0.50-1.00)
[2017-05-07 03:15] LABS: VANCOMYCIN TROUGH 32.4 MCG/ML (5.0-10.0)
[2017-05-07 08:00] VITALS: BP 158/81; PULSE 85; RESP 18; TEMP 98; O2SAT 99
[2017-05-07] MEDS: SODIUM CHLORIDE 0.9% FLUSH 10 ML FLUSH IV FLUSH SCH ×2 (08:46→22:00)
[2017-05-07] MEDS: BACITRACIN TOP OINT 15 GM TUBE TOPICAL SCH (08:46)
[2017-05-07] MEDS: LACTOBACILLUS ACIDOPHILUS TAB PO SCH ×3 (08:47→18:00)
[2017-05-07] MEDS: DOCUSATE SODIUM 50 MG/SENNA 8.6 MG TAB PO SCH ×2 (08:47→22:00)
[2017-05-07] MEDS: GABAPENTIN 300 MG CAP PO SCH ×3 (08:47→18:00)
[2017-05-07] MEDS ORDERED: PHARMACY ORDERED LAB ONE (11:45)
--- NOTE | 2017-05-07 14:09 | HHI.PR ---
Subjective Remarks Follow-up fever and left lower except with infection. No recurrence of fever overnight. No new complaints. Seen with significant other. Discussed with RN Objective Vitals Vital Signs Date Time Temp Pulse Resp B/P (MAP) Pulse Ox O2 Delivery O2 Flow Rate FiO2 05/07/17 08:00 98.0 85 18 158/81 (106) 99 05/06/17 21:20 98.3 91 18 149/72 (97) 96 05/06/17 16:00 98.3 97 18 168/88 (114) 98 I/O 05/06/17 05/06/17 05/06/17 05/07/17 05/07/17 05/07/17 07:00 15:00 23:00 07:00 15:00 23:00 Intake Total 2015 ml 3125 ml Balance 2014 ml 3125 ml Intake Oral 1500 ml 1500 ml IV Total 515 ml 1625 ml # Voids 3 3 # Bowel Movements 0 0 Result Diagram: 05/07/17 0229 Imaging Last Impressions Foot MRI 05/01/17 0000 Signed Impressions: Service Date/Time: Monday, May 01, 2017 16:23 - CONCLUSION: There some minimal bony edema involving the distal lateral malleolus along its lateral margin. It shows low-grade enhancement. I don't see definite marrow replacement on the T1 image or ostial lysis to confirm osteomyelitis but certainly difficult to rule out. I do not see a drainable abscess or dissecting fluid collection. Dudley Nelson MD ADDENDUM: With overlying clinical cellulitis, the marrow change in the lateral malleolus may be related to that increased blood flow and not osteomyelitis. Dudley Nelson MD Chest X-Ray 04/03/17 0000 Signed Impressions: Service Date/Time: Monday, April 03, 2017 19:09 - CONCLUSION: 1. Right central line in superior vena cava. No pneumothorax. Salas Walker MD Lower Extremity CT 03/28/17 0000 Signed Impressions: Service Date/Time: Tuesday, March 28, 2017 20:49 - CONCLUSION: Large rim-enhancing fluid collection extending along the lateral aspect of the left lower leg and lateral gastricnemius muscle which extends from the upper calf to the ankle and measures at least 25 cm in length. This collection appears to bulge outward within the lower aspect and measures 4.3 cm AP by 4.1 cm transverse at the level of the upper ankle. Differential includes large hematoma, seroma or abscess. Clinical correlation is recommended. Ajit Ramos MD Ankle X-Ray 03/28/17 0000 Signed Impressions: Service Date/Time: Tuesday, March 28, 2017 18:46 - CONCLUSION: Focal soft tissue swelling involving the left upper ankle laterally which is nonspecific. No acute fracture or dislocation. Ajit Ramos MD Objective Remarks General: No acute distress. SKIN: Small mass on left upper back, nontender to palpation. HEENT: NC, AT. Left eye with mild injection. Heart: Regular rate and rhythm. No murmur. Lungs: Clear to auscultation bilaterally. No wheezes, rales, or rhonchi. Breathing is nonlabored. Abdomen: Soft, nontender, nondistended. Extremities: No lower extremity edema. Left lower leg wound with dry dressing. S/P left arm amputation. Procedures central line repeated I/D of the left ankle abscess/ wound vac placement. A/P Problem List: (1) Leg abscess ICD Code: L02.419 - Cutaneous abscess of limb, unspecified Status: Acute (2) Failure of outpatient treatment ICD Code: Z78.9 - Other specified health status Status: Acute (3) Hypokalemia ICD Code: E87.6 - Hypokalemia Assessment and Plan Left lower leg wound Failed outpatient therapy. Appreciate orthopedic surgery recommendations. Status post incision and drainage with wound VAC placement. Cultures are negative. Appreciate infectious disease recommendations. Status post further debridement 04/26/17. - Status post antibiotics. Reconsulted ID for increasing erythema around wound. Recommended MRI which did not show abscess. Per radiology probably not OM. Improved erythema continue IV vancomycin per infectious disease and over the weekend per plastic surgery. Tm 101 05/05. No recurrence and no other complaints suspect continued IVDU in house with clogged IVs, pt denies. Monitor and screen visitors. F/u repeat Bcx negative to date - Discontinued wound VAC. Wound care per plastic surgery. Left upper back mass Small, mobile, likely lipoma vs. benign cyst. Has been stable for six months. - outpt follow-up. Diarrhea Antibiotic related. C. difficile is negative. -Improving. 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 -Continue gabapentin. Anemia Seems stable. - follow CBC as needed. Left eye injection Likely s/t irritation. - Natural Tears as needed. DVT prophylaxis: SCD, LONNIE hose. Mechanical prophylaxis contraindicated on left lower extremity. Discharge Planning No safe discharge at this time still on IV Vanco ID to recommend outpatient antibiotics. Patient does not currently have a place to live and would not be able to get home health. Plastics to do f/u wd dressing Antoine Warren MD May 07, 2017 14:09
[2017-05-07 16:00] VITALS: BP 130/58; PULSE 84; RESP 18; TEMP 98.5; O2SAT 97
[2017-05-07 20:30] VITALS: BP 136/72; PULSE 95; RESP 18; TEMP 98.2; O2SAT 98
[2017-05-08 00:30] VITALS: BP 122/62; PULSE 88; RESP 19; TEMP 98.1; O2SAT 99
[2017-05-08 03:45] VITALS: BP 118/85; PULSE 69; RESP 20; TEMP 97.2; O2SAT 99
[2017-05-08] MEDS: VANCOMYCIN INJ 1,500 MG in SODIUM CHLORID 0.9% 500 ML INJ 500 ML IV SCH (04:05)
[2017-05-08] MEDS: SODIUM CHLORIDE 0.9% FLUSH 10 ML FLUSH IV FLUSH PRN (04:05)
[2017-05-08 07:52] VITALS: BP 140/85; PULSE 86; RESP 20; TEMP 98.4; O2SAT 99
[2017-05-08 08:31] LABS: CREATININE 0.74 MG/DL (0.50-1.00)
[2017-05-08] MEDS: BACITRACIN TOP OINT 15 GM TUBE TOPICAL SCH (09:00)
[2017-05-08] MEDS: DOCUSATE SODIUM 50 MG/SENNA 8.6 MG TAB PO SCH (09:00)
[2017-05-08] MEDS: LACTOBACILLUS ACIDOPHILUS TAB PO SCH ×2 (11:14→12:44)
[2017-05-08] MEDS: GABAPENTIN 300 MG CAP PO SCH ×2 (11:14→12:44)
[2017-05-08] MEDS: SODIUM CHLORIDE 0.9% FLUSH 10 ML FLUSH IV FLUSH SCH (11:16)
--- NOTE | 2017-05-08 11:32 | HHI.PR ---
Subjective Remarks Follow-up left lower extremity infection. No fever. She is doing okay. Discussed with ID, see will recommend discharge antibiotics. Discussed with RN Objective Vitals Vital Signs Date Time Temp Pulse Resp B/P (MAP) Pulse Ox O2 Delivery O2 Flow Rate FiO2 05/08/17 07:52 98.4 86 20 140/85 (103) 99 05/08/17 03:45 97.2 69 20 118/85 (96) 99 05/08/17 00:30 98.1 88 19 122/62 (82) 99 05/07/17 23:00 17 05/07/17 20:30 98.2 95 18 136/72 (93) 98 05/07/17 16:00 98.5 84 18 130/58 (82) 97 I/O 05/07/17 05/07/17 05/07/17 05/08/17 05/08/17 05/08/17 07:00 15:00 23:00 07:00 15:00 23:00 Intake Total 3125 ml 1200 ml 1300 ml Balance 3125 ml 1200 ml 1300 ml Intake Oral 1500 ml 1200 ml 1300 ml IV Total 1625 ml # Voids 3 4 1 3 # Bowel Movements 0 1 0 0 Result Diagram: 05/08/17 0716 Imaging Last Impressions Foot MRI 05/01/17 0000 Signed Impressions: Service Date/Time: Monday, May 01, 2017 16:23 - CONCLUSION: There some minimal bony edema involving the distal lateral malleolus along its lateral margin. It shows low-grade enhancement. I don't see definite marrow replacement on the T1 image or ostial lysis to confirm osteomyelitis but certainly difficult to rule out. I do not see a drainable abscess or dissecting fluid collection. Dudley Nelson MD ADDENDUM: With overlying clinical cellulitis, the marrow change in the lateral malleolus may be related to that increased blood flow and not osteomyelitis. Dudley Nelson MD Chest X-Ray 04/03/17 0000 Signed Impressions: Service Date/Time: Monday, April 03, 2017 19:09 - CONCLUSION: 1. Right central line in superior vena cava. No pneumothorax. Salas Walker MD Lower Extremity CT 03/28/17 0000 Signed Impressions: Service Date/Time: Tuesday, March 28, 2017 20:49 - CONCLUSION: Large rim-enhancing fluid collection extending along the lateral aspect of the left lower leg and lateral gastricnemius muscle which extends from the upper calf to the ankle and measures at least 25 cm in length. This collection appears to bulge outward within the lower aspect and measures 4.3 cm AP by 4.1 cm transverse at the level of the upper ankle. Differential includes large hematoma, seroma or abscess. Clinical correlation is recommended. Ajit Ramos MD Ankle X-Ray 03/28/17 0000 Signed Impressions: Service Date/Time: Tuesday, March 28, 2017 18:46 - CONCLUSION: Focal soft tissue swelling involving the left upper ankle laterally which is nonspecific. No acute fracture or dislocation. Ajit Ramos MD Objective Remarks General: No acute distress. SKIN: Small mass on left upper back, nontender to palpation. HEENT: NC, AT. Left eye with mild injection. Heart: Regular rate and rhythm. No murmur. Lungs: Clear to auscultation bilaterally. No wheezes, rales, or rhonchi. Breathing is nonlabored. Abdomen: Soft, nontender, nondistended. Extremities: No lower extremity edema. Left lower leg wound with dry dressing. S/P left arm amputation. Procedures central line repeated I/D of the left ankle abscess/ wound vac placement. A/P Problem List: (1) Leg abscess ICD Code: L02.419 - Cutaneous abscess of limb, unspecified Status: Acute (2) Failure of outpatient treatment ICD Code: Z78.9 - Other specified health status Status: Acute (3) Hypokalemia ICD Code: E87.6 - Hypokalemia Assessment and Plan Left lower leg wound Failed outpatient therapy. Appreciate orthopedic surgery recommendations. Status post incision and drainage with wound VAC placement. Cultures are negative. Appreciate infectious disease recommendations. Status post further debridement 04/26/17. - Status post antibiotics. Reconsulted ID for increasing erythema around wound. Recommended MRI which did not show abscess. Per radiology probably not OM. Improved erythema continue IV vancomycin per infectious disease and over the weekend per plastic surgery. Tm 101 05/05. No recurrence and no other complaints suspect continued IVDU in house with clogged IVs, pt denies. Monitor and screen visitors. F/u repeat Bcx negative to date. Discussed with ID today, she would recommend discharge by mouth antibiotics pending plastic surgery evaluation - Discontinued wound VAC. Wound care per plastic surgery. Left upper back mass Small, mobile, likely lipoma vs. benign cyst. Has been stable for six months. - outpt follow-up. Diarrhea Antibiotic related. C. difficile is negative. Continue Lactinex -Improving. 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 -Continue gabapentin. Anemia Seems stable. - follow CBC as needed. Left eye injection Likely s/t irritation. - Natural Tears as needed. DVT prophylaxis: SCD, LONNIE hose. Mechanical prophylaxis contraindicated on left lower extremity. Discharge Planning Discharge today pending plastic surgery evaluation with ID to recommend discharge by mouth antibiotics Antoine Warren MD May 08, 2017 11:32
[2017-05-08 11:41] VITALS: BP 112/53; PULSE 89; RESP 20; TEMP 98.5; O2SAT 98
[2017-05-08] MEDS ORDERED: LACT PO (12:53)
--- NOTE | 2017-05-08 12:54 | HHI.FF ---
Face to Face Verification Diagnosis: (1) Cellulitis of left foot Physical Therapy Order: Evaluate and Treat, Improve ambulation, Strength and gait training Home Health Nursing Order: Medical education Signs/symptoms of disease process Wound care and dressing changes Nursing assessment with vital signs I have seen patient Soheila Kirkpatrick on 05/08/17. My clinical findings support the need for the requested home health care services because: Deconditioned w/ increased weakness I certify that my clinical findings support that this patient is homebound because: Need for psychosocial assistance Antoine Warren MD May 08, 2017 12:54
--- NOTE | 2017-05-08 12:59 | HHI.DS ---
Discharge Summary Admission Date Mar 28, 2017 at 22:19 Discharge Date: May 08, 2017 Admitting Diagnosis large leg abscess, outpatient treatment failure (1) Leg abscess ICD Code: L02.419 - Cutaneous abscess of limb, unspecified Diagnosis: Principal Status: Acute (2) Failure of outpatient treatment ICD Code: Z78.9 - Other specified health status Diagnosis: Principal Status: Acute (3) Hypokalemia ICD Code: E87.6 - Hypokalemia Diagnosis: Principal Procedures central line repeated I/D of the left ankle abscess/ wound vac placement. Brief History - From Admission Patient with cellulitis left lower extremity treated at [facility]. She was treated with Bactrim and Keflex for 7 days with last doses on Monday. She has had progressively worsening pain, swelling, warmth, and redness to the left lower extremity despite treatment. Patient is reporting severe left lower extremity pain and swelling and nausea during my visit. Pain is somewhat alleviated with pain medications but not much. Symptoms have been present since . She was treated as above at [facility] but symptoms persisted and worsened and she finally came in the the ED here at [facility]. She adamantly denies IV drug abuse. She says she was diagnosed with cellulitis at [facility] and there was no source for the infection known. She denies trauma or bites to the skin. She says there was never any opening in the skin of her left lower extremity. CBC/BMP: 05/08/17 0716 Significant Findings Laboratory Tests Test 05/07/17 02:29 05/07/17 12:05 05/08/17 07:16 Vancomycin Level Trough 32.4 MCG/ML (5.0-10.0) Imaging Last Impressions Foot MRI 05/01/17 0000 Signed Impressions: Service Date/Time: Monday, May 01, 2017 16:23 - CONCLUSION: There some minimal bony edema involving the distal lateral malleolus along its lateral margin. It shows low-grade enhancement. I don't see definite marrow replacement on the T1 image or ostial lysis to confirm osteomyelitis but certainly difficult to rule out. I do not see a drainable abscess or dissecting fluid collection. Dudley Nelson MD ADDENDUM: With overlying clinical cellulitis, the marrow change in the lateral malleolus may be related to that increased blood flow and not osteomyelitis. Dudley Nelson MD Chest X-Ray 04/03/17 0000 Signed Impressions: Service Date/Time: Monday, April 03, 2017 19:09 - CONCLUSION: 1. Right central line in superior vena cava. No pneumothorax. Salas Walker MD Lower Extremity CT 03/28/17 0000 Signed Impressions: Service Date/Time: Tuesday, March 28, 2017 20:49 - CONCLUSION: Large rim-enhancing fluid collection extending along the lateral aspect of the left lower leg and lateral gastricnemius muscle which extends from the upper calf to the ankle and measures at least 25 cm in length. This collection appears to bulge outward within the lower aspect and measures 4.3 cm AP by 4.1 cm transverse at the level of the upper ankle. Differential includes large hematoma, seroma or abscess. Clinical correlation is recommended. Ajit Ramos MD Ankle X-Ray 03/28/17 0000 Signed Impressions: Service Date/Time: Tuesday, March 28, 2017 18:46 - CONCLUSION: Focal soft tissue swelling involving the left upper ankle laterally which is nonspecific. No acute fracture or dislocation. Ajit Ramos MD PE at Discharge General: No acute distress. SKIN: Small mass on left upper back, nontender to palpation. HEENT: NC, AT. Left eye with mild injection. Heart: Regular rate and rhythm. No murmur. Lungs: Clear to auscultation bilaterally. No wheezes, rales, or rhonchi. Breathing is nonlabored. Abdomen: Soft, nontender, nondistended. Extremities: No lower extremity edema. Left lower leg wound with dry dressing. S/P left arm amputation. Hospital Course Left lower leg wound Failed outpatient therapy. Appreciate orthopedic surgery recommendations. Status post incision and drainage with wound VAC placement. Cultures are negative. Appreciate infectious disease recommendations. Status post further debridement 04/26/17. - Status post antibiotics. Reconsulted ID for increasing erythema around wound. Recommended MRI which did not show abscess. Per radiology probably not OM. Improved erythema continue IV vancomycin per infectious disease and over the weekend per plastic surgery. Tm 101 05/05. No recurrence and no other complaints suspect continued IVDU in house with clogged IVs, pt denies. Monitor and screen visitors. F/u repeat Bcx negative to date. Discussed with ID today, she would recommend discharge by mouth antibiotics pending plastic surgery evaluation - Discontinued wound VAC. Wound care per plastic surgery. Left upper back mass Small, mobile, likely lipoma vs. benign cyst. Has been stable for six months. - outpt follow-up. Diarrhea Antibiotic related. C. difficile is negative. Continue Lactinex -Improving. 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 -Continue gabapentin. Anemia Seems stable. - follow CBC as needed. Left eye injection Likely s/t irritation. - Natural Tears as needed. DVT prophylaxis: SCD, LONNIE hose. Mechanical prophylaxis contraindicated on left lower extremity. Pt Condition on Discharge: Stable Discharge Disposition: Discharge Home Discharge Time: > 30 minutes Discharge Instructions DIET: Follow Instructions for: As Tolerated, No Restrictions Activities you can perform: Regular-No Restrictions Activities to Avoid: Driving Follow up Referrals: Orthopedics - 2 Weeks @ [facility] with Tamara Donohue MD PCP Follow-up - 1 Week Plastic Surgery - 1 Week Wound Care Clinic - 1 Week New Medications: Cephalexin (Keflex) 500 Mg Cap 500 MG PO Q6HR for Infection for 3 Days, CAP 0 Refills Doxycycline Hyclate (Doxycycline Hyclate) 100 Mg Cap 100 MG PO BID for Infection for 3 Days, #6 CAP 0 Refills Gabapentin (Neurontin) 300 Mg Cap 300 MG PO TID for Pain Management, #60 CAP Lactobacillus Acidophilus (Acidophilus/l-Sporogenes) 35 Million Cell-25 Million Cell Tab 1 TAB PO TID for Bowel Management, #30 TAB Continued Medications: Oxycodone (Oxycodone) 30 Mg Tab 30 MG PO Q6H PRN for PAIN, TAB 0 Refills Antoine Warren MD May 08, 2017 12:59
--- NOTE | 2017-05-08 13:51 | HHI.PR ---
Subjective Remarks s/p 04/26/17 LLE wound DBT and integra. Pt reports dorsal foot pain much improved. Objective Vital Signs Date Time Temp Pulse Resp B/P (MAP) Pulse Ox O2 Delivery O2 Flow Rate FiO2 05/08/17 11:41 98.5 89 20 112/53 (72) 98 05/08/17 07:52 98.4 86 20 140/85 (103) 99 05/08/17 03:45 97.2 69 20 118/85 (96) 99 05/08/17 00:30 98.1 88 19 122/62 (82) 99 05/07/17 23:00 17 05/07/17 20:30 98.2 95 18 136/72 (93) 98 05/07/17 16:00 98.5 84 18 130/58 (82) 97 I/O 05/07/17 05/07/17 05/07/17 05/08/17 05/08/17 05/08/17 07:00 15:00 23:00 07:00 15:00 23:00 Intake Total 3125 ml 1200 ml 1300 ml Balance 3125 ml 1200 ml 1300 ml Intake Oral 1500 ml 1200 ml 1300 ml IV Total 1625 ml # Voids 3 4 1 3 # Bowel Movements 0 1 0 0 Result Diagram: 05/08/17 0716 Objective Remarks Changed dressing Graft in place Erythema resolving Dressed w/ copious baci, xeroform, ample gauze padding, kerlix x 2, ANCA x 2, silk tape Assessment and Plan Problem List: (1) Nonhealing ulcer of left lower leg ICD Codes: L97.929 - Non-pressure chronic ulcer of unspecified part of left lower leg with unspecified severity Status: Chronic Assessment and Plan Pt may dc per primary Leave dressing clean dry and intact until clinic Pt should come to see me in the [facility] in [address] [place] [address] tomorrow at 10 am Abx per ID Problem Qualifiers (1) Nonhealing ulcer of left lower leg: Qualified Codes: L97.923 - Non-pressure chronic ulcer of unspecified part of left lower leg with necrosis of muscle Tahir Robison MD May 08, 2017 13:51
--- NOTE | 2017-05-08 14:56 | HHI.IDPN ---
Subjective Subjective Remarks fever resolved and blood clx stay negative co severe L foot pain Antibiotics Vancomycin Allergies: Coded Allergies: ketorolac (Unverified Allergy, Severe, Anaphylaxis, 12/06/16) THROAT WAS SWELLING CLOSED morphine (Unverified Allergy, Mild, 04/04/17) Objective . Vital Signs Date Time Temp Pulse Resp B/P (MAP) Pulse Ox O2 Delivery O2 Flow Rate FiO2 05/08/17 11:41 98.5 89 20 112/53 (72) 98 05/08/17 07:52 98.4 86 20 140/85 (103) 99 05/08/17 03:45 97.2 69 20 118/85 (96) 99 05/08/17 00:30 98.1 88 19 122/62 (82) 99 05/07/17 23:00 17 05/07/17 20:30 98.2 95 18 136/72 (93) 98 05/07/17 16:00 98.5 84 18 130/58 (82) 97 05/08/17 05/08/17 05/09/17 15:00 23:00 07:00 Intake Total 360 ml Balance 360 ml Intake Oral 360 ml # Voids 3 # Bowel Movements 1 . Laboratory Tests Test 05/07/17 02:29 05/08/17 07:16 Creatinine 0.61 MG/DL 0.74 MG/DL Estimat Glomerular Filtration Rate 112 ML/MIN 89 ML/MIN Microbiology Date/Time Source Procedure Growth Status 05/05/17 21:05 Blood Peripheral Aerobic Blood Culture - Preliminary NO GROWTH IN 3 DAYS Resulted 05/05/17 21:05 Blood Peripheral Anaerobic Blood Culture - Preliminary NO GROWTH IN 3 DAYS Resulted 05/05/17 21:00 Blood Peripheral Aerobic Blood Culture - Preliminary NO GROWTH IN 3 DAYS Resulted 05/05/17 21:00 Blood Peripheral Anaerobic Blood Culture - Preliminary NO GROWTH IN 3 DAYS Resulted Imaging Last Impressions Foot MRI 05/01/17 0000 Signed Impressions: Service Date/Time: Monday, May 01, 2017 16:23 - CONCLUSION: There some minimal bony edema involving the distal lateral malleolus along its lateral margin. It shows low-grade enhancement. I don't see definite marrow replacement on the T1 image or ostial lysis to confirm osteomyelitis but certainly difficult to rule out. I do not see a drainable abscess or dissecting fluid collection. Dudley Nelson MD ADDENDUM: With overlying clinical cellulitis, the marrow change in the lateral malleolus may be related to that increased blood flow and not osteomyelitis. Dudley Nelson MD Chest X-Ray 04/03/17 0000 Signed Impressions: Service Date/Time: Monday, April 03, 2017 19:09 - CONCLUSION: 1. Right central line in superior vena cava. No pneumothorax. Salas Walker MD Lower Extremity CT 03/28/17 0000 Signed Impressions: Service Date/Time: Tuesday, March 28, 2017 20:49 - CONCLUSION: Large rim-enhancing fluid collection extending along the lateral aspect of the left lower leg and lateral gastricnemius muscle which extends from the upper calf to the ankle and measures at least 25 cm in length. This collection appears to bulge outward within the lower aspect and measures 4.3 cm AP by 4.1 cm transverse at the level of the upper ankle. Differential includes large hematoma, seroma or abscess. Clinical correlation is recommended. Ajit Ramos MD Ankle X-Ray 03/28/17 0000 Signed Impressions: Service Date/Time: Tuesday, March 28, 2017 18:46 - CONCLUSION: Focal soft tissue swelling involving the left upper ankle laterally which is nonspecific. No acute fracture or dislocation. Ajit Ramos MD Physical Exam CONSTITUTIONAL/GENERAL: This is an adequately nourished patient, in no apparent distress. TUBES/LINES/DRAINS: SKIN: No jaundice, rashes, or lesions. RESPIRATORY/CHEST: Symmetric, unlabored respirations. NEUROLOGICAL: Awake and alert. MUSCULOSKELETAL: L foot erythema resolved some peeling noted no edema Assessment & Plan Remarks LLE large abscess s/p ID with exicion of necrotic skin and VAC place,mnets - infection is clinically resolved - new clinical e/o infection - MRI changes noted , concern for osteomyelitis - dw Dr Nelson; probably not osteomyelitis Prior abx use (keflex, bactrim) Clx neg - final New fever - ? is she using line for IV drugs - fever resolved - clx negative dc vancomycin - will give Keflex, doxycylin po x 3 more days OK to dc from ID standpoint dw Kacie Castro, Briana dw case mngr fu with plastic surgeon Stefanie Corral MD May 08, 2017 14:56
[2017-05-08] MEDS ORDERED: CEPH-460 PO (15:02)
[2017-05-08] MEDS ORDERED: DOXY100C PO (15:02)
[2017-05-09] MEDS ORDERED: PHARMACY ORDERED LAB ONE (14:45)
== END 2017-05-08 16:16 | disposition home health service (06) | DRG 574 ==
LOC: NEPC 18:19 → NEDA 22:19 → MERGE 22:19 → UNDOADMIN 22:19 → NEDA 03-29 01:57 → N05B 03-29 01:57
PROVIDERS: ADMIT Internal Medicine; ATTEND Internal Medicine
PROC: 0HBLXZX Excision of Left Lower Leg Skin, External Approach, Diagnostic (ICD-10-PCS; 2017-03-30)
PROC: 0J9P0ZX Drainage of Left Lower Leg Subcutaneous Tissue and Fascia, Open Approach, Diagnostic (ICD-10-PCS; 2017-03-30)
PROC: 3E10X8Z Irrigation of Skin and Mucous Membranes using Irrigating Substance (ICD-10-PCS; 2017-04-03)
PROC: 0HDLXZZ Extraction of Left Lower Leg Skin, External Approach (ICD-10-PCS; 2017-04-26)
PROC: 0HRLXK3 Replacement of Left Lower Leg Skin with Nonautologous Tissue Substitute, Full Thickness, External Approach (ICD-10-PCS; principal; 2017-04-26 11:05)
DX: L02.416 Cutaneous abscess of left lower limb (principal); K52.1 Toxic gastroenteritis and colitis; G54.6 Phantom limb syndrome with pain; E87.6 Hypokalemia; F17.210 Nicotine dependence, cigarettes, uncomplicated; L03.116 Cellulitis of left lower limb; Z85.41 Personal history of malignant neoplasm of cervix uteri; Z91.19 Patient's noncompliance with other medical treatment and regimen; Z59.0 Homelessness; G43.909 Migraine, unspecified, not intractable, without status migrainosus; Z82.3 Family history of stroke; Z82.49 Family history of ischemic heart disease and other diseases of the circulatory system; F19.10 Other psychoactive substance abuse, uncomplicated; T81.89XA Other complications of procedures, not elsewhere classified, initial encounter; K21.9 Gastro-esophageal reflux disease without esophagitis; D64.9 Anemia, unspecified; R22.2 Localized swelling, mass and lump, trunk; T36.95XA Adverse effect of unspecified systemic antibiotic, initial encounter; Y92.239 Unspecified place in hospital as the place of occurrence of the external cause; R20.0 Anesthesia of skin; R20.2 Paresthesia of skin
CPT/HCPCS: 71010; 73600; 73701; 73720; 76937; 80048; 80053; 80069; 80202; 80307; 82565; 83605; 83735; 84132; 85014; 85018; 85025; 85027; 87015; 87040; 87070; 87102; 87116; 87176; 87205; 87206; 87493; 94150; 96361; 96365; A9579; E0100; G0481; J0690; J1100; J1170; J1580; J1642; J1885; J2175; J2250; J2405; J2543; J3010; J3370; J7030; J7040; J7050; J7120; Q4104; Q9967

== ENCOUNTER 2018-06-11 00:29 | Inpatient (IN) ==
[2018-06-11] MEDS ORDERED: Vancomycin Inj 1,000 MG in Sodium Chlor 0.9% Inj 250 ML IV.SIG ONE (03:23)
--- NOTE | 2018-06-11 03:25 | ED ---
HPI General Chief Complaint: Recheck/Abnormal Lab/Rx Stated Complaint: Abnormal Results Time Seen by Provider: 06/11/18 03:24 Source: patient Mode of arrival: ambulatory Limitations: no limitations History of Present Illness HPI narrative: Patient recently seen in the emergency department for cellulitis abscess of the proximal medial calf was treated with oral antibiotic therapy and IV antibiotics in the emergency department cultures were obtained 1 culture is positive for gram-positive cocci presumptive strep C species but final is pending patient returns for reassessment wound site has not markedly improved but does show some signs of improvement patient has history of IV drug abuse. complaint: Reports wound re-check and needs IV antibiotics Initial visit (ago): day(s) Initial visit for: cellulitis and abscess Returns today for: cellulitis follow-up and called because of abnormal lab/test (xc 1 set blood culture positive for staphlococcus species on preliminary results) Symptoms since prior visit: Reports worsening pain, worsening redness and worsening discharge; Denies no new symptoms, improved and fever Context: Reports called for positive culture result Associated symptoms: Reports chills and malaise; Denies chest pain, shortness of breath, rash, nausea and abdominal pain Treatments prior to arrival: Reports given antibiotics on (06/08/18) Related Data Home Medications Medication Instructions Recorded Confirmed alprazolam [Xanax] 1 mg PO TID PRN 06/08/18 06/11/18 dextroamphetamine-amphetamine 30 mg PO BID 06/08/18 06/11/18 [Adderall] oxycodone 30 mg PO TID PRN 06/08/18 06/11/18 Previous Rx's Medication Instructions Recorded clindamycin HCl 300 mg PO Q6H 7 Days #56 cap 06/08/18 sulfamethoxazole-trimethoprim 1 tab PO BID 10 Days #20 tab 06/08/18 [Bactrim DS] Allergies Allergy/AdvReac Type Severity Reaction Status Date / Time ketorolac Allergy Severe Anaphylaxis Verified 06/11/18 02:19 morphine Allergy Mild Hives Verified 06/11/18 02:19 Review of Systems ROS: all other systems reviewed are negative [facility] Medical History Medical History Cervical ca (Acute) Traumatic amputation (Acute) Social History Social History Substance History: Active Abuse Second Hand Smoke Exposure: No Smoking Status: Current every day smoker Tobacco Type: Cigarettes How Often Do You Have a Drink Containing Alcohol: Never Recent Travel in [facility] within the Last 8 Weeks: No Recent Out of Country Travel within the Last 8 Weeks: No Immunization History Tetanus Immunization: <5 Years Exam Narrative Exam Narrative: GENERAL: Well-nourished, well-developed patient. SKIN: Focused skin assessment warm/dry. HEAD: Normocephalic. EYES: No scleral icterus. No injection or drainage. NECK: Supple, trachea midline. No JVD or lymphadenopathy. CARDIOVASCULAR: Regular rate and rhythm without murmurs, gallops, or rubs. RESPIRATORY: Breath sounds equal bilaterally. No accessory muscle use. GASTROINTESTINAL: Abdomen soft, non-tender, nondistended. MUSCULOSKELETAL: No cyanosis, or edema. Attention left lower extremity Proximal Medial with eschar purulent drainage and erythema; distally extremities neurovascular tendon intact; mild groin tenderness/lymphadenopathy. BACK: Nontender without obvious deformity. No CVA tenderness. Course Initial Documented Vital Signs Temperature 98.4 F 06/11/18 00:34 Pulse Rate 73 06/11/18 00:34 Respiratory Rate 16 06/11/18 00:34 Blood Pressure 137/76 06/11/18 00:34 Pulse Oximetry 96 06/11/18 00:34 Last Documented Vital Signs Temperature 96.2 F L 06/11/18 11:49 Pulse Rate 75 06/11/18 11:49 Respiratory Rate 18 06/11/18 11:49 Blood Pressure 98/52 L 06/11/18 11:49 Pulse Oximetry 96 06/11/18 11:49 Medical Decision Making [facility] Narrative Medical decision making narrative: Patient with cellulitis of the proximal left calf with 0 purulent drainage on outpatient oral antibiotic with gram-positive cocci on preliminary blood culture x1 presumptively staph species final culture pending patient is an IV drug abuser and at risk for endocarditis. Patient given IV antibiotics. Patient unwilling to provide urine specimen for urine drug screen. Suspect ongoing IV drug use. Lab values found to be in normal range urine drug screen remains pending blood cultures have been re-collected. Patient has received vancomycin. discussed with secondary english teacher medicine service Dr Camp for admission Medical Screen Exam Complete: Yes Emergency Medical Condition: Yes Differential Diagnosis Differential Diagnosis: Cellulitis, abscess, bacteremia, endocarditis, IV drug abuse Medical Records Medical records reviewed: Yes I reviewed the patient's medical records. Lab Data Lab results reviewed: Yes I reviewed the patient's lab results. Result diagrams: 06/11/18 04:50 06/11/18 04:50 Lab Results 06/11/18 06/11/18 06/11/18 Range/Units 04:50 04:50 04:50 CBC w Diff Auto diff final WBC 5.6 (4.0-11.0) th/mm3 RBC 4.55 (4.00-5.30) mil/mm3 Hgb 12.3 (11.6-15.3) gm/dL Hct 36.6 (35.0-46.0) % MCV 80.5 (80.0-100.0) fL MCH 27.1 (27.0-34.0) pg MCHC 33.7 (32.0-36.0) % RDW 15.3 (11.6-17.2) % Plt Count 232 (150-450) th/mm3 MPV 8.4 (7.0-11.0) fL Neut % (Auto) 54.3 (16.0-70.0) % Lymph % (Auto) 35.2 (9.0-44.0) % Hudson % (Auto) 7.0 (0.0-8.0) % Eos % (Auto) 2.6 (0.0-4.0) % Baso % (Auto) 0.9 (0.0-2.0) % Neut # (Auto) 3.0 (1.8-7.7) th/mm3 Lymph # (Auto) 2.0 (1.0-4.8) th/mm3 Hudson # (Auto) 0.4 (0.0-0.9) th/mm3 Eos # (Auto) 0.1 (0.0-0.4) th/mm3 Baso # (Auto) 0.1 (0.0-0.2) th/mm3 WBC Differential . Differential Comment . Sodium 141 (136-145) meq/L Potassium 3.3 L (3.5-5.1) meq/L Chloride 104 (98-107) meq/L Carbon Dioxide 32.4 H (21.0-32.0) meq/L Anion Gap 5 (5-15) meq/L BUN 16 (7-18) mg/dL Creatinine 0.84 (0.50-1.00) mg/dL Estimated GFR 77 L (>89) mL/min Random Glucose 84 (74-106) mg/dL Lactic Acid 1.1 (0.4-2.0) mmol/L Calcium 8.8 (8.5-10.1) mg/dL Discharge Plan Discharge Disposition Patient Disposition: ED Admit(ED Internal Use Only) Discharge Order Discharge Orders: ED Use Only Admit Order (Routine); Ordered 06/11/18 Ordered By: Lana Reeder Discharge Details Diagnosis: Cellulitis and abscess of left leg, Substance abuse, Blood bacterial culture positive Physicians Team ED Provider: Lana Reeder Primary Care Provider: Porfirio Richardson Attending Provider: Maurice Jones Status ED Status: Left Department Discharge Information Discharge Date/Time: 06/11/18 08:05
[2018-06-11 05:05] LABS: Baso # (Auto) 0.1 th/mm3 (0.0-0.2); Baso % (Auto) 0.9 % (0.0-2.0); Eos # (Auto) 0.1 th/mm3 (0.0-0.4); Eos % (Auto) 2.6 % (0.0-4.0); Hematocrit 36.6 % (35.0-46.0); Hemoglobin 12.3 gm/dL (11.6-15.3); Lymph % (Auto) 35.2 % (9.0-44.0); Mean Corpuscular HGB Conc 33.7 % (32.0-36.0); Mean Corpuscular Hemoglobin 27.1 pg (27.0-34.0); Mean Corpuscular Volume 80.5 fL (80.0-100.0); Mean Platelet Volume 8.4 fL (7.0-11.0); Mono # (Auto) 0.4 th/mm3 (0.0-0.9); Neut % (Auto) 54.3 % (16.0-70.0); Platelet Count 232 th/mm3 (150-450); Red Blood Count 4.55 mil/mm3 (4.00-5.30); Red Cell Distribution Width 15.3 % (11.6-17.2); White Blood Count 5.6 th/mm3 (4.0-11.0)
[2018-06-11 05:17] LABS: Potassium 3.3 meq/L (3.5-5.1)
[2018-06-11 05:20] LABS: Calcium 8.8 mg/dL (8.5-10.1); Carbon Dioxide 32.4 meq/L (21.0-32.0)
[2018-06-11] MEDS ORDERED: Bisacodyl 10 MG Supp RECTAL PRN (06:16)
[2018-06-11] MEDS ORDERED: Naloxone Inj 0.4 MG/ML Vial IV.PUSH PRN (06:16)
[2018-06-11] MEDS ORDERED: Acetaminophen 325 MG Tablet PO PRN (06:16)
[2018-06-11] MEDS ORDERED: Vancomycin Consult Pharmacy OTHER PRN ×2 (06:16→06:47)
[2018-06-11] MEDS ORDERED: Sod Chloride 0.9% Inj 1,000 ML IV.CONT SCH (06:30)
[2018-06-11] MEDS ORDERED: Senna/Docusate Sodium 8.6/50 MG Tablet PO SCH (09:00)
[2018-06-11 09:08] VITALS: RESP 18
[2018-06-11 11:51] VITALS: BP 98/52; PULSE 75; TEMP 96.2; O2SAT 96
[2018-06-11] MEDS ORDERED: Vancomycin Inj 1,250 MG in Sodium Chlor 0.9% Inj 250 ML IV.SIG SCH (13:00)
--- NOTE | 2018-06-11 15:17 | P.HPIM ---
History of Present Illness Primary Care Physician: Porfirio Richardson DO Chief Complaint: Positive Blood Cultures History of Present Illness: Mrs. Kirkpatrick is a 37-year-old female. She was recently in the ER at this hospital secondary to left lower extremity cellulitis. Skin lesion with surrounding cellulitis was present at that time and she was prescribed clindamycin and Bactrim at discharge. The patient reports that through time her wounds have been improving. She was called and notified about positive blood culture. 1 of 4 blood cultures have resulted showing some positivity. The patient came back to the ER and was admitted. Concerns were present for bacteremia. Today further results show that Staphylococcus species is growing, this is likely contaminant. The patient reports no fever. She reports no new infections. She reports that the antibiotics that she was on is causing her most recent infection to improve. We discussed options including discharge to home and monitoring new set of blood cultures as an outpatient. I feel that the situation is likely a contaminant and do not agree that this patient had bacteremia. She is medically stable for discharge home today. Inpatient Certification Inpatient Certification: I certify that the inpatient services were ordered in accordance with Medicare regulations governing the order. This includes certification that hospital inpatient services are reasonable and necessary and in the case of services not specified as inpatient-only under 42 CFR 419.22(n), that they are appropriately provided as inpatient services in accordance to with the 2-midnight benchmark under 43 CFR 412.3(e) Estimated Total Length of Stay (Days): 2 Plans for Post Hospital Care: Not yet determined Review of Systems Constitutional: No fevers, no chills no night sweats, no fatigue, no weakness Eyes: No eye pain, no blurry vision, no loss of vision ENT: No sore throat, no ear pain, no rhinorrhea Cardiovascular: No chest pain, no tachycardia, no palpitations, no syncope Respiratory: No wheezing, no cough, no shortness of breath Gastrointestinal: No abdominal pain, no black tarry stools, no bright red blood per rectum, no vomiting, no diarrhea Musculoskeletal: No joint pain, no muscle cramps, no stiffness Integumentary: No rash, no ulcers, no drainage Neurologic: No sensory loss, no loss of motor function, no dizziness Psychiatric: No behavioral changes, no hallucinations, no suicidal ideations PMFSH Medical History Medical History Cervical ca (Acute) Traumatic amputation (Acute) Family History Family History Other Osteoarthritis Social History Social History Substance History: Active Abuse Second Hand Smoke Exposure: No Smoking Status: Current every day smoker Tobacco Type: Cigarettes How Often Do You Have a Drink Containing Alcohol: Never Recent Travel in [facility] within the Last 8 Weeks: No Recent Out of Country Travel within the Last 8 Weeks: No Substance Abuse Detail Crack/Cocaine: Substance Use Status: Active Route Used Substance Abuse: Inhalation Immunization History Tetanus Immunization: <5 Years Hx Influenza Vaccine This Season: No Medications and Allergies Allergies Allergy/AdvReac Type Severity Reaction Status Date / Time ketorolac Allergy Severe Anaphylaxis Verified 06/11/18 02:19 morphine Allergy Mild Hives Verified 06/11/18 02:19 Home Medications Medication Instructions Recorded Confirmed Type alprazolam [Xanax] 1 mg PO TID PRN 06/08/18 06/11/18 History dextroamphetamine-amphetamine 30 mg PO BID 06/08/18 06/11/18 History [Adderall] oxycodone 30 mg PO TID PRN 06/08/18 06/11/18 History Active Medications: Active Medications Acetaminophen (Tylenol) 650 mg PO Q4H PRN PRN Reason: Temp > 100.4 Al Hydroxide/Mg Hydroxide (Milk Of Magnesia Liq) 30 ml PO Q12H PRN PRN Reason: Mild Constipation Bisacodyl (Dulcolax Supp) 10 mg RECTAL DAILY PRN PRN Reason: SEVERE CONSITIPATION Cefepime HCl 1,000 mg/ Sodium (Chloride) 100 mls @ 200 mls/hr IV.SIG Q12H DEANNA Last Infusion: 06/11/18 08:20 Dose: Infused Sodium Chloride (Ns Inj) 1,000 mls @ 100 mls/hr IV.CONT .Q10H DEANNA Last Infusion: 06/11/18 12:03 Dose: 100 mls/hr Vancomycin HCl 1,250 mg/ (Sodium Chloride) 262.5 mls @ 250 mls/hr IV.SIG Q12H DEANNA Last Infusion: 06/11/18 13:23 Dose: Infused Lactulose (Lactulose Liq) 30 ml PO DAILY PRN PRN Reason: SEVERE CONSITIPATION Lorazepam (Ativan Inj) 1 mg IV.PUSH Q2H PRN PRN Reason: AGITATION/WITHDRAWAL Miscellaneous Information ([facility] Ordered Lab Info) 0 each OTHER ONCE@ 1245 ONE Stop: 06/12/18 12:46 Naloxone HCl (Narcan Inj) 0.4 mg IV.PUSH UNSCH PRN PRN Reason: SEE LABEL COMMENTS Ondansetron HCl (Zofran Inj) 4 mg IV.PUSH Q6H PRN PRN Reason: NAUSEA OR VOMITING Oxycodone HCl (Roxicodone) 5 mg PO Q4H PRN PRN Reason: PAIN SCALE 3 TO 5 Oxycodone HCl (Roxicodone) 10 mg PO Q4H PRN PRN Reason: PAIN SCALE 6 TO 10 Last Admin: 06/11/18 13:33 Dose: 10 mg Pharmacy Profile Note (Vancomycin Consult Pharmacy) 1 each OTHER UNSCH PRN PRN Reason: Pharmacy to dose Senna/Docusate Sodium (Ermelinda-Colace) 1 tab PO BID [facility] Last Admin: 06/11/18 09:17 Dose: 1 tab Sennosides (Senokot) 17.2 mg PO Q12H PRN PRN Reason: Moderate Constipation Sodium Chloride (Ns Flush) 2 ml IV.FLUSH BID [facility] Last Admin: 06/11/18 08:41 Dose: Not Given Sodium Chloride (Ns Flush) 2 ml IV.FLUSH PRN PRN PRN Reason: FLUSH AFTER USING IV ACCESS Physical Exam Vital signs: Vital Signs 06/11/18 00:34 06/11/18 07:20 06/11/18 08:00 Temperature 98.4 F 98.9 F 99.1 F Pulse Rate 73 69 66 Respiratory Rate 16 18 18 Blood Pressure 137/76 157/77 H 121/63 Pulse Oximetry 96 97 100 06/11/18 11:49 Temperature 96.2 F L Pulse Rate 75 Respiratory Rate 18 Blood Pressure 98/52 L Pulse Oximetry 96 Intake & Output 06/10/18 06/11/18 06/11/18 18:59 06:59 18:59 Intake Total 250 / 250 365 / 365 Balance 250 / 250 365 / 365 Weight 74 kg 75.3 kg Intake: IV 250 / 250 365 / 365 Maxipime Inj 1,000 MG In NS Inj 100 / 100 100 ML @ 200 mls/hr IV.SIG Q12H DEANNA Rx#:[id number] Vancomycin Inj 1,000 MG In NS 250 / 250 Inj 250 ML @ 250 mls/hr IV.SIG ONCE ONE Rx#:[id number] Vancomycin Inj 1,250 MG In NS 265 / 265 Inj 250 ML @ 250 mls/hr IV.SIG Q12H DEANNA Rx#:[id number] Other: Weight On Admission 75.3 kg Narrative: GENERAL: NAD, A&Ox3 HEAD: Normocephalic. NECK: Supple, trachea midline. No lymphadenopathy. EYES: No scleral icterus. No injection or drainage. CARDIOVASCULAR: Regular rate and rhythm without murmurs, gallops, or rubs. RESPIRATORY: Breath sounds equal bilaterally. No accessory muscle use. GASTROINTESTINAL: Abdomen soft, non-tender, nondistended. MUSCULOSKELETAL: No cyanosis, or edema. SKIN: Warm and dry. Improving lesion/cellulitis at left lower extremity, medially NEURO: No focal neurological deficits. Results Labs CBC & Chem 7: 06/11/18 04:50 06/11/18 04:50 Caprini VTE Risk Assessment Caprini VTE Risk Assessment: No/Low Risk (score <= 1) VTE Mechanical Exception: LE injury/wound Caprini Risk Assessment Model: Point Value = 1 Point Value = 2 Point Value = 3 Point Value = 5 Age 41-60 Minor surgery BMI > 25 kg/m2 Swollen legs Varicose veins or History of unexplained or recurrent spontaneous Oral contraceptives or hormone replacement Sepsis (< 1 month) Serious lung disease, including pneumonia (< 1 month) Abnormal pulmonary function Acute myocardial infarction Congestive heart failure (< 1 month) History of inflammatory bowel disease Medical patient at bed rest Age 61-74 Arthroscopic surgery Major open surgery (> 45 min) Laparoscopic surgery (> 45 min) Malignancy Confined to bed (> 72 hours) Immobilizing plaster cast Central venous access Age >= 75 History of VTE Family history of VTE Factor V Leiden Prothrombin [id number] Lupus anticoagulant Anticardiolipin antibodies Elevated serum homocysteine Heparin-induced thrombocytopenia Other congenital or acquired thrombophilia Stroke (< 1 month) Elective arthroplasty Hip, pelvis, or leg fracture Acute spinal cord injury (< 1 month) Prophylaxis Regimen: Total Risk Factor Score Risk Level Prophylaxis Regimen 0-1 Low Early ambulation 2 Moderate Order ONE of the following: *Sequential Compression Device (SCD) *Heparin 5000 units SQ BID 3-4 Higher Order ONE of the following medications: *Heparin 5000 units SQ TID *Enoxaparin/Lovenox 40 mg SQ daily (WT < 150 kg, CrCl > 30 mL/min) *Enoxaparin/Lovenox 30 mg SQ daily (WT < 150 kg, CrCl > 10-29 mL/min) *Enoxaparin/Lovenox 30 mg SQ BID (WT < 150 kg, CrCl > 30 mL/min) AND/OR *Sequential Compression Device (SCD) 5 or more Highest Order ONE of the following medications: *Heparin 5000 units SQ TID (Preferred with Epidurals) *Enoxaparin/Lovenox 40 mg SQ daily (WT < 150 kg, CrCl > 30 mL/min) *Enoxaparin/Lovenox 30 mg SQ daily (WT < 150 kg, CrCl > 10-29 mL/min) *Enoxaparin/Lovenox 30 mg SQ BID (WT < 150 kg, CrCl > 30 mL/min) AND *Sequential Compression Device (SCD) Assessment and Plan Plan 37-year-old female admitted secondary to concerns for positive blood culture. Positive blood culture This appears to be contaminant 1 of 4 cultures grew staph species No clinical findings on exam to suspect worsening infection No symptoms reported by the patient to suspect worsening infection Pattern does not match bacteremia Patient stable for discharge She is encouraged to continue her clindamycin She is encouraged to fill Bactrim and finish this course as well (Bactrim not filled yet) Discharge home today No a set of blood cultures will be followed for the next 48 hours. H&P: Quality VTE Deep Vein Thrombosis/Pulmonary Embolism Present on Admission: No
[2018-06-12] MEDS ORDERED: Pharmacy Ordered Lab Info OTHER ONE (12:45)
== END 2018-06-11 15:20 | disposition home or self-care (01) | DRG 603 ==
LOC: PHED 00:29 → PHEDA 06:28 → PH3 08:05
PROVIDERS: ADMIT Hospitalist; ATTEND Hospitalist
CPT/HCPCS: 80048; 83605; 85025; 87040; 90765; 96365; 99285; J0692; J3370; J7030; J7050